=== PATIENT | female | born 1965 | race Caucasian/White ===

== ENCOUNTER → 2025-05-02 | Outpatient (CLI) | payer MEDICARE, SELFPAY ==
--- NOTE | 2025-05-02 07:53 | CT_ITS ---
PROCEDURE: SINUS/FACIAL BONE 05/02/2025 REASON FOR EXAM: SINUSITIS History of prior sinus surgery. TECHNIQUE: SINUS/FACIAL BONE Coronal and Sagittal reconstruction series were provided. One or more dose reduction techniques were used (e.g., Automated exposure control, adjustment of the mA and/or kV according to patient size, use of iterative reconstruction technique). RADIATION DOSE SUMMARY: CTDlvol: 28.14 mGy DLP: 1151.17 mGycm COMPARISON: None FINDINGS: Frontal: Unremarkable Ethmoid: Prior surgery of the ethmoid sinuses. Opacification of the left ethmoid sinus. Mucosal thickening of the right ethmoid sinus. Sphenoid: Opacification of the left sphenoid sinus. Maxillary: Opacification of the left maxillary sinus with soft tissue extension into the left nasal fossa and ethmoid sinus. Turbinates: Renan bullosa of the right middle renan. Nasal Septum: Midline Mastoids/Middle Ears: Clear CT/Sinus/Facial Bone IMPRESSION: Sinusitis as described. Soft tissue fullness of the left maxillary sinus with extension into the left nasal fossa and left ethmoid sinus. Partial medial wall resection of both maxillary sinuses. Reading Location: [facility]
== END | disposition home or self-care (01) ==
LOC: CT 07:52
PROVIDERS: PCP Nurse Practitioner Family; Referring Provider Otolaryngology; Visit Provider Otolaryngology
DX: J32.8 Other chronic sinusitis (principal)
CPT/HCPCS: 70486

== ENCOUNTER → 2025-05-09 | Outpatient (CLI) | payer MEDICARE, SELFPAY | END | disposition home or self-care (01) | LOC: LABSPEC 15:25 | PROVIDERS: PCP Nurse Practitioner Family; Referring Provider Otolaryngology; Visit Provider Otolaryngology | DX: J32.9 Chronic sinusitis, unspecified (principal) | CPT/HCPCS: 87070; 87077; 87186; 87205 ==

== ENCOUNTER → 2025-06-27 | Outpatient (CLI) | payer MEDICARE, SELFPAY | END | disposition home or self-care (01) | LOC: LABSPEC 15:06 | PROVIDERS: PCP Nurse Practitioner Family; Referring Provider Otolaryngology; Visit Provider Otolaryngology | DX: J32.8 Other chronic sinusitis (principal) | CPT/HCPCS: 87070; 87077; 87186; 87205 ==

== ENCOUNTER 2025-08-13 10:29 | Day surgery (SDC) | payer MEDICARE, SELFPAY ==
--- NOTE | 2025-06-04 10:33 | NURSING ---
PT SAID SHE COULD "ABSOLUTELY NOT COME IN" BEFORE SURGERY TO DO EKG. PT NOT HAPPY THAT THEY WAITED UNTIL PAT TO GET LABS DONE. WILL DO DOS, PT AGREEABLE
[2025-06-11 10:29] VITALS: BP 175/108; PULSE 83; RESP 18; TEMP 36.9; O2SAT 100; BMI 42.5
--- NOTE | 2025-06-11 11:15 | NURSING ---
Surgery cancelled due to high blood pressures. Appointment with Dr. Espinal at [facility] in [place] scheduled for patient at 4:00pm.
[2025-08-13] VITALS (11 sets, daily range): BP systolic 136–161; BP diastolic 68–99; PULSE 86–99; RESP 14–16; TEMP 36.2–36.9; O2SAT 72–100; BMI 44.9
[2025-08-13] MEDS: Lactated Ringers 1,000 ML 15 ML IV (11:04)
--- NOTE | 2025-08-13 11:52 | PCM.PRE.AN2 ---
ASA Classification* ASA Classification ASA Classification: 3 (BMI > 40, Asthma, GERD, HTN, Lipoedema, Bare-Lieon syndrome, fibromyalgia) Assessment & Plan Anesthesia* Anesthesia Assessment Anesthesia Assessment: Discussed sedation and/or anesthesia options, risks, benefits, and alternatives with patient/parents/legal guardian/POA. Questions invited. The patient/parents/legal guardian/POA seems to understand and agrees to proceed with anesthesia plan. Reviewed the physical assessment, medical history, allergy history and patient home medications list prior to surgery/procedure/anesthetic and documented any changes. Performed airway and anesthesia risk assessments. Discussed patient's BP with surgeon. Patient held BP medications; had finger injury which resulted in being off medications. Surgeon would like to proceed but will abort if any complication with bleeding or BP Anesthesia Type Anesthesia Type: General History Source History Obtained from:: Patient and Chart Anesthesia Focused Assessment* Temperature: 98.2 F Pulse Rate: 86 Blood Pressure: 136/68 Respiratory Rate: 16 Pulse Ox: 100 Oxygen Delivery Method: Room Air Airway Assessment Mouth opens: >3 cm Mallampati Score: III Teeth Condition: Intact Neck Range of motion (ROM): Full ROM Labs Anesthesia Preop lab: CBC CHEMISTRY COAG Pre-Assessment Diagnosis/Proposed Procedure Planned Operative Procedure(s): FUNCTIONAL ENDOSCOPIC SINUS SURGERY WITH NAVIGATION Anesthesia History 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 When Was Last Pacemaker Check QUESTION #4 FULL TEXT: You/Your Family Experience fever (hyperthermia) with Anesthesia Last Oral Intake Last Oral intake: Last Oral Intake NPO since 23:45 08/13/25 11:09 Meds taken in AM with sips of No 06/11/25 10:29 water? 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 Female Yes 08/05/25 13:37 HX of Motion Sickness Yes 08/05/25 13:37 HX of N/V After Surgery No 08/05/25 13:37 Non-Smoker Yes 08/05/25 13:37 Duration of Surgery greater Yes 08/05/25 13:37 than 60 minutes Number of Risk Factors 4 08/05/25 13:37 PONV Score Severe Risk 08/05/25 13:37 Height & Weight Height & Weight: Anesthesia: Height & Weight Height 4 ft 8 in 08/13/25 11:09 Weight: 90.9 kg 08/13/25 11:09 Body Mass Index (BMI) 44.9 08/13/25 11:09 Respiratory Assessment Respiratory Assessment - microeconomics professor: Respiratory Tract Infection Hx - microeconomics professor Hx Respiratory Tract Infection No 08/05/25 13:37 STOP Sleep Apnea STOP Sleep Apnea - microeconomics professor: STOP Sleep Apnea - microeconomics professor Hx Hypertension Yes: STARTED ON BP PILL 1 08/05/25 13:37 MONTH AGO Hx Sleep Apnea No 08/05/25 13:37 CPAP BIPAP Do you snore loudly (louder No 08/05/25 13:37 than talking or can be heard Do you often feel tired/ No 08/05/25 13:37 fatigued/ sleepy during daytime? Has anyone observed you stop No 08/05/25 13:37 breathing during sleep? STOP Results Negative 08/05/25 13:37 QUESTION #5 FULL TEXT : Do you snore loudly (louder than talking or can be heard through closed doors)? 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 Specify any problems Hx of Preganancy in last 3 No 08/05/25 13:37 Months Nurse Filling Out Transfusion DSCHRIBER 08/05/25 13:37 & Questions: Date: 08/05/25 08/05/25 13:37 Time: 13:37 08/05/25 13:37 Patient unable to answer at this time (ie. confused, unrespo /Reproduction History /Reproductive History - microeconomics professor: /Reproductive Hx- microeconomics professor Hx Now No 08/05/25 13:37 Gestational Age (in weeks): EDC: Hx Hx Para Hx Section SAB No 08/05/25 13:37 Does the father of the baby or his family experience fever w Father of the baby Malignant Hypertension history comment Active Medications Active Medications: Current Medications Generic Name Dose Route Start Last Admin Trade Name Freq PRN Reason Stop Dose Admin Clindamycin Phosphate 900 mg in 50 mls @ 75 mls/hr 08/13/25 12:30 Cleocin IV 08/13/25 13:09 INTRAOP ONE Lactated Ringer's 1,000 mls @ 15 mls/hr 08/13/25 10:45 08/13/25 11:04 IV 15 mls/hr .Q48H ASHISH Administration PFSH Medical History (Updated 08/05/25 @ 13:36 by Sheri Zhou) H. pylori infection Lipoedema Hypertension delivery delivered Carpal tunnel syndrome Deviated septum Anxiety Alcohol use History of steroid therapy Incontinence Ambulates with cane High cholesterol Degenerative disc disease Osteoporosis Fibromyalgia Jameson-Lieou syndrome Back pain Injury of head and neck Umbilical hernia History of hiatal hernia Dietary restriction Gastric reflux Former smoker Shortness of breath on exertion Hoarseness Asthma History of echocardiogram History of stress test History of edema Vertigo Home Medications Medication Instructions Recorded Last Taken Type cholecalciferol (vitamin D3) 1,250 1,250 mcg PO .Q2WEEK 06/04/25 Unknown History mcg (50,000 unit) capsule esomeprazole magnesium 40 mg 40 mg PO DAILY PRN GERD 06/04/25 Unknown History capsule,delayed release ibuprofen 800 mg tablet 800 mg PO BID 06/04/25 05/18/25 History meclizine 25 mg tablet 25 mg PO TID PRN PRN vertigo 06/04/25 Unknown History albuterol sulfate 90 mcg/actuation 2 puff inhalation 4X/DAY PRN PRN 08/05/25 Unknown History aerosol inhaler wheezing atorvastatin 10 mg tablet 10 mg PO DAILY 08/05/25 Unknown History coenzyme Q10 100 mg capsule 100 mg PO DAILY 08/05/25 Unknown History losartan 100 1 tab PO DAILY 08/05/25 Unknown History mg-hydrochlorothiazide 25 mg tablet potassium chloride 20 mEq 20 meq PO BID 08/05/25 Unknown History tablet,extended release(part/cryst) cephalexin 500 mg capsule 500 mg PO Q6H 08/13/25 08/12/25 History Allergy/AdvReac Type Severity Reaction Status Date / Time acetaminophen (From Vicodin) Allergy Hives Verified 08/13/25 11:00 corn Allergy Hives Verified 08/13/25 11:00 egg Allergy Nausea Verified 08/13/25 11:00 hydrocodone (From Vicodin) Allergy Hives Verified 08/13/25 11:00 milk (dairy) Allergy Diarrhea Verified 08/13/25 11:00 peanut (peanuts) Allergy Shortness Verified 08/13/25 11:00 of breath wheat Allergy HIVES Verified 08/13/25 11:00 meperidine (From Demerol) AdvReac Severe Nausea Verified 08/13/25 11:00 celecoxib (From Celebrex) AdvReac Intermediate Nausea Verified 08/13/25 11:00 ciprofloxacin (From Cipro) AdvReac Other Verified 08/13/25 11:00 levofloxacin (From Levaquin) AdvReac joint pain Verified 08/13/25 11:00 morphine AdvReac Itching Verified 08/13/25 11:00 Surgical History (Updated 08/05/25 @ 13:36 by Sheri Zhou) Hx of colonoscopy H/O: hysterectomy H/O bilateral breast reduction surgery H/O oophorectomy Hx laparoscopic cholecystectomy History of tonsillectomy and adenoidectomy H/O sinus surgery H/O abdominoplasty Social History Smoking Status: Never smoker Review of Systems (Anesthesia) ROS Narrative System reviewed and no additional complaints, except as documented. Physical Exam Const alert and oriented x3 Nutritional Appearance: obese Resp normal respiratory effort, normal air movement and clear to auscultation bilaterally Cardio regular rate, regular rhythm and no murmurs
[2025-08-13 12:01] LABS: Hematocrit 40.1 % (37-47); Hemoglobin 13.0 g/dL (12.0-15.0); Mean Corp Hgb Conc 32.4 g/dL (32-36); Mean Corpuscular Volume 90.3 fL (81-99); Mean Platelet Vol. 10.0 fl (6.2-12.0); Platelet Count 202 K/mm3 (150-450); RBC Distribution Width CV 12.4 % (11.6-14.6); RBC Distribution Width SD 41.2 fl (35.1-43.9); Red Blood Count 4.44 M/mm3 (4.2-5.4); White Blood Count 6.0 K/mm3 (4.4-11.0)
--- OUTSIDE RECORDS SUMMARY | 2025-08-13 12:09 | XMS RPT_ITS | CCD ---
Author Organization [facility] Care Team Providers Care Medical Writer Name Role Phone ELOY LINCOLN Attending Unavailable IMCA Referring Unavailable IMCA Primary Care Unavailable PAPBRANNON BANERJEE Attending Unavailable ELOY LINCOLN Referring Unavailable IMCA Primary Care Unavailable PAPBRANNON BANERJEE Attending Unavailable IMCA Referring Unavailable IMCA Primary Care Unavailable BRANNON GARCIA Admitting Unavailable PAPBRANNON BANERJEE Attending Unavailable IMCA Primary Care Unavailable PAPBRANNON BANERJEE Referring Unavailable IMCA Primary Care Unavailable PAPBRANNON BANERJEE Attending Unavailable IMCA Referring Unavailable IMCA Primary Care Unavailable BRANNON GARCIA Admitting Unavailable PAPBRANNON BANERJEE Attending Unavailable IMCA Primary Care Unavailable HARDEEP SORT WORKER-VINYL DIPPER [place] Primary Care Physician Martha Carlos PT Unavailable Unavailable HARDEEP DAVILA-LAISHA [place] Primary Care Physician HARDEEP ROGERS [place] Primary Care Physician Hardeep INTERIANO [place] Primary Care Provider Hardeep INTERIANO [place] Primary Care Provider Suzette Barrera Primary Care Provider Hardeep Toshia Primary Care Provider [phone] Elie SORT WORKER - VINYL DIPPER, Lidia Unavailable Hardeep INTERIANO [place] Primary Care Provider Elie SORT WORKER - VINYL DIPPER, Lidia Unavailable [phone] TOSHIA MEIER Primary Care Unavailable LIDIA BLANCA Attending Unavailable LIDIA BLANCA Referring Unavailable JANE JACOB Attending Unavailable HARDEEP TOSHIA Primary Care Unavailable TOSHIA MEIER Referring Unavailable HARDEEP TOSHIA Primary Care Unavailable LIDIA BLANCA Attending Unavailable Hardeep INTERIANO [place] Primary Care Provider HARDEEP TOSHIA Primary Care Unavailable BRANNON GARCIA Referring Unavail able LORSON SORT WORKER-VINYL DIPPER, TOSHIA Attending Unavail able LORSON SORT WORKER-VINYL DIPPER, [place] Primary Care Unavail able LORSON SORT WORKER-VINYL DIPPER, TOSHIA Attending Unavail able LORSON SORT WORKER-VINYL DIPPER, [facility] Care Unavail able BRANNON GRANADOS MD Consulting Unavail able CHOUJAA DO, NIDALEXYS Attending Unavailable LORSON SORT WORKER-VINYL DIPPER, [place] Primary Care Unavail able CHORADHA ARMIJO, CHRISTIANO Attending Unavailable LORSON SORT WORKER-VINYL DIPPER, [facility] Care Unavail able LORSON SORT WORKER-VINYL DIPPER, TOSHIA Attending Unavail able LORSON SORT WORKER-VINYL DIPPER, [facility] Care Unavail able PAPBRANNON BANERJEE [facility] PAP[facility]ON BANERJEE Attending Unavail able PAPOURBRANNON TAYLOR Referring Unavail able LORSON, [facility] Care Unavailable PAPBRANNON BANERJEE Attending Unavail able LORSON, [facility] Care Unavailable ELZA RODRIGES Attending Unavailable TOSHIA MEIER Referring Unavailable ELZA RODRIGES Referring Unavailable ELZA RODRIGES Attending Unavailable Lorson METAL HANGING SUPERVISOR-C, [facility] Care Provider [phone] Josiah BUENO, Dr. Isaacs Attending Provider Josiah BUENO, Dr. Isaacs Referring Provider LORSON SORT WORKER-VINYL DIPPER, TOSHIA Attending Unavail able LORSON SORT WORKER-VINYL DIPPER, [facility] Care Unavail able LORSON SORT WORKER-VINYL DIPPER, [facility] Care Unavail able LORSON SORT WORKER-VINYL DIPPER, TOSHIA Attending Unavail able LORSON SORT WORKER-VINYL DIPPER, TOSHIA Attending Unavail able LORSON SORT WORKER-VINYL DIPPER, [facility] Care Unavail able LORSON SORT WORKER-VINYL DIPPER, [place] Primary Care Unavail able MARTHA AGUILAR DO Attending Unavailable LORSON SORT WORKER-VINYL DIPPER, TOSHIA Attending Unavail able LORSON SORT WORKER-VINYL DIPPER, [facility] Care Unavail able LORSON SORT WORKER-VINYL DIPPER, TOSHIA Attending Unavail able LORSON SORT WORKER-VINYL DIPPER, [facility] Care [facility] Un[facility] Ferny Rahman Attending Unavailsid e Hardeep METAL HANGING SUPERVISOR, [facility] Unavailable Ferny Rahman Referring Unavailabl e Ferny Rahman Referring Unavailabl e Hardeep METAL HANGING SUPERVISOR, [facility] Unavailable Ferny Rahman Attending Cipriano Rahman, Ferny Referring Cipriano Meier NP, [facility] Unavailable Ferny Rahman Attending Cipriano Rahman, Ferny Referring Cipriano Meier NP, [facility] Unavailable Ferny Rahman Attending Cipriano coelho Allergies Allergy Classification Reported Allergen(s) Allergy Type Date of Onset Reaction(s) Facility (20 sources) Acetaminophen / HYDROcodone; Translations: [HYDROCODONE-ACETAM INOPHEN] Drug Allergy 01-28-20 16 [facility] Repository (20 sources) buPROPion; Translations: [BUPROPION HCL] Drug Allergy 01-28-20 16 GI Upset [facility] Repository (20 sources) cefdinir; Translations: [CEFDINIR] Drug Allergy 01-28-20 16 Nausea (finding), GI Upset, Nausea Only [facility] Repository (20 sources) Ciprofloxacin; Translations: [CIPROFLOXACIN] Drug Allergy 01-28-20 16 GI Upset, Myalgia [facility] Repository (20 sources) Coconut extract; Translations: [COCONUT] Drug Allergy 01-28-20 16 [facility] Repository (20 sources) corn extract; Translations: [CORN] Drug Allergy 01-28-20 16 Nausea (finding), Hives, Swelling [facility] Repository (20 sources) egg extract; Translations: [EGG] Drug Allergy 01-28-20 16 GI Upset [facility] Repository (20 sources) Lactase; Translations: [LACTASE] Drug Allergy 01-28-20 16 GI Upset [facility] Repository (20 sources) meloxicam; Translations: [MELOXICAM] Drug Allergy 01-28-20 16 GI Upset [facility] Repository (20 sources) Meperidine; Translations: [MEPERIDINE (PF)] Drug Allergy 01-28-20 16 GI Upset [facility] Repository (20 sources) Morphine; Translations: [MORPHINE] Drug Allergy 01-28-20 16 Itching [facility] Repository (20 sources) Omeprazole; Translations: [OMEPRAZOLE] Drug Allergy 01-28-20 16 [facility] Repository (20 sources) peanut; Translations: [PEANUTS] Propensity to adverse reactions (disorder) 01-28-20 16 Shortness of Breath, GI Upset [facility] Repository (20 sources) tiZANidine; Translations: [TIZANIDINE] Drug Allergy 01-28-20 16 [facility] Repository (20 sources) Wheat preparation; Translations: [WHEAT] Drug Allergy 01-28-20 16 Anaphylaxis (disorder), Unknown, Anaphylaxis [facility] Repository (18 sources) Acetaminophen / HYDROcodone; Translations: [acetaminophen-hydr ocodone] Drug Allergy [facility] (19 sources) Amoxicillin; Translations: [amoxicillin] Drug Allergy 03-01-20 23 "very sick" [facility] (20 sources) busPIRone; Translations: [buspirone] Drug Allergy 07-20-20 22 Other: See Comments [facility] (18 sources) Egg Food allergy Anaphylaxis (disorder) [facility] (20 sources) Lidocaine; Translations: [lidocaine] Drug Allergy 07-21-20 22 [facility] (20 sources) Lisinopril; Translations: [lisinopril] Drug Allergy 07-20-20 22 Palpitations (finding), Other: See Comments [facility] (20 sources) Meperidine; Translations: [meperidine] Drug Allergy 01-28-20 16 [facility] (20 sources) NITROFURANTOIN, MACROCRYSTALS / Nitrofurantoin, Monohydrate; Translations: [nitrofurantoin] Drug Allergy 07-20-20 22 Anaphylaxis (disorder) [facility] (20 sources) [place] Food allergy 03-01-20 23 Unknown (qualifier value) [facility] (18 sources) Milk Products Food allergy Nausea [facility] (20 sources) [place] fruit; Translations: [CITRUS AND DERIVATIVES] Drug Allergy 07-21-20 22 Other: See Comments [facility] (15 sources) levothyroxine; Translations: [LEVOTHYROXINE SODIUM] Drug Allergy 07-20-20 22 GI Upset, Other: See Comments [facility] (20 sources) Milk Drug Allergy 07-20-20 22 GI Upset [facility] (20 sources) Nitrofurantoin Drug Allergy 07-20-20 22 Anaphylaxis [facility] (20 sources) Sulfamethoxazole / Trimethoprim; Translations: [sulfamethoxazole-t rimethoprim] Drug Allergy 11-09-19 23 Weal (disorder), Palpitations (finding), Hives, Other: See Comments, Palpitations [facility] (8 sources) Acetaminophen; Translations: [ACETAMINOPHEN] Drug Allergy 12-18-19 19 Other: See Comments [facility] (8 sources) [place] Oil; Translations: [CORN OIL] Drug Allergy 01-28-20 16 Hives, Nausea Only, Swelling [facility] (7 sources) Egg Allergy to substance 01-28-20 16 [facility] (8 sources) Lactose (non-medical use); Translations: [LACTOSE] Allergy to substance 03-01-20 [facility] (7 sources) Lisinopril Allergy to substance 07-20-20 22 Palpitations [facility] (7 sources) peanut allergenic extract Drug Allergy 01-28-20 16 Shortness of breath [facility] (5 sources) WHEAT DEXTRIN Drug Allergy 01-28-20 16 Anaphylaxis [facility] (7 sources) Other Allergy to substance 03-01-20 23 [facility] (4 sources) Sulfamethoxazole / Trimethoprim; Translations: [SULFAMETHOXAZOLE-T RIMETHOPRIM] Drug Allergy 11-09-19 23 [facility] Repository (3 sources) MILK CONTAINING PRODUCTS (DAIRY); Translations: [MILK CONTAINING PRODUCTS (DAIRY)] Propensity to adverse reactions to drug (disorder) 07-20-20 22 [facility] Repository (1 source) buPROPion; Translations: [BUPROPION] Drug Allergy 01-28-20 16 [facility] Repository (1 source) egg shell; Translations: [EGG SHELLS] Propensity to adverse reactions to drug (disorder) 06-26-20 [facility] Repository (1 source) Meperidine; Translations: [MEPERIDINE HCL] Drug Allergy 06-26-20 24 [facility] Repository (1 source) NUT ALLERGY; Translations: [NUT ALLERGY] Propensity to adverse reactions to drug (disorder) 01-28-20 16 [facility] Repository (1 source) COCONUT FATTY ACID; Translations: [COCONUT FATTY ACID] Propensity to adverse reactions to drug (disorder) 01-28-20 16 [facility] Repository (1 source) TILACTASE; Translations: [TILACTASE] Propensity to adverse reactions to drug (disorder) 01-28-20 16 [facility] Repository (3 sources) celecoxib; Translations: [celecoxib] Drug Allergy Palpitations (finding) [facility] (3 sources) levoFLOXacin; Translations: [levofloxacin] Drug Allergy Pain (finding) [facility] (1 source) Acetaminophen Drug Allergy 06-11-20 [facility] Repository (1 source) celecoxib Drug Allergy 08-05-20 [facility] Repository (1 source) HYDROcodone Drug Allergy 06-11-20 25 [facility] (1 source) levoFLOXacin Drug Allergy 06-11-20 [facility] Repository (1 source) Meperidine Drug Allergy 08-05-20 [facility] Repository (1 source) Milk Drug allergy (disorder) 06-11-20 [facility] Repository (1 source) peanut allergenic extract Drug Allergy 06-11-20 [facility] Repository Medications Current Medications Medication Drug Class(es) Dates Sig (Normalized) Sig (Original) Albuterol (20 sources) beta2-Adrenergic Agonist Start: 12-04-2024 take 2 puff(s) by inhalation four times daily as needed for wheezing Ventolin HFA MDI (90 mcg/inh) inhalation aerosol 2 puff(s), Inhalation, QID, PRN as needed for wheezing, # 1 EA, 0 Refill(s), [facility]: [id number], 144, cm, 12/04/24 7:55:00 EST, Height, kg, 12/04/24 7:55:00 EST, Dosing Weight Start Date: 12/04/24 Status: Ordered Medication Dispense Status: Completed Quantity: 1.0 Unit: EA Total Allowed Fills: 1 Fills Dispensed: 0 Start: 01-31-2024 take 2 puff(s) by in halation four times daily as needed for wheezing Ventolin HFA MDI (90 mcg/inh) inhalation aerosol 2 puff(s), Inhalation, QID, PRN as needed for wheezing, # 1 EA, 0 Refill(s), [facility]: [id number], 145, cm, 01/31/24 8:02:00 EDT, Height, kg, 01/31/24 8:02:00 EDT, Dosing Weight Start Date: 01/31/24 Status: Ordered Start: 01-17-2024 take 1 dose by inhal ation four times daily albuterol 2.5 mg/3 mL (0.083%) inhalation solution Dose : 2.5 mg = 3 mL, Inhalation, QID, # 120 EA, 0 Refill(s), [facility]: [id number], 145, cm, 01/17/24 7:55:00 EDT, Height, kg, 01/17/24 7:55:00 EDT, Dosing Weight Start Date: 01/17/24 Status: Ordered Start: 10-19-2022 End: 03-09-2023 take 2 puff(s) by mouth four times daily as needed for wheezing albuterol 108 (90 Base) MCG/ACT inhaler INHALE TWO PUFFS BY MOUTH FOUR TIMES A DAY NEEDED FOR WHEEZING 0 10/19/2022 03/09/2023 Discontinued (Therapy completed) Start: 10-19-2022 take 2 puff(s) by in halation four times daily as needed for wheezing Ventolin HFA MDI (90 mcg/inh) inhalation aerosol 2 puff(s), Inhalation, QID, PRN as needed for wheezing, # 1 EA, 0 Refill(s), [facility]: [id number], 145.5, cm, 10/19/22 8:22:00 EST, Height, kg, 10/19/22 8:22:00 EST, Dosing Weight Start Date: 10/19/22 Status: Ordered Start: 07-07-2022 take 1 puff(s) by in halation every four hours as needed for wheezing VENTOLIN HFA 90 mcg/actuation inhaler Inhale 1 Puff as instructed every 4 hours as needed for wheezing/shortness of breath. 07/07/2022 Active Start: 07-07-2022 End: 03-09-2023 take 1 puff(s) by inhalation every four hours as needed albuterol (Ventolin HFA) 108 (90 Base) MCG/ACT inhaler Inhale 1 puff every 4 hours as needed. 0 07/07/2022 03/09/2023 Discontinued (Therapy completed) Start: 07-07-2022 take 2 puff(s) by in halation four times daily as needed for wheezing Ventolin HFA MDI (90 mcg/inh) inhalation aerosol 2 puff(s), Inhalation, QID, PRN as needed for wheezing, # 1 EA, 0 Refill(s), [facility]: [facility], 145.5, cm, 07/07/22 7:58:00 EDT, Height, kg, 07/07/22 7:58:00 EDT, Dosing Weight Start Date: 07/07/22 Status: Ordered Start: 05-19-2022 take 1 dose by inhal ation four times daily albuterol 2.5 mg/3 mL (0.083%) inhalation solution Dose : 2.5 mg = 3 mL, Inhalation, QID, # 120 EA, 0 Refill(s), [facility]: [facility], 144.4, cm, 05/19/22 7:00:00 EDT, Height, kg, 05/19/22 7:00:00 EDT, Dosing Weight Start Date: 05/19/22 Status: Ordered Start: 10-30-2021 take 1 dose by inhal ation four times daily albuterol 2.5 mg/3 mL (0.083%) inhalation solution Dose : 2.5 mg = 3 mL, Inhalation, QID, # 120 EA, 0 Refill(s), [facility]: [facility], 143, cm, 10/20/21 9:26:00 EST, Height, kg, 10/20/21 9:26:00 EST, Dosing Weight Start Date: 10/30/21 Status: Ordered Start: 10-30-2021 take 2 puff(s) by in halation four times daily as needed for wheezing Ventolin HFA MDI (90 mcg/inh) inhalation aerosol 2 puff(s), Inhalation, QID, PRN as needed for wheezing, # 1 EA, 0 Refill(s), [facility]: [facility], 143, cm, 10/20/21 9:26:00 EST, Height, kg, 10/20/21 9:26:00 EST, Dosing Weight Start Date: 10/30/21 Status: Ordered Start: 10-30-2021 take 1 dose by inhal ation four times daily albuterol 2.5 mg/3 mL (0.083%) inhalation solution Dose : 2.5 mg = 3 mL, Inhalation, QID, # 120 EA, 0 Refill(s), [facility]: [facility], 143, cm, 10/20/21 9:26:00 EST, Height, kg, 10/20/21 9:26:00 EST, Dosing Weight Start Date: 10/30/21 Status: Ordered Start: 03-16-2021 take 2 puff(s) by in halation four times daily as needed for wheezing Ventolin HFA MDI (90 mcg/inh) inhalation aerosol 2 puff(s), Inhalation, QID, PRN as needed for wheezing, # 1 EA, 0 Refill(s), [facility]: [facility], 142.2, cm, 02/18/21 13:22:00 EDT, Height, kg, 02/18/21 13:22:00 EDT, Dosing Weight Start Date: 03/16/21 Status: Ordered Start: 12-26-2019 take 2.5 mg by inhal ation every six hours as needed albuterol (PROVENTIL) 2.5 mg /3 mL (0.083 %) nebulizer solution Use 2.5 mg via nebulizer four times daily as needed. 12/26/2019 Active Start: 12-26-2019 take 1 dose by inhal ation four times daily albuterol 2.5 mg/3 mL (0.083%) inhalation solution Dose : 2.5 mg = 3 mL, Inhalation, QID, # 120 EA, 0 Refill(s), [facility]: [facility], 142.2, cm, 10/30/19 8:41:00 EST, Height, kg, 11/13/19 15:15:00 EST, Dosing Weight Start Date: 12/26/19 Status: Ordered Comment on above: Inhale 1 Puff as ins tructed every 4 hours as needed for wheezing/shortness of breath. Use 2.5 mg via nebul izer four times daily as needed. atorvastatin 10 mg oral tablet (3 sources) HMG-CoA Reductase Inhibitor Start: 2024 End: 2025 atorvastatin 10 mg oral tablet Dose : 10 mg = 1 tab(s), Oral, qDay, # 90 tab(s), 3 Refill(s), [facility]: [facility], 144, cm, 03/18/25 7:37:00 EDT, Height, kg, 03/18/25 7:37:00 EDT, Dosing Weight Start Date: 03/18/25 Stop Date: 03/13/26 Status: Ordered Medication Dispense Status: Completed Quantity: 90.0 Unit: tab(s) Total Allowed Fills: 4 Fills Dispensed: 0 azelastine hydrochloride 0.137 mg/actuat metered dose nasal spray (3 sources) Histamine-1 Receptor Antagonist Start: 2023 azelastine 137 mcg/inh (0.1%) nasal spray 137 mcg Dose = 1 spray(s), Intranasal, BID, # 30 mL, 11 Refill(s), [facility]: [facility], Allergic rhinitis, 142, cm, 09/10/24 8:12:00 EST, Height, kg, 09/10/24 8:12:00 EST, Dosing Weight Start Date: 09/10/24 Status: Ordered Medication Dispense Status: Completed Quantity: 30.0 Unit: mL Total Allowed Fills: 12 Fills Dispensed: 0 Indications: Allergic rhinitis, unspecified; bismuth subsalicylate 262 mg chewable tablet (3 sources) Bismuth Start: 2023 End: 2023 take 2 tablets by mouth four times daily bismuth subsalicylate (PEPTO-BISMOL) 262 mg chewable tablet Take 2 tablets by mouth four times daily for 10 days. 80 tablet 0 02/07/2024 Active Blood Pressure Cuff (3 sources) Start: 2024 Blood Pressure Cuff See Instructions, Check and Log Blood Pressure Daily, # 1 EA, 0 Refill(s), [facility]: [id number], Essential hypertension, 144, cm, 05/29/25 14:14:00 EDT, Height, 87.2, kg, 06/11/25 13:25:00 EDT, Dosing Weight Start Date: 06/11/25 Status: Ordered Medication Dispense Status: Completed Quantity: 1.0 Unit: EA Total Allowed Fills: 1 Fills Dispensed: 0 Indications: Essential (primary) hypertension; cephalexin 500 mg oral capsule (1 source) Cephalosporin Antibacterial Start: 2021 End: 2021 cephalexin 500 mg oral capsule Dose : 500 mg = 1 cap(s), Oral, q12h, X 5 day(s), # 10 cap(s), 0 Refill(s), 04/12/22 7:33:00 EDT, [facility]acy: [id number], 145.2, cm, 04/07/22 6:58:00 EDT, Height, 83 Start Date: 04/07/22 Stop Date: 04/12/22 Status: Ordered cholecalciferol 1.25 mg oral capsule (20 sources) Vitamin D Start: 2024 cholecalciferol 1250 mcg (50,000 intl units) oral capsule Dose : 1,250 mcg = 1 cap(s), Oral, every other week, # 12 cap(s), 3 Refill(s), [facility]: [id number], 144, cm, 03/18/25 7:37:00 EDT, Height, kg, 03/18/25 7:37:00 EDT, Dosing Weight Start Date: 03/18/25 Status: Ordered Medication Dispense Status: Completed Quantity: 12.0 Unit: cap(s) Total Allowed Fills: 4 Fills Dispensed: 0 Start: 01-31-2024 cholecalcifero l 1250 mcg (50,000 intl units) oral capsule Dose : 1,250 mcg = 1 cap(s), Oral, every other week, # 12 cap(s), 3 Refill(s), [facility]: [facility], 145, cm, 01/31/24 8:02:00 EDT, Height, kg, 01/31/24 8:02:00 EDT, Dosing Weight Start Date: 01/31/24 Status: Ordered take 1 tablet by kristi once daily cholecalciferol (VITAMIN D3) 2,000 unit tablet Take 2,000 Units by mouth once daily. Active Comment on above: Take 2,000 Units by mouth once daily. Co Q-10 100 mg oral capsule (3 sources) Start: 03-18-2025 Co Q-10 100 mg oral capsule Dose : 100 mg = 1 cap(s), Oral, Daily, # 30 cap(s), 0 Refill(s), [facility]: [facility], 144, cm, 03/18/25 7:37:00 EDT, Height, kg, 03/18/25 7:37:00 EDT, Dosing Weight Start Date: 03/18/25 Status: Ordered Medication Dispense Status: Completed Quantity: 30.0 Unit: cap(s) Total Allowed Fills: 1 Fills Dispensed: 0 diclofenac sodium 75 mg delayed release oral tablet (9 sources) Nonsteroidal Anti-inflammatory Drug Start: 05-03-2023 diclofenac sodium 75 mg oral delayed release tablet Dose : 75 mg = 1 tab(s), Oral, BID, # 60 tab(s), 0 Refill(s), [facility]: [facility], 145.5, cm, 10/19/22 8:22:00 EST, Height, kg, 12/18/22 8:23:00 EDT, Dosing Weight Start Date: 05/03/23 Status: Ordered Start: 06-16-2022 diclofenac (VO LTAREN) 1 % topical gel Apply 1 simón, Topical, QID, # 100 gram(s), 0 Refill(s), [facility]: [facility], [facility], 145.9, cm, 06/16/22 7:27:00 EDT, Height, 83.3 0 06/16/2022 Active Comment on above: Apply 1 simón, Topical, QID, # 100 gram(s), 0 Refill(s), [facility]: [facility], [facility], 145.9, cm, 06/16/22 7:27:00 EDT, Height, 83.3 dicyclomine hydrochloride 20 mg oral tablet (20 sources) Anticholinergic Start: 05-19-20 take 1 tablet by mouth four times daily dicyclomine 20 mg oral tablet See Instructions, TAKE ONE TABLET BY MOUTH FOUR TIMES A DAY, # 120 tab(s), 5 Refill(s), [facility]: [facility], 145.5, cm, 10/19/22 8:22:00 EST, Height, kg, 10/19/22 8:22:00 EST, Dosing Weight Start Date: 10/19/22 Status: Ordered Medication Dispense Status: Completed Quantity: 120.0 Unit: tab(s) Total Allowed Fills: 6 Fills Dispensed: 0 Start: 03-29-2022 take 1 tablet by kristi th four times daily dicyclomine 20 mg oral tablet See Instructions, TAKE ONE TABLET BY MOUTH FOUR TIMES A DAY, # 120 tab(s), 5 Refill(s), [facility]: [facility], 144, cm, 01/21/22 13:07:00 EDT, Height, kg, 01/21/22 13:07:00 EDT, Dosing Weight Start Date: 03/29/22 Status: Ordered Start: 10-30-2021 take 1 tablet by kristi four times daily dicyclomine 20 mg oral tablet See Instructions, TAKE ONE TABLET BY MOUTH FOUR TIMES A DAY, # 120 tab(s), 5 Refill(s), [facility]: [facility], 143, cm, 10/20/21 9:26:00 EST, Height, kg, 10/20/21 9:26:00 EST, Dosing Weight Start Date: 10/30/21 Status: Ordered Start: 04-21-2021 take 1 tablet by kristi four times daily dicyclomine 20 mg oral tablet See Instructions, TAKE ONE TABLET BY MOUTH FOUR TIMES A DAY, # 120 tab(s), 5 Refill(s), [facility]: [facility], 144.5, cm, 04/21/21 9:34:00 EDT, Height, kg, 04/21/21 9:34:00 EDT, Dosing Weight Start Date: 04/21/21 Status: Ordered Comment on above: TAKE ONE TABLET BY [facility] FOUR TIMES A DAY Ergocalciferol (7 sources) Provitamin D2 Compound Ergocalciferol (SUSANNA MIN D2 PO) Take by mouth. 0 Active esomeprazole 40 mg delayed release oral capsule (20 sources) Proton Pump Inhibitor Start: 07-25-2025 NexIUM 40 mg oral delayed release capsule Dose : 40 mg = 1 cap(s), Oral, qDay, in lieu of pcp, # 30 cap(s), 0 Refill(s), [facility]: [id number], 145, cm, 07/17/25 7:53:00 EDT, Height, kg, 07/17/25 7:53:00 EDT, Dosing Weight Start Date: 07/25/25 Status: Ordered Medication Dispense Status: Completed Quantity: 30.0 Unit: cap(s) Total Allowed Fills: 1 Fills Dispensed: 0 Start: 02-13-2025 NexIUM 40 mg o ral delayed release capsule Dose : 40 mg = 1 cap(s), Oral, qDay, # 30 cap(s), 5 Refill(s), [facility]: [id number], 144, cm, 01/29/25 7:59:00 EDT, Height, kg, 01/29/25 7:59:00 EDT, Dosing Weight Start Date: 02/13/25 Status: Ordered Medication Dispense Status: Completed Quantity: 30.0 Unit: cap(s) Total Allowed Fills: 6 Fills Dispensed: 0 Start: 01-31-2024 NexIUM Oral, q Day, 0 Refill(s) Start Date: 01/31/24 Status: Ordered Start: 08-01-2018 take 1 capsule by mo uth once daily before breakfast esomeprazole (NEXIUM) 20 mg capsule TAKE 1 CAPSULE BY MOUTH DAILY BEFORE BREAKFAST 90 capsule 11 08/01/2018 Active Comment on above: TAKE 1 CAPSULE BY MO UTH DAILY BEFORE BREAKFAST Take 20 mg by mouth daily at 6 am. fluconazole 150 mg oral tablet (17 sources) Azole Antifungal Start: 10-19-2022 End: 03-09-2023 fluconazole (DIFLUCAN) 150 mg tablet TAKE ONE TABLET BY MOUTH EVERY 72 HOURS 10/19/2022 Active Start: 08-23-2022 End: 08-24-2022 Diflucan 150 mg oral tablet Dose : 150 mg = 1 tab(s), Oral, q72h, # 2 tab(s), 0 Refill(s), [facility]: [facility], 145.5, cm, 08/23/22 7:25:00 EST, Height, 82.8 Start Date: 08/23/22 Stop Date: 08/24/22 Status: Ordered Comment on above: TAKE ONE TABLET BY M OUTH EVERY 72 HOURS fluticasone propionate 0.05 mg/actuat metered dose nasal spray (3 sources) Corticosteroid Start: 5 End: 6 take 100 ug nasal route once daily fluticasone 50 mcg/inh NASAL spray 100 mcg Dose = 2 spray(s), Nostril, each, qDay, shake well before using, # 16 gram(s), 11 Refill(s), [facility]: [facility], Allergic rhinitis, 144, cm, 03/18/25 7:37:00 EDT, Height, kg, 03/18/25 7:37:00 EDT, Dosing Weight Start Date: 03/18/25 Stop Date: 03/13/26 Status: Ordered Medication Dispense Status: Completed Quantity: 16.0 Unit: g Total Allowed Fills: 12 Fills Dispensed: 0 Indications: Allergic rhinitis, unspecified; furosemide 20 mg oral tablet (8 sources) Loop Diuretic Start: furosemide 20 mg oral tablet Dose : 20 mg = 1 tab(s), Oral, qDay, # 90 tab(s), 3 Refill(s), [facility]: [facility], 145, cm, 01/31/24 8:02:00 EDT, Height, kg, 01/31/24 8:02:00 EDT, Dosing Weight Start Date: 01/31/24 Status: Ordered Start: 01-17-2024 furosemide 20 mg oral tablet Dose : 20 mg = 1 tab(s), Oral, qDay, # 30 tab(s), 0 Refill(s), [facility]: [facility], 145, cm, 01/17/24 7:55:00 EDT, Height, kg, 01/17/24 7:55:00 EDT, Dosing Weight Start Date: 01/17/24 Status: Ordered furosemide (LASI X ORAL) Take by mouth once daily. Active furosemide (LASI X ORAL) Take by mouth once daily. 0 Active hydroCHLOROthiazide 12.5 mg / losartan potassium 50 mg oral tablet (3 sources) Thiazide Diuretic, Angiotensin 2 Receptor Caryn Start: 07-30-2025 take 1 tablet by mouth once daily hydrochlorothiazide-losartan 12.5-50 mg oral tablet Dose = 2 tab(s), Oral, qDay, # 90 tab(s), 0 Refill(s), [facility]: [facility], Essential hypertension, 145, cm, 07/17/25 7:53:00 EDT, Height, kg, 07/17/25 7:53:00 EDT, Dosing Weight Start Date: 07/30/25 Status: Ordered Medication Dispense Status: Completed Quantity: 90.0 Unit: tab(s) Total Allowed Fills: 1 Fills Dispensed: 0 Indications: Essential (primary) hypertension; Start: 06-11-2025 take 1 tablet by kristi once daily hydrochlorothiazide-losartan 12.5-50 mg oral tablet Dose = 1 tab(s), Oral, qDay, # 90 tab(s), 0 Refill(s), [id number], Essential hypertension, 144, cm, 05/29/25 14:14:00 EDT, Height, kg, 06/11/25 13:25:00 EDT, Dosing Weight Start Date: 06/11/25 Status: Ordered Medication Dispense Status: Completed Quantity: 90.0 Unit: tab(s) Total Allowed Fills: 1 Fills Dispensed: 0 Indications: Essential (primary) hypertension; ibuprofen 800 mg oral tablet (20 sources) Nonsteroidal Anti-inflammatory Drug Start: 07-25-2025 IBU 800 mg oral tablet Dose : 800 mg = 1 tab(s), Oral, TID, in lieu of pcp, # 90 tab(s), 0 Refill(s), [facility]: [facility], 145, cm, 07/17/25 7:53:00 EDT, Height, kg, 07/17/25 7:53:00 EDT, Dosing Weight Start Date: 07/25/25 Status: Ordered Medication Dispense Status: Completed Quantity: 90.0 Unit: tab(s) Total Allowed Fills: 1 Fills Dispensed: 0 Start: 03-18-2025 IBU 800 mg ora l tablet Dose : 800 mg = 1 tab(s), Oral, TID, # 90 tab(s), 3 Refill(s), [facility]: [facility], 144, cm, 03/18/25 7:37:00 EDT, Height, kg, 03/18/25 7:37:00 EDT, Dosing Weight Start Date: 03/18/25 Status: Ordered Medication Dispense Status: Completed Quantity: 90.0 Unit: tab(s) Total Allowed Fills: 4 Fills Dispensed: 0 Start: 08-31-2021 End: 11-04-2022 IBU 800 mg oral tablet Dose : 800 mg = 1 tab(s), Oral, TID, # 90 tab(s), 3 Refill(s), [facility]: [facility], 145, cm, 11/24/23 7:00:00 EST, Height, kg, 11/24/23 7:00:00 EST, Dosing Weight Start Date: 11/24/23 Status: Ordered Comment on above: Take 800 mg by mouth three times daily. levocetirizine dihydrochloride 5 mg oral tablet (1 source) Histamine-1 Receptor Antagonist Start: 02-01-2024 levocetirizine 5 mg oral tablet Dose : 5 mg = 1 tab(s), Oral, qPM, # 30 tab(s), 2 Refill(s), [facility], 145, cm, 01/31/24 8:02:00 EDT, Height, kg, 01/31/24 8:02:00 EDT, Dosing Weight Start Date: 02/01/24 Status: Ordered levoFLOXacin 500 mg oral tablet (1 source) Quinolone Antimicrobial Start: 10-19-2022 End: 10-24-2022 levoFLOXacin 500 mg oral tablet Dose : 500 mg = 1 tab(s), Oral, q24h, X 5 day(s), # 5 tab(s), 0 Refill(s), 10/24/22 8:55:00 EST, [facility]: [facility], 145.5, cm, 10/19/22 8:22:00 EST, Height, 85.9 Start Date: 10/19/22 Stop Date: 10/24/22 Status: Ordered meclizine hydrochloride 25 mg oral tablet (20 sources) Antiemetic Start: 07-25-2025 meclizine 25 mg oral tablet Dose : 25 mg = 1 tab(s), Oral, TID, As needed for Vertigo. in lieu of pcp, # 90 tab(s), 0 Refill(s), [facility]: [facility], 145, cm, 07/17/25 7:53:00 EDT, Height, kg, 07/17/25 7:53:00 EDT, Dosing Weight Start Date: 07/25/25 Status: Ordered Medication Dispense Status: Completed Quantity: 90.0 Unit: tab(s) Total Allowed Fills: 1 Fills Dispensed: 0 Start: 01-17-2024 meclizine 25 m g oral tablet Dose : 25 mg = 1 tab(s), Oral, TID, As needed for Vertigo., # 90 tab(s), 1 Refill(s), [facility]: [facility], 145, cm, 01/17/24 7:55:00 EDT, Height, kg, 01/17/24 7:55:00 EDT, Dosing Weight Start Date: 01/17/24 Status: Ordered Medication Dispense Status: Completed Quantity: 90.0 Unit: tab(s) Total Allowed Fills: 2 Fills Dispensed: 0 Start: 11-19-2022 End: 12-19-2022 meclizine 25 mg oral tablet Dose : 25 mg = 1 tab(s), Oral, TID, As needed for Vertigo., # 90 tab(s), 1 Refill(s), [facility]: [facility], 145.5, cm, 10/19/22 8:22:00 EST, Height, kg, 12/18/22 8:23:00 EDT, Dosing Weight Start Date: 06/14/23 Status: Ordered Start: 12-08-2020 End: 09-05-2022 meclizine 25 mg oral tablet Dose : 25 mg = 1 tab(s), Oral, TID, As needed for Vertigo, # 90 tab(s), 1 Refill(s), [facility]: [facility], 145.5, cm, 07/07/22 7:58:00 EDT, Height, kg, 07/07/22 7:58:00 EDT, Dosing Weight Start Date: 07/07/22 Stop Date: 09/05/22 Status: Ordered Comment on above: Take 25 mg by mouth three times daily. methylPREDNISolone 4 mg oral tablet (1 source) Corticosteroid Start: End: take 1 tablet by mouth once daily Medrol Dosepak 4 mg oral tablet 1 packet(s), Oral, qDay, as directed on package labeling, X 6 day(s), # 21 tab(s), 0 Refill(s), 07/09/25 4:54:00 PM EDT, [facility]: [id number], 144, cm, 05/29/25 14:14:00 EDT, Height, kg, 06/11/25 13:25:00 EDT, Dosing Weight Start Date: 07/03/25 Stop Date: 07/09/25 Status: Ordered Medication Dispense Status: Completed Quantity: 21.0 Unit: tab(s) Total Allowed Fills: 1 Fills Dispensed: 0 milnacipran hydrochloride 25 mg oral tablet (1 source) Serotonin and Norepinephrine Reuptake Inhibitor Start: 024 Savella 25 mg oral tablet Dose : 25 mg = 1 tab(s), Oral, BID, # 60 tab(s), 0 Refill(s), [facility]: [id number], 145, cm, 01/31/24 8:02:00 EDT, Height, kg, 01/31/24 8:02:00 EDT, Dosing Weight Start Date: 01/31/24 Status: Ordered [facility] [place] (12 sources) Start: 022 [facility] [place] MSM, 0 Refill(s), 79.5 Start Date: 10/20/21 Status: Ordered Start: 07-03-2019 [facility] [place] 0 Refill(s) Start Date: 07/03/19 Status: Ordered montelukast 10 mg oral tablet (20 sources) Leukotriene Receptor Antagonist Start: 05-19-2022 End: 03-09-2023 take 1 tablet by mouth once daily montelukast (SINGULAIR) 10 mg tablet Take 10 mg by mouth once daily. 07/07/2022 Active Start: 10-30-2021 take 1 tablet by kristi th once daily montelukast 10 mg oral tablet See Instructions, TAKE ONE TABLET BY MOUTH EVERY DAY, # 90 tab(s), 3 Refill(s), [facility]: [id number], 143, cm, 10/20/21 9:26:00 EST, Height, kg, 10/20/21 9:26:00 EST, Dosing Weight Start Date: 10/30/21 Status: Ordered Start: 12-08-2020 take 1 tablet by kristi once daily montelukast 10 mg oral tablet See Instructions, TAKE ONE TABLET BY MOUTH EVERY DAY, # 90 tab(s), 3 Refill(s), [facility]: [id number], 144, cm, 12/08/20 7:49:00 EST, Height, kg, 12/08/20 7:49:00 EST, Dosing Weight Start Date: 12/08/20 Status: Ordered Comment on above: Take 10 mg by mouth once daily. Multivitamin preparation (2 sources) Start: 4 take 1 tablet by mouth once daily Multivitamin Dose = 1 tab(s), Oral, Daily, 0 Refill(s) Start Date: 01/31/24 Status: Ordered nabumetone 750 mg oral tablet (8 sources) Nonsteroidal Anti-inflammatory Drug Start: 4 take 1 tablet by mouth twice daily as needed nabumetone 750 mg oral tablet TAKE ONE TABLET BY MOUTH TWICE DAILY NEEDED Start Date: 07/10/24 Status: Ordered Start: 06-03-2022 take 1 tablet by kristi twice daily at mealtime nabumetone (RELAFEN) 500 mg tablet Take 500 mg by mouth twice daily. Take with Food. 0 06/03/2022 Active Comment on above: Take 500 mg by mouth twice daily. Take with Food. 24 hr oxybutynin chloride 5 mg extended release oral tablet (10 sources) Cholinergic Muscarinic Antagonist Start: 11-23-19 23 take 1 tablet by mouth once daily oxybutynin XL (DITROPAN XL) 5 mg 24 hr tablet Take 1 tablet by mouth once daily. 30 tablet 3 11/23/2022 Active Comment on above: Take 1 tablet by kristi once daily. potassium chloride 20 meq oral tablet (2 sources) Start: 07-30-20 25 Potassium Chloride (Eqv-K-Tab) 20 mEq oral tablet, extended release Dose : 20 mEq = 1 tab(s), Oral, BID, take with food, # 180 tab(s), 0 Refill(s), [facility]: [facility], 145, cm, 07/17/25 7:53:00 EDT, Height, kg, 07/17/25 7:53:00 EDT, Dosing Weight Start Date: 07/30/25 Status: Ordered Medication Dispense Status: Completed Quantity: 180.0 Unit: tab(s) Total Allowed Fills: 1 Fills Dispensed: 0 promethazine hydrochloride 25 mg oral tablet (20 sources) Phenothiazine Start: 01-17-20 promethazine 25 mg oral tablet Dose : 25 mg = 1 tab(s), Oral, q6h, PRN for nausea/vomiting, # 120 tab(s), 0 Refill(s), [facility]: [facility], 145, cm, 01/17/24 7:55:00 EDT, Height, kg, 01/17/24 7:55:00 EDT, Dosing Weight Start Date: 01/17/24 Status: Ordered Medication Dispense Status: Completed Quantity: 120.0 Unit: tab(s) Total Allowed Fills: 1 Fills Dispensed: 0 Start: 11-19-2022 End: 12-19-2022 promethazine 25 mg oral tabl et Dose : 25 mg = 1 tab(s), Oral, q6h, PRN for nausea/vomiting, in lieu of provider absence, # 120 tab(s), 0 Refill(s), [facility]: [facility], 145.5, cm, 10/19/22 8:22:00 EST, Height, kg, 12/18/22 8:23:00 EDT, Dosing Weight Start Date: 04/08/23 Status: Ordered Start: 05-19-2022 End: 07-18-2022 promethazine 25 mg oral tabl et Dose : 25 mg = 1 tab(s), Oral, q6h, PRN for nausea/vomiting, # 30 tab(s), 1 Refill(s), [facility]: [facility], 144.4, cm, 05/19/22 7:00:00 EDT, Height, kg, 05/19/22 7:00:00 EDT, Dosing Weight Start Date: 05/19/22 Stop Date: 07/18/22 Status: Ordered Start: 10-30-2021 End: 12-29-2021 promethazine 25 mg oral tabl et Dose : 25 mg = 1 tab(s), Oral, q6h, PRN for nausea/vomiting, # 30 tab(s), 1 Refill(s), [facility]: [facility], 143, cm, 10/20/21 9:26:00 EST, Height, kg, 10/20/21 9:26:00 EST, Dosing Weight Start Date: 10/30/21 Stop Date: 12/29/21 Status: Ordered Start: 10-21-2020 End: 12-20-2020 promethazine 25 mg oral tabl et Dose : 25 mg = 1 tab(s), Oral, q6h, PRN for nausea/vomiting, # 30 tab(s), 1 Refill(s), [facility]: [facility], 147.5, cm, 10/21/20 8:57:00 EST, Height, kg, 10/21/20 8:57:00 EST, Dosing Weight Start Date: 10/21/20 Stop Date: 12/20/20 Status: Ordered Comment on above: Take 25 mg by mouth every 6 hours as needed. tiZANidine 4 mg oral tablet (20 sources) Central alpha-2 Adrenergic Agonist Start: 07-07-2022 take 1 tablet by mouth every eight hours tiZANidine (ZANAFLEX) 4 mg tablet Take 4 mg by mouth every 8 hours. 07/07/2022 Active Start: 11-03-2021 tiZANidine 4 m g oral tablet Dose : 4 mg = 1 tab(s), Oral, q8h, # 90 tab(s), 5 Refill(s), [facility]: [facility], 143, cm, 11/03/21 7:01:00 EST, Height, kg, 11/03/21 7:01:00 EST, Dosing Weight Start Date: 11/03/21 Status: Ordered Start: 04-21-2021 tiZANidine 4 m g oral tablet Dose : 4 mg = 1 tab(s), Oral, q8h, # 90 tab(s), 5 Refill(s), [facility]: [id number], 144.5, cm, 04/21/21 9:34:00 EDT, Height, kg, 04/21/21 9:34:00 EDT, Dosing Weight Start Date: 04/21/21 Status: Ordered Comment on above: Take 4 mg by mouth e very 8 hours. Vitamin D2 1000 units oral tablet (13 sources) Start: 12-29-2018 take 1 tablet by mouth once daily Vitamin D2 1000 units oral tablet Dose : 2,000 Int unit =, Oral, qDay Start Date: 12/29/18 Status: Ordered Completed/Discontinued Medications Medication Drug Class(es) Dates Sig (Normalized) Sig (Original) acetylcholine 10% solution - [facility] (14 sources) Start: 08-11-2022 acetylcholine 10% solution - [facility] amoxicillin 875 mg / clavulanate 125 mg oral tablet (8 sources) Penicillin-class Antibacterial take 1 tablet by mouth twice daily amoxicillin-clavul anic acid (AUGMENTIN) 875-125 mg per tablet Take 1 tablet by mouth twice daily. 0 Active Comment on above: Take 1 tablet by kristi twice daily. calcium chloride 0.0014 meq/ml / potassium chloride 0.004 meq/ml / sodium chloride 0.103 meq/ml / sodium lactate 0.028 meq/ml injectable solution (2 sources) Start: 02-03-2024 End: 02-03-2024 lactated ringers iv infusion celecoxib 100 mg oral capsule (8 sources) Nonsteroidal Anti-inflammatory Drug Start: 06-16-2022 take 1 capsule by mouth twice daily celecoxib (CELEBREX) 100 mg capsule Take 100 mg by mouth twice daily. 0 06/16/2022 Active Comment on above: Take 100 mg by mouth twice daily. cloNIDine hydrochloride 0.1 mg oral tablet (8 sources) Central alpha-2 Adrenergic Agonist take 1 tablet by mouth twice daily cloNIDine HCl (CATAPRES) 0.1 mg tablet Take 0.1 mg by mouth twice daily. 0 Active Comment on above: Take 0.1 mg by mouth twice daily. doxycycline hyclate 100 mg oral capsule (3 sources) Tetracycline-class Drug Start: 02-07-2024 End: 02-17-2024 take 1 capsule by mouth twice daily doxycycline hyclate (VIBRAMYCIN) 100 mg capsule Take 1 capsule by mouth two times a day for 10 days. 20 capsule 0 02/07/2024 02/17/2024 ezetimibe 10 mg / simvastatin 10 mg oral tablet (8 sources) HMG-CoA Reductase Inhibitor, Dietary Cholesterol Absorption Inhibitor take 1 tablet by mouth once daily at bedtime ezetimibe-simvasta tin 10-10 mg (VYTORIN) 10-10 mg per tablet Take 1 tablet by mouth daily at bedtime. 0 Active Comment on above: Take 1 tablet by kristi th daily at bedtime. lactulose 667 mg/ml oral solution (19 sources) Osmotic Laxative Start: 01-12-2023 End: 03-09-2023 take 15 mL by mouth twice daily lactulose (Chronulac) 10 GM/15ML solution TAKE 15ML BY MOUTH TWICE DAILY 0 01/12/2023 03/09/2023 Discontinued (Therapy completed) Start: 01-12-2023 take 15 mL by mouth twice daily lactulose 10 g/15 mL oral syrup See Instructions, TAKE 15ML BY MOUTH TWO TIMES A DAY, # 300 mL, 11 Refill(s) Start Date: 01/12/23 Status: Ordered Medication Dispense Status: Completed Quantity: 300.0 Unit: mL Total Allowed Fills: 12 Fills Dispensed: 0 Start: 05-19-2022 take 15 mL by mouth twice daily lactulose 10 g/15 mL oral syrup See Instructions, TAKE 15ML BY MOUTH TWO TIMES A DAY, # 300 mL, 11 Refill(s), [facility]: [id number], 144.4, cm, 05/19/22 7:00:00 EDT, Height, kg, 05/19/22 7:00:00 EDT, Dosing Weight Start Date: 05/19/22 Status: Ordered Start: 10-30-2021 take 15 mL by mouth twice daily lactulose 10 g/15 mL oral syrup See Instructions, TAKE 15ML BY MOUTH TWO TIMES A DAY, # 300 mL, 11 Refill(s), [facility]: [id number], 143, cm, 10/20/21 9:26:00 EST, Height, kg, 10/20/21 9:26:00 EST, Dosing Weight Start Date: 10/30/21 Status: Ordered Start: 02-03-2021 take 15 mL by mouth twice daily lactulose 10 g/15 mL oral syrup See Instructions, TAKE 15ML BY MOUTH TWO TIMES A DAY, # 300 mL, 11 Refill(s), [facility]: [id number], 144, cm, 12/08/20 7:49:00 EST, Height, kg, 12/08/20 7:49:00 EST, Dosing Weight Start Date: 02/03/21 Status: Ordered levothyroxine sodium 0.025 mg oral tablet (8 sources) l-Thyroxine take 1 tablet by mouth once daily levothyroxine (SYNTHROID) 25 mcg tablet Take 25 mcg by mouth once daily. 0 Active Comment on above: Take 25 mcg by mouth once daily. 10 ml lidocaine hydrochloride 10 mg/ml injection (1 source) Antiarrhythmic, Amide Local Anesthetic Start: 09-16-20 End: 09-16-20 lidocaine (PF) 10 mg/mL (1 %) 5 mL injection (XYLOCAINE) Start: 09-16-2022 End: 09-16-2022 lidocaine (PF) 10 mg/mL (1 % ) 5 mL injection (XYLOCAINE) metroNIDAZOLE 250 mg oral tablet (3 sources) Nitroimidazole Antimicrobial Start: 02-07-2024 End: 02-17-2024 take 1 tablet by mouth four times daily metroNIDAZOLE (FLAGYL) 250 mg tablet Take 1 tablet by mouth four times daily for 10 days. 40 tablet 0 02/07/2024 02/17/2024 NIFEdipine 10 mg oral capsule (8 sources) Dihydropyridine Calcium Channel Caryn NIFEdipine (PROCARDIA, ADALAT) 10 mg capsule Take 10 mg by mouth as needed. 0 Active Comment on above: Take 10 mg by mouth as needed. predniSONE 10 mg oral tablet (2 sources) Start: 01-26-2023 End: 02-01-2023 prednisone 10mg tab (TAPER) Taper 50-90-38-30-20-10 x 1 day, Oral, qAM, # 21 tab(s), 0 Refill(s), [facility]: [id number], 145.5, cm, 10/19/22 8:22:00 EST, Height Start Date: 01/26/23 Stop Date: 02/01/23 Status: Ordered Start: 05-19-2022 End: 05-26-2022 predniSONE 20 mg oral tablet Dose : 40 mg = 2 tab(s), Oral, qDay, X 7 day(s), # 14 tab(s), 0 Refill(s), 05/26/22 7:27:00 EDT, [facility]: [id number], 144.4, cm, 05/19/22 7:00:00 EDT, Height Start Date: 05/19/22 Stop Date: 05/26/22 Status: Ordered topiramate 25 mg oral tablet (11 sources) Start: 07-07-2022 End: 11-04-2022 take 1 tablet by mouth twice daily topiramate (TOPAMAX) 25 mg tablet Take 25 mg by mouth twice daily. 0 07/07/2022 Active Start: 07-07-2022 End: 11-04-2022 topiramate 25 mg oral capsul e Dose : 25 mg = 1 cap(s), Oral, BID, Take 1 cap daily at bedtime x 1 week, then increase to one twice daily, # 60 cap(s), 3 Refill(s), [facility]: [id number], 145.5, cm, 07/07/22 7:58:00 EDT, Height Start Date: 07/07/22 Stop Date: 11/04/22 Status: Ordered Comment on above: Take 25 mg by mouth twice daily. 1 ml triamcinolone acetonide 40 mg/ml injection (1 source) Corticosteroid Start: 09-16-2022 End: 09-16-2022 triamcinolone acetonide 80 mg injection (KeNALog 40) Start: 09-16-2022 End: 09-16-2022 triamcinolone acetonide 80 m g injection (KeNALog 40) Problems Active Problems Problem Classification Problem Date Documented Date Episodic/Chronic Abdominal pain (4 sources) Generalized abdominal pain; Translations: [Generalized abdominal pain] Onset: 4 02-06-2024 Episodic Acquired foot deformities (1 source) Hammer toe 04-21-2021 Chronic Anxiety disorders (20 sources) Acute stress disorder; Translations: [Anxiety] Onset: 3 09-01-2021 Chronic Asthma (8 sources) Asthma; Translations: [Unspecified asthma, uncomplicated] Onset: 4 02-03-2024 Chronic Diseases of mouth; excluding dental (3 sources) Oral cyst 03-18-2025 Episodic Disorders of lipid metabolism (20 sources) Hyperlipidemia; Translations: [Hyperlipidemia, unspecified] Onset: 3 06-27-2019 Chronic Disorders of teeth and jaw (15 sources) Dental abscess; Translations: [Jaw pain] 10-21-2020 Episodic E Codes: Cut/pierceb (1 source) Contact with powered supervisor carding, initial encounter; Translations: [Accident caused by powered supervisor carding, initial encounter] Onset: 5 Episodic Esophageal disorders (20 sources) Gastroesophageal reflux disease; Translations: [Gastro-esophageal reflux disease without esophagitis] Onset: 8 08-01-2018 Chronic Essential hypertension (20 sources) Hypertensive disorder; Translations: [Essential (primary) hypertension] Onset: 3 08-02-2019 Chronic Genitourinary symptoms and ill-defined conditions (10 sources) Dysuria 04-07-2022 Episodic Immunizations and screening for infectious disease (10 sources) Rheumatoid factor positive 08-23-2022 Episodic Intestinal infection (5 sources) Infection caused by Helicobacter pylori; Translations: [Other specified bacterial intestinal infections] 02-07-2024 Episodic Joint disorders and dislocations; trauma-related (2 sources) Derangement of right knee; Translations: [Unspecified internal derangement of right knee] Chronic Joint disorders and dislocations; trauma-related (1 source) Derangement of left knee; Translations: [Unspecified internal derangement of left knee] Chronic Joint disorders and dislocations; trauma-related (1 source) Acute meniscal tear, medial; Translations: [Complex tear of medial meniscus, current injury, right knee, initial encounter] Episodic Lymphadenitis (16 sources) Lymphadenopathy 04-07-2022 Episodic Miscellaneous mental health disorders (18 sources) 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 Mycoses (17 sources) Candidal vulvovaginitis; Translations: [Mycosis] 08-23-2022 Episodic Neoplasms of unspecified nature or uncertain behavior (12 sources) Neoplastic disease of uncertain behavior 04-21-2021 Episodic Nonspecific chest pain (4 sources) Chest pain 07-10-2024 Episodic Nutritional deficiencies (10 sources) Vitamin D deficiency; Translations: [Vitamin D deficiency, unspecified] Onset: 5 01-25-2023 Chronic Open wounds of extremities (1 source) Complete traumatic metacarpophalangeal amputation of unspecified finger, initial encounter; Translations: [Amputation of tip of finger, initial encounter] Onset: 5 Chronic Osteoarthritis (2 sources) Osteoarthritis of knee; Translations: [Bilateral primary osteoarthritis of knee] Chronic Osteoporosis (20 sources) Osteoporosis; Translations: [Age-related osteoporosis without current pathological fracture] Onset: 3 10-21-2020 Chronic Other and unspecified benign neoplasm (2 sources) Personal history of colonic polyps Onset: 8 Episodic Other bone disease and musculoskeletal deformities (18 sources) Cervical somatic dysfunction 02-01-2020 Episodic Other bone disease and musculoskeletal deformities (18 sources) Somatic dysfunction of rib 02-01-2020 Episodic Other bone disease and musculoskeletal deformities (18 sources) Somatic dysfunction of thoracic region 02-01-2020 Episodic Other bone disease and musculoskeletal deformities (18 sources) Somatic dysfunction of upper limb 02-01-2020 Episodic Other circulatory disease (17 sources) Carotid bruit 10-20-2021 Episodic Other circulatory disease (4 sources) Elevated blood pressure 07-10-2024 Episodic Other connective tissue disease (20 sources) Pain in lower limb 05-19-2022 Episodic Other connective tissue disease (20 sources) Fibromyalgia; Translations: [Fibromyalgia] Onset: 6 01-28-2016 Episodic Other connective tissue disease (1 source) Pain in right arm; Translations: [Pain in right arm] Episodic Other connective tissue disease (12 sources) Pain in right lower limb; Translations: [Pain in right leg] Onset: 3 Episodic Other connective tissue disease (3 sources) Pain in bilateral legs; Translations: [Pain in right leg] 03-10-2023 Episodic Other connective tissue disease (2 sources) Inflammatory neuropathy ; Translations: [Neuralgia and neuritis, unspecified] 01-03-2024 Episodic Other connective tissue disease (2 sources) Neuralgia and neuritis, unspecified; Translations: [Neuralgia and neuritis, unspecified] Onset: 4 Episodic Other connective tissue disease (6 sources) Neuropathic pain 01-17-2024 Episodic Other connective tissue disease (3 sources) Swelling of lower limb 05-29-2025 Episodic Other diseases of bladder and urethra (2 sources) Overactive bladder; Translations: [Overactive bladder] Chronic Other diseases of veins and lymphatics (4 sources) Vascular insufficiency; Translations: [Venous insufficiency (chronic) (peripheral)] 03-09-2023 Episodic Other ear and sense organ disorders (7 sources) Otalgia 09-21-2022 Episodic Other ear and sense organ disorders (5 sources) Tinnitus 01-31-2024 Episodic Other female genital disorders (16 sources) Vaginal discharge 04-07-2022 Episodic Other injuries and conditions due to external causes (1 source) Injury of lower leg; Translations: [Unspecified injury of unspecified lower leg, initial encounter] Onset: 2 Episodic Other injuries and conditions due to external causes (13 sources) Injury of knee 05-21-2022 Episodic Other liver diseases (8 sources) Steatosis of liver 01-25-2023 Chronic Other lower respiratory disease (11 sources) Cough 07-07-2022 Episodic Other lower respiratory disease (3 sources) Wheezing 12-04-2024 Episodic Other nervous system disorders (20 sources) Chronic pain syndrome; Translations: [Chronic pain syndrome] Onset: 6 01-28-2016 Chronic Other nervous system disorders (2 sources) Skin sensation disturbance; Translations: [Unspecified disturbances of skin sensation] Episodic Other nervous system disorders (2 sources) Paresthesia; Translations: [Paresthesia of skin] Episodic Other nervous system disorders (10 sources) Numbness of face 08-23-2022 Episodic Other non-traumatic joint disorders (10 sources) Hip pain 04-07-2022 Episodic Other non-traumatic joint disorders (7 sources) Acromioclavicular joint pain 07-18-2023 Episodic Other non-traumatic joint disorders (2 sources) Acute ankle pain; Translations: [Pain in left ankle and joints of left foot] 01-03-2024 Episodic Other non-traumatic joint disorders (2 sources) Pain in left ankle and joints of left foot; Translations: [Pain in left ankle and joints of left foot] Onset: 4 Episodic Other non-traumatic joint disorders (4 sources) Knee pain 02-28-2024 Episodic Other non-traumatic joint disorders (3 sources) Shoulder pain 01-29-2025 Episodic Other nutritional; endocrine; and metabolic disorders (10 sources) Body mass index 30+ - obesity 08-23-2022 Chronic Other nutritional; endocrine; and metabolic disorders (14 sources) Body mass index 40+ - severely obese; Translations: [Body mass index (BMI) 45.0-49.9, adult] Onset: 4 01-17-2024 Chronic Other nutritional; endocrine; and metabolic disorders (1 source) Body mass index (BMI) 45.0-49.9, adult; Translations: [BMI 45.0-49.9, adult ([facility])] Onset: 4 Chronic Other skin disorders (12 sources) Eruption 04-21-2021 Episodic Other skin disorders (6 sources) [place] 01-17-2024 Episodic Other skin disorders (6 sources) Nail deformity 01-17-2024 Episodic Other skin disorders (3 sources) Mass of body region 05-29-2025 Episodic Other upper respiratory disease (6 sources) Allergic rhinitis 11-24-2023 Chronic Other upper respiratory infections (15 sources) Chronic sinusitis; Translations: [Maxillary sinusitis] Onset: 5 08-02-2019 Chronic Other upper respiratory infections (4 sources) Acute maxillary sinusitis 08-23-2022 Episodic Pneumonia (except that caused by tuberculosis or sexually transmitted disease) (3 sources) Community acquired pneumonia 12-04-2024 Episodic Residual codes; unclassified (20 sources) Insomnia 06-27-2019 Episodic Residual codes; unclassified (18 sources) Bilateral lower limb edema; Translations: [Localized edema] Onset: 3 01-25-2023 Episodic Residual codes; unclassified (16 sources) Lipedema; Translations: [Edema, unspecified] Onset: 3 03-09-2023 Episodic Residual codes; unclassified (6 sources) Chronic pain 11-24-2023 Episodic Residual codes; unclassified (6 sources) Edema 01-17-2024 Episodic Spondylosis; intervertebral disc disorders; other back problems (20 sources) Backache; Translations: [Cervicocranial syndrome] 02-01-2020 Episodic Thyroid disorders (20 sources) Hypothyroidism; Translations: [Hypothyroidism, unspecified] Onset: 6 06-27-2019 Chronic Unclassified (16 sources) Pain of knee region 04-07-2022 Unclassified (18 sources) Patient encounter status 04-07-2022 Unclassified (2 sources) New Patient; Translations: [New Patient] Onset: 3 Unclassified (1 source) Established Patient Onset: 05-07-202 4 Unclassified (3 sources) Pain of right shoulder region 01-29-2025 Unclassified (3 sources) Skull finding 03-18-2025 Urinary tract infections (16 sources) Acute cystitis; Translations: [Recurrent cystitis ] 09-21-2022 Episodic Viral infection (12 sources) Post-viral disorder 04-21-2021 Episodic Past or Other Problems Problem Classification Problem Date Documented Da te Episodic/Chronic Abdominal hernia (20 sources) Hernia of anterior abdominal wall; Translations: [Ventral hernia without obstruction or gangrene] Onset: 05-02-2018 05-02-2018 Episodic Other and unspecified benign neoplasm (20 sources) History of polyp of colon; Translations: [Personal history of colonic polyps] Onset: 08-01-2018 08-01-2018 Episodic Other circulatory disease (7 sources) Elevated blood-pressure reading without diagnosis of hypertension; Translations: [Elevated blood-pressure reading, without diagnosis of hypertension] Onset: 02-03-2024 02-03-2024 Episodic Other circulatory disease (1 source) Elevated blood-pressure reading, without diagnosis of hypertension; Translations: [Elevated blood-pressure reading without diagnosis of hypertension] Onset: 02-03-2024 Episodic Other connective tissue disease (1 source) Pain in right leg; Translations: [Pain in right leg] Onset: 03-22-2023 Episodic Other connective tissue disease (2 sources) Pain in left leg; Translations: [Pain in left leg] Onset: 03-22-2023 Episodic Other diseases of veins and lymphatics (2 sources) Venous insufficiency (chronic) (peripheral); Translations: [Venous insufficiency (chronic) (peripheral)] Onset: 03-22-2023 Episodic Other gastrointestinal disorders (9 sources) Altered bowel function; Translations: [Change in bowel habit] Onset: 02-03-2024 01-02-2024 Episodic Other gastrointestinal disorders (1 source) Change in bowel habit; Translations: [Change in bowel habits] Onset: 02-03-2024 Episodic Other non-traumatic joint disorders (7 sources) Pain in right knee; Translations: [Pain in joint, lower leg] Onset: 03-01-2023 03-01-2023 Episodic Residual codes; unclassified (2 sources) Edema, unspecified; Translations: [Edema, unspecified] Onset: 06-07-2023 Episodic Residual codes; unclassified (2 sources) Localized edema; Translations: [Localized edema] Onset: 03-01-2023 Episodic Results Test Name Value Interpretation Reference Range Facility ED PROV NOTEon 08-11-2025 ED PROV NOTE HNO ID: [id number] Author: KAZ LUGO PA-C Service: ? Author Type: Physician Sales And Catering Coordinator Type: ED Provider Notes Filed: 08/11/2025 15:12 Note Text: ED Provider Note Patient Name: Vince Slaughter : 1965 SERVICE DATE: 08/11/25 History Patient presents with: Finger Injury: Pt states she caught her finger caught in a supervisor carding. Thinks she got the top of it. HPI Vince Slaughter is a 60 year old female who presents to the ED for evaluation for laceration. States that she got her finger caught underneath a lawnmower. States she cut the tip off of her left index finger. Event happened just prior to presentation. Denies pain or injuries elsewhere. Bleeding has been controlled. Tetanus status not up-to-date Nursing/triage notes, assessments, and vitals were reviewed. See MDM/ED course for further HPI. ROS Review of Systems Negative unless otherwise stated in HPI or MDM 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 neck pain Carpal tunnel syndrome Constipation Degenerative disc disease, cervical Degenerative disc disease, lumbar Fibromyalgia Hearing loss High cholesterol Hypothyroid not on medication Incontinence Irritable bladder Irritable bowel Menopause Migraines Numbness and tingling arms, legs, hands, feet, face PTSD (post-traumatic stress disorder) Raynaud's disease Restless leg Sciatica Tinnitus Vertigo PAST SURGICAL HISTORY Procedure Laterality Date ABDOMINOPLASTY 2016 tummy tuck CARPAL TUNNEL Right 1988 CARPAL TUNNEL Left 1998 CARPAL TUNNEL Right 2015 DELIVERY ONLY x2 CHOLECYSTECTOMY 2012 COLONOSCOPY SCREENING 02/03/2024 EGD W/O BRSH SPEC VARICIES INJ 02/03/2024 FINGER SURGERY HX Right 2015 right middle trigger finger FINGER SURGERY HX Right 2015 tendon in thumb HYSTERECTOMY HX 1999 LX REPAIR RECURRENT VENTRAL HERNIA 06/20/2018 PAST SURGICAL HISTORY OF 2013 Sling removed REDUCTION OF LARGE BREAST 06/22/2013 SINUS SURGERY HX 2008 SLING OPER STRES INCONTINENCE TONSILLECTOMY AND ADENOIDECTOMY HX 1993 TOOTH EXTRACTION 2008 wisdom teeth FAMILY HISTORY Problem Relation Age of Onset Heart Mother Thyroid Mother Heart Father Prostate Cancer Father Diabetes Father other (cirrhosis of liver) Father Heart Paternal Grandfather Colon Cancer Paternal Grandfather Heart Paternal Grandmother other (Leukemia) Paternal Grandmother Breast Cancer Maternal Grandmother Thyroid Maternal Grandmother Social History[1] ALLERGIES Allergen Reactions [place] Hives, Swelling Hives, sick, rash, swelling of skin Nitrofurantoin Anaphylaxis Peanuts GI Upset, Shortness of Breath With skins Buspirone Other: See Comments Ciprofloxacin GI Upset, Myalgia Sick [place]* Other: See Comments GI upset, acidic stool and urine Coconut Hives Hives; processed, can eat fresh Dairy Aid [Lactase] GI Upset Sever bloating and stomach pain Demerol [Meperidine* GI Upset Vomiting Eggs [Egg] GI Upset Extreme sickness Lisinopril Other: See Comments Milk Containing Pro* GI Upset Mobic [Meloxicam] GI Upset sick Morphine Itching Omnicef [Cefdinir] GI Upset Sick Prilosec [Omeprazol* Hives Sulfamethoxazole-Tr* Hives, Other: See Comments Vicodin [Hydrocodon* Hives Wellbutrin [Bupropi* GI Upset Sick Wheat Unknown Hives, sick and headache Physical Exam Physical Exam Vitals [08/11/25 1216] BP Pulse Temp Temp src Resp SpO2 Weight Height 185/106 89 36.4 ?C (97.5 ?F) Oral 18 100 % 94.3 kg (208 lb) -- General: alert, generally well-appearing HEENT: atraumatic, mucous membranes moist Neck: no stiffness or restricted ROM, trachea midline Lungs: unlabored respirations Extremities: without cyanosis or edema Left index finger distal phalanx amputation with bone exposed. Full range of motion at the MCP, PIP joints. Decreased range of motion at the DIP joint. Active venous bleeding controlled. No trauma to the 1st, 3rd, 4th, or 5th digit of the left hand. Radial pulse 2+. Strong jig hand strength. Skin: warm, dry, no rashes or lesions Neuro: alert, oriented, no lateralized or focal deficits, moving all 4 extremities, no gross weakness, CN grossly intact Psych: normal mood and affect Diagnostic Testing ED Labs Ordered and Reviewed - No data to display XR HAND GENERAL 3V PA/LAT/OBL LEFT Final Result IMPRESSION: Soft tissue injury with partial amputation of the tuft of the second digit. Chopper Gun Operator: SAMANTHA Transcribe Date/Time: Aug 11 2025 12:42P Dictated by : MELITA MOTTA MD This examination was interpreted and the report reviewed and electronically signed by: MELITA MOTTA MD on Aug 11 2025 12:43PM EST Procedures Procedures Medications received in ED Medicati (more content not included)... [facility] ED Triage Noteon 08-11-2025 ED Triage Note HNO ID: [id number] Author: KYLIE ESQUEDA PA-C Service: ? Author Type: Physician Sales And Catering Coordinator Type: ED Triage Notes Filed: 08/11/2025 12:26 Note Text: ED TRIAGE PROVIDER NOTE Patient Name: Vince Slaughter Service Date: 08/11/25 BRIEF HPI: This is a 60 year old female who presents to the ED with: Patient cut off the tip of the left index finger with a supervisor carding. Not up to date on tetanus. No other complaints. BRIEF EXAM: Vitals [08/11/25 1216] BP Pulse Temp Temp src Resp SpO2 Weight Height 185/106 89 36.4 ?C (97.5 ?F) Oral 18 100 % 94.3 kg (208 lb) -- NAD Awake and Alert Non labored breathing No focal neurological deficits Left index finger distal phalanx partial amputation. Exam limited due to patient being in pain. INITIAL WORKUP AND DECISION MAKING: Orders Placed This Encounter HAND LT ceFAZolin iv piggyback 2 g in D5W (iso-osmotic) 100 mL (ANCEF) ondansetron (PF) 4 mg injection (ZOFRAN) tetanus diphtheria pertussis Tdap vaccine (PF) 0.5 mL injection (ADACEL) NaCl 0.9% iv flush bag SIGNATURE: Kylie Esqueda PA-C [facility] XR HAND 3V PA/LAT/OBL LTon 1 10-11-2024 XR HAND 3V PA/LAT/OBL LT * * *Final Report* * * DATE OF EXAM: Aug 11 2025 12:34PM [id number] [id number] - XR HAND 3V PA/LAT/OBL LT / PROCEDURE REASON: Trauma * * * * Physician Interpretation * * * * XR HAND 3V PA/LAT/OBL LT Ordering Physician: EDELMIRA CAIN LEFT HAND RADIOGRAPHS Clinical Statement: Trauma Comparison: None FINDINGS: There is soft tissue injury with partial amputation involving the tuft of the second digit. Overlying bandaging material obscures some detail. The remainder the visualized osseous structures are intact. No retained radiopaque foreign body. Mild scattered degenerative changes incidentally noted. IMPRESSION: Soft tissue injury with partial amputation of the tuft of the second digit. Chopper Gun Operator: PSCB Transcribe Date/Time: Aug 11 2025 12:42P Dictated by : MELITA MOTTA MD This examination was interpreted and the report reviewed and electronically signed by: MELITA MOTTA MD on Aug 11 2025 12:43PM EST [id number] CN [facility] .GFRon 07-29-2025 Estimated Glomerular Filtration Rate 100 ml/min/1.73sqm Normal [facility] Comment on above: Result Comment: Stages of Chronic Kidney Disease (CKD) Stage Description eGFR(ml/min/1.73 sq.m.) CKD 1 Normal kidney function or >=90 normal kindney function with possible kidney damage (ex. Proteinuria) CKD 2 Kidney damage with mild loss 60-89 of kidney function CKD 3a Mild to moderate loss of kidney 45-59 function CKD 3b Moderate to severe loss of 30-44 of kindey function CKD 4 Severe loss of kidney function 15-29 CKD 5 Kidney failure <15 Note: (go live 2024) the eGFR calculation was updated to the 2020 CKD-EPI creatinine equation without a race factor to calculate the eGFR results. Performed By: #### G FR, CMP, LIPID, VIDH #### [address] [place], [place] [address] CMPon 07-29-2025 Albumin Level 3.9 G/dL Normal 3.4-4.8 [facility] Comment on above: Performed By: #### G FR, CMP, LIPID, VIDH #### [address] [place], [place] [address] Albumin/Globulin [Mass ratio] 1.1 {ratio} Normal 1.1-2.5 [facility] Comment on above: Performed By: #### G FR, CMP, LIPID, VIDH #### [address] [address] ALP [Catalytic activity/Vol] 106 U/L Normal 40-135 [facility] Comment on above: Performed By: #### G FR, CMP, LIPID, VIDH #### [address] [address] ALT [Catalytic activity/Vol] 35 U/L Normal 14-59 [facility] Comment on above: Performed By: #### G FR, CMP, LIPID, VIDH #### [place] [id number] AST [Catalytic activity/Vol] 23 U/L Normal 10-40 [facility] Comment on above: Performed By: #### G FR, CMP, LIPID, VIDH #### [address] [address] Bili Total 0.5 mg/dL Normal 0.2-1.0 [facility] Comment on above: Result Comment: Use of this assay is not recommended for patients undergoing treatment with eltrombopag due to the potential for falsely elevated results. Performed By: #### G FR, CMP, LIPID, VIDH #### [address] [address] BUN/Creatinine Ratio 15 ratio Normal 7-27 [facility] Comment on above: Performed By: #### G FR, CMP, LIPID, VIDH #### [address] [address] Calcium [Mass/Vol] 9.1 mg/dL Normal 8.4-10.2 [facility] Comment on above: Performed By: #### G FR, CMP, LIPID, VIDH #### [address] [address] Chloride [Moles/Vol] 103 mmol/L Normal 98-107 [facility] Comment on above: Performed By: #### G FR, CMP, LIPID, VIDH #### [address] [address] CO2 [Moles/Vol] 27 mmol/L Normal 23-31 [facility] Comment on above: Performed By: #### G FR, CMP, LIPID, VIDH #### [address] [address] Creatinine [Mass/Vol] 0.67 mg/dL Normal 0.51-0.95 [facility] Comment on above: Performed By: #### G FR, CMP, LIPID, VIDH #### [address] [address] Electrolyte Balance 9.0 mEq/L Normal 4.0-15.0 [facility] Comment on above: Performed By: #### G FR, CMP, LIPID, VIDH #### [address] [address] Globulin 3.6 G/dL Normal 2.7-4.4 [facility] Comment on above: Performed By: #### G FR, CMP, LIPID, VIDH #### [address] [address] Glucose [Mass/Vol] 99 mg/dL Normal 80-115 [facility] Comment on above: Performed By: #### G FR, CMP, LIPID, VIDH #### [address] [address] Potassium [Moles/Vol] 3.4 mmol/L Low 3.5-5.1 [facility] Comment on above: Performed By: #### G FR, CMP, LIPID, VIDH #### [address] [address] Sodium [Moles/Vol] 139 mmol/L Normal 136-145 [facility] Comment on above: Performed By: #### G FR, CMP, LIPID, VIDH #### [address] [address] Total Protein 7.5 G/dL Normal 6.4-8.2 [facility] Comment on above: Performed By: #### G FR, CMP, LIPID, VIDH #### [facility] [address] [place], [place] [address] Urea nitrogen [Mass/Vol] 10 mg/dL Normal 7-18 [facility] Comment on above: Performed By: #### G FR, CMP, LIPID, VIDH #### [facility] [address] [place], [place] [address] LABORATORYOrdered By: SYSTEM SYSTEM on 07-29-2025 TSH Qn 2.22 m[IU]/L Normal 0.36 - 3.74 mcIU/mL AO ADM SS 25-hydroxyvitamin D3 [Mass/Vol] 44.3 ng/mL Invalid Interpretation Code AO ADM SS Comment on above: Interpretive Data: I nterpretive Values Based on Total 25(OH) Vitamin D: Deficient <20 ng/mL Insufficient 20 - <30 ng/mL Sufficient 30-100 ng/mL Albumin BCP dye [Mass/Vol] 3.9 G/dL Normal 3.4 - 4.8 G/dL AO ADM SS Albumin/Globulin [Mass ratio] 1.1 {ratio} Normal 1.1 - 2.5 ratio AO ADM SS ALP [Catalytic activity/Vol] 106 U/L Normal 40 - 135 U/L AO ADM SS ALT With P-5'-P [Catalytic activity/Vol] 35 U/L Normal 14 - 59 U/L AO ADM SS AST With P-5'-P [Catalytic activity/Vol] 23 U/L Normal 10 - 40 U/L AO ADM SS Bilirubin [Mass/Vol] 0.5 mg/dL Normal 0.2 - 1 .0 mg/dL AO ADM SS Comment on above: Interpretive Data: U se of this assay is not recommended for patients undergoing treatment with eltrombopag due to the potential for falsely elevated results. Calcium [Mass/Vol] 9.1 mg/dL Normal 8.4 - 10. 2 mg/dL AO ADM SS Chloride [Moles/Vol] 103 mmol/L Normal 98 - 10 7 mmol/L AO ADM SS CO2 [Moles/Vol] 27 mmol/L Normal 23 - 31 mmol/L AO ADM SS Creatinine [Mass/Vol] 0.67 mg/dL Normal 0.51 - 0.95 mg/dL AO ADM SS Electrolyte Balance 9.0 mEq/L Normal 4.0 - 15 .0 mEq/L AO ADM SS Globulin 3.6 G/dL Normal 2.7 - 4.4 G/dL AO ADM SS GLOMERULAR FILTRATION RATE/1.73 SQ M.PREDICTED:ARVRAT:PT:S ER/PLAS/BLD:QN:CREATINI NE-BASED FORMULA (CKD-EPI 2020) 100 ml/min/1.73sqm Invalid Interpretation Code AO Chemistry S Comment on above: Interpretive Data: Stages of Chronic Kidney Disease (CKD) Stage Description eGFR(ml/min/1.73 sq.m.) CKD 1 Normal kidney function or >=90 normal kindney function with possible kidney damage (ex. Proteinuria) CKD 2 Kidney damage with mild loss 60-89 of kidney function CKD 3a Mild to moderate loss of kidney 45-59 function CKD 3b Moderate to severe loss of 30-44 of kindey function CKD 4 Severe loss of kidney function 15-29 CKD 5 Kidney failure <15 Note: (go live 2024) the eGFR calculation was updated to the 2020 CKD-EPI creatinine equation without a race factor to calculate the eGFR results. Glucose [Mass/Vol] 99 mg/dL Normal 80 - 115 mg/dL AO ADM SS Potassium [Moles/Vol] 3.4 mmol/L Low 3.5 - 5.1 mmol/L AO ADM SS Protein [Mass/Vol] 7.5 G/dL Normal 6.4 - 8.2 G/dL AO ADM SS Sodium [Moles/Vol] 139 mmol/L Normal 136 - 145 mmol/L AO ADM SS Urea nitrogen [Mass/Vol] 10 mg/dL Normal 7 - 18 mg/dL AO ADM SS Urea nitrogen/Creatinine [Mass ratio] 15 ratio Normal 7 - 27 ratio AO ADM SS LABORATORYOrdered By: Torres Cat on 07-29-2025 Cholesterol [Mass/Vol] 231 mg/dL High 0 - 2 00 mg/dL AO ADM SS Comment on above: Interpretive Data: C holesterol Reference Interval: Less than 200 Desirable 200-239 Borderline high risk 240 and above High risk Cholesterol in HDL [Mass/Vol] 53 mg/dL Normal 40 - 60 mg/dL AO ADM SS Cholesterol in LDL [Mass/Vol] 151 mg/dL High 0 - 130 mg/dL AO ADM SS Triglyceride [Mass/Vol] 136 mg/dL Normal 0 - 150 mg/dL AO ADM SS Comment on above: Interpretive Data: T riglyceride Reference Interval: Less than 150 Normal 150-199 Borderline high risk 200-499 High risk 500 or higher Very high risk LIPIDon 07-29-2025 Cholesterol [Mass/Vol] 231 mg/dL High 0-200 [facility] Comment on above: Result Comment: Chol esterol Reference Interval: Less than 200 Desirable 200-239 Borderline high risk 240 and above High risk Performed By: #### G FR, CMP, LIPID, VIDH #### [address] [address] Cholesterol in HDL [Mass/Vol] 53 mg/dL Normal 40-60 [facility] Comment on above: Performed By: #### G FR, CMP, LIPID, VIDH #### [address] [address] Cholesterol in LDL [Mass/Vol] 151 mg/dL High 0-130 [facility] Comment on above: Performed By: #### G FR, CMP, LIPID, VIDH #### [address] [address] Triglyceride [Mass/Vol] 136 mg/dL Normal 0-150 [facility] Comment on above: Result Comment: Trig lyceride Reference Interval: Less than 150 Normal 150-199 Borderline high risk 200-499 High risk 500 or higher Very high risk Performed By: #### G FR, CMP, LIPID, VIDH #### [address] [address] TSHRon 07-29-2025 TSH Qn 2.22 m[IU]/L Normal 0.36-3.74 [facility] Comment on above: Performed By: #### T SHR #### [address] [address] VIDHon 07-29-2025 Vit. D 25-Hydroxy 44.3 ng/mL Normal [facility] Comment on above: Result Comment: Inte rpretive Values Based on Total 25(OH) Vitamin D: Deficient <20 ng/mL Insufficient 20 - <30 ng/mL Sufficient 30-100 ng/mL Performed By: #### R PCUR #### [address] [address] NM LYMPHOSCINTIGRAPHYon NM LYMPHOSCINTIGRAPHY ORIGINAL EXAMINATION: LYMPHOSCINTIGRAPHY (IMAGES) 07/08/2025 12:57 pm TECHNIQUE: 266 and 251 microcuries of Tc99m Lymphoseek injection in the right foot at 8:50 a.m. by physician under water assistant JOSR CALDWELL was provided to DR. TOSHIA MEIER for sentinel lymph node localization. Patient was then taken to the OR for probe guided lymph node localization. HISTORY: Reason for Exam: leg swelling, possible lipedema FINDINGS: Sites of injections are identified in feet. Lymphatic channels in the lower extremities are identified without significant asymmetry. Multiple sentinel lymph nodes are identified in femoral and inguinal regions bilaterally. No dermal back flow is evident. Physiologic radiotracer activity is noted in the urinary bladder. Faint physiologic radiotracer activity is present in the kidneys. IMPRESSION: Multiple bilateral femoral and inguinal sentinel lymph nodes. No significant asymmetry in lymphatic flow. Interpreted by: Kelin Eubanks MD Preliminary Report By: Kelin Eubanks MD Electronically signed By Kelin Eubanks MD Dictated Date: 07/08/2025 4:25:03 PM Prelim Date: 07/08/2025 4:51:16 PM Sign Date: 07/08/2025 4:51:16 PM Ordering Provider: TOSHIA MEIER Normal [facility] Nasopharyngeal Cultureon NAC Pseudomonas aeruginosa Amount Growth 3+ Pseudomonas aeruginosa: REACTION Cefepime Islt ROSA 2 Ciprofloxacin Islt ROSA 0.25 S levoFLOXacin Islt ROSA 0.5 S Meropenem Islt ROSA 1 S Pip+Tazo Islt ROSA 16 S Normal [facility] Comment on above: Performed By: #### M 100.2499, #### [facility] [address] [place], [place], [address] Gram Stainon 06-28-2025 GS Negative Normal [facility] Comment on above: Performed By: #### M 100.2500, #### [facility] [address] [place], [address] Basic Metabolic Profile (BMP )on 06-11-2025 BUN Normal 4-19 [facility] Comment on above: Result Comment: PT C ANCELED - OK TO CANCEL PER S ELZBIETA Performed By: #### L 500.2500, L100.0100 #### [facility] [address] [place], [address] BUN/CRE Normal 10-20 [facility] Comment on above: Result Comment: PT C ANCELED - OK TO CANCEL PER S ELZBIETA Performed By: #### L 500.2500, L100.0100 #### [facility] [address] [place], [address] Calcium Normal 7.6-11.0 [facility] Comment on above: Result Comment: PT C ANCELED - OK TO CANCEL PER S ELZBIETA Performed By: #### L 500.2500, L100.0100 #### [facility] [address] [place], [address] CL Normal 98-108 [facility] Comment on above: Result Comment: PT C ANCELED - OK TO CANCEL PER S ELZBIETA Performed By: #### L 500.2500, L100.0100 #### [facility] [address] [place], [address] CO2 Normal 21.0-32.0 [facility] Comment on above: Result Comment: PT C ANCELED - OK TO CANCEL PER S ELZBIETA Performed By: #### L 500.2500, L100.0100 #### [facility] [address] [place], [address] CREAT,SERUM Normal 0.70-1.20 [facility] Comment on above: Result Comment: PT C ANCELED - OK TO CANCEL PER S ELZBIETA Performed By: #### L 500.2500, L100.0100 #### [facility] [address] [place], [address] eGFR Normal >60 [facility] Comment on above: Result Comment: PT C ANCELED - OK TO CANCEL PER S ELZBIETA Performed By: #### L 500.2500, L100.0100 #### [facility] [address] [place], [address] GAP Normal 5-15 [facility] Comment on above: Result Comment: PT C ANCELED - OK TO CANCEL PER S ELZBIETA Performed By: #### L 500.2500, L100.0100 #### [facility] [address] [place], [address] GLU Normal 70-99 [facility] Comment on above: Result Comment: PT C ANCELED - OK TO CANCEL PER S ELZBIETA Performed By: #### L 500.2500, L100.0100 #### [facility] [address] [place], [address] Potassium Normal 3.3-5.1 [facility] Comment on above: Result Comment: PT C ANCELED - OK TO CANCEL PER S ELZBIETA Performed By: #### L 500.2500, L100.0100 #### [facility] [address] [place], [address] Basic Metabolic Profile (BMP) Normal 133-145 [facility] Comment on above: Result Comment: PT C ANCELED - OK TO CANCEL PER S ELZBIETA Performed By: #### L 500.2500, L100.0100 #### [facility] [address] [place], [address] CBC W/Diff, Automatedon 09-0 -2024 Absolute Neut Normal 2.0-7.7 [facility] Comment on above: Result Comment: PT C ANCELED - OK TO CANCEL PER S ELZBIETA Performed By: #### L 500.2500, L100.0100 #### [facility] [address] [place], [address] HCT Normal 37-47 [facility] Comment on above: Result Comment: PT C ANCELED - OK TO CANCEL PER S ELZBIETA Performed By: #### L 500.2500, L100.0100 #### [facility] [address] [place], [address] HGB Normal 12.0-15.0 [facility] Comment on above: Result Comment: PT C ANCELED - OK TO CANCEL PER S ELZBIETA Performed By: #### L 500.2500, L100.0100 #### [facility] [address] [place], [address] MCH Normal 27.0-32.0 [facility] Comment on above: Result Comment: PT C ANCELED - OK TO CANCEL PER S ELZBIETA Performed By: #### L 500.2500, L100.0100 #### [facility] [address] [place], [address] MCHC Normal 32-36 [facility] Comment on above: Result Comment: PT C ANCELED - OK TO CANCEL PER S ELZBIETA Performed By: #### L 500.2500, L100.0100 #### [facility] [address] [place], [address] MCV Normal 81-99 [facility] Comment on above: Result Comment: PT C ANCELED - OK TO CANCEL PER S ELZBIETA Performed By: #### L 500.2500, L100.0100 #### [facility] [address] [place], [address] NEUT% Normal 47-70 [facility] Comment on above: Result Comment: PT C ANCELED - OK TO CANCEL PER S ELZBIETA Performed By: #### L 500.2500, L100.0100 #### [facility] [address] [place], [address] PLT Normal 150-450 [facility] Comment on above: Result Comment: PT C ANCELED - OK TO CANCEL PER S ELZBIETA Performed By: #### L 500.2500, L100.0100 #### [facility] [address] [place], [address] RBC Normal 4.2-5.4 [facility] Comment on above: Result Comment: PT C ANCELED - OK TO CANCEL PER S ELZBIETA Performed By: #### L 500.2500, L100.0100 #### [facility] [address] [place], [address] RDW CV Normal 11.6-14.6 [facility] Comment on above: Result Comment: PT C ANCELED - OK TO CANCEL PER S ELZBIETA Performed By: #### L 500.2500, L100.0100 #### [facility] [address] [place], [address] RDW SD Normal 35.1-43.9 [facility] Comment on above: Result Comment: PT C ANCELED - OK TO CANCEL PER S ELZBIETA Performed By: #### L 500.2500, L100.0100 #### [facility] [address] [place], [address] WBC Normal 4.4-11.0 [facility] Comment on above: Result Comment: PT C ANCELED - OK TO CANCEL PER S ELZBIETA Performed By: #### L 500.2500, L100.0100 #### [facility] [address] 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 no injury or prev surg. FINDINGS: No obvious skeletal lesions. Sinuses demonstrate no air-fluid levels. No fracture or dislocation. IMPRESSION: No obvious skeletal lesions. If there is continued clinical concern, CT head would be helpful. Interpreted by: Ion Arredondo DO Preliminary Report By: Ion Arredondo DO Electronically signed By Ion Arredondo DO Dictated Date: 06/10/2025 1:30:08 PM Prelim Date: 06/10/2025 1:31:56 PM Sign Date: 06/10/2025 1:31:56 PM Ordering Provider: TOSHIA Govea HARESH EGAN Nasopharyngeal Cultureon NAC Nasopharyngeal Culture Nasopharyngeal Culture Pseudomonas aeruginosa Amount Growth 1+ Citrobacter freundii Citrobacter freundii Pseudomonas aeruginosa: REACTION Cefepime Islt ROSA 2 S Ciprofloxacin Islt ROSA 0.12 levoFLOXacin Islt ROSA 0.5 S Meropenem Islt ROSA 1 S Pip+Tazo Islt ROSA 8 S Citrobacter freundii: REACTION Cefepime Islt ROSA <=0.12 S cefTRIAXone Islt ROSA <=0.25 Ciprofloxacin Islt ROSA 0.12 S Gentamicin Islt ROSA <=1 S levoFLOXacin Islt ROSA <=0.12 S Meropenem Islt ROSA <=0.25 S Pip+Tazo Islt ROSA <=4 S TMP SMX Islt ROSA <=20 S Normal [facility] Comment on above: Performed By: #### M 100.1999, M100.2500 #### [facility] [address] [place], [address] Gram Stainon 05-10-2025 GS Gram Stain Rare Gram negative rods No Epithelial cells 1+ White Blood Cells Normal [facility] Comment on above: Performed By: #### M 100.1999, M100.2500 #### [facility] [address] [place], [address] Gram stainOrdered By: David Rahman on 05-09-2025 Microscopic observation Gram stain Nom (Unsp spec) [facility] Sinus/Facial Boneon 05-02-20 Sinus/Facial Bone [facility] Services [address] [place], [place] [address] Sinus/Facial Bone MR#: [id number] Acct: [id number] Name: VINCE SLAUGHTER Rep #: [id number] : 1965 F 60 From: Stephan mallory MD PCP: Toshia Meier, [employer]-C Status: REG CLI Study: Sinus/Facial Bone Date of Exam: 05/02/25 Exam# [id number] Ordering Dr: Ferny Rahman MD PROCEDURE: SINUS/FACIAL BONE 05/02/2025 REASON FOR EXAM: SINUSITIS History of prior sinus surgery. TECHNIQUE: SINUS/FACIAL BONE Coronal and Sagittal reconstruction series were provided. One or more dose reduction techniques were used (e.g., Automated exposure control, adjustment of the mA and/or kV according to patient size, use of iterative reconstruction technique). RADIATION DOSE SUMMARY: CTDlvol: 28.14 mGy DLP: 1151.17 mGycm COMPARISON: None FINDINGS: Frontal: Unremarkable Ethmoid: Prior surgery of the ethmoid sinuses. Opacification of the left ethmoid sinus. Mucosal thickening of the right ethmoid sinus. Sphenoid: Opacification of the left sphenoid sinus. Maxillary: Opacification of the left maxillary sinus with soft tissue extension into the left nasal fossa and ethmoid sinus. Turbinates: Renan bullosa of the right middle renan. Nasal Septum: Midline Mastoids/Middle Ears: Clear CT/Sinus/Facial Bone IMPRESSION: Sinusitis as described. Soft tissue fullness of the left maxillary sinus with extension into the left nasal fossa and left ethmoid sinus. Partial medial wall resection of both maxillary sinuses. Reading Location: [id number] CC: HIPOLITO Meier; Dr. 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 Proteinuria) CKD 2 Kidney damage with mild loss 60-89 of kidney function CKD 3a Mild to moderate loss of kidney 45-59 function CKD 3b Moderate to severe loss of 30-44 of kindey function CKD 4 Severe loss of kidney function 15-29 CKD 5 Kidney failure <15 Note: (go live 2024) the eGFR calculation was updated to the 2020 CKD-EPI creatinine equation without a race factor to calculate the eGFR results. Performed By: #### C MP, DLDL, LIPID, VIDH, GFR #### [address] [address] CMPon 02-18-2025 Albumin Level 3.8 G/dL Normal 3.5-5.0 [facility] Comment on above: Performed By: #### C MP, DLDL, LIPID, VIDH, GFR #### [address] [address] Albumin/Globulin [Mass ratio] 1.1 {ratio} Normal 1.1-2.5 [facility] Comment on above: Performed By: #### C MP, DLDL, LIPID, VIDH, GFR #### [address] [address] ALP [Catalytic activity/Vol] 126 U/L Normal 40-135 [facility] Comment on above: Performed By: #### C MP, DLDL, LIPID, VIDH, GFR #### [address] [address] ALT [Catalytic activity/Vol] 31 U/L Normal 14-59 [facility] Comment on above: Performed By: #### C MP, DLDL, LIPID, VIDH, GFR #### [address] [address] AST [Catalytic activity/Vol] 22 U/L Normal 10-40 [facility] Comment on above: Performed By: #### C MP, DLDL, LIPID, VIDH, GFR #### [address] [address] Bili Total 0.5 mg/dL Normal 0.2-1.0 [facility] Comment on above: Result Comment: Use of this assay is not recommended for patients undergoing treatment with eltrombopag due to the potential for falsely elevated results. Performed By: #### C MP, DLDL, LIPID, VIDH, GFR #### [address] [address] BUN/Creatinine Ratio 26 ratio Normal 7-27 [facility] Comment on above: Performed By: #### C MP, DLDL, LIPID, VIDH, GFR #### [address] [address] Calcium [Mass/Vol] 9.0 mg/dL Normal 8.4-10.2 [facility] Comment on above: Performed By: #### C MP, DLDL, LIPID, VIDH, GFR #### [address] [address] Chloride [Moles/Vol] 105 mmol/L Normal 98-107 [facility] Comment on above: Performed By: #### C MP, DLDL, LIPID, VIDH, GFR #### [place] [address] CO2 [Moles/Vol] 26 mmol/L Normal 22-29 [facility] Comment on above: Performed By: #### C MP, DLDL, LIPID, VIDH, GFR #### [address] [address] Creatinine [Mass/Vol] 0.53 mg/dL Normal 0.51-0.95 [facility] Comment on above: Performed By: #### C MP, DLDL, LIPID, VIDH, GFR #### [address] [address] Electrolyte Balance 10.0 mEq/L Normal 4.0-15.0 [facility] Comment on above: Performed By: #### C MP, DLDL, LIPID, VIDH, GFR #### [address] [address] Globulin 3.5 G/dL Normal 2.7-4.4 [facility] Comment on above: Performed By: #### C MP, DLDL, LIPID, VIDH, GFR #### [address] [address] Glucose [Mass/Vol] 97 mg/dL Normal 70-105 [facility] Comment on above: Performed By: #### C MP, DLDL, LIPID, VIDH, GFR #### [address] [address] Potassium [Moles/Vol] 3.9 mmol/L Normal 3.5-5.1 [facility] Comment on above: Performed By: #### C MP, DLDL, LIPID, VIDH, GFR #### [address] [address] Sodium [Moles/Vol] 141 mmol/L Normal 136-145 [facility] Comment on above: Performed By: #### C MP, DLDL, LIPID, VIDH, GFR #### [address] [address] Total Protein 7.3 G/dL Normal 6.4-8.2 [facility] Comment on above: Performed By: #### C MP, DLDL, LIPID, VIDH, GFR #### [place] [address] Urea nitrogen [Mass/Vol] 14 mg/dL Normal 7-18 [facility] Comment on above: Performed By: #### C MP, DLDL, LIPID, VIDH, GFR #### [address] [address] DLDLon 02-18-2025 Direct LDL Cholesterol 160 mg/dL High 0-99 [facility] Comment on above: Result Comment: Dire ct LDL Cholesterol Reference Interval: Optimal: <100 mg/dL Near Optimal/above optimal: 100-129 mg/dL Borderline high: 130-159 mg/dL High: 160-189 mg/dL Very high: >=190 mg/dL Performed By: #### C MP, DLDL, LIPID, VIDH, GFR #### [address] [address] LIPIDon 02-18-2025 Cholesterol [Mass/Vol] 254 mg/dL High 0-200 [facility] Comment on above: Result Comment: Chol esterol Reference Interval: Less than 200 Desirable 200-239 Borderline high risk 240 and above High risk Performed By: #### C MP, DLDL, LIPID, VIDH, GFR #### [address] [address] Cholesterol in HDL [Mass/Vol] 44 mg/dL Normal 40-60 [facility] Comment on above: Performed By: #### C MP, DLDL, LIPID, VIDH, GFR #### [address] [address] Cholesterol in LDL [Mass/Vol] 116 mg/dL Normal 0-130 [facility] Comment on above: Result Comment: Trig lyceride >400 invalidates the calculated LDL. Performed By: #### C MP, DLDL, LIPID, VIDH, GFR #### [address] [address] Triglyceride [Mass/Vol] 468 mg/dL High 0-150 [facility] Comment on above: Result Comment: Trig lyceride Reference Interval: Less than 150 Normal 150-199 Borderline high risk 200-499 High risk 500 or higher Very high risk Performed By: #### C MP, DLDL, LIPID, VIDH, GFR #### [address] [address] RPCURon 02-18-2025 U Creatinine 48.2 mg/dL Normal 29.0-226.0 [facility] Comment on above: Performed By: #### R PCUR #### [address] [address] U Protein 6 mg/dL Normal [facility] Comment on above: Performed By: #### R PCUR #### [address] [address] U Ratio Prot/Creat 0.1 ratio Normal [facility] Comment on above: Performed By: #### R PCUR #### [address] [address] VIDHon 02-18-2025 Vit. D 25-Hydroxy 50.7 ng/mL Normal [facility] Comment on above: Result Comment: Inte rpretive Values Based on Total 25([place]) Vitamin D: Deficient <20 ng/mL Insufficient 20 - <30 ng/mL Sufficient 30-100 ng/mL Performed By: #### C MP, DLDL, LIPID, VIDH, GFR #### [address] [place] [address] [place], [place] [address] [facility] CNPN Telephone ([id number]) VINCE SLAUGHTER ([id number]) 1965 F CHT Date Time Provider Department 08/10/24 BRANNON GARCIA3 During your visit today, we recorded the following information about you: Edelmira Li 08/10/2024 11:00 AM Signed Pt called to see if she was supposed to follow-up after her h pylori treatment. She thinks she was supposed to have another egd. I let her know that she canceled her office follow-up which is when we would have scheduled that follow-up egd if she was to have one. She says she has been have been having a lot of "problems" and has been constipated for a month. Please advise. Thank you. Allergies As of Date: 08/10/2024 Noted Allergy Reaction CORN 01/28/2016 4 - Hives 7 - Swelling Comments: Hives, sick, rash, swelling of skin NITROFURANTOIN 07/20/2022 10 - Anaphylaxis PEANUTS 01/28/2016 8 - GI Upset 12 - Shortness of Breath Comments: With skins BUSPIRONE 07/20/2022 14 - Other: See Comments CIPROFLOXACIN 01/28/2016 8 - GI Upset 17 - Myalgia Comments: Sick CITRUS AND DERIVATIVES 07/21/2022 14 - Other: See Comments Comments: GI upset, acidic stool and urine COCONUT 01/28/2016 4 - Hives Comments: Hives; processed, can eat fresh DAIRY AID (LACTASE) 01/28/2016 8 - GI Upset Comments: Sever bloating and stomach pain DEMEROL (MEPERIDINE (PF)) 01/28/2016 8 - GI Upset Comments: Vomiting EGGS (EGG) 01/28/2016 8 - GI Upset Comments: Extreme sickness LIDOCAINE 07/21/2022 4 - Hives LISINOPRIL 07/20/2022 14 - Other: See Comments MILK CONTAINING PRODUCTS (DAIRY) 07/20/2022 8 - GI Upset MOBIC (MELOXICAM) 01/28/2016 8 - GI Upset Comments: sick MORPHINE 01/28/2016 9 - Itching OMNICEF (CEFDINIR) 01/28/2016 8 - GI Upset Comments: Sick PRILOSEC (OMEPRAZOLE) 01/28/2016 4 - Hives SULFAMETHOXAZOLE-TRI METHOPRIM 11/09/2022 4 - Hives 14 - Other: See Comments VICODIN (HYDROCODONE-ACETAMI NOPHE*01/28/2016 4 - Hives WELLBUTRIN (BUPROPION HCL) 01/28/2016 8 - GI Upset Comments: Sick WHEAT 01/28/2016 16 - Unknown Comments: Hives, sick and headache Date Reviewed: 02/03/2024 Reviewed by: Geena Lincoln RN - Fully Assessed Reason for Visit: Patient Question [1477] Cmt: Re: follow-up after H. Pylori Prescriptions as of 08/22/2024 - bismuth subsalicylate (PEPTO-BISMOL) 262 mg chewable tablet Take 2 tablets by mouth four times daily for 10 days. - furosemide (LASIX ORAL) Take by mouth once daily. - esomeprazole (NEXIUM) 20 mg capsule Take 20 mg by mouth daily at 6 am. - oxybutynin XL (DITROPAN XL) 5 mg 24 hr tablet Take 1 tablet by mouth once daily. - fluconazole (DIFLUCAN) 150 mg tablet TAKE ONE TABLET BY MOUTH EVERY 72 HOURS - VENTOLIN HFA 90 mcg/actuation inhaler Inhale 1 Puff as instructed every 4 hours as needed for wheezing/shortness of breath. - albuterol (PROVENTIL) 2.5 mg /3 mL (0.083 %) nebulizer solution Use 2.5 mg via nebulizer four times daily as needed. - tiZANidine (ZANAFLEX) 4 mg tablet Take 4 mg by mouth every 8 hours. - montelukast (SINGULAIR) 10 mg tablet Take 10 mg by mouth once daily. - IBU 800 mg tablet Take 800 mg by mouth three times daily. - dicyclomine (BENTYL) 20 mg tablet TAKE ONE TABLET BY MOUTH FOUR TIMES A DAY - meclizine (ANTIVERT) 25 mg tab Take 25 mg by mouth three times daily. - promethazine (PHENERGAN) 25 mg tablet Take 25 mg by mouth every 6 hours as needed. - cholecalciferol (VITAMIN D3) 2,000 unit tablet Take 2,000 Units by mouth once daily. Problem List As Of Date 08/10/2024 Noted Resolved Chronic pain syndrome [G89.4] 01/28/2016 Fibromyalgia [M79.7] 01/28/2016 Ventral hernia without obstruction or gangrene *05/02/2018 Gastroesophageal reflux disease [K21.9] 08/01/2018 History of colonic polyps [Z86.0100] 08/01/2018 Hypothyroidism, unspecified [E03.9] 02/19/2016 Asthma [J45.909] 02/03/2024 BMI 45.0-49.9, adult (HCC) [Z68.42] 02/03/2024 Preop testing [Z01.818] 02/03/2024 Elevated blood-pressure reading without diagnos*02/03/2024 Change in bowel habits [R19.4] 02/03/2024 Encounter Status:Closed by EDELMIRA LI on 08/22/24 [facility] LABORATORYOrdered By: SYSTEM SYSTEM on 07-11-2024 Insulin Qn 17.39 munit/L Normal 2.60 - 37.60 mU/L AH ADM SS GENETIC SENDOUTon 06-25-2024 Genetic Test Name XomeDx Invalid Interpretation Code [facility] Comment on above: Order Comment: Name of Test:->XomeDx Billing type:->Direct Specimen Type->Blood Specimen requirements:->5 mL Specimen Tube->EDTA What is the sendout facility name, if known?->GeneDx Release to patient->Automatic (5 days after final result) Genetic Test Reference Lab GeneDx Invalid Interpretation Code [facility] Comment on above: Order Comment: Name of Test:->XomeDx Billing type:->Direct Specimen Type->Blood Specimen requirements:->5 mL Specimen Tube->EDTA What is the sendout facility name, if known?->GeneDx Release to patient->Automatic (5 days after final result) Miscellaneous Results Patient results scanned into [employer] Invalid Interpretation Code [facility] Comment on above: Order Comment: Name of Test:->XomeDx Billing type:->Direct Specimen Type->Blood Specimen requirements:->5 mL Specimen Tube->EDTA What is the sendout facility name, if known?->GeneDx Release to patient->Automatic (5 days after final result) Progress Noteon 06-25-2024 [employer] Drawer Authentication Interface Message Text Reason for Consult/Chief Concern: Family history of connective tissue disorder Primary Care Doctor: Pcp, Inactive Address History of Present Illness (Location, Quality, Severity, Duration, Timing, Context. Modifying Factors, Associated Signs & Symptoms): Vince Slaughter is a 59 y.o. woman with a complex medical history who presents for genetic evaluation due to a suspected family history of a connective tissue disorder. Vince and her sister both have fibromyalgia and she reports that her mother has very similar problems. Her maternal grandmother also had chronic pain and fatigue. Vince has many tendon issues. She has experienced multiple trigger digits involving her hands and even her right big toe. She is not flexible but feels like her joints are loose and her bones are breaking. She has chronic pain in all of her joints but the hips and knees are the worst. Three years ago she was dancing with her and injured her right knee. She injured her left knee soon after. She hasn't been able to walk normally since. She has severe neck pain and vertigo and has been diagnosed with Mccray -Li ou syndrome. She describes the entire right side of her body as being "heavy" and more painful than the left. She has chronic fatigue and has been gaining weight due to reduced physical activity. She reports additional history of easy bruising and easy scarring. She has never had a problem with wound healing. She has never dislocated anything or broken any bones. She has a variety of other symptoms as detailed in the review of systems below. Past Medical History: Patient Active Problem List Diagnosis Allergic rhinitis Anxiety Asthma Back pain Belmont-Lieou syndrome Benign paroxysmal positional vertigo Chronic pain disorder Chronic sinusitis Facial numbness Gastroesophageal reflux disease Hypertension Knee injury Lipedema Osteoporosis Recurrent cystitis Bilateral knee pain Tinnitus Family History: A three generation pedigree was obtained and will be scanned into the media tab of [employer]. Relevant family history is significant for: Siblings: Brother with history of metastatic prostate cancer. Sister with fibromyalgia. Children: Son with body aches. Granddaughter with Hashimotos. Grandson with hip deformities requiring surgery and braces. Maternal Side: Mother with chronic pain and need for thyroid removal Paternal Side: Father with prostate cancer. Paternal grandfather with colon cancer. Review of Systems Constitutional: Positive for short stature -- was 4'11" and is now 4'8"; positive for chronic fatigue Vision: Positive for 20/20 vision but needs reading glasses and can't see at night; positive for a gritty discharge from the eyes; positive for burning and itchy eyes and redness of in the inner corner of the left eye ENT: Positive for TMJ, tinnitus, vertigo ; positive for snoring (normal sleep study several years ago); positive for dry mouth; positive for chronic sinus issues and Head and Neck: Positive for chronic neck pain; positive for periodic stabbing right sided facial pain Endocrine: Negative Hematology/Lymphatic : Positive for easy bruising Respiratory: Positive for asthma and "forgetting" to breathe Cardiovascular: Negative Gastrointestinal: Positive for H. Pylori, reduced ability to taste, bloating with eating and drinking, stomach spasms, constipation and IBS : Positive for bladder spasms and kidney spasms; positive for nocturia Skin: Positive for easy scarring and age spots Musculoskeletal: Positive for chronic pain and tendon issues as discussed above ; positive for lipedema Neuro: Positive for chronic headaches Psychiatric: Positive for ADHD, OCD, and PTSD Allergy/Immun: Positive for multiple allergies, including environmental allergies Physical Examination Constitutional: Vitals: Ht (!) 144.2 cm Wt 91.4 kg BMI 43.96 kg/m General Appearance: Well-appearing; well nourished; short stature; no acute distress Mental Status: Alert, cooperative and interactive Speech: Normal Skin: No neurocutaneous stigmata; no abnormal bruising noted today; no atrophic scarring; normal texture; not hyperextensible Hair: Normal texture and pattern Head: Normocephalic; nondysmorphic Eyes: Normally formed and positioned; straight palpebral fissures Orbits/Palpebrae: Normal eyelashes and eyebrows Nose: Normally formed Ears: Normally formed and positioned Mouth: Normally formed Tongue: Normal Teeth: Normal Palate: Normal Neck: Normally formed; no webbing Joints: No joint hypermobility Extremities: Small hands and feet; bilateral piezogenic papules of the heel; bilateral lipedema of lower extremities R>L; s/p trigger finger surgeries [employer]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 woman with a complex medical history most notable for chronic pain, multiple trigger digits, and short stature and a family (more content not included)... Normal [facility] 02-13-2024 [facility] Telephone (AGGENS3) VINCE SLAUGHTER ([id number]) 1965 F T Date Time Provider Department 02/13/24 BRANNON GARCIA AGGENS3 During your visit today, we recorded the following information about you: Edelmira Li 02/13/2024 11:36 AM Signed Vince called to cancel her follow-up after her recent colonoscopy and CT Abdomen/Pelvis. She says she got her results in MyChart and is feeling fine and doesn't feel an appointment is necessary. She doesn't want to drive all the way here. Please advise. Thank you. Cheryl Logan MA 02/13/2024 4:39 PM Signed Patient called complaining of sx of yeast infection due to antibiotics. She asked for Diflucan. Would you like me to refer herto her PCP? Please advise. ThanksCheryl Allergies As of Date: 02/13/2024 Noted Allergy Reaction CORN 01/28/2016 4 - Hives 7 - Swelling Comments: Hives, sick, rash, swelling of skin NITROFURANTOIN 07/20/2022 10 - Anaphylaxis PEANUTS 01/28/2016 8 - GI Upset 12 - Shortness of Breath Comments: With skins BUSPIRONE 07/20/2022 14 - Other: See Comments CIPROFLOXACIN 01/28/2016 8 - GI Upset 17 - Myalgia Comments: Sick CITRUS AND DERIVATIVES 07/21/2022 14 - Other: See Comments Comments: GI upset, acidic stool and urine COCONUT 01/28/2016 4 - Hives Comments: Hives; processed, can eat fresh DAIRY AID (LACTASE) 01/28/2016 8 - GI Upset Comments: Sever bloating and stomach pain DEMEROL (MEPERIDINE (PF)) 01/28/2016 8 - GI Upset Comments: Vomiting EGGS (EGG) 01/28/2016 8 - GI Upset Comments: Extreme sickness LIDOCAINE 07/21/2022 4 - Hives LISINOPRIL 07/20/2022 14 - Other: See Comments MILK CONTAINING PRODUCTS (DAIRY) 07/20/2022 8 - GI Upset MOBIC (MELOXICAM) 01/28/2016 8 - GI Upset Comments: sick MORPHINE 01/28/2016 9 - Itching OMNICEF (CEFDINIR) 01/28/2016 8 - GI Upset Comments: Sick PRILOSEC (OMEPRAZOLE) 01/28/2016 4 - Hives SULFAMETHOXAZOLE-TRI METHOPRIM 11/09/2022 4 - Hives 14 - Other: See Comments VICODIN (HYDROCODONE-ACETAMI NOPHE*01/28/2016 4 - Hives WELLBUTRIN (BUPROPION HCL) 01/28/2016 8 - GI Upset Comments: Sick WHEAT 01/28/2016 16 - Unknown Comments: Hives, sick and headache Date Reviewed: 02/03/2024 Reviewed by: Geena Lincoln, RN - Fully Assessed Reason for Visit: Appointment Cancelled [1023] Cmt: Pt call to cancel follow-up Prescriptions as of 2024 - bismuth subsalicylate (PEPTO-BISMOL) 262 mg chewable tablet Take 2 tablets by mouth four times daily for 10 days. - furosemide (LASIX ORAL) Take by mouth once daily. - esomeprazole (NEXIUM) 20 mg capsule Take 20 mg by mouth daily at 6 am. - oxybutynin XL (DITROPAN XL) 5 mg 24 hr tablet Take 1 tablet by mouth once daily. - fluconazole (DIFLUCAN) 150 mg tablet TAKE ONE TABLET BY MOUTH EVERY 72 HOURS - VENTOLIN HFA 90 mcg/actuation inhaler Inhale 1 Puff as instructed every 4 hours as needed for wheezing/shortness of breath. - albuterol (PROVENTIL) 2.5 mg /3 mL (0.083 %) nebulizer solution Use 2.5 mg via nebulizer four times daily as needed. - tiZANidine (ZANAFLEX) 4 mg tablet Take 4 mg by mouth every 8 hours. - montelukast (SINGULAIR) 10 mg tablet Take 10 mg by mouth once daily. - IBU 800 mg tablet Take 800 mg by mouth three times daily. - dicyclomine (BENTYL) 20 mg tablet TAKE ONE TABLET BY MOUTH FOUR TIMES A DAY - meclizine (ANTIVERT) 25 mg tab Take 25 mg by mouth three times daily. - promethazine (PHENERGAN) 25 mg tablet Take 25 mg by mouth every 6 hours as needed. - cholecalciferol (VITAMIN D3) 2,000 unit tablet Take 2,000 Units by mouth once daily. Problem List As Of Date 02/13/2024 Noted Resolved Chronic pain syndrome [G89.4] 01/28/2016 Fibromyalgia [M79.7] 01/28/2016 Ventral hernia without obstruction or gangrene *05/02/2018 Gastroesophageal reflux disease [K21.9] 08/01/2018 History of colonic polyps [Z86.010] 08/01/2018 Hypothyroidism, unspecified [E03.9] 02/19/2016 Asthma [J45.909] 02/03/2024 BMI 45.0-49.9, adult (HCC) [Z68.42] 02/03/2024 Preop testing [Z01.818] 02/03/2024 Elevated blood-pressure reading without diagnos*02/03/2024 Change in bowel habits [R19.4] 02/03/2024 Encounter Status:Closed by EDELMIRA LI on 04/17/[address] [facility] [address] ABD/PEL WO IVCONon 2023 CT ABD/PEL WO IVCON * * *Final Report* * * DATE OF EXAM: Feb 08 2024 1:59PM [facility] 0531 - CT ABD/PEL WO IVCON / PROCEDURE REASON: Generalized abdominal pain * * * * Physician Interpretation * * * * EXAMINATION: CT ABDOMEN AND PELVIS WITHOUT IV CONTRAST CLINICAL HISTORY: Generalized abdominal pain. TECHNIQUE: Non-IV contrast imaging of the abdomen and pelvis was performed using standard technique, scanning from just above the dome of the diaphragm to the symphysis pubis. Unenhanced imaging is limited for the evaluation of some intra-abdominal and pelvic pathology. MQ: CTAPWO_3 Contrast: IV: None CT Radiation dose: Integrated Dose-length product (DLP) for this visit = 755 mGy*cm. CT Dose Reduction Employed: Automated exposure control(AEC) and iterative recon COMPARISON: CT pelvis on 10/05/2007, CT abdomen on 12/20/2004. RESULT: Abdomen / Pelvis: Liver: Hepatic steatosis is demonstrated. No mass lesion seen. Biliary: The gallbladder is surgically absent. No bile duct dilation. Spleen: No splenomegaly. Pancreas: Unremarkable. Adrenals: No mass. Kidneys: No calculus, hydronephrosis or finding to suggest a cyst or mass in the unenhanced kidney. GI Tract: No bowel dilation. The appendix is identified and normal in appearance. No diverticulitis. Lymph Nodes: No lymphadenopathy. Mesentery/peritoneum : No ascites or free abdominal air. Retroperitoneum: No mass. Vasculature: Not fully characterized. No AAA. Pelvis: No mass or ascites. The uterus is not identified. Bones/Soft Tissues: No acute abnormality. Lower thorax: No pleural effusions. The lung bases are clear of consolidations. Localizer images: No additional findings. IMPRESSION: No acute abnormalities identified in the abdomen or pelvis. Hepatic steatosis. Chopper Gun Operator: SAMANTHA Transcribe Date/Time: Feb 08 2024 2:07P Dictated by : EDISON PATEL MD This examination was interpreted and the report reviewed and electronically signed by: EDISON PATEL MD on Feb 08 2024 2:20PM EST [id number] CN Normal [facility] CT Abdomen and Pelvis WO con traston 02-08-2024 IMPRESSION: No acute abnormalities identified in the abdomen or pelvis. Hepatic steatosis. Chopper Gun Operator: SAMANTHA Transcribe Date/Time: Feb 08 2024 2:07P Dictated by : EDISON PATEL MD This examination was interpreted and the report reviewed and electronically signed by: EDISON PATEL MD on Feb 08 2024 2:20PM EST DIVISION OF RADIOLOGY * * *Final Report* * * DATE OF EXAM: Feb 08 2024 1:59PM [facility] 0531 - CT ABD/PEL WO IVCON / PROCEDURE REASON: Generalized abdominal pain * * * * Physician Interpretation * * * * EXAMINATION: CT ABDOMEN AND PELVIS WITHOUT IV CONTRAST CLINICAL HISTORY: Generalized abdominal pain. TECHNIQUE: Non-IV contrast imaging of the abdomen and pelvis was performed using standard technique, scanning from just above the dome of the diaphragm to the symphysis pubis. Unenhanced imaging is limited for the evaluation of some intra-abdominal and pelvic pathology. MQ: CTAPWO_3 Contrast: IV: None CT Radiation dose: Integrated Dose-length product (DLP) for this visit = 755 mGy*cm. CT Dose Reduction Employed: Automated exposure control(AEC) and iterative recon COMPARISON: CT pelvis on 10/05/2007, CT abdomen on 12/20/2004. RESULT: Abdomen / Pelvis: Liver: Hepatic steatosis is demonstrated. No mass lesion seen. Biliary: The gallbladder is surgically absent. No bile duct dilation. Spleen: No splenomegaly. Pancreas: Unremarkable. Adrenals: No mass. Kidneys: No calculus, hydronephrosis or finding to suggest a cyst or mass in the unenhanced kidney. GI Tract: No bowel dilation. The appendix is identified and normal in appearance. No diverticulitis. Lymph Nodes: No lymphadenopathy. Mesentery/peritoneum : No ascites or free abdominal air. Retroperitoneum: No mass. Vasculature: Not fully characterized. No AAA. Pelvis: No mass or ascites. The uterus is not identified. Bones/Soft Tissues: No acute abnormality. Lower thorax: No pleural effusions. The lung bases are clear of consolidations. Localizer images: No additional findings. DIVISION OF RADIOLOGY Provider, [facility] [place] - 02/08/2024 * * *Final Report* * * DATE OF EXAM: Feb 08 2024 1:59PM [facility] 0531 - CT ABD/PEL WO IVCON / PROCEDURE REASON: Generalized abdominal pain * * * * Physician Interpretation * * * * EXAMINATION: CT ABDOMEN AND PELVIS WITHOUT IV CONTRAST CLINICAL HISTORY: Generalized abdominal pain. TECHNIQUE: Non-IV contrast imaging of the abdomen and pelvis was performed using standard technique, scanning from just above the dome of the diaphragm to the symphysis pubis. Unenhanced imaging is limited for the evaluation of some intra-abdominal and pelvic pathology. MQ: CTAPWO_3 Contrast: IV: None CT Radiation dose: Integrated Dose-length product (DLP) for this visit = 755 mGy*cm. CT Dose Reduction Employed: Automated exposure control(AEC) and iterative recon COMPARISON: CT pelvis on 10/05/2007, CT abdomen on 12/20/2004. RESULT: Abdomen / Pelvis: Liver: Hepatic steatosis is demonstrated. No mass lesion seen. Biliary: The gallbladder is surgically absent. No bile duct dilation. Spleen: No splenomegaly. Pancreas: Unremarkable. Adrenals: No mass. Kidneys: No calculus, hydronephrosis or finding to suggest a cyst or mass in the unenhanced kidney. GI Tract: No bowel dilation. The appendix is identified and normal in appearance. No diverticulitis. Lymph Nodes: No lymphadenopathy. Mesentery/peritoneum : No ascites or free abdominal air. Retroperitoneum: No mass. Vasculature: Not fully characterized. No AAA. Pelvis: No mass or ascites. The uterus is not identified. Bones/Soft Tissues: No acute abnormality. Lower thorax: No pleural effusions. The lung bases are clear of consolidations. Localizer images: No additional findings. IMPRESSION IMPRESSION: No acute abnormalities identified in the abdomen or pelvis. Hepatic steatosis. Chopper Gun Operator: PSCB Transcribe Date/Time: Feb 08 2024 2:07P Dictated by : EDISON PATEL MD This examination was interpreted and the report reviewed and electronically signed by: EDISON PATEL MD on Feb 08 2024 2:20PM [facility] Study observation (narrative) [facility] CT Abdomen and Pelvis WO con trastOrdered By: Ccf Provider on 02-08-2024 [facility] CNOVon 02-07-2024 CNOV Office Visit (AGGENS3) VINCE SLAUGHTER ([id number]) 1965 F CHT Date Time Provider Department 02/07/24 10:00 AM BRANNON GARCIA3 During your visit today, we recorded the following information about you: Pulse Respiration Blood pressure Weight 77/minute 20/minute 124/73 94.3 kg Height 1.422 m Brannon Garcia MD 02/07/2024 12:04 PM Signed Vince Slaughter is a 58 year old female who is here for evaluation of abdominal pain. Last Yann she had a EGD and colonoscopy. She has had some pain ever since then. She does have chronic pain anyway though. However this seems to be a little bit different. She has had some small bowel movements. She has been eating. EGD showed no hiatal hernia. Positive for H. pylori. Colonoscopy showed diverticulosis and benign polyp. ALLERGIES Allergen Reactions [place] Hives, Swelling Hives, sick, rash, swelling of skin Nitrofurantoin Anaphylaxis Peanuts GI Upset, Shortness of Breath With skins Buspirone Other: See Comments Ciprofloxacin GI Upset, Myalgia Sick Glades And Derivati* Other: See Comments GI upset, acidic stool and urine Coconut Hives Hives; processed, can eat fresh Dairy Aid [Lactase] GI Upset Sever bloating and stomach pain Demerol [Meperidine* GI Upset Vomiting Eggs [Egg] GI Upset Extreme sickness Lidocaine Hives Lisinopril Other: See Comments Milk Containing Pro* GI Upset Mobic [Meloxicam] GI Upset sick Morphine Itching Omnicef [Cefdinir] GI Upset Sick Prilosec [Omeprazol* Hives Sulfamethoxazole-Tr* Hives, Other: See Comments Vicodin [Hydrocodon* Hives Wellbutrin [Bupropi* GI Upset Sick Wheat Unknown Hives, sick and headache Current Outpatient Medications Medication Sig furosemide (LASIX ORAL) Take by mouth once daily. esomeprazole (NEXIUM) 20 mg capsule Take 20 mg by mouth daily at 6 am. VENTOLIN HFA 90 mcg/actuation inhaler Inhale 1 Puff as instructed every 4 hours as needed for wheezing/shortness of breath. albuterol (PROVENTIL) 2.5 mg /3 mL (0.083 %) nebulizer solution Use 2.5 mg via nebulizer four times daily as needed. montelukast (SINGULAIR) 10 mg tablet Take 10 mg by mouth once daily. IBU 800 mg tablet Take 800 mg by mouth three times daily. dicyclomine (BENTYL) 20 mg tablet TAKE ONE TABLET BY MOUTH FOUR TIMES A DAY meclizine (ANTIVERT) 25 mg tab Take 25 mg by mouth three times daily. promethazine (PHENERGAN) 25 mg tablet Take 25 mg by mouth every 6 hours as needed. cholecalciferol (VITAMIN D3) 2,000 unit tablet Take 2,000 Units by mouth once daily. bismuth subsalicylate (PEPTO-BISMOL) 262 mg chewable tablet Take 2 tablets by mouth four times daily for 10 days. doxycycline hyclate (VIBRAMYCIN) 100 mg capsule Take 1 capsule by mouth two times a day for 10 days. metroNIDAZOLE (FLAGYL) 250 mg tablet Take 1 tablet by mouth four times daily for 10 days. oxybutynin XL (DITROPAN XL) 5 mg 24 hr tablet Take 1 tablet by mouth once daily. fluconazole (DIFLUCAN) 150 mg tablet TAKE ONE TABLET BY MOUTH EVERY 72 HOURS tiZANidine (ZANAFLEX) 4 mg tablet Take 4 mg by mouth every 8 hours. (Patient not taking: Reported on 01/02/2024) No current facility-administere d medications for this visit. PHYSICAL EXAM: BP 124/73 Pulse 77 Resp 20 Ht 4' 8" (1.42m) Wt 208 lb (94.3kg) BMI 46.66 kg/(m2). General Appearance: Well appearing, alert, in no acute distress, well-hydrated, well nourished.. Abdomen: Soft. She is diffusely tender. No obvious peritoneal signs.. Assessment: Generalized abdominal pain (primary encounter diagnosis) Helicobacter pylori infection Plan: ASSESSMENT/PLAN: 1. Generalized abdominal pain - ICD9: 789.07, ICD10: R10.84 (primary diagnosis) -Given her pain after the procedure Argun to proceed with a CT scan. Follow-up after CT scan. - CT ABD/PEL WO IVCON 2. Helicobacter pylori infection - ICD9: 041.86, ICD10: A04.8 Treatment for H. pylori sent to her pharmacy. Medical Decision Making: Problems: Moderate: New problem with uncertain prognosis Data: Unique test result(s) reviewed: 2 Unique test(s) ordered: 1 Risk: Low: Low risk from testing/treatment Medical Decision Making Level: 4 - Moderate Brannon Garcia M.D., F.A.Brannon Thompson MD 02/07/2024 10:30 AM Signed Thank you for coming to see me today. It is my pleasure to take care of you. If you have any questions regarding your visit, please don't hesitate to contact us. Allergies As of Date: 02/07/2024 Noted Allergy Reaction CORN 01/28/2016 4 - Hives 7 - Swelling Comments: Hives, sick, rash, swelling of skin NITROFURANTOIN 07/20/2022 10 - Anaphylaxis PEANUTS 01/28/2016 8 - GI Upset 12 - Shortness of Breath Comments: With skins BUSPIRONE 07/20/2022 14 - Other: See Comments CIPROFLOXACIN 01/28/2016 8 - GI Upset 17 - Myalgia Comments: Sick CITRUS AND DERIVATI (more content not included)... Normal [facility] 02-06-2024 CNPN Telephone (AGGENS3) VINCE SLAUGHTER ([id number]) 1965 F [facility] Date Time Provider Department 02/06/24 BRANNON GARCIA AGGENS3 During your visit today, we recorded the following information about you: Cheryl Logan MA 02/06/2024 8:59 AM Signed Patient had an EGD, Colonoscopy on 02-03-24 and is complaining of pain in her colon. She does not have a fever. Can she take Ibuprofen as needed? Please advise. Thanks , Brannon Morrow MD 02/06/2024 9:05 AM Signed Yes she can. I am also ordering a CT scan to evaluate, at this point she should not have any pain Allergies As of Date: 02/06/2024 Noted Allergy Reaction CORN 01/28/2016 4 - Hives 7 - Swelling Comments: Hives, sick, rash, swelling of skin NITROFURANTOIN 07/20/2022 10 - Anaphylaxis PEANUTS 01/28/2016 8 - GI Upset 12 - Shortness of Breath Comments: With skins BUSPIRONE 07/20/2022 14 - Other: See Comments CIPROFLOXACIN 01/28/2016 8 - GI Upset 17 - Myalgia Comments: Sick CITRUS AND DERIVATIVES 07/21/2022 14 - Other: See Comments Comments: GI upset, acidic stool and urine COCONUT 01/28/2016 4 - Hives Comments: Hives; processed, can eat fresh DAIRY AID (LACTASE) 01/28/2016 8 - GI Upset Comments: Sever bloating and stomach pain DEMEROL (MEPERIDINE (PF)) 01/28/2016 8 - GI Upset Comments: Vomiting EGGS (EGG) 01/28/2016 8 - GI Upset Comments: Extreme sickness LIDOCAINE 07/21/2022 4 - Hives LISINOPRIL 07/20/2022 14 - Other: See Comments MILK CONTAINING PRODUCTS (DAIRY) 07/20/2022 8 - GI Upset MOBIC (MELOXICAM) 01/28/2016 8 - GI Upset Comments: sick MORPHINE 01/28/2016 9 - Itching OMNICEF (CEFDINIR) 01/28/2016 8 - GI Upset Comments: Sick PRILOSEC (OMEPRAZOLE) 01/28/2016 4 - Hives SULFAMETHOXAZOLE-TRI METHOPRIM 11/09/2022 4 - Hives 14 - Other: See Comments VICODIN (HYDROCODONE-ACETAMI NOPHE*01/28/2016 4 - Hives WELLBUTRIN (BUPROPION HCL) 01/28/2016 8 - GI Upset Comments: Sick WHEAT 01/28/2016 16 - Unknown Comments: Hives, sick and headache Date Reviewed: 02/03/2024 Reviewed by: Geena Lincoln, RN - Fully Assessed Reason for Visit: Patient Update [1234] Primary Visit Diagnosis:Generalize d abdominal pain [R10.84] Order(s):CT ABD/PEL WO IVCON [[id number]] Order #: [id number] FUTURE Prescriptions as of 02/06/2024 - furosemide (LASIX ORAL) Take by mouth once daily. - esomeprazole (NEXIUM) 20 mg capsule Take 20 mg by mouth daily at 6 am. - oxybutynin XL (DITROPAN XL) 5 mg 24 hr tablet Take 1 tablet by mouth once daily. - fluconazole (DIFLUCAN) 150 mg tablet TAKE ONE TABLET BY MOUTH EVERY 72 HOURS - VENTOLIN HFA 90 mcg/actuation inhaler Inhale 1 Puff as instructed every 4 hours as needed for wheezing/shortness of breath. - albuterol (PROVENTIL) 2.5 mg /3 mL (0.083 %) nebulizer solution Use 2.5 mg via nebulizer four times daily as needed. - tiZANidine (ZANAFLEX) 4 mg tablet Take 4 mg by mouth every 8 hours. - montelukast (SINGULAIR) 10 mg tablet Take 10 mg by mouth once daily. - IBU 800 mg tablet Take 800 mg by mouth three times daily. - dicyclomine (BENTYL) 20 mg tablet TAKE ONE TABLET BY MOUTH FOUR TIMES A DAY - meclizine (ANTIVERT) 25 mg tab Take 25 mg by mouth three times daily. - promethazine (PHENERGAN) 25 mg tablet Take 25 mg by mouth every 6 hours as needed. - cholecalciferol (VITAMIN D3) 2,000 unit tablet Take 2,000 Units by mouth once daily. Problem List As Of Date 02/06/2024 Noted Resolved Chronic pain syndrome [G89.4] 01/28/2016 Fibromyalgia [M79.7] 01/28/2016 Ventral hernia without obstruction or gangrene *05/02/2018 Gastroesophageal reflux disease [K21.9] 08/01/2018 History of colonic polyps [Z86.010] 08/01/2018 Hypothyroidism, unspecified [E03.9] 02/19/2016 Asthma [J45.909] 02/03/2024 BMI 45.0-49.9, adult (HCC) [Z68.42] 02/03/2024 Preop testing [Z01.818] 02/03/2024 Elevated blood-pressure reading without diagnos*02/03/2024 Change in bowel habits [R19.4] 02/03/2024 Encounter Status:Closed by BRANNON GARCIA on 02/06/24 [facility] ANES POSTPROC EVALon 024 ANES POSTPROC EVAL HNO ID: [id number] Author: CHANO LEMA MD Service: Anesthesiology Author Type: Physician Type: Anesthesia Postprocedure Evaluation Filed: 02/03/2024 12:58 Note Text: POST ANESTHESIA EVALUATION NOTE : 1965 Procedure Summary Date: 02/03/24 Room / Location: [facility] Anesthesia Start: 1107 Anesthesia Stop: 1202 Procedures: EGD DIAGNOSTIC COLONOSCOPY DIAGNOSTIC Diagnosis: Gastroesophageal reflux disease, unspecified whether esophagitis present Change in bowel habits Scheduled Providers: Brannon Garcia MD Responsible Provider: Manjula Watkins MD Anesthesia Type: MAC ASA Status: 2 Anesthesia Type: MAC Last Vitals Vitals Value Taken Time BP 152/92 02/03/24 1234 Temp 36.5 ?C (97.7 ?F) 02/03/24 1204 HR SpO2 72 02/03/24 1241 Resp 16 02/03/24 1233 SpO2 100 % 02/03/24 1241 Post Anesthesia Patient Status Patient Evaluation: bedside. Anticipated Disposition: phase 2 then home. Neurological Status: aware and responsive. Pulmonary Status: breathing comfortably on room air Airway Control: returned to baseline unsupported. Cardiovascular Status: stable. Pain Management: clinically adequate Postoperative Hydration: acceptable. Intraoperative Events: no significant anesthesia events Post Operative Nausea/Vomiting Status: no significant post operative nausea or vomiting Recommendation: continue current plan of care. Anesthesia Observations No Documentation SIGNATURE: Chano Lema MD PATIENT NAME: Vince Slaughter DATE: February 03, 2024 TIME: 12:57 PM CSN: [id number] Normal [facility] ANES PRE-OPon 02-03-2024 ANES PRE-OP HNO ID: [id number] Author: MANJULA WATKINS MD Service: Anesthesiology Author Type: Anesthesiologist Type: Anesthesia Preprocedure Evaluation Filed: 02/03/2024 10:56 Note Text: ANESTHESIOLOGY DAY OF SURGERY NOTE : 1965 Procedure Information Date/Time: 02/03/24 1100 Scheduled providers: Brannon Garcia MD Procedures: EGD DIAGNOSTIC COLONOSCOPY DIAGNOSTIC Location: [facility] Estimated body mass index is 46.63 kg/m? as calculated from the following: Height as of this encounter: 142.2 cm (4' 8"). Weight as of this encounter: 94.3 kg (208 lb). Most recent hematocrit and potassium results: No results found for this basename: HCT,HEMATOCRIT,K,POT ASSIUM Relevant Problems ENDO (+) Hypothyroidism, unspecified GI (+) Gastroesophageal reflux disease NEURO-PSYCH (+) History of colonic polyps PULMONARY (+) Asthma I - PHYSICAL EVALUATION AIRWAY Patient intubated: No. Mallampati: II. TM distance: >3 FB. Neck ROM: full ROM without neurological symptoms. Mouth opening: adequate. Short neck: no. Thick neck: no DENTAL Dental findings: teeth intact. II - ANESTHESIA PLAN ASA Score: 2 Anesthetic Plan: MAC The patient is not a current smoker. NPO Status: adequate Beta Caryn Monitoring Plan Monitoring plan: standard ASA. Post Procedure Analgesic Plan Informed Consent Anesthetic risks, benefits, alternatives, personnel and consent discussed: yes. Patient / Responsible Republican agrees to proceed: yes Patient / Surrogate agrees to blood products: blood products not planned Significant changes in the patient condition since the History and Physical, not otherwise documented in primary service progress note: no. Potential Anesthesia issues that may suggest increased risk of complications or contraindication to planned procedure: none. Vitals Value Taken Time BP 155/93 02/03/24 1039 Pulse 86 02/03/24 1039 Resp 18 02/03/24 1039 Temp 36.1 ?C (97 ?F) 02/03/24 1039 SpO2 96 % 02/03/24 1039 Outpatient Medications as of 02/03/2024 Medication Sig - furosemide (LASIX ORAL) Take by mouth once daily. - esomeprazole (NEXIUM) 20 mg capsule Take 20 mg by mouth daily at 6 am. - VENTOLIN HFA 90 mcg/actuation inhaler Inhale 1 Puff as instructed every 4 hours as needed for wheezing/shortness of breath. - albuterol (PROVENTIL) 2.5 mg /3 mL (0.083 %) nebulizer solution Use 2.5 mg via nebulizer four times daily as needed. - IBU 800 mg tablet Take 800 mg by mouth three times daily. - dicyclomine (BENTYL) 20 mg tablet TAKE ONE TABLET BY MOUTH FOUR TIMES A DAY - meclizine (ANTIVERT) 25 mg tab Take 25 mg by mouth three times daily. - promethazine (PHENERGAN) 25 mg tablet Take 25 mg by mouth every 6 hours as needed. - cholecalciferol (VITAMIN D3) 2,000 unit tablet Take 2,000 Units by mouth once daily. - oxybutynin XL (DITROPAN XL) 5 mg 24 hr tablet Take 1 tablet by mouth once daily. - fluconazole (DIFLUCAN) 150 mg tablet TAKE ONE TABLET BY MOUTH EVERY 72 HOURS - tiZANidine (ZANAFLEX) 4 mg tablet Take 4 mg by mouth every 8 hours. (Patient not taking: Reported on 01/02/2024) - montelukast (SINGULAIR) 10 mg tablet Take 10 mg by mouth once daily. Facility-Administere d Medications as of 02/03/2024 Medication Dose Route Frequency - lactated ringers iv infusion 5-30 mL/hr INTRAVENOUS CONTINUOUS I have interviewed and examined the patient. I have reviewed the medical record and/or the pre-anesthesia evaluation, pertinent labs, and test results. This contains updated information obtained within 48 hours of Surgery/Procedure. SIGNATURE: Manjula Watkins MD PATIENT NAME: Vince Woodszel DATE: February 03, 2024 TIME: 10:55 AM CSN: [id number] [facility] HISTORY PHYSICALon HISTORY PHYSICAL HNO ID: [id number] Author: EDIN CAMACHO APRN.CNP Service: Anesthesiology Author Type: Nurse Practitioner Type: H&P Filed: 02/03/2024 10:55 Note Text: HISTORY AND PHYSICAL EXAMINATION Vince Campoverde Sukhjinder 1965 SERVICE DATE: 02/03/2024 SERVICE TIME: 10:13 AM PRIMARY CARE PHYSICIAN: Toshia Meier CNP, CNP SURGEON: Surgeon(s) and Role: * Zeeshan Link DO - Resident - Assisting * Brannon Garcia MD - Proceduralist ANESTHESIA: MAC DIAGNOSIS: Gastroesophageal reflux disease, unspecified whether esophagitis present [K21.9] Change in bowel habits [R19.4] PROCEDURE: EGD and Colonoscopy ACTIVE PROBLEM LIST Chronic Pain Syndrome Fibromyalgia Ventral Hernia Without Obstruction Or Gangrene Gastroesophageal Reflux Disease History of Colonic Polyps Hypothyroidism, Unspecified Asthma Bmi 45.0-49.9, Adult ([facility]) Preop Testing Elevated Blood-Pressure Reading Without Diagnosis of Hypertension Subjective The reason for this visit is to perform a comprehensive review of the patient's past medical history, assess their current health status and obtain any additional testing required based on anesthesia guidelines. We will also identify any potential anesthesia problems or contraindications to the planned procedure. CHIEF COMPLAINT: I'm here for an EGD and colonoscopy." HPI: This is a 58 year old female who presents for an EGD and colonoscopy. Pt states her last colonoscopy was in 2004 and positive for polyps. She has never had an EGD before. She c/o acid reflux symptoms, regurgitation, and dysphagia "for many years". Pt states "breads and potatoes get stuck". She also c/o chronic constipation. She denies blood in her stool. She has epigastric tenderness "off and on" and today rates this 12/10. Her paternal grandfather approx age 63 from colon cancer. ANESTHESIA FINDINGS: Intubation History: No history of difficult intubation Significant Anesthesia Considerations: None FAMILY PROBLEMS WITH ANESTHESIA: no history of adverse anesthetic event METS: Climb a flight of stairs or walk up a hill (5.50 METs) FUNCTIONAL STATUS: Independent 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 neck pain Carpal tunnel syndrome Constipation Degenerative disc disease, cervical Degenerative disc disease, lumbar Fibromyalgia Hearing loss High cholesterol Hypothyroid not on medication Incontinence Irritable bladder Irritable bowel Menopause Migraines Numbness and tingling arms, legs, hands, feet, face PTSD (post-traumatic stress disorder) Raynaud's disease Restless leg Sciatica Tinnitus Vertigo PAST SURGICAL HISTORY Procedure Laterality Date ABDOMINOPLASTY 2016 tummy tuck CARPAL TUNNEL Right 1988 CARPAL TUNNEL Left 1998 CARPAL TUNNEL Right 2014 DELIVERY ONLY x2 CHOLECYSTECTOMY 2012 FINGER SURGERY HX Right 2015 right middle trigger finger FINGER SURGERY HX Right 2015 tendon in thumb HYSTERECTOMY HX 1999 LX REPAIR RECURRENT VENTRAL HERNIA 06/20/2018 PAST SURGICAL HISTORY OF 2013 Sling removed REDUCTION OF LARGE BREAST 06/22/2013 SINUS SURGERY HX 2008 SLING OPER STRES INCONTINENCE TONSILLECTOMY AND ADENOIDECTOMY HX 1992 TOOTH EXTRACTION 2008 wisdom teeth FAMILY HISTORY Problem Relation Age of Onset Heart Mother Thyroid Mother Heart Father Prostate Cancer Father Diabetes Father other (cirrhosis of liver) Father Heart Paternal Grandfather Colon Cancer Paternal Grandfather Heart Paternal Grandmother other (Leukemia) Paternal Grandmother Breast Cancer Maternal Grandmother Thyroid Maternal Grandmother Social History Tobacco Use Smoking status: Never Smokeless tobacco: Never Substance Use Topics Alcohol use: No Drug use: No Prior to Admission medications as of 02/03/24 1038 Medication Sig Last Dose Taking furosemide (LASIX ORAL) Take by mouth once daily. Yes esomeprazole (NEXIUM) 20 mg capsule Take 20 mg by mouth daily at 6 am. Yes VENTOLIN HFA 90 mcg/actuation inhaler Inhale 1 Puff as instructed every 4 hours as needed for wheezing/shortness of breath. 01/30/2024 Yes albuterol (PROVENTIL) 2.5 mg /3 mL (0.083 %) nebulizer solution Use 2.5 mg via nebulizer four times daily as needed. Yes IBU 800 mg tablet Take 800 mg by mouth three times daily. 01/27/2024 Yes dicyclomine (BENTYL) 20 mg tablet TAKE ONE TABLET BY MOUTH FOUR TIMES A DAY Yes meclizine (ANTIVERT) 25 mg tab Take 25 mg by mouth three times daily. Yes promethazine (PHENERGAN) 25 mg tablet Take 25 mg by mouth every 6 hours as needed. Yes cholecalciferol (VITAMIN D3) 2,000 unit tablet Take 2,000 Units by mouth once daily. Yes oxybutynin XL (DITROPAN XL) 5 mg 24 hr tablet Take 1 tablet by mouth once daily. fluconazole (DIFLUCAN) 150 mg tablet TAKE ONE TABLET BY (more content not included)... [facility] OPERATIVE NOon 02-03-2024 OPERATIVE NO HNO ID: [id number] Author: BRANNON GARCIA MD Service: General Surgery Author Type: Physician Type: Operative Report Filed: 02/03/2024 12:11 Note Text: OPERATIVE/PROCEDURE REPORT LOG ID: [id number] SURGERY/PROCEDURE DATE: 02/03/2024 INCISION/PROCEDURE START TIME: 11:15 AM INCISION CLOSE/PROCEDURE END TIME: 11:59 AM SURGEON(S)/PROCEDURA LIST(S) AND VAMP PRESSER(S): Brannon Garcia MD - Proceduralist Zeeshan Link DO SURGERY/PROCEDURE(S) : EGD with biopsy Colonoscopy with polypectomy ANESTHESIA: Monitored Anesthesia Care SURGERY/PROCEDURE DETAILS: Patient is a 58-year-old female who has history of GERD and change in bowel habits recommended with both EGD and colonoscopy. The risks, and complications of the procedure were reviewed with the patient in detail including bleeding, missing the lesion and perforation requiring emergency surgery and anesthetic risks. Patient agreed to proceed. Patient brought to the endoscopy suite and routine monitors performed. She was placed in left lateral position. After adequate MAC anesthesia was obtained the scope was inserted and passed on esophagus. Z-line noted be at 35 cm. Scope was inserted retroflexed view showed a Hill grade 1. There is mild erythema of the antrum. Duodenum up to the second portion was normal. Scope was then withdrawn biopsy obtained of the antrum and the GE junction. Air was then aspirated stomach and the scope was withdrawn. Next we turned our attention to the colon. Perianal inspection digital rectal exam was normal. The scope was inserted and passed up to the cecum. Cecum identified appendiceal opening the ileocecal valve. The scope was then slowly withdrawn mucosa was carefully evaluated. There were a few scattered sigmoid diverticuli. There was a small sigmoid polyp which was removed by forceps polypectomy. No other lesions were noted. Retroflexed view was normal. Scope was withdrawn she tolerated the procedure well. Repeat colonoscopy 5 years. PRE-OP/PRE-PROCEDURE DIAGNOSIS: GERD, change in bowel habits POST-OP/POST-PROCEDU RE DIAGNOSIS: Same as Preop ESTIMATED BLOOD LOSS: 0 ml SPECIMENS: Antral, GE junction biopsies. Sigmoid polyp. IMPLANTABLE DEVICES: NONE DRAINS: None COMPLICATIONS: None PARTICIPATION IN SURGERY/PROCEDURE: Resident, under direct supervision and the remainder of the procedure was performed by the primary surgeon/proceduralis t with assistance. SIGNATURE: Brannon Garcia MD PATIENT NAME: Vince Slaughter DATE: February 03, 2024 TIME: 12:04 PM [facility] SURGICAL PATHOLOGYon CASE REPORT [facility] Comment on above: Order Comment: Speci men Type: TISSUE SPECIMENOrdering Facility: [facility] Address: [address] [place] [address] Result Comment: [facility] Pathology Report Case: [id number] Authorizing Provider: Brannon Garcia, Collected: 02/03/2024 11:21 AM Ordering Location: [facility] Received: 02/03/2024 02:04 PM Pathologist: Eva Lebron MD Specimens: A) - Stomach, Antrum, Biopsy B) - Esophagogastric Junction, Biopsy C) - Colon, Sigmoid, Polyp Performed By: #### S ####[facility] [id number] [address] FINAL DIAGNOSIS Normal [facility] Comment on above: Order Comment: Speci garcia Type: TISSUE SPECIMENOrdering Facility: [facility] Address: [address] [place] [address] Result Comment: A. A ntrum (stomach), biopsy: -- Focally active chronic Helicobacter pylori gastritis. -- Multiple H. pylori organisms identified on H&E sections. B. Esophagogastric junction, biopsy: -- Squamous mucosa with no significant histopathologic abnormalities. -- No glandular mucosa present for evaluation. C. Sigmoid colon polyp, polypectomy: -- Polypoid fragment of colonic mucosa with hyperplastic change. Performed By: #### S ####[facility]ORY[facility] [id number] [address] FINAL PERFORMING LAB Normal [facility] Comment on above: Order Comment: Speci garcia Type: TISSUE SPECIMENOrdering Facility: [facility] Address: [address] [place] [address] Result Comment: Diag nostic interpretation performed at [facility], [address] [place] [address] CLIA# [id number] Client Support Administrator: Elder Reyes M.D. Performed By: #### S ####[facility]ORYCLIA [id number] [address] GROSS DESCRIPTION Normal [place] Comment on above: Order Comment: [facility] Type: TISSUE SPECIMENOrdering Facility: [facility] Address: [address] [place] [address] Result Comment: APete aguirreach, Antrum, Biopsy Received in formalin labeled "stomach antrum biopsy" are multiple pieces of schneider, soft tissue aggregating to 0.8 x 0.2 x 0.2 cm. Totally submitted in one cassette. B. Esophagogastric Junction, Biopsy Received in formalin labeled "esophagogastric junction biopsy" are multiple pieces of schneider, soft tissue aggregating to 0.3 x 0.2 x 0.2 cm. Totally submitted in one cassette. C. Colon, Sigmoid, Polyp Received in formalin labeled "colon, sigmoid, polyp" is one piece of schneider, soft tissue measuring 0.2 x 0.2 x 0.2 cm. Totally submitted in one cassette. Gross examination performed at [facility], [address] [place] [address] CLIA#[id number] [facility] February 06, 2024 2:51 PM Performed By: #### S ####[facility]ORYCLIA [id number] [address] OF [place] .Auto Diffon 01-25-2024 Basophil, Absolute 0.1 10 3/mcL Normal 0.0-0.2 [facility] ([place]) Comment on above: Performed By: #### F T4, LIPID, FE, ADIFF, CMP, ANEU, CBC, GFR, VIDH, TSH #### [address] [address] #### B12 #### [address] [address] Basophils/100 WBC (Bld) 1.3 % Normal 0.0-2.5 A [facility] ([place]) Comment on above: Performed By: #### F T4, LIPID, FE, ADIFF, CMP, ANEU, CBC, GFR, VIDH, TSH #### [address] [address] #### B12 #### [address] [address] Eosinophil, Absolute 0.2 10 3/mcL Normal 0.0-0.4 [facility] ([place]) Comment on above: Performed By: #### F T4, LIPID, FE, ADIFF, CMP, ANEU, CBC, GFR, VIDH, TSH #### [address] [address] #### B12 #### [address] [address] Eosinophils/100 WBC (Bld) 3.3 % Normal 0.0-7.0 [facility] ([place]) Comment on above: Performed By: #### F T4, LIPID, FE, ADIFF, CMP, ANEU, CBC, GFR, VIDH, TSH #### [address] [address] #### B12 #### [address] [address] Lymphocyte, Absolute 2.2 10 3/mcL Normal 0.8-3.9 [facility] ([place]) Comment on above: Performed By: #### F T4, LIPID, FE, ADIFF, CMP, ANEU, CBC, GFR, VIDH, TSH #### [address] [address] #### B12 #### [address] [address] Lymphocytes/100 WBC (Bld) 38.9 % Normal 10.0-50.0 [facility] ([place]) Comment on above: Performed By: #### F T4, LIPID, FE, ADIFF, CMP, ANEU, CBC, GFR, VIDH, TSH #### [place] [address] #### B12 #### [address] [address] Monocyte, Absolute 0.6 10 3/mcL Normal 0.2-1.0 [facility] ([place]) Comment on above: Performed By: #### F T4, LIPID, FE, ADIFF, CMP, ANEU, CBC, GFR, VIDH, TSH #### [place] [address] #### B12 #### [address] [address] Monocytes/100 WBC (Bld) 10.0 % Normal 1.7-13.0 A [facility] ([place]) Comment on above: Performed By: #### F T4, LIPID, FE, ADIFF, CMP, ANEU, CBC, GFR, VIDH, TSH #### [address] [address] #### B12 #### [address] [address] Neutrophils/100 WBC (Bld) 46.5 % Normal 37.0-80.0 [facility] ([place]) Comment on above: Performed By: #### F T4, LIPID, FE, ADIFF, CMP, ANEU, CBC, GFR, VIDH, TSH #### [place] [address] [place], [place] [address] #### B12 #### [place] [address] [place] [address] .GFRon 01-25-2024 GFR 122 ml/min/1.73sqm Normal [facility] ([place]) Comment on above: Result Comment: GFR Population mean for , Non- Americans Ages 20-29 = 116 mL/min/1.73 sq.m. Ages 30-39 = 107 mL/min/1.73 sq.m. Ages 40-49 = 99 mL/min/1.73 sq.m. Ages 50-59 = 93 mL/min/1.73 sq.m. Ages 60-69 = 85 mL/min/1.73 sq.m. Ages 70+ = 75 mL/min/1.73 sq.m. Chronic Kidney Disease: Less than 60 mL/min/1.73 square meters End Stage Renal Disease: Less than 15 mL/min/1.73 square meters Performed By: #### F T4, LIPID, FE, ADIFF, CMP, ANEU, CBC, GFR, VIDH, TSH ####[place] [address] [address]#### B12 ####[place] [address] [place] [address] GFR Non- 101 ml/min/1.73sqm Normal [facility] ([place]) Comment on above: Result Comment: GFR Population mean for , Non- Americans Ages 20-29 = 116 mL/min/1.73 sq.m. Ages 30-39 = 107 mL/min/1.73 sq.m. Ages 40-49 = 99 mL/min/1.73 sq.m. Ages 50-59 = 93 mL/min/1.73 sq.m. Ages 60-69 = 85 mL/min/1.73 sq.m. Ages 70+ = 75 mL/min/1.73 sq.m. Chronic Kidney Disease: Less than 60 mL/min/1.73 square meters End Stage Renal Disease: Less than 15 mL/min/1.73 square meters Performed By: #### F T4, LIPID, FE, ADIFF, CMP, ANEU, CBC, GFR, VIDH, TSH ####[place] [address]#### B12 ####[place] [address] .NEUABSon 01-25-2024 Neutrophil, Absolute 2.6 10 3/mcL Low 2.9-6.2 [facility] ([place]) Comment on above: Performed By: #### F T4, LIPID, FE, ADIFF, CMP, ANEU, CBC, GFR, VIDH, TSH #### [place] [address] #### B12 #### [place] [address] B12on 01-25-2024 Cobalamin (Vitamin B12) [Mass/Vol] 468 pg/mL Normal 211-911 [facility] ([place]) Comment on above: Performed By: #### F T4, LIPID, FE, ADIFF, CMP, ANEU, CBC, GFR, VIDH, TSH ####[place] [address]#### B12 ####[place] [address] CBCon 01-25-2024 Erythrocyte distribution width (RBC) [Ratio] 13.3 % Normal 11.5-14.5 [facility] ([place]) Comment on above: Performed By: #### F T4, LIPID, FE, ADIFF, CMP, ANEU, CBC, GFR, VIDH, TSH #### [place] [address] #### B12 #### [place] [address] Hematocrit (Bld) [Volume fraction] 40.1 % Normal 37.0-47.0 [facility] ([place]) Comment on above: Performed By: #### F T4, LIPID, FE, ADIFF, CMP, ANEU, CBC, GFR, VIDH, TSH #### [place] [address] #### B12 #### [place] [address] Hgb 13.7 G/dL Normal 12.0-16.0 [facility] ([place]) Comment on above: Performed By: #### F T4, LIPID, FE, ADIFF, CMP, ANEU, CBC, GFR, VIDH, TSH #### [place] [address] #### B12 #### [place] [address] MCH (RBC) [Entitic mass] 30.2 pg Normal 27.0-31.2 [facility] ([place]) Comment on above: Performed By: #### F T4, LIPID, FE, ADIFF, CMP, ANEU, CBC, GFR, VIDH, TSH #### [place] [address] #### B12 #### [place] [address] MCHC 34.1 G/dL Normal 33.0-37.0 [facility] ([place]) Comment on above: Performed By: #### F T4, LIPID, FE, ADIFF, CMP, ANEU, CBC, GFR, VIDH, TSH #### [place] [address] #### B12 #### [place] [address] MCV (RBC) [Entitic vol] 88.5 fL Normal 80.0-94.0 A [facility] ([place]) Comment on above: Performed By: #### F T4, LIPID, FE, ADIFF, CMP, ANEU, CBC, GFR, VIDH, TSH #### [place] [address] #### B12 #### [place] [address] Platelet 213 10 3/mcL Normal 130-400 [facility] ([place]) Comment on above: Performed By: #### F T4, LIPID, FE, ADIFF, CMP, ANEU, CBC, GFR, VIDH, TSH #### [place] [address] #### B12 #### [address] [address] Platelet mean volume (Bld) [Entitic vol] 8.7 fL Normal 7.4-10.4 [facility] ([place]) Comment on above: Performed By: #### F T4, LIPID, FE, ADIFF, CMP, ANEU, CBC, GFR, VIDH, TSH #### [place] [address] #### B12 #### [address] [address] RBC 4.53 10 6/mcL Normal 4.20-5.40 [facility] ([place]) Comment on above: Performed By: #### F T4, LIPID, FE, ADIFF, CMP, ANEU, CBC, GFR, VIDH, TSH #### [place] [address] #### B12 #### [place] [address] WBC 5.6 10 3/mcL Normal 4.6-10.8 [facility] ([place]) Comment on above: Performed By: #### F T4, LIPID, FE, ADIFF, CMP, ANEU, CBC, GFR, VIDH, TSH #### [place] [address] #### B12 #### [address] [address] CMPon 01-25-2024 Albumin Level 4.1 G/dL Normal 3.5-5.0 [facility] ([place]) Comment on above: Performed By: #### F T4, LIPID, FE, ADIFF, CMP, ANEU, CBC, GFR, VIDH, TSH ####[place] [address]#### B12 ####[place] [address] Albumin/Globulin [Mass ratio] 1.4 {ratio} Normal 1.1-2.5 [facility] ([place]) Comment on above: Performed By: #### F T4, LIPID, FE, ADIFF, CMP, ANEU, CBC, GFR, VIDH, TSH ####[place] [address]#### B12 ####[address] [address] ALP [Catalytic activity/Vol] 122 U/L Normal 40-135 [facility] ([place]) Comment on above: Performed By: #### F T4, LIPID, FE, ADIFF, CMP, ANEU, CBC, GFR, VIDH, TSH ####[place] [address]#### B12 ####[place] [address] ALT [Catalytic activity/Vol] 50 U/L Normal 14-59 [facility] ([place]) Comment on above: Performed By: #### F T4, LIPID, FE, ADIFF, CMP, ANEU, CBC, GFR, VIDH, TSH ####[place] [address]#### B12 ####[place] [address] AST [Catalytic activity/Vol] 26 U/L Normal 10-40 [facility] ([place]) Comment on above: Performed By: #### F T4, LIPID, FE, ADIFF, CMP, ANEU, CBC, GFR, VIDH, TSH ####[place] [address]#### B12 ####[place] [address] Bili Total 0.4 mg/dL Normal 0.2-1.0 [facility] ([place]) Comment on above: Result Comment: Use of this assay is not recommended for patients undergoing treatment with eltrombopag due to the potential for falsely elevated results. Performed By: #### F T4, LIPID, FE, ADIFF, CMP, ANEU, CBC, GFR, VIDH, TSH ####[place] [address]#### B12 ####[address] [address] BUN/Creatinine Ratio 30 ratio High 7-27 [facility] ([place]) Comment on above: Performed By: #### F T4, LIPID, FE, ADIFF, CMP, ANEU, CBC, GFR, VIDH, TSH ####[place] [address]#### B12 ####[place] [address] Calcium [Mass/Vol] 9.1 mg/dL Normal 8.4-10.2 [facility] ([place]) Comment on above: Performed By: #### F T4, LIPID, FE, ADIFF, CMP, ANEU, CBC, GFR, VIDH, TSH ####[place] [address]#### B12 ####[place] [address] Chloride [Moles/Vol] 103 mmol/L Normal 98-107 [facility] ([place]) Comment on above: Performed By: #### F T4, LIPID, FE, ADIFF, CMP, ANEU, CBC, GFR, VIDH, TSH ####[place] [address]#### B12 ####[place] [address] CO2 [Moles/Vol] 28 mmol/L Normal 22-29 [facility] ([place]) Comment on above: Performed By: #### F T4, LIPID, FE, ADIFF, CMP, ANEU, CBC, GFR, VIDH, TSH ####[place] [address]#### B12 ####[place] [address] Creatinine [Mass/Vol] 0.61 mg/dL Normal 0.55-1.02 [facility] ([place]) Comment on above: Performed By: #### F T4, LIPID, FE, ADIFF, CMP, ANEU, CBC, GFR, VIDH, TSH ####[place] [address]#### B12 ####[place] [address] Electrolyte Balance 10.0 mEq/L Normal 4.0-15.0 [facility] ([place]) Comment on above: Performed By: #### F T4, LIPID, FE, ADIFF, CMP, ANEU, CBC, GFR, VIDH, TSH ####[place] [address]#### B12 ####[place] [address] Globulin 3.0 G/dL Normal [facility] ([place]) Comment on above: Performed By: #### F T4, LIPID, FE, ADIFF, CMP, ANEU, CBC, GFR, VIDH, TSH ####[place] [address]#### B12 ####[place] [address] Glucose [Mass/Vol] 93 mg/dL Normal 70-105 [facility] ([place]) Comment on above: Performed By: #### F T4, LIPID, FE, ADIFF, CMP, ANEU, CBC, GFR, VIDH, TSH ####[place] [address]#### B12 ####[place] [address] Potassium [Moles/Vol] 4.4 mmol/L Normal 3.5-5.1 [facility] ([place]) Comment on above: Performed By: #### F T4, LIPID, FE, ADIFF, CMP, ANEU, CBC, GFR, VIDH, TSH ####[place] [address]#### B12 ####[place] [address] Sodium [Moles/Vol] 141 mmol/L Normal 136-145 [facility] ([place]) Comment on above: Performed By: #### F T4, LIPID, FE, ADIFF, CMP, ANEU, CBC, GFR, VIDH, TSH ####[address] [address]#### B12 ####[address] [address] Total Protein 7.1 G/dL Normal 6.4-8.2 [facility] ([place]) Comment on above: Performed By: #### F T4, LIPID, FE, ADIFF, CMP, ANEU, CBC, GFR, VIDH, TSH ####[place] [address]#### B12 ####[place] [address] Urea nitrogen [Mass/Vol] 18 mg/dL Normal 7-18 [facility] ([place]) Comment on above: Performed By: #### F T4, LIPID, FE, ADIFF, CMP, ANEU, CBC, GFR, VIDH, TSH ####[place] [address]#### B12 ####[place] [address] FEon 01-25-2024 Iron [Mass/Vol] 69 ug/dL Normal 50-170 [facility] ([place]) Comment on above: Performed By: #### F T4, LIPID, FE, ADIFF, CMP, ANEU, CBC, GFR, VIDH, TSH #### [place] [address] #### B12 #### [place] [address] FT4on 01-25-2024 Free T4 [Mass/Vol] 0.83 ng/dL Normal 0.76-1.46 [facility] ([place]) Comment on above: Performed By: #### F T4, LIPID, FE, ADIFF, CMP, ANEU, CBC, GFR, VIDH, TSH #### [place] [address] #### B12 #### [place] [address] LABORATORYOrdered By: SYSTEM SYSTEM on 01-25-2024 Natriuretic peptide.B prohormone N-Terminal [Mass/Vol] 13 pg/mL Normal 0 - 125 pg/mL AO ADM SS Comment on above: Interpretive Data: N T-proBNP results of less than 300 pg/mL effectively rules out acute congestive heart failure with 99% negative predictive value. 25-hydroxyvitamin D3 [Mass/Vol] 25.8 ng/mL Invalid Interpretation Code AO ADM SS Comment on above: Interpretive Data: I nterpretive Values Based on Total 25(OH) Vitamin D: Deficient <20 ng/mL Insufficient 20 - <30 ng/mL Sufficient 30-100 ng/mL Albumin BCP dye [Mass/Vol] 4.1 G/dL Normal 3.5 - 5.0 G/dL AO ADM SS Albumin/Globulin [Mass ratio] 1.4 {ratio} Normal 1.1 - 2.5 ratio AO ADM SS ALP [Catalytic activity/Vol] 122 U/L Normal 40 - 135 U/L AO ADM SS ALT With P-5'-P [Catalytic activity/Vol] 50 U/L Normal 14 - 59 U/L AO ADM SS AST With P-5'-P [Catalytic activity/Vol] 26 U/L Normal 10 - 40 U/L AO ADM SS Basophil, Absolute 0.1 103/mcL Normal 0.0 - 0.2 10^3/mcL AO Workflow SS Basophils/100 WBC (Bld) 1.3 % Normal 0.0 - 2.5 % AO Workflow SS Bilirubin [Mass/Vol] 0.4 mg/dL Normal 0.2 - 1 .0 mg/dL AO ADM SS Comment on above: Interpretive Data: U se of this assay is not recommended for patients undergoing treatment with eltrombopag due to the potential for falsely elevated results. Calcium [Mass/Vol] 9.1 mg/dL Normal 8.4 - 10. 2 mg/dL AO ADM SS Chloride [Moles/Vol] 103 mmol/L Normal 98 - 10 7 mmol/L AO ADM SS CO2 [Moles/Vol] 28 mmol/L Normal 22 - 29 mmol/L AO ADM SS Cobalamin (Vitamin B12) [Mass/Vol] 468 pg/mL Normal 211 - 911 pg/mL AH ADM SS Creatinine [Mass/Vol] 0.61 mg/dL Normal 0.55 - 1.02 mg/dL AO ADM SS Electrolyte Balance 10.0 mEq/L Normal 4.0 - 15 .0 mEq/L AO ADM SS Eosinophil, Absolute 0.2 103/mcL Normal 0.0 - 0 .4 10^3/mcL AO Workflow SS Eosinophils/100 WBC (Bld) 3.3 % Normal 0.0 - 7.0 % AO Workflow SS Erythrocyte distribution width (RBC) [Ratio] 13.3 % Normal 11.5 - 14.5 % AO Workflow SS Free T4 [Mass/Vol] 0.83 ng/dL Normal 0.76 - 1. 46 ng/dL AO ADM SS GFR/1.73 sq M.predicted among blacks MDRD (S/P/Bld) [Vol rate/Area] 122 ml/min/1.73sqm Invalid Interpretation Code AO Chemistry S Comment on above: Interpretive Data: GFR Population mean for , Non- Americans Ages 20-29 = 116 mL/min/1.73 sq.m. Ages 30-39 = 107 mL/min/1.73 sq.m. Ages 40-49 = 99 mL/min/1.73 sq.m. Ages 50-59 = 93 mL/min/1.73 sq.m. Ages 60-69 = 85 mL/min/1.73 sq.m. Ages 70+ = 75 mL/min/1.73 sq.m. Chronic Kidney Disease: Less than 60 mL/min/1.73 square meters End Stage Renal Disease: Less than 15 mL/min/1.73 square meters GFR/1.73 sq M.predicted among non-blacks MDRD (S/P/Bld) [Vol rate/Area] 101 ml/min/1.73sqm Invalid Interpretation Code AO Chemistry S Comment on above: Interpretive Data: GFR Population mean for , Non- Americans Ages 20-29 = 116 mL/min/1.73 sq.m. Ages 30-39 = 107 mL/min/1.73 sq.m. Ages 40-49 = 99 mL/min/1.73 sq.m. Ages 50-59 = 93 mL/min/1.73 sq.m. Ages 60-69 = 85 mL/min/1.73 sq.m. Ages 70+ = 75 mL/min/1.73 sq.m. Chronic Kidney Disease: Less than 60 mL/min/1.73 square meters End Stage Renal Disease: Less than 15 mL/min/1.73 square meters Globulin 3.0 G/dL Invalid Interpretation Code AO ADM SS Glucose [Mass/Vol] 93 mg/dL Normal 70 - 105 mg/dL AO ADM SS Hematocrit (Bld) [Volume fraction] 40.1 % Normal 37.0 - 47.0 % AO Workflow SS Hemoglobin (Bld) [Mass/Vol] 13.7 G/dL Normal 12.0 - 16.0 G/dL AO Workflow SS Iron [Mass/Vol] 69 ug/dL Normal 50 - 170 mcg/dL AO ADM SS Lymphocyte, Absolute 2.2 103/mcL Normal 0.8 - 3 .9 10^3/mcL AO Workflow SS Lymphocytes/100 WBC (Bld) 38.9 % Normal 10.0 - 50.0 % AO Workflow SS MCH (RBC) [Entitic mass] 30.2 pg Normal 27.0 - 31.2 pg AO Workflow SS MCHC 34.1 G/dL Normal 33.0 - 37.0 G/dL AO Workflow SS MCV (RBC) [Entitic vol] 88.5 fL Normal 80.0 - 94.0 fL AO Workflow SS Monocyte, Absolute 0.6 103/mcL Normal 0.2 - 1.0 10^3/mcL AO Workflow SS Monocytes/100 WBC (Bld) 10.0 % Normal 1.7 - 13.0 % AO Workflow SS Neutrophil, Absolute 2.6 103/mcL Low 2.9 - 6 .2 10^3/mcL AO Workflow SS Neutrophils/100 WBC (Bld) 46.5 % Normal 37.0 - 80.0 % AO Workflow SS Platelet mean volume (Bld) [Entitic vol] 8.7 fL Normal 7.4 - 10.4 fL AO Workflow SS Platelets (Bld) [#/Vol] 213 103/mcL Normal 130 - 400 10^3/mcL AO Workflow SS Potassium [Moles/Vol] 4.4 mmol/L Normal 3.5 - 5.1 mmol/L AO ADM SS Protein [Mass/Vol] 7.1 G/dL Normal 6.4 - 8.2 G/dL AO ADM SS RBC (Bld) [#/Vol] 4.53 106/mcL Normal 4.20 - 5.4 0 10^6/mcL AO Workflow SS Sodium [Moles/Vol] 141 mmol/L Normal 136 - 145 mmol/L AO ADM SS TSH Qn 3.12 m[IU]/L Normal 0.36 - 3.74 mcIU/mL AO ADM SS Urea nitrogen [Mass/Vol] 18 mg/dL Normal 7 - 18 mg/dL AO ADM SS Urea nitrogen/Creatinine [Mass ratio] 30 ratio High 7 - 27 ratio AO ADM SS WBC (Bld) [#/Vol] 5.6 103/mcL Normal 4.6 - 10.8 10^3/mcL AO Workflow SS LABORATORYOrdered By: Gema Phillip on 01-25-2024 Cholesterol [Mass/Vol] 252 mg/dL High 0 - 2 00 mg/dL AO ADM SS Comment on above: Interpretive Data: C holesterol Reference Interval: Less than 200 Desirable 200-239 Borderline high risk 240 and above High risk Cholesterol in HDL [Mass/Vol] 49 mg/dL Normal 40 - 60 mg/dL AO ADM SS Cholesterol in LDL [Mass/Vol] 158 mg/dL High 0 - 130 mg/dL AO ADM SS Triglyceride [Mass/Vol] 224 mg/dL High 0 - 150 mg/dL AO ADM SS Comment on above: Interpretive Data: T riglyceride Reference Interval: Less than 150 Normal 150-199 Borderline high risk 200-499 High risk 500 or higher Very high risk LIPIDon 01-25-2024 Cholesterol [Mass/Vol] 252 mg/dL High 0-200 [facility] ([place]) Comment on above: Result Comment: Chol esterol Reference Interval: Less than 200 Desirable 200-239 Borderline high risk 240 and above High risk Performed By: #### F T4, LIPID, FE, ADIFF, CMP, ANEU, CBC, GFR, VIDH, TSH ####[place] [address] [place] [address]#### B12 ####[address] [address] Cholesterol in HDL [Mass/Vol] 49 mg/dL Normal 40-60 [facility] ([place]) Comment on above: Performed By: #### F T4, LIPID, FE, ADIFF, CMP, ANEU, CBC, GFR, VIDH, TSH ####[place] [address] [place], [place] [address]#### B12 ####[address] [address] Cholesterol in LDL [Mass/Vol] 158 mg/dL High 0-130 [facility] ([place]) Comment on above: Performed By: #### F T4, LIPID, FE, ADIFF, CMP, ANEU, CBC, GFR, VIDH, TSH ####[place] [address] [address]#### B12 ####[place] [address] Triglyceride [Mass/Vol] 224 mg/dL High 0-150 [facility] ([place]) Comment on above: Result Comment: Trig lyceride Reference Interval: Less than 150 Normal 150-199 Borderline high risk 200-499 High risk 500 or higher Very high risk Performed By: #### F T4, LIPID, FE, ADIFF, CMP, ANEU, CBC, GFR, VIDH, TSH ####[place] [address]#### B12 ####[place] [address] PBNPon 01-25-2024 Natriuretic peptide B (Bld) [Mass/Vol] 13 pg/mL Normal 0-125 [facility] ([place]) Comment on above: Result Comment: NT-p roBNP results of less than 300 pg/mL effectively rules out acute congestive heart failure with 99% negative predictive value. Performed By: #### P BNP ####[place] [address] TSHon 01-25-2024 TSH Qn 3.12 m[IU]/L Normal 0.36-3.74 [facility] ([place]) Comment on above: Performed By: #### F T4, LIPID, FE, ADIFF, CMP, ANEU, CBC, GFR, VIDH, TSH #### [address] [address] #### B12 #### [place] [address] VIDHon 01-25-2024 Vit. D 25-Hydroxy 25.8 ng/mL Normal [facility] ([place]) Comment on above: Result Comment: Inte rpretive Values Based on Total 25(OH) Vitamin D: Deficient <20 ng/mL Insufficient 20 - <30 ng/mL Sufficient 30-100 ng/mL Performed By: #### F T4, LIPID, FE, ADIFF, CMP, ANEU, CBC, GFR, VIDH, TSH #### [place] [address] [place], [place] [address] #### B12 #### [facility] [address] [place] [address] Office Visiton 01-03-2024 Follow-up visit [id number] Vince Slaughter 1965 F Date Provider Department Center 01/03/2024 [id number] JACOB MG SM WAD None Family History Problem Relation Age of Onset Cancer Mother Heart disease Mother Hyperlipidemia Mother Hypertension Mother Migraines Mother Osteoarthritis Mother Alcohol abuse Father Cancer Father Diabetes Father Heart disease Father Hyperlipidemia Father Hypertension Father Migraines Father Osteoarthritis Father Family Status - Relation Status Age at Mother Father Level of Service:48229 [place] OFFICE/OUTPATIENT NEW LOW MDM 30 MINUTES Reason for Visit and Comments: Ankle Pain [820567] - Left Normal [facility] Progress Noteon 01-03-2024 Progress Note [facility] [address] [place] [address] Dept: [phone] Dept Chief Complaint Patient presents with Ankle Pain Left Subjective History of Present Illness: Vince Slaughter is a 58 y.o. female who presents today for evaluation of left ankle pain. Pt has a past of fibromyalgia, neuritis, lymphedema. Patient states she is on disability Location: lateral Onset: 2 years, chronic Injury: no Quality: burning, swelling. Mechanical symptoms: No. "Feels like joints separate" Radiation of symptoms: yes - into lateral upper mid ankle. Severity: 3/10 at rest and 7/10 at worst Exacerbating factor(s): walking, prolonged standing, and climbing/descending stairs Relieving factor(s): rest Timing: intermittently Imaging to date: X-ray 2023 Treatment to date: PT/OT/HEP: no Ice: no Heat: no Medications: Tylenol: no NSAIDs: yes, Ibuprofen/Motrin/Adv il, helpful Oral steroids: no Muscle relaxants: no Nerve medications: no Targeted injections: none Assistive devices: Cane PRN. Prior surgery: no Occupation: Disabled Fall risk assessment: Less than 65, not applicable She denies any color changes, denies any sweating of the lower leg symptoms will come and go there are times when her symptoms are very minor other times when they are more severe. Objective Visit Vitals BP 124/76 Physical Exam: General: Alert, well appearing, no acute distress. Respiratory: Breathing comfortably on room air. No respiratory distress. Skin: Warm, dry, intact. No visible rashes or erythema overlying area of focused exam. Physical Exam Musculoskeletal: Left ankle: Tenderness (Diffuse) present. No lateral malleolus, medial malleolus, ATF ligament, base of 5th metatarsal or proximal fibula tenderness. Left Achilles Tendon: No tenderness. Right foot: Swelling (Diffuse) present. Left foot: Normal range of motion and normal capillary refill. Swelling (Diffuse) and tenderness (Diffuse lateral ankle and distal lateral lower leg) present. No deformity, bunion, bony tenderness or crepitus. Normal pulse. Feet: External Notes No pertinent interval updates Labs No results found for: "HGBA1C" No results found for: "CREATININE" Imaging Images reviewed with patient today I have personally reviewed the images pertinent to the appointment today Nondiagnostic EMG/NCT Patient reports EMG nerve conduction test performed by neurologist was reported as normal, report not available. Procedure No procedures completed today Assessment Diagnosis Plan 1. Neuritis 2. Acute left ankle pain XR ankle 3+ views left Plan We a long discussion that the nature of her symptoms as well as the reproducible pain is more consistent with neuropathic pain. No musculoskeletal underlying pathologies were identified. We will have her touch base with her neurologist for other treatment options and further testing if indicated. No follow-ups on file. Jane Jacob MD 01/03/2024 9:21 AM Please note that portions of this note may have been completed with voice recognition software. Documentation reviewed prior to signing but minor errors in tag and label cutter may have occurred. Normal [facility] 36on 01-02-2024 36 Called and spoke with patient. She sent message in error. Normal [facility] CNOVon 01-02-2024 CNOV Office Visit (AGGENS3) VINCE SLAUGHTER ([id number]) 1965 F CHT Date Time Provider Department 01/02/24 4:00 PM BRANNON GARCIA AGGENS3 During your visit today, we recorded the following information about you: Pulse Respiration Blood pressure Weight 74/minute 20/minute 124/72 94.3 kg Height 1.422 m Brannon Garcia MD 01/03/2024 8:15 AM Signed Consultation requested by Toshia Meier CNP for an opinion regarding EGD and colonoscopy.. My final recommendations will be communicated back to the requesting physician by way of shared Medical record or letter to requesting physician via US mail. Vince Slaughter is a 58 year old White female who presents with complaints of patient is complaining of abdominal pain bloating, change in bowel habits and GERD. She is taking [id number] Nexium which has helped with her symptoms. She denies any caffeine or carbonated beverage use. Occasional alcohol use. Denies tobacco use. She reports irregular bowel movements and has been taking lactulose on and off for over 20 years. She denies any blood in her stool. No family history of colorectal carcinoma. In spite of not eating she reports positive weight gain. 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 neck pain Bladder spasms Carpal tunnel syndrome Constipation Degenerative disc disease, cervical Degenerative disc disease, lumbar Ear pain Eye pain Facial pain Fatigue Fibromyalgia Hearing loss High cholesterol Hypothyroid not on medication Incontinence Irritable bladder Irritable bowel Menopause Migraines Muscle weakness Numbness and tingling arms, legs, hands, feet, face PTSD (post-traumatic stress disorder) Raynaud's disease Restless leg Sciatica Tinnitus Tremors of nervous system remote history Vertigo PAST SURGICAL HISTORY Procedure Laterality Date ABDOMINOPLASTY 2016 tummy tuck CARPAL TUNNEL Right 1988 CARPAL TUNNEL Left 1999 CARPAL TUNNEL Right 2015 DELIVERY ONLY x2 CHOLECYSTECTOMY 2012 FINGER SURGERY HX Right 2015 right middle trigger finger FINGER SURGERY HX Right 2015 tendon in thumb HYSTERECTOMY HX 1999 LX REPAIR RECURRENT VENTRAL HERNIA 06/20/2018 PAST SURGICAL HISTORY OF 2012 Sling removed REDUCTION OF LARGE BREAST 06/22/2013 SINUS SURGERY HX 2007 SLING OPER STRES INCONTINENCE TONSILLECTOMY AND ADENOIDECTOMY HX 1992 TOOTH EXTRACTION 2008 wisdom teeth Social History Tobacco Use Smoking status: Never Smokeless tobacco: Never Substance Use Topics Alcohol use: No Drug use: No FAMILY HISTORY Problem Relation Age of Onset Heart Mother Thyroid Mother Heart Father Prostate Cancer Father Diabetes Father other (cirrhosis of liver) Father Heart Paternal Grandfather Colon Cancer Paternal Grandfather Heart Paternal Grandmother other (Leukemia) Paternal Grandmother Breast Cancer Maternal Grandmother Thyroid Maternal Grandmother ALLERGIES Allergen Reactions [place] Hives, Swelling Hives, sick, rash, swelling of skin Nitrofurantoin Anaphylaxis Peanuts GI Upset, Shortness of Breath With skins Acetaminophen Other: See Comments Buspirone Other: See Comments Ciprofloxacin GI Upset, Myalgia Sick [place] And Derivati* Other: See Comments GI upset, acidic stool and urine Coconut Hives Hives; processed, can eat fresh Dairy Aid [Lactase] GI Upset Sever bloating and stomach pain Demerol [Meperidine* GI Upset Vomiting Eggs [Egg] GI Upset Extreme sickness Levothyroxine Sodium GI Upset, Other: See Comments Lidocaine Hives Lisinopril Other: See Comments Milk Containing Pro* GI Upset Mobic [Meloxicam] GI Upset sick Morphine Itching Omnicef [Cefdinir] GI Upset Sick Prilosec [Omeprazol* Hives Sulfamethoxazole-Tr* Hives, Other: See Comments Vicodin [Hydrocodon* Hives Wellbutrin [Bupropi* GI Upset Sick Wheat Unknown Hives, sick and headache Current Outpatient Medications Medication Sig esomeprazole (NEXIUM) 20 mg capsule Take 20 mg by mouth daily at 6 am. VENTOLIN HFA 90 mcg/actuation inhaler Inhale 1 Puff as instructed every 4 hours as needed for wheezing/shortness of breath. albuterol (PROVENTIL) 2.5 mg /3 mL (0.083 %) nebulizer solution Use 2.5 mg via nebulizer four times daily as needed. montelukast (SINGULAIR) 10 mg tablet Take 10 mg by mouth once daily. IBU 800 mg tablet Take 800 mg by mouth three times daily. dicyclomine (BENTYL) 20 mg tablet TAKE ONE TABLET BY MOUTH FOUR TIMES A DAY meclizine (ANTIVERT) 25 mg tab Take 25 mg by mouth three times daily. promethazine (PHENERGAN) 25 mg tablet Take 25 mg by mouth every 6 hours as needed. cholecalciferol (VITAMIN D3) 2,000 unit tablet Take 2,00 (more content not included)... Normal [facility] XR ANKLE MINIMUM 3 VIEWS LEF Ton 11-26-2023 XR ANKLE MINIMUM 3 VIEWS LEFT ORIGINAL EXAMINATION: THREE XRAY VIEWS OF THE LEFT ANKLE 11/24/2023 8:17 am COMPARISON: Left ankle x-ray on 08/12/2023 HISTORY: ORDERING SYSTEM PROVIDED HISTORY: Reason for Exam: left ankle swelling and pain FINDINGS: The distal left tibia and fibula are intact. The alignment of the ankle mortise is normal. There is no fracture of the talus. The talar dome has normal contour. No calcaneal fracture is present. There is mild calcaneal enthesopathic spur formation. Mild soft tissue swelling is present. IMPRESSION: No acute bone abnormality of left ankle. Interpreted by: Chris Treviño MD Preliminary Report By: Chris Treviño MD Electronically signed By Chris Treviño MD Dictated Date: 11/26/2023 10:46:33 AM Prelim Date: 11/26/2023 10:47:59 AM Sign Date: 11/26/2023 10:47:59 AM Ordering Provider: TOSHIA MEIER Normal [facility] ([place]) Jv 11-24-2023 U Creatinine 37.2 mg/dL Normal 28.0-117.0 [facility] ([place]) Comment on above: Performed By: #### M ALBR #### [address] [address] U Microalb 365 mcg/dL Normal [facility] ([place]) Comment on above: Performed By: #### M ALBR #### [place] [address] [place], [place] [address] U Ratio Alb/Cre 10 mcg/mg Normal 0-30 [facility] ([place]) Comment on above: Performed By: #### M ALBR #### [place] [address] [place], [place] [address] XR ANKLE AND FOOT 6 VIEWS LE FTon 08-12-2023 XR ANKLE AND FOOT 6 VIEWS LEFT ORIGINAL EXAMINATION: 6 XRAY VIEWS OF THE LEFT FOOT 08/12/2023 6:06 am COMPARISON: None. HISTORY: ORDERING SYSTEM PROVIDED HISTORY: Reason for Exam: Pt c/o left lateral ankle pain for four months. Pt denies fall or trauma. left lateral ankle pain FINDINGS: No acute fracture or dislocation. The joint spaces are maintained. Ankle mortise and talar dome are unremarkable. No radiopaque retained foreign body or appreciable soft tissue swelling. IMPRESSION: No acute fracture or dislocation. I have personally reviewed the images of this examination and agree with the resident's findings and interpretation. Interpreted by: Jeffy Humphrey MD Preliminary Report By: Ferny Li Electronically signed By Jeffy Humphrey MD Dictated Date: 08/12/2023 6:09:05 AM Prelim Date: 08/12/2023 6:09:54 AM Sign Date: 08/12/2023 7:23:12 AM Ordering Provider: CHRISTIANO DESIR [facility] ([place]) No Panel InformationOrdered By: Eloy Carnes on 03-22-2023 Left AASV distal diameter 1.3 mm [facility] Work Phone: Left AASV distal reflux 0.0 s [facility] [employer] Work Phone: Left AASV mid diameter 2.7 mm [facility] Work Phone: Left AASV mid reflux 0.0 s [facility] Work Phone: Left AASV origin diameter 3.8 mm [facility] Work Phone: Left AASV origin reflux 0.0 s [facility] [employer] Work Phone: Left AASV proximal diameter 2.2 mm [facility] Work Phone: Left AASV proximal reflux 0.0 s [facility] [employer] Work Phone: Left CFV Rfx 0.0 s [facility] Work Phone: Left FV Rfx 0.0 s [facility] [employer] Work Phone: Left GSV at Knee Diam [address] [facility] Work Phone: [phone] Left GSV at Knee Rfx 0.0 s [facility] Work Phone: [phone] Left GSV Junc Diam 6.1 mm [facility] Work Phone: Left GSV Junc Rfx 0.0 s [facility] Work Phone: [phone] Left GSV Thigh Dist Diam 3 mm [facility] Work Phone: Left GSV Thigh Dist Rfx 0.0 s [facility] [employer] Work Phone: Left GSV Thigh Mid Diam 4 mm [facility] [employer] Work Phone: Left GSV Thigh Prox Diam 3 mm [facility] [employer] Work Phone: [phone] Left GSV Thigh Prox Rfx 0.0 s [facility] [employer] Work Phone: [phone] Left GSV Thight Mid Rfx 0.0 s [facility] [employer] Work Phone: [phone] Left Pop Rfx 0.0 s [facility] [employer] Work Phone: [phone] Left SSV junction reflux 0.0 s [facility] [employer] Work Phone: [phone] Left SSV Mid Rfx 0.0 s [facility] Work Phone: [phone] Left SSV Prox Diam 3.5 mm [facility] [employer] Work Phone: [phone] Left SSV Prox Rfx 0.0 s [facility] Work Phone: [phone] Right AASV distal diameter 1.2 mm [facility] [employer] Work Phone: [phone] Right AASV distal reflux 0.0 s [facility] Work Phone: [phone] Right AASV mid diameter 1.4 mm [facility] [employer] Work Phone: [phone] Right AASV mid reflux 0.[address] [facility] Work Phone: [phone] Right AASV origin diameter 1.9 mm [facility] [employer] Work Phone: [phone] Right AASV origin reflux 0.0 s [facility] [employer] Work Phone: [phone] Right AASV proximal diameter 2.1 mm [facility] [employer] Work Phone: [phone] Right AASV proximal reflux 0.0 s [facility] [employer] Work Phone: [phone] Right CFV Rfx 0.0 s [employer] Work Phone: Right FV Rfx 0.0 s [facility] [employer] Work Phone: [phone] Right GSV AK Rfx 0.0 s [facility] Work Phone: Right GSV at Knee Diam 2.9 mm [facility] [employer] Work Phone: Right GSV Junc Diam 7.2 mm [facility] [employer] Work Phone: [phone] Right GSV Junc Rfx 0.0 s [facility] [employer] Work Phone: Right GSV Thigh Dist Diam 2.9 mm [facility] [employer] Work Phone: Right GSV Thigh Dist Rfx 0.0 s [facility] [employer] Work Phone: Right GSV Thigh Mid Diam 3.7 mm [facility] [employer] Work Phone: Right GSV Thigh Prox Diam 3.8 mm [facility] [employer] Work Phone: [phone] Right GSV Thigh Prox Rfx 0.0 s [facility] [employer] Work Phone: Right GSV Thight Mid Rfx 0.0 s [facility] [employer] Work Phone: Right Pop Rfx 0.0 s [facility] [employer] Work Phone: Right SSV junction reflux 0.0 s [employer] Work Phone: Right SSV Mid Rfx 0.0 s [facility] [employer] Work Phone: Right SSV Prox Diam 2.2 mm [facility] [employer] Work Phone: Right SSV Prox Rfx 0.0 s [employer] Phone: No Panel Informationon 03-22 No evidence of deep vein and superficial thrombosis in the right lower extremity. No evidence of deep vein and superficial thrombosis in the left lower extremity. Reflux study patient position: reverse Trendelenburg. Right Common femoral, femoral, popliteal, great saphenous, small saphenous and anterior accessory veins are competent. Reflux study patient position: reverse Trendelenburg. Left Common femoral, femoral, popliteal, great saphenous, small saphenous and anterior accessory saphenous veins are competent. Right Lower Venous No evidence of deep vein and superficial thrombosis in the right lower extremity. Reflux study patient position: reverse Trendelenburg. Common femoral, femoral, popliteal, great saphenous, small saphenous and anterior accessory veins are competent. Left Lower Venous No evidence of deep vein and superficial thrombosis in the left lower extremity. Reflux study patient position: reverse Trendelenburg. Common femoral, femoral, popliteal, great saphenous, small saphenous and anterior accessory saphenous veins are competent. Chocolate Finisher Operator Details A nettles scale, color Doppler imaging and spectral Doppler analysis ultrasound was performed. During the study longitudinal and transverse views were obtained. Pulsed wave doppler was performed. The exam was performed with the patient in the supine position. Overall the study quality was suboptimal. Study was technically difficult due to: body habitus and diffuse subcutaneous edema. CV CPACS 36on 03-10-2023 36 S/W patient Vascular US Venous Insufficiency scheduled for 03/22/23 @ 8:30am Pao. Lidia INTERIANO will call w/results. Normal [facility] Office Visiton 03-09-2023 Follow-up visit [id number] Vince Slaughter 1965 F Date Provider Department Center 03/09/2023 LIDIA MENDEZ [facility] SETH None Family History Problem Relation Age of Onset Cancer Mother Heart disease Mother Hyperlipidemia Mother Hypertension Mother Migraines Mother Osteoarthritis Mother Alcohol abuse Father Cancer Father Diabetes Father Heart disease Father Hyperlipidemia Father Hypertension Father Migraines Father Osteoarthritis Father Family Status - Relation Status Age at Mother Father Level of Service:59879 [place] OFFICE/OUTPATIENT NEW LOW MDM 30-44 MINUTES Reason for Visit and Comments: New Patient [542] - (ref Toshia Meier LOLA-LAISHA) 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 DX: Venous Insufficiency/edema Normal [facility] LABORATORYOrdered By: SYSTEM SYSTEM on 02-08-2023 25-hydroxyvitamin D3 [Mass/Vol] 28.8 ng/mL Invalid Interpretation Code AO ADM SS Albumin BCP dye [Mass/Vol] 4.4 G/dL Invalid Interpretation Code 3.5 - 5.0 G/dL AO ADM SS Albumin/Globulin [Mass ratio] 1.5 {ratio} Invalid Interpretation Code 1.1 - 2.5 ratio AO ADM SS ALP [Catalytic activity/Vol] 109 U/L Invalid Interpretation Code 40 - 135 U/L AO ADM SS ALT With P-5'-P [Catalytic activity/Vol] 31 U/L Invalid Interpretation Code 14 - 59 U/L AO ADM SS AST With P-5'-P [Catalytic activity/Vol] 23 U/L Invalid Interpretation Code 10 - 40 U/L AO ADM SS Bilirubin [Mass/Vol] 0.4 mg/dL Invalid Interpretation Code 0.2 - 1.0 mg/dL AO ADM SS Calcium [Mass/Vol] 9.4 mg/dL Invalid Interpretation Code 8.4 - 10.2 mg/dL AO ADM SS Chloride [Moles/Vol] 103 mmol/L Invalid Interpretation Code 98 - 107 mmol/L AO ADM SS CO2 [Moles/Vol] 26 mmol/L Invalid Interpretation Code 22 - 29 mmol/L AO ADM SS Creatinine [Mass/Vol] 0.68 mg/dL Invalid Interpretation Code 0.55 - 1.02 mg/dL AO ADM SS Electrolyte Balance 12.0 mEq/L Invalid Interpretation Code 4.0 - 15.0 mEq/L AO ADM SS GFR/1.73 sq M.predicted among blacks MDRD (S/P/Bld) [Vol rate/Area] 108 ml/min/1.73sqm Invalid Interpretation Code AO Chemistry S GFR/1.73 sq M.predicted among non-blacks MDRD (S/P/Bld) [Vol rate/Area] 89 ml/min/1.73sqm Invalid Interpretation Code AO Chemistry S Globulin 2.9 G/dL Invalid Interpretation Code AO ADM SS Glucose [Mass/Vol] 91 mg/dL Invalid Interpretation Code 70 - 105 mg/dL AO ADM SS Potassium [Moles/Vol] 4.3 mmol/L Invalid Interpretation Code 3.5 - 5.1 mmol/L AO ADM SS Protein [Mass/Vol] 7.3 G/dL Invalid Interpretation Code 6.4 - 8.2 G/dL AO ADM SS Sodium [Moles/Vol] 141 mmol/L Invalid Interpretation Code 136 - 145 mmol/L AO ADM SS Urea nitrogen [Mass/Vol] 16 mg/dL Invalid Interpretation Code 7 - 18 mg/dL AO ADM SS Urea nitrogen/Creatinine [Mass ratio] 24 ratio Invalid Interpretation Code 7 - 27 ratio AO ADM SS LABORATORYOrdered By: Yadira Lawton on 02-08-2023 Cholesterol [Mass/Vol] 279 mg/dL Invalid Interpretation Code 0 - 200 mg/dL AO ADM SS Cholesterol in HDL [Mass/Vol] 59 mg/dL Invalid Interpretation Code 40 - 60 mg/dL AO ADM SS Cholesterol in LDL [Mass/Vol] 168 mg/dL Invalid Interpretation Code 0 - 130 mg/dL AO ADM SS Triglyceride [Mass/Vol] 258 mg/dL Invalid Interpretation Code 0 - 150 mg/dL AO ADM SS UA DIP, URINE (POC)on 2022 BILIRUBIN UA (POCT) Negative Negative [facility] CLARITY UA (POCT) Clear [facility] COLOR UA (POCT) Yellow [facility] GLUCOSE UA (POCT) Negative Negative mg/dL [facility] HEMOGLOBIN/BLOOD UA (POCT) Negative Negative [facility] KETONE UA (POCT) Negative Negative mg/dL [facility] LEUKOCYTES UA (POCT) Negative Negative [facility] NITRITE UA (POCT) Negative Negative [facility] PH UA (POCT) 7.0 4.5 - 8.0 [facility] Protein Ql (U) Negative Negative mg/dL [facility] SPECIFIC GRAVITY UA (POCT) 1.020 1.005 - 1.030 [facility] UROBILINOGEN UA (POCT) 0.2 E.U./dL Dulce l E.U./dL [facility] UA DIP, URINE (POC)on 2022 BILIRUBIN UA (POCT) Negative Negative [facility] CLARITY UA (POCT) Clear [facility] COLOR UA (POCT) Yellow [facility] GLUCOSE UA (POCT) Negative Negative mg/dL [facility] HEMOGLOBIN/BLOOD UA (POCT) Negative Negative [facility] KETONE UA (POCT) Negative Negative mg/dL [facility] LEUKOCYTES UA (POCT) Trace Abnormal Negative [facility] NITRITE UA (POCT) Negative Negative [facility] PH UA (POCT) 5.0 4.5 - 8.0 [facility] Protein Ql (U) Negative Negative mg/dL [facility] SPECIFIC GRAVITY UA (POCT) 1.025 1.005 - 1.030 [facility] UROBILINOGEN UA (POCT) 0.2 E.U./dL Dulce l E.U./dL [facility] Urinalysis complete panel (U )on 11-09-2022 Bilirubin Ql (U) Negative Negative [facility] Clarity (Unsp spec) Clear Clear [facility] Color (U) Light Yellow yellow [facility] Epithelial cells LM.HPF (Urine sed) [#/Area] Few Abnormal None Seen /HPF [facility] Glucose Test strip (U) [Mass/Vol] Negative Trace, Negative [facility] Hemoglobin Ql (U) Negative Negative, Trace [facility] Ketones Ql (U) Negative Negative, Trace [facility] Leukocyte esterase Test strip Ql (U) 250 Attila/mL Abnormal Negative, 25 Attila/mL [facility] Nitrite Ql (U) Negative Negative [facility] pH (U) 5.5 [pH] 5.0 - 8.0 [facility] Protein (U) [Mass/Vol] Negative Trace , Negative [facility] RBC LM.HPF (Urine sed) [#/Area] 0-3 /HPF 0-3 /HPF [facility] Specific gravity (U) [Rel density] 1.020 1.005 - 1.030 [facility] Urobilinogen Ql (U) Normal Negative [facility] WBC LM.HPF (Urine sed) [#/Area] 6-10 /HPF Abnormal 0-5 /HPF [facility] No Panel Informationon 10-19 Culture Urine >100,000 cfu/ml Multiple bacterial morphotypes present. Probable Contamination. Suggest recollection if clinically indicated. [facility] COPPER BLOODon 09-30-2022 Copper [Mass/Vol] 94 ug/dL 80 - 155 ug/dL [facility] CEFTRIAXONE:SUSC:PT:ISOLATE: ORDQN:MICon 09-21-2022 cefTRIAXone ROSA [Susc] >100,000 cfu/ml Escherichia coli [facility] cefTRIAXone ROSA [Susc]on Escherichia coli Escherichia coli [facility] EMG(NEURO/NI)on 09-03-2022 [facility] LABORATORYOrdered By: Ihsan Eubanks on 04-29-2022 Albumin BCP dye [Mass/Vol] 4.1 G/dL Invalid Interpretation Code 3.5 - 5.0 G/dL AO ADM SS Albumin/Globulin [Mass ratio] 1.3 {ratio} Invalid Interpretation Code 1.1 - 2.5 ratio AO ADM SS ALP [Catalytic activity/Vol] 128 U/L Invalid Interpretation Code 40 - 135 U/L AO ADM SS ALT With P-5'-P [Catalytic activity/Vol] 34 U/L Invalid Interpretation Code 14 - 59 U/L AO ADM SS AST With P-5'-P [Catalytic activity/Vol] 25 U/L Invalid Interpretation Code 10 - 40 U/L AO ADM SS Bilirubin [Mass/Vol] 0.3 mg/dL Invalid Interpretation Code 0.2 - 1.0 mg/dL AO ADM SS Calcium [Mass/Vol] 9.3 mg/dL Invalid Interpretation Code 8.4 - 10.2 mg/dL AO ADM SS Chloride [Moles/Vol] 101 mmol/L Invalid Interpretation Code 98 - 107 mmol/L AO ADM SS Cholesterol [Mass/Vol] 242 mg/dL Invalid Interpretation Code 0 - 200 mg/dL AO ADM SS Cholesterol in HDL [Mass/Vol] 44 mg/dL Invalid Interpretation Code 40 - 60 mg/dL AO ADM SS Cholesterol in LDL [Mass/Vol] 149 mg/dL Invalid Interpretation Code 0 - 130 mg/dL AO ADM SS CO2 [Moles/Vol] 25 mmol/L Invalid Interpretation Code 22 - 29 mmol/L AO ADM SS Creatinine [Mass/Vol] 0.57 mg/dL Invalid Interpretation Code 0.55 - 1.02 mg/dL AO ADM SS Electrolyte Balance 10.0 mEq/L Invalid Interpretation Code 4.0 - 15.0 mEq/L AO ADM SS Globulin 3.1 G/dL Invalid Interpretation Code AO ADM SS Glucose [Mass/Vol] 87 mg/dL Invalid Interpretation Code 70 - 105 mg/dL AO ADM SS Potassium [Moles/Vol] 4.5 mmol/L Invalid Interpretation Code 3.5 - 5.1 mmol/L AO ADM SS Protein [Mass/Vol] 7.2 G/dL Invalid Interpretation Code 6.4 - 8.2 G/dL AO ADM SS Sodium [Moles/Vol] 136 mmol/L Invalid Interpretation Code 136 - 145 mmol/L AO ADM SS Triglyceride [Mass/Vol] 247 mg/dL Invalid Interpretation Code 0 - 150 mg/dL AO ADM SS Urea nitrogen [Mass/Vol] 13 mg/dL Invalid Interpretation Code 7 - 18 mg/dL AO ADM SS Urea nitrogen/Creatinine [Mass ratio] 23 ratio Invalid Interpretation Code 7 - 27 ratio AO ADM SS Vit. D 25-Hydroxy 37.5 ng/mL Invalid Interpretation Code AO ADM SS LABORATORYOrdered By: Yadira Gardner on 04-29-2022 Basophil, Absolute 0.1 103/mcL Invalid Interpretation Code 0.0 - 0.2 10^3/mcL AO Workflow SS Basophils/100 WBC (Bld) 1.2 % Invalid Interpretation Code 0.0 - 2.5 % AO Workflow SS Eosinophil, Absolute 0.2 103/mcL Invalid Interpretation Code 0.0 - 0.4 10^3/mcL AO Workflow SS Eosinophils/100 WBC (Bld) 3.7 % Invalid Interpretation Code 0.0 - 7.0 % AO Workflow SS Erythrocyte distribution width (RBC) [Ratio] 12.9 % Invalid Interpretation Code 11.5 - 14.5 % AO Workflow SS Hematocrit (Bld) [Volume fraction] 39.1 % Invalid Interpretation Code 37.0 - 47.0 % AO Workflow SS Hemoglobin (Bld) [Mass/Vol] 13.4 G/dL Invalid Interpretation Code 12.0 - 16.0 G/dL AO Workflow SS Lymphocyte, Absolute 2.2 103/mcL Invalid Interpretation Code 0.8 - 3.9 10^3/mcL AO Workflow SS Lymphocytes/100 WBC (Bld) 36.2 % Invalid Interpretation Code 10.0 - 50.0 % AO Workflow SS MCH (RBC) [Entitic mass] 30.0 pg Invalid Interpretation Code 27.0 - 31.2 pg AO Workflow SS MCHC 34.2 G/dL Invalid Interpretation Code 33.0 - 37.0 G/dL AO Workflow SS MCV (RBC) [Entitic vol] 87.8 fL Invalid Interpretation Code 80.0 - 94.0 fL AO Workflow SS Monocyte, Absolute 0.5 103/mcL Invalid Interpretation Code 0.2 - 1.0 10^3/mcL AO Workflow SS Monocytes/100 WBC (Bld) 9.0 % Invalid Interpretation Code 1.7 - 13.0 % AO Workflow SS Neutrophil, Absolute 3.0 103/mcL Invalid Interpretation Code 2.9 - 6.2 10^3/mcL AO Workflow SS Neutrophils/100 WBC (Bld) 49.9 % Invalid Interpretation Code 37.0 - 80.0 % AO Workflow SS Platelet mean volume (Bld) [Entitic vol] 8.3 fL Invalid Interpretation Code 7.4 - 10.4 fL AO Workflow SS Platelets (Bld) [#/Vol] 239 103/mcL Invalid Interpretation Code 130 - 400 10^3/mcL AO Workflow SS RBC (Bld) [#/Vol] 4.46 106/mcL Invalid Interpretation Code 4.20 - 5.40 10^6/mcL AO Workflow SS WBC 6.0 103/mcL Invalid Interpretation Code 4.6 - 10.8 10^3/mcL AO Workflow SS LABORATORYOrdered By: SYSTEM SYSTEM on 04-29-2022 GFR 132 ml/min/1.73sqm Invalid Interpretation Code AO Chemistry S GFR Non- 109 ml/min/1.73sqm Invalid Interpretation Code AO Chemistry S Monocyte distribution width Auto (Bld) [Entitic vol] Not Performed 1 *NA* (04/29/22 7:15 AM) Invalid Interpretation Code 0.00 - 20.00 AO Hematology S Comment on above: Result Comment: MDW testing performed only on adult ER patients between the ages of 18-89 years. No Panel Informationon 04-07 Culture Urine >100,000 cfu/ml Escherichia coli [facility] Escherichia coli Escherichia coli [facility] LABORATORYOrdered By: Ihsan Eubanks on 09-08-2021 Albumin BCP dye [Mass/Vol] 4.1 G/dL Invalid Interpretation Code 3.5 - 5.0 G/dL AO ADM SS Albumin/Globulin [Mass ratio] 1.3 {ratio} Invalid Interpretation Code 1.1 - 2.5 ratio AO ADM SS ALP [Catalytic activity/Vol] 121 U/L Invalid Interpretation Code 40 - 135 U/L AO ADM SS ALT With P-5'-P [Catalytic activity/Vol] 58 U/L Invalid Interpretation Code 14 - 59 U/L AO ADM SS AST With P-5'-P [Catalytic activity/Vol] 32 U/L Invalid Interpretation Code 10 - 40 U/L AO ADM SS Bilirubin [Mass/Vol] 0.4 mg/dL Invalid Interpretation Code 0.2 - 1.0 mg/dL AO ADM SS Calcium [Mass/Vol] 8.9 mg/dL Invalid Interpretation Code 8.4 - 10.2 mg/dL AO ADM SS Chloride [Moles/Vol] 104 mmol/L Invalid Interpretation Code 98 - 107 mmol/L AO ADM SS Cholesterol [Mass/Vol] 282 mg/dL Invalid Interpretation Code 0 - 200 mg/dL AO ADM SS Cholesterol in HDL [Mass/Vol] 52 mg/dL Invalid Interpretation Code 40 - 60 mg/dL AO ADM SS Cholesterol in LDL [Mass/Vol] 203 mg/dL Invalid Interpretation Code 0 - 130 mg/dL AO ADM SS CO2 [Moles/Vol] 24 mmol/L Invalid Interpretation Code 22 - 29 mmol/L AO ADM SS Creatinine [Mass/Vol] 0.56 mg/dL Invalid Interpretation Code 0.55 - 1.02 mg/dL AO ADM SS Electrolyte Balance 11.0 mEq/L Invalid Interpretation Code AO ADM SS Free T4 [Mass/Vol] 0.87 ng/dL Invalid Interpretation Code 0.76 - 1.46 ng/dL AO ADM SS Globulin 3.2 G/dL Invalid Interpretation Code AO ADM SS Glucose [Mass/Vol] 91 mg/dL Invalid Interpretation Code 70 - 105 mg/dL AO ADM SS Potassium [Moles/Vol] 4.1 mmol/L Invalid Interpretation Code 3.5 - 5.1 mmol/L AO ADM SS Protein [Mass/Vol] 7.3 G/dL Invalid Interpretation Code 6.4 - 8.2 G/dL AO ADM SS Sodium [Moles/Vol] 139 mmol/L Invalid Interpretation Code 136 - 145 mmol/L AO ADM SS Triglyceride [Mass/Vol] 134 mg/dL Invalid Interpretation Code 0 - 150 mg/dL AO ADM SS TSH Qn 2.34 m[IU]/L Invalid Interpretation Code 0.36 - 3.74 mcIU/mL AO ADM SS Urea nitrogen [Mass/Vol] 22 mg/dL Invalid Interpretation Code 7 - 18 mg/dL AO ADM SS Urea nitrogen/Creatinine [Mass ratio] 39 ratio Invalid Interpretation Code 7 - 27 ratio AO ADM SS LABORATORYOrdered By: SYSTEM SYSTEM on 09-08-2021 GFR 136 ml/min/1.73sqm Invalid Interpretation Code AO Chemistry S GFR Non- 112 ml/min/1.73sqm Invalid Interpretation Code AO Chemistry S Surgical Tissue Examon 06-20 Surgical Tissue Exam Test performed at [place] [address] NAME: VINCE SLAUGHTER REQUESTING: BRANNON GARCIA M.D. FINAL DIAGNOSIS: VENTRAL HERNIA SAC, EXCISION - BENIGN FIBROADIPOSE TISSUES. OPERATIVE PROCEDURE: Herniorrhaphy ventral adult initial reducible CLINICAL INFORMATION: Ventral hernia without obstruction or gangrene [K43.9] GROSS DESCRIPTION: Hernia sac Received in formalin labeled hernia sac is a yellow-white fibrofatty segment of tissue measuring 3.2 x 1.9 x 0.5 cm. The specimen is sectioned and totally submitted in formalin in one cassette. KVB:alanna REYES M.D., PATHOLOGIST (Electronic signature on file) Signed out: 06/23/2018 16:08 PRINTED: 06/23/2018 Page 1 of 1 Normal [facility] Comment on above: Performed By: #### S URG #### [place] [id number] Large Joint Arthro/Inj: R kn ee joint [facility] Vital Signs Date Time Vital Sign Value Performing Clinician Facility 02-07-2024 10: Body height 142.2 cm Brannon Garcia MD Work Phone: [facility] 02-07-2024 10: Body mass index (BMI) [Ratio] 46.63 kg/m2 Brannon Garcia MD Work Phone: [facility] 02-07-2024 10: Body weight 94.35 kg Brannon Garcia MD Work Phone: [facility] 02-07-2024 10: Diastolic blood pressure 73 mm[Hg] Brannon Garcia MD Work Phone: [facility] 02-07-2024 10: Heart rate 77 /min Brannon Garcia MD Work Phone: [facility] 02-07-2024 10:13-0400 Respiratory rate 20 /min Brannon Garcia MD Work Phone: [facility] 02-07-2024 10:13-0400 Systolic blood pressure 124 mm[Hg] Brannon Garcia MD Work Phone: [facility] 02-03-2024 12:41-0400 SaO2% (BldA) [Mass fraction] 100 % Brannon Garcia MD Work Phone: [facility] 02-03-2024 12:33-0400 Diastolic blood pressure 92 mm[Hg] Brannon Garcia MD Work Phone: [facility] 02-03-2024 12:33-0400 Respiratory rate 16 /min Brannon Garcia MD Work Phone: [facility] 02-03-2024 12:33-0400 Systolic blood pressure 152 mm[Hg] Brannon Garcia MD Work Phone: [facility] 02-03-2024 12:15-0400 Heart rate 70 /min Brannon Garcia MD Work Phone: [facility] 02-03-2024 12:04-0400 Body temperature 97.7 [degF] Brannon Garcia MD Work Phone: [facility] 02-03-2024 10:39-0400 Body height 142.2 cm Brannon Garcia MD Work Phone: [facility] 02-03-2024 10:39-0400 Body mass index (BMI) [Ratio] 46.63 kg/m2 Brannon Garcia MD Work Phone: [facility] 02-03-2024 10:39-0400 Body weight 94.35 kg Brannon Garcia MD Work Phone: [facility] 01-03-2024 09:21-0400 Body height 142.2 cm Jane Jacob MD Work Phone: [facility] [employer] 01-03-2024 09:21-0400 Body mass index (BMI) [Ratio] 39.91 kg/m2 Jane Jacob MD Work Phone: [facility] 01-03-2024 09:21-0400 Body weight 80.74 kg Jane Jacob MD Work Phone: [facility] 01-03-2024 09:21-0400 Diastolic blood pressure 76 mm[Hg] Jane Jacob MD Work Phone: [facility] 01-03-2024 09:21-0400 Systolic blood pressure 124 mm[Hg] Jane Jacob MD Work Phone: [facility] 01-02-2024 15:23-0400 Body height 142.2 cm Brannon Garcia MD Work Phone: [facility] 01-02-2024 15:23-0400 Body weight 94.35 kg Brannon Garcia MD Work Phone: [facility] 01-02-2024 15:23-0400 Diastolic blood pressure 72 mm[Hg] Brannon Garcia MD Work Phone: [facility] 01-02-2024 15:23-0400 Heart rate 74 /min Brannon Garcia MD Work Phone: [facility] 01-02-2024 15:23-0400 Respiratory rate 20 /min Brannon Garcia MD Work Phone: [facility] 01-02-2024 15:23-0400 Systolic blood pressure 124 mm[Hg] Brannon Garcia MD Work Phone: [facility] 08-11-2023 20:40-0500 Blood Pressure Cuff Size NIDAL CHOUJAA DO [facility] 08-11-2023 20:40-0500 Blood Pressure Location NIDAL CHOUJAA DO [facility] 08-11-2023 20:40-0500 Blood Pressure Method NIDAL CHOUJAA DO [facility] 08-11-2023 20:40-0500 Body temperature 97.7 [degF] NIDAL CHOUJAA DO [facility] 08-11-2023 20:40-0500 Diastolic Blood Pressure Non-Invasive 103 1 NIDAL CHOUJAA DO [facility] 08-11-2023 20:40-0500 Heart rate 73 /min NIDAL CHOUJAA DO [facility] 08-11-2023 20:40-0500 Respiratory rate 18 /min NIDAL CHOUJAA DO [facility] 08-11-2023 20:40-0500 Systolic Blood Pressure Non-Invasive 173 1 NIDAL CHOUJAA DO [facility] 03-09-2023 09:54-0400 Body height 142.2 cm [employer] S[employer] WORKER - VINYL DIPPER Work Phone: [facility] [employer] 03-09-2023 09:54-0400 Body mass index (BMI) [Ratio] 39.91 kg/m2 [employer] S[employer] WORKER - [employer]INYL DIPPER [facility] 03-09-2023 09:54-0400 Body weight 80.74 kg [employer] SORT WORKER - VINYL DIPPER Work Phone: [facility] [employer] 03-09-2023 09:54-0400 Diastolic blood pressure 84 mm[Hg] Lidia [employer] SORT WORKER - VINYL DIPPER Work Phone: [facility] 03-09-2023 09:54-0400 Respiratory rate 18 /min Lidia [employer] SORT WORKER - VINYL DIPPER Work Phone: [facility] 03-09-2023 09:54-0400 Systolic blood pressure 118 mm[Hg] [employer] SORT WORKER - VINYL DIPPER Work Phone: [facility] [employer] 11-23-2022 08:15-0500 Body height 142.2 cm Livier Conway PA-C Work Phone: [facility] 11-23-2022 08:15-0500 Body weight 85.28 kg Livier Kovachik PA-C Work Phone: [facility] 11-23-2022 08:15-0500 Diastolic blood pressure 86 mm[Hg] Livier Kovachik PA-C Work Phone: [facility] 11-23-2022 08:15-0500 Systolic blood pressure 132 mm[Hg] Livier Kovachik PA-C Work Phone: [facility] 11-09-2022 09:52-0500 Body height 142.2 cm Livier Kovachik PA-C Work Phone: [facility] 11-09-2022 09:52-0500 Body weight 85.28 kg Livier Kovachik PA-C Work Phone: [facility] 11-09-2022 09:52-0500 Diastolic blood pressure 86 mm[Hg] Livier Kovachik PA-C Work Phone: [facility] 11-09-2022 09:52-0500 Systolic blood pressure 140 mm[Hg] Livier Kovachik PA-C Work Phone: [facility] 09-16-2022 13:29-0500 Body height 142.2 cm Eugenio Wilson MD Work Phone: [facility] 09-16-2022 13:29-0500 Body weight 81.65 kg Eugenio Wilson MD Work Phone: [facility] 09-16-2022 13:29-0500 Respiratory rate 18 /min Eugenio Wilson MD Work Phone: [facility] 08-19-2022 09:09-0500 Body height 142.2 cm Eugenio Wilson MD Work Phone: [facility] 08-19-2022 09:09-0500 Body weight 81.65 kg Eugenio Wilson MD Work Phone: [facility] 08-19-2022 09:09-0500 Respiratory rate 16 /min Eugenio Wilson MD Work Phone: [facility] 05-21-2022 04:40-0400 Diastolic blood pressure 96 mm[Hg] JUSTIN DURESKA DO [facility] 05-21-2022 04:40-0400 Heart rate 81 /min JUSTIN DURESKA DO [facility] 05-21-2022 04:40-0400 Respiratory rate 18 /min JUSTIN DURESKA DO [facility] 05-21-2022 04:40-0400 Systolic blood pressure 133 mm[Hg] JUSTIN DURESKA DO [facility] 05-21-2022 02:25-0400 Body temperature 98.24 [degF] JUSTIN DURESKA DO [facility] 05-21-2022 02:25-0400 Diastolic blood pressure 67 mm[Hg] JUSTIN DURESKA DO [facility] 05-21-2022 02:25-0400 Heart rate 86 /min JUSTIN DURESKA DO [facility] 05-21-2022 02:25-0400 Respiratory rate 18 /min JUSTIN DURESKA DO [facility] 05-21-2022 02:25-0400 Systolic blood pressure 122 mm[Hg] JUSTIN DURESKA DO [facility] Encounters Encounter Date Encounter Type Care Provider Facility Start: 08-13-2025 ambulatory [facility] Fa cility:[facility] Start: 08-12-2025 Encounter for other preprocedural examination [facility] Start: 08-11-2025 End: 08-11-2025 Emergency department patient visit TOSHIA HARDEEP Facility:[id number] Start: 07-29-2025 End: 08-02-2025 ambulatory TOSHIA MEIER SORT WORKER-VINYL DIPPER Facility:[facility] Start: 07-29-2025 End: 08-02-2025 Outreach Lab TOSHIA MEIER SORT WORKER-VINYL DIPPER [facility] Start: 07-08-2025 End: 07-08-2025 ambulatory TOSHIA MEIER SORT WORKER-VINYL DIPPER Facility:A Start: 07-08-2025 End: 07-08-2025 Patient encounter procedure TOSHIA MEIER SORT WORKER-VINYL DIPPER [facility] Start: 06-27-2025 End: 06-27-2025 ambulatory [facility] Facility:[facility] Start: 06-10-2025 End: 06-10-2025 ambulatory TOSHIA MEIER SORT WORKER-VINYL DIPPER Facility:[facility] Start: 05-09-2025 End: 05-09-2025 ambulatory Toshia Hardeep [employer] HANGING SUPERVISOR-C Work Phone: -Laboratory Specimen Start: 05-09-2025 End: 05-09-[address] Ferny Rahman MD -Laboratory Specimen Work Phone: Start: 05-09-2025 End: 05-09-2025 ambulatory [facility] Facility:[facility] Start: 05-02-2025 End: 05-02-2025 ambulatory Toshia Hardeep [employer] HANGING SUPERVISOR-C Work Phone: -Cat Scan [facility] Start: 05-02-2025 End: 05-02-[address] Ferny Rahman MD -Cat Scan [facility] Work Phone: Start: 05-02-2025 End: 05-02-2025 ambulatory [facility] Facility:[facility] Start: 04-03-2025 ambulatory TOSHIA HARDEEP SORT WORKER-VINYL DIPPER Facility:A Start: 02-18-2025 End: 02-22-2025 ambulatory TOSHIA GUTIERREZJANELLE SORT WORKER-VINYL DIPPER Facility:[facility] Start: 08-10-2024 End: 08-22-2024 Telephone encounter Brannon Garcia MD Work Phone: [facility] Comment on above: Patient Question (Re : follow-up after H. Pylori) Start: 07-11-2024 End: 07-15-2024 Outreach Lab TOSHIA MEIER SORT WORKER-VINYL DIPPER [facility] Start: 06-25-2024 End: 06-25-2024 ambulatory ELZA E [facility] Start: 06-25-2024 End: 06-25-2024 ambulatory ELZA E [facility] Start: 02-13-2024 Telephone encounter Brannon Garcia MD Work Phone: [facility] Comment on above: Appointment Cancelle d (Pt call to cancel follow-up) Start: 02-10-2024 End: 02-11-2024 ambulatory TOSHIA MEIER SORT WORKER-VINYL DIPPER Facility:[facility] Start: 02-10-2024 End: 02-10-2024 Minor Procedure TOSHIA MEIER SORT WORKER-VINYL DIPPER [facility] Start: 02-08-2024 End: 02-08-2024 ambulatory TOSHIA MEIER Facility:[facility] Start: 02-08-2024 End: 02-08-2024 Subsequent hospital visit by physician [facility] ([facility]) Work Phone: Cat Scan Comment on above: Generalized abdomina l pain [R10.84] Start: 02-07-2024 End: 02-07-2024 ambulatory BRANNON GARCIA Facility:[facility] Start: 02-07-2024 End: 02-07-2024 Patient encounter procedure Brannon Garcia MD Work Phone: [facility] Comment on above: Generalized abdomina l pain (Primary Dx); Helicobacter pylori infection; BMI 45.0-49.9, adult (HCC) Start: 02-06-2024 Telephone encounter Brannon Garcia MD Work Phone: [facility] Comment on above: Patient Update Start: 02-03-2024 Encounter for other preprocedural examination BRANNON GARCIA [place] [facility] Start: 02-03-2024 ambulatory BRANNON GARCIA Facility:[facility] Start: 02-03-2024 End: 02-03-2024 Patient encounter status Brannon Garcia MD Work Phone: [facility] Start: 02-03-2024 End: 02-03-2024 Subsequent hospital visit by physician Brannon Garcia MD Work Phone: [facility] Comment on above: Gastroesophageal ref lux disease, unspecified whether esophagitis present [K21.9] Start: 01-25-2024 End: 01-26-2024 ambulatory TOSHIA MEIER SORT WORKER-VINYL DIPPER Facility:B Start: 01-25-2024 End: 01-25-2024 Patient encounter procedure TOSHIA MEIER SORT WORKER-VINYL DIPPER [facility] Start: 01-18-2024 Orders Only Brannon Garcia MD Work Phone: [facility] Comment on above: Change in bowel habi ts (Primary Dx) Gastroesophageal ref lux disease, unspecified whether esophagitis present (Primary Dx) Start: 01-03-2024 End: 01-03-2024 ambulatory JANE JACOB [facility] Start: 01-03-2024 End: 01-03-2024 Office outpatient new 30 minutes Jane Jacob MD Work Phone: [facility] Comment on above: Neuritis (Primary Dx ); Acute left ankle pain Start: 01-02-2024 End: 01-02-2024 Patient encounter procedure Brannon Garcia MD Work Phone: [facility] Comment on above: Gastroesophageal ref lux disease, unspecified whether esophagitis present (Primary Dx); Change in bowel habits Start: 01-02-2024 End: 01-02-2024 ambulatory BRANNON GARCIA Facility:[facility] Start: 11-24-2023 End: 11-25-2023 ambulatory TOSHIA MEIER SORT WORKER-VINYL DIPPER Facility:B Start: 08-12-2023 End: 08-12-2023 Emergency department patient visit CHRISTIANO DESIR DO Facility:B Start: 08-11-2023 End: 08-12-2023 Emergency department patient visit CHRISTIANO DESIR DO Facility:B Start: 08-11-2023 End: 08-11-2023 Emergency department patient visit CHRISTIANO DESIR DO [facility] Start: 03-22-2023 End: 03-23-2023 ambulatory TOSHIA MEIER [facility] Start: 03-22-2023 End: 03-22-2023 Subsequent hospital visit by physician Lidia Blanca APRN - VINYL DIPPER Work Phone: [facility] Comment on above: Lipedema; Venous insufficiency; Bilateral leg edema; Bilateral leg pain Start: 03-10-2023 Telephone encounter Ayaka Lin MA [facility] Comment on above: Test Scheduling Lipedema (Primary Dx ); Venous insufficiency; Bilateral leg edema; Bilateral leg pain Start: 03-09-2023 End: 03-09-2023 [facility] Start: 03-09-2023 End: 03-09-2023 Office outpatient new 30 minutes Lidia Blanca APRN - VINYL DIPPER Work Phone: [facility] Comment on above: Lipedema (Primary Dx ); Venous insufficiency Start: 02-11-2023 Telephone encounter Ayaka Lin MA [facility] Comment on above: Referral Start: 02-08-2023 End: 02-08-2023 Patient encounter procedure TOSHIA MEIER SORT WORKER-VINYL DIPPER [facility] Start: 11-23-2022 End: 11-23-2022 Patient encounter procedure Livier Conway PA-C Work Phone: Urology Comment on above: Recurrent UTI (Prima ry Dx); Overactive bladder Start: 11-19-2022 Telephone encounter Bernabe mills MD Work Phone: Neurology Comment on above: Results (Blood work & patient summary. ) Start: 11-11-2022 End: 11-11-2022 Subsequent hospital visit by physician Us Hobbs 1 [facility] Comment on above: Recurrent UTI [N39.0 ] Start: 11-09-2022 End: 11-09-2022 Patient encounter procedure Livier Conway PA-C Work Phone: Urology Comment on above: Recurrent UTI (Prima ry Dx); Overactive bladder Start: 10-19-2022 End: 10-23-2022 Outreach Lab TOSHIA MEIER SORT WORKER-VINYL DIPPER [facility] Start: 09-23-2022 ambulatory Bernabe michele MD Work Phone: Neurology Comment on above: Blood work , Start: 09-21-2022 End: 09-25-2022 Outreach Lab TOSHIA MEIER SORT WORKER-VINYL DIPPER [facility] Start: 09-16-2022 End: 09-16-2022 Patient encounter procedure Eugenio Wilson MD Work Phone: [facility] Comment on above: Primary osteoarthrit is of right knee (Primary Dx); Complex tear of medial meniscus of right knee as current injury, initial encounter Start: 09-09-2022 End: 09-09-2022 Subsequent hospital visit by physician Norris Hobbs (1.5t) [facility] Comment on above: Internal derangement of right knee [M23.91] Start: 09-03-2022 End: 09-03-2022 ambulatory Emg 850) Neurology Comment on above: EMG Start: 09-03-2022 End: 09-03-2022 Patient encounter procedure Emg 1 Neur Tierney (Max Weight: 850) [facility]ER[facility] Start: 08-30-2022 ambulatory Bernabe michele MD Work Phone: Neurology Comment on above: 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 Start: 08-19-2022 End: 08-19-2022 Patient encounter procedure Eugenio Wilson MD Work Phone: [facility] Comment on above: Internal derangement of right knee (Primary Dx); Internal derangement of left knee Start: 08-11-2022 End: 08-11-2022 ambulatory Bernabe Foote MD Work Phone: Neurology Comment on above: Chronic pain syndrom e (Primary Dx); Disturbance of skin sensation Start: 08-11-2022 End: 08-11-2022 Telemedicine consultation with patient Bernabe Foote MD Work Phone: [facility] Start: 06-30-2022 Chart abstracting Unk (Historical) N eurology Start: 06-25-2022 End: 06-25-2022 Patient encounter procedure TOSHIA MEIER SORT WORKER-VINYL DIPPER [facility] Start: 06-15-2022 End: 08-10-2022 Physical therapy management DINORA SHELTON [facility] Start: 05-21-2022 End: 05-21-2022 Emergency department patient visit JUSTIN PORTILLO DO [facility] Start: 05-14-2022 End: 05-14-2022 Patient encounter procedure TOSHIA MEIER SORT WORKER-VINYL DIPPER [facility] Start: 04-29-2022 End: 04-29-2022 Patient encounter procedure TOSHIA MEIER SORT WORKER-VINYL DIPPER [facility] Start: 04-07-2022 End: 04-11-2022 Outreach Lab TOSHIA MEIER SORT WORKER-VINYL DIPPER [facility] Start: 11-10-2021 End: 11-10-2021 Patient encounter procedure MILA LEONG MD [facility] Start: 09-08-2021 End: 09-08-2021 Patient encounter procedure TOSHIA MEIER SORT WORKER-VINYL DIPPER [facility] Start: 10-24-2018 Patient encounter procedure [facility] Facility:[facility] Start: 07-31-2018 End: 07-31-2018 Patient encounter procedure [facility] Facility:[facility] Start: 07-03-2018 End: 07-03-2018 Patient encounter procedure [facility] Facility:[facility] Start: 06-20-2018 End: 06-20-2018 Evaluation and management of inpatient [facility] Facility:[facility] Start: 06-20-2018 End: 06-20-2018 Patient encounter procedure [facility] Facility:[facility] Start: 05-01-2018 End: 05-01-2018 Patient encounter procedure [facility] Facility:[facility] Start: 03-14-2018 End: 03-14-2018 Patient encounter procedure ELOY LINCOLN Facility:[facility] Procedures Date Procedure Procedure Detail Performing Clinician Start: 05-09-2025 Gram stain microscopy L abdiel Meier METAL HANGING SUPERVISOR-C Work Phone: Start: 05-09-2025 End: 05-09-2025 Respiratory microbial culture Toshia Meier METAL HANGING SUPERVISOR-C Work Phone: Start: 05-09-2025 Wound microscopy, cu lture and sensitivities Toshia Meier METAL HANGING SUPERVISOR-C Work Phone: Start: 05-02-2025 CT of face Toshia kasper METAL HANGING SUPERVISOR-C Work Phone: Start: 02-08-2024 Ct abdomen & pelvis w/o contrast material Brannon Garcia MD Work Phone: Start: 03-22-2023 Dup-scan xtr veins c omplete bilateral study Lidia Blanca SORT WORKER - VINYL DIPPER Work Phone: Start: 11-23-2022 Urnls dip stick/tabl et rgnt auto w/o microscopy Livier Conway PA-C Work Phone: Start: 11-09-2022 Urnls dip stick/tabl et reagent auto microscopy Livier Kovachik PA-C Work Phone: Start: 11-09-2022 Urnls dip stick/tabl et rgnt auto w/o microscopy Livier Maxvachik PA-C Work Phone: Start: 09-16-2022 Arthrocentesis aspir &/inj major jt/bursa w/o us Eugenio Wilson MD Work Phone: Start: 09-03-2022 Nerve conduction shauna dies 5-6 studies Bernabe Foote MD Work Phone: Start: 02-06-2015 Thyrotropin [Units/v olume] in Serum or Plasma Lidia Blanca SORT WORKER - VINYL DIPPER Work Phone: Plan of Treatment Date Care Activity Detail Author Start: 08-21-2025 DIABETES SCREEN DIABETES SCREEN [facility] Start: 08-21-2025 Diabetes Screening Diabetes Screenin g [facility] Start: 05-09-2025 Microscopic observat ion [Identifier] in Unspecified specimen by Gram stain Gram Stain [facility] Start: 05-09-2025 Respiratory microbia l culture Nasopharyngeal Culture [facility] Start: 05-09-2025 Source specific culture [facility] Start: 2025 RSV Immunization age d 60 or older (1 - 1-dose 60+ series) RSV Immunization aged 60 or older (1 - 1-dose 60+ series) [facility] Start: 06-03-2024 Covid-19 Vaccine ( season) Covid-19 Vaccine ( season) [facility] Start: 06-03-2024 Influenza vaccination C [facility] Start: 02-14-2024 End: 02-14-2024 Patient encounter procedure 02/14/2024 9:00 AM EDT Office Visit [facility] [address] [facility] [address] [place] [address] Brannon Garcia MD [address] [facility] [address] [place] [address] FOLLOW-UP AFTER EGD/COLONOSCOPY [facility] Comment on above: FOLLOW-UP AFTER EGD/ COLONOSCOPY Start: 02-08-2024 End: 02-08-2024 Patient encounter procedure 02/08/2024 2:00 PM EDT Appointment Cat Scan [address] [place] [address] Generalized abdominal pain [R10.84] Cat Scan Comment on above: Generalized abdomina l pain [R10.84] Start: 02-07-2024 End: 02-07-2024 Patient encounter procedure 02/07/2024 10:00 AM EDT Office Visit [facility] [address] [facility] [address] [place], [place] [id number] Brannon Garcia MD 1 [facility] [address] [place] [address] Abdominal pain [facility] Comment on above: Abdominal pain Start: 02-03-2024 End: 01-17-2025 EGD DIAGNOSTIC EGD DIAGNOSTIC Endoscopy Routine Gastroesophageal reflux disease, unspecified whether esophagitis present Expected: 02/03/2024, Expires: 01/17/2025 [facility] Work Phone: Comment on above: Expected: 02/03/2024 , Expires: 01/17/2025 Start: 02-03-2024 End: 01-17-2025 Flexible sigmoidoscopy study COLONOSCOPY DIAGNOSTIC Endoscopy Routine Change in bowel habits Expected: 02/03/2024, Expires: 01/17/2025 [facility] Work Phone: Comment on above: Expected: 02/03/2024 , Expires: 01/17/2025 Start: 12-30-2023 End: 03-31-2024 XR Ankle - left 3 Views XR ankle 3+ views left Imaging Routine Acute left ankle pain Expected: 12/30/2023, Expires: 03/31/2024 [facility] Work Phone: Comment on above: Expected: 12/30/2023 , Expires: 03/31/2024 Start: 10-03-2023 Behavioral Health Screening Behavioral Health Screening [facility] Start: 10-03-2023 Depression Assessment Depression Ass essment [facility] Start: 10-03-2023 Medicare Advantage Annual Wellness Visit Medicare Advantage Annual Wellness Visit [facility] Start: 08-21-2023 Diabetes mellitus screening Diabetes Screening [facility] Start: 06-03-2023 Covid-19 Vaccine ( season) Covid-19 Vaccine () [facility] Start: 06-03-2023 Influenza vaccination Influenz a Vaccine (Season Ended) [facility] Start: 03-22-2023 End: 03-22-2023 Patient encounter procedure 03/22/2023 8:30 AM EDT Appointment [facility] [address] [place] [id number] [facility] Start: 10-03-2022 DEPRESSION ASSESSMENT DEPRESSION ASS ESSMENT [facility] Start: 09-28-2022 End: 11-28-2022 HEAVY METALS SCRN BL HEAVY METALS SCRN BL Lab Routine Paresthesias Expected: 09/28/2022, Expires: 11/28/2022 [facility] Work Phone: Comment on above: Expected: 09/28/2022 , Expires: 11/28/2022 Start: 09-28-2022 End: 11-28-2022 Pyridoxine [Mass/volume] in Serum or Plasma VITAMIN B6/PYRIDOXIN Lab Routine Paresthesias Expected: 09/28/2022, Expires: 11/28/2022 [facility] Work Phone: Comment on above: Expected: 09/28/2022 , Expires: 11/28/2022 Start: 08-11-2022 End: 10-11-2022 JAGDEEP BY IFA WITH REFLEX JAGDEEP BY IFA WITH REFLEX Lab Routine Disturbance of skin sensation Expected: 08/11/2022, Expires: 10/11/2022 [facility] Work Phone: Comment on above: Expected: 08/11/2022 , Expires: 10/11/2022 Start: 08-11-2022 End: 10-11-2022 ANTI NEUTRO CYTO AB ANTI NEUTRO CYTO AB Lab Routine Disturbance of skin sensation Expected: 08/11/2022, Expires: 10/11/2022 [facility] Work Phone: Comment on above: Expected: 08/11/2022 , Expires: 10/11/2022 Start: 08-11-2022 End: 10-11-2022 C reactive protein [Mass/volume] in Serum or Plasma C-REACTIVE PROTEIN (CRP) Lab Routine Disturbance of skin sensation Expected: 08/11/2022, Expires: 10/11/2022 [facility] Work Phone: Comment on above: Expected: 08/11/2022 , Expires: 10/11/2022 Start: 08-11-2022 End: 10-11-2022 Chronic hepatitis differentiation between hepatitis B and C virus panel - Serum or Plasma HEP REMOTE PANEL BL Lab Routine Disturbance of skin sensation Expected: 08/11/2022, Expires: 10/11/2022 [facility] Work Phone: Comment on above: Expected: 08/11/2022 , Expires: 10/11/2022 Start: 08-11-2022 End: 10-11-2022 Cobalamin (Vitamin B12) [Mass/volume] in Serum or Plasma VITAMIN B12 BLOOD Lab Routine Disturbance of skin sensation Expected: 08/11/2022, Expires: 10/11/2022 [facility] Work Phone: Comment on above: Expected: 08/11/2022 , Expires: 10/11/2022 Start: 08-11-2022 End: 10-11-2022 COPPER BLOOD COPPER BLOOD Lab Routine Disturbance of skin sensation Expected: 08/11/2022, Expires: 10/11/2022 [facility] Work Phone: Comment on above: Expected: 08/11/2022 , Expires: 10/11/2022 Start: 08-11-2022 End: 10-11-2022 Cyclic citrullinated peptide IgG Ab [Units/volume] in Serum or Plasma CCP ANTIBODY IGG Lab Routine Disturbance of skin sensation Expected: 08/11/2022, Expires: 10/11/2022 [facility] Work Phone: Comment on above: Expected: 08/11/2022 , Expires: 10/11/2022 Start: 08-11-2022 End: 10-11-2022 Erythrocyte sedimentation rate SED RATE WESTERGREN Lab Routine Disturbance of skin sensation Expected: 08/11/2022, Expires: 10/11/2022 [facility] Work Phone: Comment on above: Expected: 08/11/2022 , Expires: 10/11/2022 Start: 08-11-2022 End: 10-11-2022 Extractable nuclear Ab panel - Serum ANTI EDUARD ID Lab Routine Disturbance of skin sensation Expected: 08/11/2022, Expires: 10/11/2022 [facility] Work Phone: Comment on above: Expected: 08/11/2022 , Expires: 10/11/2022 Start: 08-11-2022 End: 10-11-2022 Folate [Mass/volume] in Serum or Plasma FOLATE SERUM Lab Routine Disturbance of skin sensation Expected: 08/11/2022, Expires: 10/11/2022 [facility] Work Phone: Comment on above: Expected: 08/11/2022 , Expires: 10/11/2022 Start: 08-11-2022 End: 10-11-2022 HEAVY METALS SCRN BL HEAVY METALS SCRN BL Lab Routine Disturbance of skin sensation Expected: 08/11/2022, Expires: 10/11/2022 [facility] Work Phone: Comment on above: Expected: 08/11/2022 , Expires: 10/11/2022 Start: 08-11-2022 End: 10-11-2022 Hemoglobin A1c in Blood HGB A1C Lab Routine Disturbance of skin sensation Expected: 08/11/2022, Expires: 10/11/2022 [facility] Work Phone: Comment on above: Expected: 08/11/2022 , Expires: 10/11/2022 Start: 08-11-2022 End: 10-11-2022 IMMUNOFIXATION SCREEN, SERUM IMMUNOFIXATION SCREEN, SERUM Lab Routine Disturbance of skin sensation Expected: 08/11/2022, Expires: 10/11/2022 [facility] Work Phone: Comment on above: Expected: 08/11/2022 , Expires: 10/11/2022 Start: 08-11-2022 End: 10-11-2022 Pyridoxine [Mass/volume] in Serum or Plasma VITAMIN B6/PYRIDOXIN Lab Routine Disturbance of skin sensation Expected: 08/11/2022, Expires: 10/11/2022 [facility] Work Phone: Comment on above: Expected: 08/11/2022 , Expires: 10/11/2022 Start: 08-11-2022 End: 10-11-2022 Rheumatoid factor [Units/volume] in Serum or Plasma RHEUMATOID FACTOR BL Lab Routine Disturbance of skin sensation Expected: 08/11/2022, Expires: 10/11/2022 [facility] Work Phone: Comment on above: Expected: 08/11/2022 , Expires: 10/11/2022 Start: 08-11-2022 End: 10-11-2022 VITAMIN B1 (THIAMINE), WHOLE BLOOD VITAMIN B1 (THIAMINE), WHOLE BLOOD Lab Routine Disturbance of skin sensation Expected: 08/11/2022, Expires: 10/11/2022 [facility] Work Phone: Comment on above: Expected: 08/11/2022 , Expires: 10/11/2022 Start: 06-03-2022 Influenza vaccination INFLUENZA (#1) [facility] Start: 10-03-2021 DEPRESSION ASSESSMENT DEPRESSION ASS ESSMENT [facility] Start: 08-22-2021 COVID-19 VACCINE (3 - Booster for Pfizer series) COVID-19 VACCINE (3 - Booster for Pfizer series) [facility] Start: 02-07-2016 Thyroid stimulating hormone measurement TSH Level [facility] Start: 2015 SHINGRIX VACCINE (1 of 2) SHINGRIX VACCINE (1 of 2) [facility] Start: 2015 Zoster Vaccines (1 of 2) Zoster Vacc miah (1 of 2) [facility] Start: 2010 COLOGUARD (FIT-DNA) COLOGUARD (FIT-D NA) [facility] Start: 2010 Colonoscopy COLONOSCOPY [facility] Start: 2010 COLORECTAL CANCER SCREENING COLORECTAL CANCER SCREENING [facility] Start: [address] COLONOGRAPHY [facility] Start: 2010 DIABETES SCREEN DIABETES SCREEN [facility] Start: 2010 FECAL OCCULT BLOOD FECAL OCCULT BLOO D [facility] Start: 2010 Lipid panel Lipid Screening [facility] Start: 2010 LIPID SCREEN LIPID SCREEN [facility] Start: 2010 Screening for malign ant neoplasm of colon [facility] Start: 2010 SIGMOIDOSCOPY SIGMOIDOSCOPY [facility] Start: 2005 Mammography MAMMOGRAM [facility] Start: 2005 Screening for malign ant neoplasm of breast [facility] Start: 1995 HPV TESTING HPV TESTING [facility] Start: 1995 Screening for malign ant neoplasm of cervix [facility] Start: 1986 PAP TESTING PAP TESTING [facility] Start: 1986 Screening for malign ant neoplasm of cervix [facility] Start: 1984 DTaP/Tdap/Td Vaccine s (1 - Tdap) DTaP/Tdap/Td Vaccines (1 - Tdap) [facility] Start: 1984 Hepatitis A Vaccines (1 of 2 - Risk 2-dose series) Hepatitis A Vaccines (1 of 2 - Risk 2-dose series) [facility] Start: 1984 Hepatitis B Vaccine (1 of 3 - 19+ 3-dose series) Hepatitis B Vaccine (1 of 3 - 19+ 3-dose series) [facility] Start: 1984 Hepatitis B Vaccines (1 of 3 - 19+ 3-dose series) Hepatitis B Vaccines (1 of 3 - 19+ 3-dose series) [facility] Start: 1984 Urine microalbumin profile [facility] Start: 1983 ANNUAL PCP TEAM HOSPITAL [facility] DIO DISEASE VISIT ANNUAL PCP TEAM CHRONIC DISEASE VISIT [facility] Start: 1983 Anxiety Screening Anxiety Screening [facility] Start: 1983 Depression Screening Depression Scre ening [facility] Start: 1983 Diabetes mellitus screening Diabetes Screening [facility] Start: 1983 HEPATITIS [facility] Start: 1983 Hepatitis C screening Hepatitis C [facility] Start: 1983 HIV SCREENING HIV SCREENING [facility] Start: 1983 HIV screening HIV Screening [facility] Start: 1983 Spirometry Spirometry [facility] Start: 1977 Depression Screening Depression Scre ening [facility] Start: 1972 DTaP/Tdap/Td Vaccine s (1 - Tdap) DTaP/Tdap/Td Vaccines (1 - Tdap) [facility] Start: 1966 MMR Vaccines (1 of 1 - Standard series) MMR Vaccines (1 of 1 - Standard series) [facility] Start: 1965 COVID-19 VACCINE (#1) COVID-19 VACCI NE (#1) [facility] Start: 1965 HEPATITIS B (1 of 3 - 3-dose series) HEPATITIS B (1 of 3 - 3-dose series) [facility] Start: 1965 Hepatitis B Vaccines (1 of 3 - 3-dose series) Hepatitis B Vaccines (1 of 3 - 3-dose series) [facility] Start: 1965 HIV screening HIV Screening [facility] Start: 1965 Lipid panel Lipid Panel [facility] Start: 1965 Screening for malign ant neoplasm of colon [facility] Start: 1965 Screening for osteoporosis Bone Density Scan [facility] Bacteria identified in Urine by Culture URINE CULTURE Microbiology Routine Recurrent UTI 11/09/2022 10:38 AM EST [facility] Work Phone: Bacteria identified in Urine by Culture URINE CULTURE Microbiology Routine Recurrent UTI Ordered: 11/23/2022 [facility] Work Phone: Comment on above: Ordered: 11/23/2022 End: 11-23-2023 Bacteria identified in Urine by Culture URINE CULTURE Microbiology Routine Recurrent UTI Once per week for 20 Occurrences starting 11/23/2022 until 11/23/2023 [facility] Work Phone: Comment on above: Once per week for 20 Occurrences starting 11/23/2022 until 11/23/2023 End: 03-07-2025 CT Abdomen and Pelvis WO contrast CT ABD/PEL WO IVCON Radiology STAT Generalized abdominal pain 1 Occurrences starting 02/06/2024 until 03/07/2025 [facility] Work Phone: Comment on above: 1 Occurrences starti ng 02/06/2024 until 03/07/2025 End: 03-08-2025 CT Abdomen and Pelvis WO contrast CT ABD/PEL WO IVCON Radiology STAT Generalized abdominal pain 1 Occurrences starting 02/07/2024 until 03/08/2025 [facility] Work Phone: Comment on above: 1 Occurrences starti ng 02/07/2024 until 03/08/2025 End: 08-11-2023 EMG(NEURO/NI) EMG(NEURO/NI) EMG Routine Disturbance of skin sensation 1 Occurrences starting 08/11/2022 until 08/11/2023 [facility] Work Phone: Comment on above: 1 Occurrences starti ng 08/11/2022 until 08/11/2023 H&P for surgery H&P FOR SURGERY Procedures Routine Gastroesophageal reflux disease, unspecified whether esophagitis present Ordered: 01/18/2024 [facility] Work Phone: Comment on above: Ordered: 01/18/2024 HEAVY METALS SCRN BL HEAVY METAL S SCRN BL Lab Routine Paresthesias 09/29/2022 8:22 AM EST [facility] Work Phone: Microscopic observat ion [Identifier] in Unspecified specimen by Gram stain [facility] End: 09-18-2023 MRI KNEE WO IVCON RT MRI KNEE WO IVCON RT Radiology Routine Internal derangement of right knee 1 Occurrences starting 08/19/2022 until 09/18/2023 [facility] Work Phone: Comment on above: 1 Occurrences starti ng 08/19/2022 until 09/18/2023 End: 09-09-2022 MRI KNEE WO IVCON RT [facility] Work Phone: Comment on above: 1 Occurrences starti ng 09/09/2022 until 09/09/2022 NEURO QSART NEURO QSART Proc edures Routine Chronic pain syndrome Disturbance of skin sensation Ordered: 08/11/2022 [facility] Work Phone: Comment on above: Ordered: 08/11/2022 Pyridoxine [Mass/vol ume] in Serum or Plasma VITAMIN B6/PYRIDOXIN Lab Routine Paresthesias 09/29/2022 8:22 AM EST [facility] Work Phone: SURGICAL PATHOLOGY [facility] Work Phone: Comment on above: Release Upon Orderin g for 1 Occurrences starting 02/03/2024 Urinalysis complete panel - Urine URINALYSIS, WITH MICROSCOPIC Lab Routine Recurrent UTI Ordered: 11/23/2022 [facility] Work Phone: Comment on above: Ordered: 11/23/2022 End: 12-09-2023 US KIDNEY/BLADDER US KIDNEY/BLADDER Radiology Routine Recurrent UTI 1 Occurrences starting 11/09/2022 until 12/09/2023 [facility] Work Phone: Comment on above: 1 Occurrences starti ng 11/09/2022 until 12/09/2023 End: 11-11-2022 US KIDNEY/BLADDER [facility] Work Phone: Comment on above: 1 Occurrences starti ng 11/11/2022 until 11/11/2022 XR KNEE POST OP 3V AP/LAT/MERCHANT LEFT XR KNEE POST OP 3V AP/LAT/MERCHANT LEFT Radiology Routine Internal derangement of left knee Ordered: 08/19/2022 [facility] Work Phone: Comment on above: Ordered: 08/19/2022 [facility] Immunizations Immunization Date Immunization Notes Care Provider Angela james 06-27-2021 SARS-CoV-2 mRNA (toetiennenameran) vaccine TOSHIA MEIER SORT WORKER-VINYL DIPPER [facility] 06-05-2021 SARS-CoV-2 mRNA (miahzinameran) vaccine TOSHIA MEIER SORT WORKER-VINYL DIPPER [facility] Payers Date Payer Category Payer Self-pay 2022 Private Health Insurance [facility] [id number] 2021 Medicare [id number] 2018 Medicare [id number] 1965 Unknown [id number] 2.16.8 40.1.803844.3.579.2.278 1965 Unknown [id number] 2.16.8 40.1.760710.3.579.2.278 1965 Unknown [id number] 2.16.8 40.1.190321.3.579.2.278 1965 Unknown [id number] 2.16.8 40.1.797811.3.579.2.278 1965 Unknown [id number] 2.16.8 40.1.040463.3.579.2.278 1965 Unknown [id number] 2.16.8 40.1.062765.3.579.2.278 1965 Unknown [id number] 2.16.8 40.1.741341.3.579.2.278 1965 Unknown [id number] 2.16.8 40.1.207811.3.579.2.627 1965 Unknown [id number] 2.16.8 40.1.717448.3.579.2.627 1965 Unknown [id number] 2.16.8 40.1.619440.3.579.2.627 1965 Unknown [id number] 2.16.8 40.1.051053.3.579.2.627 1965 Unknown [id number] 2.16.8 40.1.656320.3.579.2.627 1965 Unknown [id number] 2.16. 840.1.561214.3.579.2.627 1965 Unknown [id number] 2.16. 840.1.728034.3.579.2.627 1965 Unknown [id number] 2.16. 840.1.917944.3.579.2.627 1965 Unknown [id number] 2.16. 840.1.146430.3.579.2.627 1965 Unknown [id number] 2.16. 840.1.245283.3.579.2.627 1965 Unknown [id number] .16.8 40.1.492212.3.579.2.627 1965 Unknown [id number] 2.16. 840.1.034821.3.579.2.479 1965 Unknown [id number] 2.16. 840.1.662371.3.579.2.479 Medicare [id number] Medicare [id number] Medicare [id number] Unknown [id number] 2.16.8 40.1.325549.3.579.2.462 Unknown [id number] 2.16.8 40.1.499994.3.579.2.462 Unknown [id number] 2.16.8 40.1.094794.3.579.2.462 Unknown [id number] 2.16.8 40.1.681646.3.579.2.462 Social History Date Type Detail Facility Start: 01-28-2020 End: 11-14-2024 Never smoked tobacco (finding) [facility] Start: 1965 Sex Assigned At Female A [facility] Start: 07-31-2018 End: 02-07-2024 Alcohol intake Current non-drinker of alcohol (finding) [facility] Start: 1965 Sex Assigned At Not on file C [facility] Start: 07-11-2022 End: 03-22-2023 Exposure to SARS-CoV-2 (event) Not sure [facility] Tobacco smoking stat us NHIS Tobacco smoking consumption unknown [facility] Start: 03-01-2023 Tobacco use and exposure Smokeless tobacco non-user [facility] Start: 03-09-2023 End: 01-03-2024 Alcohol intake Lifetime non-drinker (finding) [facility] Start: 03-09-2023 End: 01-02-2024 History of Social function [facility] Start: 03-09-2023 End: 01-02-2024 Tobacco use panel [facility] Start: 07-05-2022 Gender identity Identifies as female gender (finding) [facility] Start: 02-16-2023 Sexual orientation Heterosexual (fin ding) [facility] Adult Depression Screening Assessment 4 [facility] Sexual Orientation [facility] [employer] Start: 08-27-2019 Sex Female (finding) [facility] Medical Equipment Procedure Code Equipment Code Equipment Origin al Text Equipment Identifier Dates Patch Ventralex St Sepra Sorbaflex 2.5in Medium Melvin Polypropylene - [id number] Start: 06-20-2018 Functional Status Date Assessment Result Facility 05-21-2022 Functional Status Room check performed [facility] 05-21-2022 Functional Status [facility] Mental Status Date Assessment Result Facility 05-21-2022 Mental Status Orientation Oriented x 4 [facility] 05-21-2022 [facility] Clinical Notes 10-22-2021 to 07-08-2025 Note Date & Type Note Facility 07-08-2025 Note Exam Date Time Procedure Performing Provider Status 07/08/25 12:56 PM NM Lymphoscintigraphy TYSON EUBANKS MD; Auth (Verified) [id number] ORIGINAL EXAMINATION: LYMPHOSCINTIGRAPHY (IMAGES) 07/08/2025 12:57 pm TECHNIQUE: 266 and 251 microcuries of Tc99m Lymphoseek injection in the right foot at 8:50 a.m. by physician under water assistant JOSR CALDWELL was provided to DR. TOSHIA MEIER for sentinel lymph node localization. Patient was then taken to the OR for probe guided lymph node localization. HISTORY: Reason for Exam: leg swelling, possible lipedema FINDINGS: Sites of injections are identified in feet. Lymphatic channels in the lower extremities are identified without significant asymmetry. Multiple sentinel lymph nodes are identified in femoral and inguinal regions bilaterally. No dermal back flow is evident. Physiologic radiotracer activity is noted in the urinary bladder. Faint physiologic radiotracer activity is present in the kidneys. IMPRESSION: Multiple bilateral femoral and inguinal sentinel lymph nodes. No significant asymmetry in lymphatic flow. Interpreted by: Kelin Eubanks MD Preliminary Report By: Kelin Eubanks MD Electronically signed By Kelin Eubanks MD Dictated Date: 07/08/2025 4:25:03 PM Prelim Date: 07/08/2025 4:51:16 PM Sign Date: 07/08/2025 4:51:16 PM Ordering Provider: [facility]IA [facility]IER [id number] Evaluation + Plan note Future Scheduled Tests Laboratory* Basic Metabolic Panel 06/11/25 Radiology* XR Abdomen AP 08/20/24 [facility] 07-31-2025 Radiology Diagnostic study note [facility] Imaging Services [address] [place] [address] [id number] Sinus/Facial Bone MR#: [id number] Acct: [id number] Name: SUKHJINDERJOERA Campoverde Rep #: [id number] : 1965 F 60 From: Celso Light MD PCP: Toshia Meier METAL HANGING SUPERVISOR-C Status: REG C DEANDRE Study:Sinus/Facial Bone Date of Exam: Exam# [id number] Ordering Dr: Ferny Rahman MD PROCEDURE: SINUS/FACIAL BONE 05/02/2025 REASON FOR EXAM: SINUSITIS History of prior sinus surgery. TECHNIQUE: SINUS/FACIAL BONE Coronal and Sagittal reconstruction series were provided. One or more dose reduction techniques were used (e.g., Automated exposure control, adjustment of the mA and/or kV according to patient size, use of iterative reconstruction technique). RADIATION DOSE SUMMARY: CTDlvol: 28.14 mGy DLP: 1151.17 mGycm COMPARISON: None FINDINGS: Frontal: Unremarkable Ethmoid: Prior surgery of the ethmoid sinuses. Opacification of the left ethmoid sinus. Mucosal thickening of the right ethmoid sinus. Sphenoid: Opacification of the left sphenoid sinus. Maxillary: Opacification of the left maxillary sinus with soft tissue extension into the left nasalfossa and ethmoid sinus. Turbinates: Renan bullosa of the right middle renan. Nasal Septum: Midline Mastoids/Middle Ears: Clear CT/Sinus/Facial Bone IMPRESSION: Sinusitis as described. Soft tissue fullness of the left maxillary sinus with extension into the left nasal fossa and left ethmoid sinus. Partial medial wall resection of both maxillary sinuses. Reading Location: [id number] CC: HIPOLITO Meier; Dr. Ferny Rahman MD ~ Chopper Gun Operator: Signed [facility]11-08-2024 Telephone encounter Note* Telephone Encounter - Edelmira Li - 08/10/2024 10:56 AM EST Pt called to see if she was supposed to follow-up after her h pylori treatment. She thinks she was supposed to have another egd. I let her know that she canceled her office follow-up which is when wewould have scheduled that follow- up egd if she was to have one. She says she has been have been having a lot of "problems" and has been constipated for a month. Please advise. Thank you. [facility]11-08-2024 Miscellaneous Notes* Telephone Encounter - Edelmira Li - 08/10/2024 10:56 AM EST Pt called to see if she was supposed to follow-up after her h pylori treatment. She thinks she was supposed to have another egd. I let her know that she canceled her office follow-up which is when wewould have scheduled that follow- up egd if she was to have one. She says she has been have been having a lot of "problems" and has been constipated for a month. Please advise. Thank you. documented in this encounter[facility]10-[facility] Evaluation + Plan note Diagnostic Tests Pending * Insulin Antibodies 07/11/24 Future Scheduled Tests Laboratory* Vitamin D Level 02/28/24 Radiology* NM Myocardial Spect Rest/Stress 07/10/24 [facility] 05-13-2024 Telephone encounter Note* Telephone Encounter - Cheryl Logan MA - 02/13/2024 4:36 PM EDT Patient called complaining of sx of yeast infection due to antibiotics. She asked for Diflucan. Would you like me to refer herto her PCP? Please advise. Cheryl Caballero [facility]05-13-2024 Miscellaneous Notes* Telephone Encounter - Cheryl Logan MA - 02/13/2024 4:36 PM EDT Patient called complaining of sx of yeast infection due to antibiotics. She asked for Diflucan. Would you like me to refer herto her PCP? Please advise. Cheryl Caballero * Telephone Encounter - Edelmira Li - 02/13/2024 11:32 AM EDT Vince called to cancel her follow-up after her recent colonoscopy and CT Abdomen/Pelvis. She says she got her results in MyChart and is feeling fine and doesn't feel an appointment is necessary. She doesn't want to drive all the way here. Please advise. Thank you. documented in this encounterE[facility]05-13-[facility]24 Telephone encounter Note * Telephone Encounter - Edelmira Li - 02/13/2024 11:32 AM EDT Vince called to cancel her follow-up after her recent colonoscopy and CT Abdomen/Pelvis. She says she got her results in MyChart and is feeling fine and doesn't feel an appointment is necessary. She doesn't want to drive all the way here. Please advise. Thank you. [facility]05-08-2024 NoteHNO ID: [id number] Author: DIXIE MCCOY CT Service: Radiology Author Type: Eligibility Manager Type: Progress Notes Filed: 02/08/2024 13:57 Note Text: Radiology Service Progress Note PATIENT NAME: Vince Slaughter DATE OF SERVICE: February 08, 2024 TIME: 1:57 PM PATIENT IDENTITY VERIFICATION COMPLETED USING TWO (2) IDENTIFIERS: Name and Date of confirmed by patient verbally. FALL SCREENING: Has the patient had 2 falls in the last year or 1 fall with injury or currently using an Ambulatory Assistive Device (Walker, Cane, Wheelchair, Crutches, etc.)? No PATIENT GENDER DATA: Female. status: : No status: NO. PATIENT RELEVANT IMPLANT DATA REVIEWED: Not Applicable PATIENT PRESENTS WITH AN IMPLANTABLE OR ATTACHED HYDRO GENERATION SUPERVISOR: No RADIOLOGY DEPARTMENT: CT; Exam(s) Completed: Abdomen/Pelvis PERIPHERAL IV DATA: Not applicable SIGNED BY: [place] Dominguez February 08, 2024 1:57 [facility]05-08-2024 History of Present illness Narrative* Dixie Mccoy CT - 02/08/2024 2:00 PM EDT Radiology Service Progress Note PATIENT NAME: Vince Slaughter DATE OF SERVICE: February 08, 2024 TIME: 1:57 PM PATIENT IDENTITY VERIFICATION COMPLETED USING TWO (2) IDENTIFIERS: Name and Date of confirmedby patient verbally. FALL SCREENING: Has the patient had 2 falls in the last year or 1 fall with injury or currently using an Ambulatory Assistive Device (Walker, Cane, Wheelchair, Crutches, etc.)? No PATIENT GENDER DATA: Female. status: : No status: NO. PATIENT RELEVANT IMPLANT DATA REVIEWED: Not Applicable PATIENT PRESENTS WITH AN IMPLANTABLE OR ATTACHED HYDRO GENERATION SUPERVISOR: No RADIOLOGY DEPARTMENT: CT; Exam(s) Completed: Abdomen/Pelvis PERIPHERAL IV DATA: Not applicable SIGNED BY: [place] Dominguez February 08, 2024 1:57 PM documented in this encounterElyria [facility]05-07-2024 Instructions* Patient Instructions* Brannon Garcia MD - 02/07/2024 10:30 AM EDT Thank you for coming to see me today. It is my pleasure to take care of you. If you have any questions regarding your visit, please don't hesitate to contact us. documented in this encounterElyria [facility] Hospital05-07-2024 NoteHNO ID: [id number] Author: BRANNON GARCIA MD Service: ? Author Type: Physician Type: Progress Notes Filed: 02/07/2024 12:04 Note Text: Vince Slaughter is a 58 year old female who is here for evaluation of abdominal pain. Last Tuesday she had a EGD and colonoscopy. She has had some pain ever since then. She does have chronic pain anyway though. However this seems to be a little bit different. She has had some small bowel movements. She has been eating. EGD showed no hiatal hernia. Positive for H. pylori. Colonoscopy showed diverticulosis and benign polyp. ALLERGIES Allergen Reactions [place] Hives, Swelling Hives, sick, rash, swelling of skin Nitrofurantoin Anaphylaxis Peanuts GI Upset, Shortness of Breath With skins Buspirone Other: See Comments Ciprofloxacin GI Upset, Myalgia Sick Glades And Derivati* Other: See Comments GI upset, acidic stool and urine Coconut Hives Hives; processed, can eat fresh Dairy Aid [Lactase] GI Upset Sever bloating and stomach pain Demerol [Meperidine* GI Upset Vomiting Eggs [Egg] GI Upset Extreme sickness Lidocaine Hives Lisinopril Other: See Comments Milk Containing Pro* GI Upset Mobic [Meloxicam] GI Upset sick Morphine Itching Omnicef [Cefdinir] GI Upset Sick Prilosec [Omeprazol* Hives Sulfamethoxazole-Tr* Hives, Other: See Comments Vicodin [Hydrocodon* Hives Wellbutrin [Bupropi* GI Upset Sick Wheat Unknown Hives, sick and headache Current Outpatient Medications Medication Sig furosemide (LASIX ORAL) Take by mouth once daily. esomeprazole (NEXIUM) 20 mg capsule Take 20 mg by mouth daily at 6 am. VENTOLIN HFA 90 mcg/actuation inhaler Inhale 1 Puff as instructed every 4 hours as needed for wheezing/shortness of breath. albuterol (PROVENTIL) 2.5 mg /3 mL (0.083 %) nebulizer solution Use 2.5 mg via nebulizer four times daily as needed. montelukast (SINGULAIR) 10 mg tablet Take 10 mg by mouth once daily. IBU 800 mg tablet Take 800 mg by mouth three times daily. dicyclomine (BENTYL) 20 mg tablet TAKE ONE TABLET BY MOUTH FOUR TIMES A DAY meclizine (ANTIVERT) 25 mg tab Take 25 mg by mouth three times daily. promethazine (PHENERGAN) 25 mg tablet Take 25 mg by mouth every 6 hours as needed. cholecalciferol (VITAMIN D3) 2,000 unit tablet Take 2,000 Units by mouth once daily. bismuth subsalicylate (PEPTO-BISMOL) 262 mg chewable tablet Take 2 tablets by mouth four times daily for 10 days. doxycycline hyclate (VIBRAMYCIN) 100 mg capsule Take 1 capsule by mouth two times a day for 10 days. metroNIDAZOLE (FLAGYL) 250 mg tablet Take 1 tablet by mouth four times daily for 10 days. oxybutynin XL (DITROPAN XL) 5 mg 24 hr tablet Take 1 tablet by mouth once daily. fluconazole (DIFLUCAN) 150 mg tablet TAKE ONE TABLET BY MOUTH EVERY 72 HOURS tiZANidine (ZANAFLEX) 4 mg tablet Take 4 mg by mouth every 8 hours. (Patient not taking: Reported on 01/02/2024) No current facility-administered medications for this visit. PHYSICAL EXAM: BP 124/73 Pulse 77 Resp 20 Ht 4' 8" (1.42m) Wt 208 lb (94.3kg) BMI 46.66 kg/(m2). General Appearance: Well appearing, alert, in no acute distress, well-hydrated, well nourished.. Abdomen: Soft. She is diffusely tender. No obvious peritoneal signs.. Assessment: Generalized abdominal pain (primary encounter diagnosis) Helicobacter pylori infection Plan: ASSESSMENT/PLAN: 1. Generalized abdominal pain - ICD9: 789.07, ICD10: R10.84 (primary diagnosis) -Given her pain after the procedure Argun to proceed with a CT scan. Follow-up after CT scan. - CT ABD/PEL WO IVCON 2. Helicobacter pylori infection - ICD9: 041.86, ICD10: A04.8 Treatment for H. pylori sent to her pharmacy. Medical Decision Making: Problems: Moderate: New problem with uncertain prognosis Data: Unique test result(s) reviewed: 2 Unique test(s) ordered: 1 Risk: Low: Low risk from testing/treatment Medical Decision Making Level: 4 - Moderate Brannon Garcia M.D., F.A.C.S.[facility]05-07-[facility]24 History of Present illness Narrative* Brannon Garcia MD - 02/07/2024 10:24 AM EDT Vince Slaughter is a 58 year old female who is here for evaluation of abdominal pain. Last Yann shehad a EGD and colonoscopy. She has had some pain ever since then. She does have chronic pain anywaythough. However this seems to be a little bit different. She has had some small bowel movements. She has been eating. EGD showed no hiatal hernia. Positive for H. pylori. Colonoscopy showed diverticulosis and benign polyp. ALLERGIES Allergen Reactions [place] Hives, Swelling Hives, sick, rash, swelling of skin Nitrofurantoin Anaphylaxis Peanuts GI Upset, Shortness of Breath With skins Buspirone Other: See Comments Ciprofloxacin GI Upset, Myalgia Sick Glades And Derivati* Other: See Comments GI upset, acidic stool and urine Coconut Hives Hives; processed, can eat fresh Dairy Aid [Lactase] GI Upset Sever bloating and stomach pain Demerol [Meperidine* GI Upset Vomiting Eggs [Egg] GI Upset Extreme sickness Lidocaine Hives Lisinopril Other: See Comments Milk Containing Pro* GI Upset Mobic [Meloxicam] GI Upset sick Morphine Itching Omnicef [Cefdinir] GI Upset Sick Prilosec [Omeprazol* Hives Sulfamethoxazole-Tr* Hives, Other: See Comments Vicodin [Hydrocodon* Hives Wellbutrin [Bupropi* GI Upset Sick Wheat Unknown Hives, sick and headache Current Outpatient Medications Medication Sig furosemide (LASIX ORAL) Take by mouth once daily. esomeprazole (NEXIUM) 20 mg capsule Take 20 mg by mouth daily at 6 am. VENTOLIN HFA 90 mcg/actuation inhaler Inhale 1 Puff as instructed every 4 hours as needed for wheezing/shortness of breath. albuterol (PROVENTIL) 2.5 mg /3 mL (0.083 %) nebulizer solution Use 2.5 mg via nebulizer four timesdaily as needed. montelukast (SINGULAIR) 10 mg tablet Take 10 mg by mouth once daily. IBU 800 mg tablet Take 800 mg by mouth three times daily. dicyclomine (BENTYL) 20 mg tablet TAKE ONE TABLET BY MOUTH FOUR TIMES A DAY meclizine (ANTIVERT) 25 mg tab Take 25 mg by mouth three times daily. promethazine (PHENERGAN) 25 mg tablet Take 25 mg by mouth every 6 hours as needed. cholecalciferol (VITAMIN D3) 2,000 unit tablet Take 2,000 Units by mouth once daily. bismuth subsalicylate (PEPTO-BISMOL) 262 mg chewable tablet Take 2 tablets by mouth four times daily for 10 days. doxycycline hyclate (VIBRAMYCIN) 100 mg capsule Take 1 capsule by mouth two times a day for 10 days. metroNIDAZOLE (FLAGYL) 250 mg tablet Take 1 tablet by mouth four times daily for 10 days. oxybutynin XL (DITROPAN XL) 5 mg 24 hr tablet Take 1 tablet by mouth once daily. fluconazole (DIFLUCAN) 150 mg tablet TAKE ONE TABLET BY MOUTH EVERY 72 HOURS tiZANidine (ZANAFLEX) 4 mg tablet Take 4 mg by mouth every 8 hours. (Patient not taking: Reported on 01/02/2024) No current facility-administered medications for this visit. PHYSICAL EXAM: BP 124/73 Pulse 77 Resp 20 Ht 4' 8" (1.42m) Wt 208 lb (94.3kg) BMI 46.66 kg/(m^2). General Appearance: Well appearing, alert, in no acute distress, well-hydrated, well nourished.. Abdomen: Soft. She is diffusely tender. No obvious peritoneal signs.. Assessment: Generalized abdominal pain (primary encounter diagnosis) Helicobacter pylori infection Plan: ASSESSMENT/PLAN: 1. Generalized abdominal pain - ICD9: 789.07, ICD10: R10.84 (primary diagnosis) -Given her pain after the procedure Argun to proceed with a CT scan. Follow-up after CT scan. - CT ABD/PEL WO IVCON 2. Helicobacter pylori infection - ICD9: 041.86, ICD10: A04.8 Treatment for H. pylori sent to her pharmacy. Medical Decision Making: Problems: Moderate: New problem with uncertain prognosis Data: Unique test result(s) reviewed: 2 Unique test(s) ordered: 1 Risk: Low: Low risk from testing/treatment Medical Decision Making Level: 4 - Moderate Brannon Garcia M.D., F.A.C.S. documented in this encounterE[facility]05-06-[facility]24 Telephone encounter Note * Telephone Encounter - Brannon Garcia MD - 02/06/2024 9:02 AM EDT Yes she can. I am also ordering a CT scan to evaluate, at this point she should not have any pain [facility]05-06-2024 Miscellaneous Notes* Telephone Encounter - Brannon Garcia MD - 02/06/2024 9:02 AM EDT Yes she can. I am also ordering a CT scan to evaluate, at this point she should not have any pain * Telephone Encounter - Cheryl Logan MA - 02/06/2024 8:55 AM EDT Patient had an EGD, Colonoscopy on 02-03-24 and is complaining of pain in her colon. She does not have a fever. Can she take Ibuprofen as needed? Please advise. Cheryl Caballero documented in this encounterElyria [facility] Hospital05-06-2024 Telephone encounter Note * Telephone Encounter - Cheryl Logan MA - 02/06/2024 8:55 AM EDT Patient had an EGD, Colonoscopy on 02-03-24 and is complaining of pain in her colon. She does not have a fever. Can she take Ibuprofen as needed? Please advise. Cheryl Caballero [facility]05-03-2024 NoteHNO ID: [id number] Author: GEENA LINCOLN RN Service: ? Author Type: Registered Nurse Type: Nursing Progress Note Filed: 02/03/2024 12:31 Note Text: Dr [facility] Note* Geena Lincoln RN - 02/03/2024 12:[address] Garcia into see patient [facility]05-03-2024 Nurse Note* Geena Lincoln RN - 02/03/2024 12:[address] Garcia into see patient * Geena Lincoln RN - 02/03/2024 12:26 PM EDT Patients cramping resoving with time and diet gingeral * GaAsif bo RN - 02/03/2024 11:32 AM EDT DISPOSABLE UNDERPANTS REMOVED AFTER EGD AND BEFORE COLONOSCOPY. documented in this encounterElyria [facility] Hospital05-03-2024 NoteHNO ID: [id number] Author: GEENA LINCOLN RN Service: ? Author Type: Registered Nurse Type: Nursing Progress Note Filed: 02/03/2024 12:27 Note Text: Patients cramping resoving with time and [facility] Nurse Note* Geena Lincoln RN - 02/03/2024 12:26 PM EDT Patients cramping resoving with time and diet gingeral [facility]05-03-2024 NoteHNO ID: [id number] Author: ASIF WILKINSON RN Service: Nursing Author Type: Registered Nurse Type: Nursing Progress Note Filed: 02/03/2024 11:35 Note Text: DISPOSABLE UNDERPANTS REMOVED AFTER EGD AND BEFORE COLONOSCOPY.[facility] Nurse Note* Asif Wilkinson RN - 02/03/2024 11:32 AM EDT DISPOSABLE UNDERPANTS REMOVED AFTER EGD AND BEFORE COLONOSCOPY. [facility]05-03[facility] Attending History and physical note* Zeeshan Link DO - 02/03/2024 11:00 AM EDT UPDATED HISTORY AND PHYSICAL EXAMINATION SERVICE DATE: 02/03/2024 SERVICE TIME: 10:58 AM PHYSICAL EXAM MUST BE COMPLETED ON ADMISSION The History and Physical (completed in the past 30 days) has been reviewed and the patient has beenexamined. The contents accurately reflect the patient's condition with the following additions or revisions since the H&P was completed. Examination indicates no changes. This H&P can be found in the attached. SIGNATURE: Zeeshan Link DO PATIENT NAME: Vince Slaughter DATE: February 03, 2024 TIME: 10:58 AM Associated attestation - Brannon Garcia MD - 02/03/2024 12:14 PM EDT I saw and evaluated the patient. Discussed with the resident and agree with resident's findings andplan as documented in the resident's note. Source Note - Edin Camacho APRN.CNP - 02/03/2024 11:00 AM EDT HISTORY AND PHYSICAL EXAMINATION Vince Slaughter 1965 SERVICE DATE: 02/03/2024 SERVICE TIME: 10:13 AM PRIMARY CARE PHYSICIAN: Toshia Meier CNP, VINYL DIPPER SURGEON: Surgeon(s) and Role: * Zeeshan Link DO - Resident - Assisting * Brannon Garcia MD - Proceduralist ANESTHESIA: MAC DIAGNOSIS: Gastroesophageal reflux disease, unspecified whether esophagitis present [K21.9] Change in bowel habits [R19.4] PROCEDURE: EGD and Colonoscopy ACTIVE PROBLEM LIST Chronic Pain Syndrome Fibromyalgia Ventral Hernia Without Obstruction Or Gangrene Gastroesophageal Reflux Disease History of Colonic Polyps Hypothyroidism, Unspecified Asthma Bmi 45.0-49.9, Adult (Hcc) Preop Testing Elevated Blood-Pressure Reading Without Diagnosis of Hypertension Subjective The reason for this visit is to perform a comprehensive review of the patient's past medical history, assess their current health status and obtain any additional testing required based on anesthesiaguidelines. We will also identify any potential anesthesia problems or contraindications to the planned procedure. CHIEF COMPLAINT: "I'm here for an EGD and colonoscopy." HPI: This is a 58 year old female who presents for an EGD and colonoscopy. Pt states her last colonoscopy was in 2004 and positive for polyps. She has never had an EGD before. She c/o acid reflux symptoms, regurgitation, and dysphagia "for many years". Pt states "breads and potatoes get stuck". Shealso c/o chronic constipation. She denies blood in her stool. She has epigastric tenderness "off and on" and today rates this 3. Her paternal grandfather approx age 63 from colon cancer. ANESTHESIA FINDINGS: Intubation History: No history of difficult intubation Significant Anesthesia Considerations: None FAMILY PROBLEMS WITH ANESTHESIA: no history of adverse anesthetic event METS: Climb a flight of stairs or walk up a hill (5.50 METs) FUNCTIONAL STATUS: Independent 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 neck pain Carpal tunnel syndrome Constipation Degenerative disc disease, cervical Degenerative disc disease, lumbar Fibromyalgia Hearing loss High cholesterol Hypothyroid not on medication Incontinence Irritable bladder Irritable bowel Menopause Migraines Numbness and tingling arms, legs, hands, feet, face PTSD (post-traumatic stress disorder) Raynaud's disease Restless leg Sciatica Tinnitus Vertigo PAST SURGICAL HISTORY Procedure Laterality Date ABDOMINOPLASTY 2016 tummy tuck CARPAL TUNNEL Right 1988 CARPAL TUNNEL Left 1998 CARPAL TUNNEL Right 2015 DELIVERY ONLY x2 CHOLECYSTECTOMY 2012 FINGER SURGERY HX Right 2015 right middle trigger finger FINGER SURGERY HX Right 2015 tendon in thumb HYSTERECTOMY HX 1999 LX REPAIR RECURRENT VENTRAL HERNIA 06/20/2018 PAST SURGICAL HISTORY OF 2012 Sling removed REDUCTION OF LARGE BREAST 06/22/2013 SINUS SURGERY HX 2008 SLING OPER STRES INCONTINENCE TONSILLECTOMY AND ADENOIDECTOMY HX 1993 TOOTH EXTRACTION 2008 wisdom teeth FAMILY HISTORY Problem Relation Age of Onset Heart Mother Thyroid Mother Heart Father Prostate Cancer Father Diabetes Father other (cirrhosis of liver) Father Heart Paternal Grandfather Colon Cancer Paternal Grandfather Heart Paternal Grandmother other (Leukemia) Paternal Grandmother Breast Cancer Maternal Grandmother Thyroid Maternal Grandmother Social History Tobacco Use Smoking status: Never Smokeless tobacco: Never Substance Use Topics Alcohol use: No Drug use: No Prior to Admission medications as of 02/03/24 1038 Medication Sig Last Dose Taking furosemide (LASIX ORAL) Take by mouth once daily. Yes esomeprazole (NEXIUM) 20 mg capsule Take 20 mg by mouth daily at 6 am. Yes VENTOLIN HFA 90 mcg/actuation inhaler Inhale 1 Puff as instructed every 4 hours as needed for wheezing/shortness of breath. 01/30/2024 Yes albuterol (PROVENTIL) 2.5 mg /3 mL (0.083 %) nebulizer solution Use 2.5 mg via nebulizer four timesdaily as needed. Yes IBU 800 mg tablet Take 800 mg by mouth three times daily. 01/27/2024 Yes dicyclomine (BENTYL) 20 mg tablet TAKE ONE TABLET BY MOUTH FOUR TIMES A DAY Yes meclizine (ANTIVERT) 25 mg tab Take 25 mg by mouth three times daily. Yes promethazine (PHENERGAN) 25 mg tablet Take 25 mg by mouth every 6 hours as needed. Yes cholecalciferol (VITAMIN D3) 2,000 unit tablet Take 2,000 Units by mouth once daily. Yes oxybutynin XL (DITROPAN XL) 5 mg 24 hr tablet Take 1 tablet by mouth once daily. fluconazole (DIFLUCAN) 150 mg tablet TAKE ONE TABLET BY MOUTH EVERY 72 HOURS tiZANidine (ZANAFLEX) 4 mg tablet Take 4 mg by mouth every 8 hours. Patient not taking: Reported on 01/02/2024 montelukast (SINGULAIR) 10 mg tablet Take 10 mg by mouth once daily. ALLERGIES Allergen Reactions [place] Hives, Swelling Hives, sick, rash, swelling of skin Nitrofurantoin Anaphylaxis Peanuts GI Upset, Shortness of Breath With skins Buspirone Other: See Comments Ciprofloxacin GI Upset, Myalgia Sick Glades And Derivati* Other: See Comments GI upset, acidic stool and urine Coconut Hives Hives; processed, can eat fresh Dairy Aid [Lactase] GI Upset Sever bloating and stomach pain Demerol [Meperidine* GI Upset Vomiting Eggs [Egg] GI Upset Extreme sickness Lidocaine Hives Lisinopril Other: See Comments Milk Containing Pro* GI Upset Mobic [Meloxicam] GI Upset sick Morphine Itching Omnicef [Cefdinir] GI Upset Sick Prilosec [Omeprazol* Hives Sulfamethoxazole-Tr* Hives, Other: See Comments Vicodin [Hydrocodon* Hives Wellbutrin [Bupropi* GI Upset Sick Wheat Unknown Hives, sick and headache COMPLETE REVIEW OF SYSTEMS: PAIN ASSESSMENT: Pain Pain Level: 3 Pain Location: Abdomen-Mid Upper Pain Assessment: Assessment Description: Aching, Dull Duration: Continuous Tool: Verbal (Numeric Rating or Visual Analog Scale) General: No weight loss, malaise or fevers.; + obesity Neuro: no hx of seizure or stroke; + migraines; + RLS Respiratory: No history of current cough, wheezing, dyspnea, or recent pneumonia; no hx of COPD or JOSIE; + asthma Cardiovascular: No history of HTN requiring medication, no history of chest pain, palpitations, CHF, TN, cardiac surgery or stents; +hyperlipidemia GI: see HPI; + GERD : No history of dysuria, frequency or incontinence, stones or chronic kidney disease Endocrine: Negative for Diabetes; + Hypothyroidism Hematology: No history of bleeding or clotting disorder. No history of hematological symptoms or problems. Oncology: No history of oncological symptoms or problems. Psych: No history of psychiatric symptoms or problems. Musculoskeletal: +arthritis; + fibromyalgia; + DDD Skin: Negative for lesions, rash and itching. Objective PHYSICAL EXAM: MENTAL STATUS: alert, oriented to person, place and time HEENT: Normocephalic/atraumatic, pharynx clear LUNGS: CTA, no wheezing CARDIAC: RRR, no murmur ABDOMEN: Abdomen soft, non-tender, BS normal, No masses or organomegaly EXTREMITIES: 2+ pedal pulses, no pedal edema 02/03/24 1039 BP: 155/93 Pulse: 86 Resp: 18 Temp: 36.1 C (97 F) TempSrc: Temporal Artery SpO2: 96% Weight: 94.3 kg (208 lb) Height: 142.2 cm (4' 8") Body mass index is 46.63 kg/m . Assessment/Plan Patient has the following medical conditions which may affect bang-operative course: Problem List Items Addressed This Visit Cardiovascular Elevated blood-pressure reading without diagnosis of hypertension Current Assessment & Plan BP today 155/93 Pt asymptomatic Pulmonary Asthma Current Assessment & Plan Ventolin prn- pt uses this "1-2x per week" Pt denies c/o SOB, wheezing or cough today Gastrointestinal Gastroesophageal reflux disease Overview Added automatically from request for surgery [id number] Current Assessment & Plan Controlled with Nexium Relevant Orders EGD DIAGNOSTIC Other BMI 45.0-49.9, adult (HCC) Current Assessment & Plan Pt denies JOSIE Preop testing Current Assessment & Plan medical conditions which may affect the bang-operative course were addressed in the visit today. Other Visit Diagnoses Change in bowel habits Relevant Orders COLONOSCOPY DIAGNOSTIC I spent a total of 20 minutes on the date of the service which included preparing to see the patient, [id number] patient care, completing clinical documentation, obtaining and/or reviewing separately obtained history, performing a medically appropriate examination, and counseling and educating the patient/family/caregiver. SIGNATURE: Edin Camacho APRN.CNP PATIENT NAME: Vince Slaughter DATE: February 03, 2024 TIME: 10:13 AM PAGER/CONTACT #: [facility] Work Phone: [phone] 507-225005-03-2024 History and physical note* Edin Camacho APRN.CNP - 02/03/2024 11:00 AM EDT HISTORY AND PHYSICAL EXAMINATION Vince Slaughter 1965 SERVICE DATE: 02/03/2024 SERVICE TIME: 10:13 AM PRIMARY CARE PHYSICIAN: Toshia Meier CNP, CNP SURGEON: Surgeon(s) and Role: * Zeeshan Link DO - Resident - Assisting * Brannon Garcia MD - Proceduralist ANESTHESIA: MAC DIAGNOSIS: Gastroesophageal reflux disease, unspecified whether esophagitis present [K21.9] Change in bowel habits [R19.4] PROCEDURE: EGD and Colonoscopy ACTIVE PROBLEM LIST Chronic Pain Syndrome Fibromyalgia Ventral Hernia Without Obstruction Or Gangrene Gastroesophageal Reflux Disease History of Colonic Polyps Hypothyroidism, Unspecified Asthma Bmi 45.0-49.9, Adult (Hcc) Preop Testing Elevated Blood-Pressure Reading Without Diagnosis of Hypertension Subjective The reason for this visit is to perform a comprehensive review of the patient's past medical history, assess their current health status and obtain any additional testing required based on anesthesiaguidelines. We will also identify any potential anesthesia problems or contraindications to the planned procedure. CHIEF COMPLAINT: "I'm here for an EGD and colonoscopy." HPI: This is a 58 year old female who presents for an EGD and colonoscopy. Pt states her last colonoscopy was in 2004 and positive for polyps. She has never had an EGD before. She c/o acid reflux symptoms, regurgitation, and dysphagia "for many years". Pt states "breads and potatoes get stuck". Shealso c/o chronic constipation. She denies blood in her stool. She has epigastric tenderness "off and on" and today rates this 3/10. Her paternal grandfather approx age 63 from colon cancer. ANESTHESIA FINDINGS: Intubation History: No history of difficult intubation Significant Anesthesia Considerations: None FAMILY PROBLEMS WITH ANESTHESIA: no history of adverse anesthetic event METS: Climb a flight of stairs or walk up a hill (5.50 METs) FUNCTIONAL STATUS: Independent 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 neck pain Carpal tunnel syndrome Constipation Degenerative disc disease, cervical Degenerative disc disease, lumbar Fibromyalgia Hearing loss High cholesterol Hypothyroid not on medication Incontinence Irritable bladder Irritable bowel Menopause Migraines Numbness and tingling arms, legs, hands, feet, face PTSD (post-traumatic stress disorder) Raynaud's disease Restless leg Sciatica Tinnitus Vertigo PAST SURGICAL HISTORY Procedure Laterality Date ABDOMINOPLASTY 2016 tummy tuck CARPAL TUNNEL Right 1988 CARPAL TUNNEL Left 1998 CARPAL TUNNEL Right 2014 DELIVERY ONLY x2 CHOLECYSTECTOMY 2012 FINGER SURGERY HX Right 2015 right middle trigger finger FINGER SURGERY HX Right 2015 tendon in thumb HYSTERECTOMY HX 1999 LX REPAIR RECURRENT VENTRAL HERNIA 06/20/2018 PAST SURGICAL HISTORY OF 2013 Sling removed REDUCTION OF LARGE BREAST 06/22/2013 SINUS SURGERY HX 2008 SLING OPER STRES INCONTINENCE TONSILLECTOMY AND ADENOIDECTOMY HX 1992 TOOTH EXTRACTION 2008 wisdom teeth FAMILY HISTORY Problem Relation Age of Onset Heart Mother Thyroid Mother Heart Father Prostate Cancer Father Diabetes Father other (cirrhosis of liver) Father Heart Paternal Grandfather Colon Cancer Paternal Grandfather Heart Paternal Grandmother other (Leukemia) Paternal Grandmother Breast Cancer Maternal Grandmother Thyroid Maternal Grandmother Social History Tobacco Use Smoking status: Never Smokeless tobacco: Never Substance Use Topics Alcohol use: No Drug use: No Prior to Admission medications as of 02/03/24 1038 Medication Sig Last Dose Taking furosemide (LASIX ORAL) Take by mouth once daily. Yes esomeprazole (NEXIUM) 20 mg capsule Take 20 mg by mouth daily at 6 am. Yes VENTOLIN HFA 90 mcg/actuation inhaler Inhale 1 Puff as instructed every 4 hours as needed for wheezing/shortness of breath. 01/30/2024 Yes albuterol (PROVENTIL) 2.5 mg /3 mL (0.083 %) nebulizer solution Use 2.5 mg via nebulizer four timesdaily as needed. Yes IBU 800 mg tablet Take 800 mg by mouth three times daily. 01/27/2024 Yes dicyclomine (BENTYL) 20 mg tablet TAKE ONE TABLET BY MOUTH FOUR TIMES A DAY Yes meclizine (ANTIVERT) 25 mg tab Take 25 mg by mouth three times daily. Yes promethazine (PHENERGAN) 25 mg tablet Take 25 mg by mouth every 6 hours as needed. Yes cholecalciferol (VITAMIN D3) 2,000 unit tablet Take 2,000 Units by mouth once daily. Yes oxybutynin XL (DITROPAN XL) 5 mg 24 hr tablet Take 1 tablet by mouth once daily. fluconazole (DIFLUCAN) 150 mg tablet TAKE ONE TABLET BY MOUTH EVERY 72 HOURS tiZANidine (ZANAFLEX) 4 mg tablet Take 4 mg by mouth every 8 hours. Patient not taking: Reported on 01/02/2024 montelukast (SINGULAIR) 10 mg tablet Take 10 mg by mouth once daily. ALLERGIES Allergen Reactions [place] Hives, Swelling Hives, sick, rash, swelling of skin Nitrofurantoin Anaphylaxis Peanuts GI Upset, Shortness of Breath With skins Buspirone Other: See Comments Ciprofloxacin GI Upset, Myalgia Sick [place] And Derivati* Other: See Comments GI upset, acidic stool and urine Coconut Hives Hives; processed, can eat fresh Dairy Aid [Lactase] GI Upset Sever bloating and stomach pain Demerol [Meperidine* GI Upset Vomiting Eggs [Egg] GI Upset Extreme sickness Lidocaine Hives Lisinopril Other: See Comments Milk Containing Pro* GI Upset Mobic [Meloxicam] GI Upset sick Morphine Itching Omnicef [Cefdinir] GI Upset Sick Prilosec [Omeprazol* Hives Sulfamethoxazole-Tr* Hives, Other: See Comments Vicodin [Hydrocodon* Hives Wellbutrin [Bupropi* GI Upset Sick Wheat Unknown Hives, sick and headache COMPLETE REVIEW OF SYSTEMS: PAIN ASSESSMENT: Pain Pain Level: 3 Pain Location: Abdomen-Mid Upper Pain Assessment: Assessment Description: Aching, Dull Duration: Continuous Tool: Verbal (Numeric Rating or Visual Analog Scale) General: No weight loss, malaise or fevers.; + obesity Neuro: no hx of seizure or stroke; + migraines; + RLS Respiratory: No history of current cough, wheezing, dyspnea, or recent pneumonia; no hx of COPD or JOSIE; + asthma Cardiovascular: No history of HTN requiring medication, no history of chest pain, palpitations, CHF, TN, cardiac surgery or stents; +hyperlipidemia GI: see HPI; + GERD : No history of dysuria, frequency or incontinence, stones or chronic kidney disease Endocrine: Negative for Diabetes; + Hypothyroidism Hematology: No history of bleeding or clotting disorder. No history of hematological symptoms or problems. Oncology: No history of oncological symptoms or problems. Psych: No history of psychiatric symptoms or problems. Musculoskeletal: +arthritis; + fibromyalgia; + DDD Skin: Negative for lesions, rash and itching. Objective PHYSICAL EXAM: MENTAL STATUS: alert, oriented to person, place and time HEENT: Normocephalic/atraumatic, pharynx clear LUNGS: CTA, no wheezing CARDIAC: RRR, no murmur ABDOMEN: Abdomen soft, non-tender, BS normal, No masses or organomegaly EXTREMITIES: 2+ pedal pulses, no pedal edema 02/03/24 1039 BP: 155/93 Pulse: 86 Resp: 18 Temp: 36.1 C (97 F) TempSrc: Temporal Artery SpO2: 96% Weight: 94.3 kg (208 lb) Height: 142.2 cm (4' 8") Body mass index is 46.63 kg/m . Assessment/Plan Patient has the following medical conditions which may affect bang-operative course: Problem List Items Addressed This Visit Cardiovascular Elevated blood-pressure reading without diagnosis of hypertension Current Assessment & Plan BP today 155/93 Pt asymptomatic Pulmonary Asthma Current Assessment & Plan Ventolin prn- pt uses this "1-2x per week" Pt denies c/o SOB, wheezing or cough today Gastrointestinal Gastroesophageal reflux disease Overview Added automatically from request for surgery [id number] Current Assessment & Plan Controlled with Nexium Relevant Orders EGD DIAGNOSTIC Other BMI 45.0-49.9, adult (HCC) Current Assessment & Plan Pt denies JOSIE Preop testing Current Assessment & Plan medical conditions which may affect the bang-operative course were addressed in the visit today. Other Visit Diagnoses Change in bowel habits Relevant Orders COLONOSCOPY DIAGNOSTIC I spent a total of 20 minutes on the date of the service which included preparing to see the patient, [id number] patient care, completing clinical documentation, obtaining and/or reviewing separately obtained history, performing a medically appropriate examination, and counseling and educating the patient/family/caregiver. SIGNATURE: Edin Camacho APRN.CNP PATIENT NAME: Vince Slaughter DATE: February 03, 2024 TIME: 10:13 AM PAGER/CONTACT #: [facility]05-03-2024 History and physical note* Zeeshan Link DO - 02/03/2024 11:00 AM EDT UPDATED HISTORY AND PHYSICAL EXAMINATION SERVICE DATE: 02/03/2024 SERVICE TIME: 10:58 AM PHYSICAL EXAM MUST BE COMPLETED ON ADMISSION The History and Physical (completed in the past 30 days) has been reviewed and the patient has beenexamined. The contents accurately reflect the patient's condition with the following additions or revisions since the H&P was completed. Examination indicates no changes. This H&P can be found in the attached. SIGNATURE: Zeeshan Link DO PATIENT NAME: Vince Slaughter DATE: February 03, 2024 TIME: 10:58 AM Associated attestation - Brannon Garcia MD - 02/03/2024 12:14 PM EDT I saw and evaluated the patient. Discussed with the resident and agree with resident's findings andplan as documented in the resident's note. Source Note - Edni Camacho APRN.CNP - 02/03/2024 11:00 AM EDT HISTORY AND PHYSICAL EXAMINATION Vince Woodszel 1965 SERVICE DATE: 02/03/2024 SERVICE TIME: 10:13 AM PRIMARY CARE PHYSICIAN: Toshia Meier CNP, LAISHA SURGEON: Surgeon(s) and Role: * Zeeshan Link DO - Resident - Assisting * Brannon Garcia MD - Proceduralist ANESTHESIA: MAC DIAGNOSIS: Gastroesophageal reflux disease, unspecified whether esophagitis present [K21.9] Change in bowel habits [R19.4] PROCEDURE: EGD and Colonoscopy ACTIVE PROBLEM LIST Chronic Pain Syndrome Fibromyalgia Ventral Hernia Without Obstruction Or Gangrene Gastroesophageal Reflux Disease History of Colonic Polyps Hypothyroidism, Unspecified Asthma Bmi 45.0-49.9, Adult (Hcc) Preop Testing Elevated Blood-Pressure Reading Without Diagnosis of Hypertension Subjective The reason for this visit is to perform a comprehensive review of the patient's past medical history, assess their current health status and obtain any additional testing required based on anesthesiaguidelines. We will also identify any potential anesthesia problems or contraindications to the planned procedure. CHIEF COMPLAINT: "I'm here for an EGD and colonoscopy." HPI: This is a 58 year old female who presents for an EGD and colonoscopy. Pt states her last colonoscopy was in 2004 and positive for polyps. She has never had an EGD before. She c/o acid reflux symptoms, regurgitation, and dysphagia "for many years". Pt states "breads and potatoes get stuck". Shealso c/o chronic constipation. She denies blood in her stool. She has epigastric tenderness "off and on" and today rates this 310. Her paternal grandfather approx age 63 from colon cancer. ANESTHESIA FINDINGS: Intubation History: No history of difficult intubation Significant Anesthesia Considerations: None FAMILY PROBLEMS WITH ANESTHESIA: no history of adverse anesthetic event METS: Climb a flight of stairs or walk up a hill (5.50 METs) FUNCTIONAL STATUS: Independent 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 neck pain Carpal tunnel syndrome Constipation Degenerative disc disease, cervical Degenerative disc disease, lumbar Fibromyalgia Hearing loss High cholesterol Hypothyroid not on medication Incontinence Irritable bladder Irritable bowel Menopause Migraines Numbness and tingling arms, legs, hands, feet, face PTSD (post-traumatic stress disorder) Raynaud's disease Restless leg Sciatica Tinnitus Vertigo PAST SURGICAL HISTORY Procedure Laterality Date ABDOMINOPLASTY 2016 tummy tuck CARPAL TUNNEL Right 1988 CARPAL TUNNEL Left 1998 CARPAL TUNNEL Right 2015 DELIVERY ONLY x2 CHOLECYSTECTOMY 2012 FINGER SURGERY HX Right 2015 right middle trigger finger FINGER SURGERY HX Right 2015 tendon in thumb HYSTERECTOMY HX 1999 LX REPAIR RECURRENT VENTRAL HERNIA 06/20/2018 PAST SURGICAL HISTORY OF 2013 Sling removed REDUCTION OF LARGE BREAST 06/22/2013 SINUS SURGERY HX 2008 SLING OPER STRES INCONTINENCE TONSILLECTOMY AND ADENOIDECTOMY HX 1993 TOOTH EXTRACTION 2008 wisdom teeth FAMILY HISTORY Problem Relation Age of Onset Heart Mother Thyroid Mother Heart Father Prostate Cancer Father Diabetes Father other (cirrhosis of liver) Father Heart Paternal Grandfather Colon Cancer Paternal Grandfather Heart Paternal Grandmother other (Leukemia) Paternal Grandmother Breast Cancer Maternal Grandmother Thyroid Maternal Grandmother Social History Tobacco Use Smoking status: Never Smokeless tobacco: Never Substance Use Topics Alcohol use: No Drug use: No Prior to Admission medications as of 02/03/24 1038 Medication Sig Last Dose Taking furosemide (LASIX ORAL) Take by mouth once daily. Yes esomeprazole (NEXIUM) 20 mg capsule Take 20 mg by mouth daily at 6 am. Yes VENTOLIN HFA 90 mcg/actuation inhaler Inhale 1 Puff as instructed every 4 hours as needed for wheezing/shortness of breath. 01/30/2024 Yes albuterol (PROVENTIL) 2.5 mg /3 mL (0.083 %) nebulizer solution Use 2.5 mg via nebulizer four timesdaily as needed. Yes IBU 800 mg tablet Take 800 mg by mouth three times daily. 01/27/2024 Yes dicyclomine (BENTYL) 20 mg tablet TAKE ONE TABLET BY MOUTH FOUR TIMES A DAY Yes meclizine (ANTIVERT) 25 mg tab Take 25 mg by mouth three times daily. Yes promethazine (PHENERGAN) 25 mg tablet Take 25 mg by mouth every 6 hours as needed. Yes cholecalciferol (VITAMIN D3) 2,000 unit tablet Take 2,000 Units by mouth once daily. Yes oxybutynin XL (DITROPAN XL) 5 mg 24 hr tablet Take 1 tablet by mouth once daily. fluconazole (DIFLUCAN) 150 mg tablet TAKE ONE TABLET BY MOUTH EVERY 72 HOURS tiZANidine (ZANAFLEX) 4 mg tablet Take 4 mg by mouth every 8 hours. Patient not taking: Reported on 01/02/2024 montelukast (SINGULAIR) 10 mg tablet Take 10 mg by mouth once daily. ALLERGIES Allergen Reactions [place] Hives, Swelling Hives, sick, rash, swelling of skin Nitrofurantoin Anaphylaxis Peanuts GI Upset, Shortness of Breath With skins Buspirone Other: See Comments Ciprofloxacin GI Upset, Myalgia Sick [place] And Derivati* Other: See Comments GI upset, acidic stool and urine Coconut Hives Hives; processed, can eat fresh Dairy Aid [Lactase] GI Upset Sever bloating and stomach pain Demerol [Meperidine* GI Upset Vomiting Eggs [Egg] GI Upset Extreme sickness Lidocaine Hives Lisinopril Other: See Comments Milk Containing Pro* GI Upset Mobic [Meloxicam] GI Upset sick Morphine Itching Omnicef [Cefdinir] GI Upset Sick Prilosec [Omeprazol* Hives Sulfamethoxazole-Tr* Hives, Other: See Comments Vicodin [Hydrocodon* Hives Wellbutrin [Bupropi* GI Upset Sick Wheat Unknown Hives, sick and headache COMPLETE REVIEW OF SYSTEMS: PAIN ASSESSMENT: Pain Pain Level: 3 Pain Location: Abdomen-Mid Upper Pain Assessment: Assessment Description: Aching, Dull Duration: Continuous Tool: Verbal (Numeric Rating or Visual Analog Scale) General: No weight loss, malaise or fevers.; + obesity Neuro: no hx of seizure or stroke; + migraines; + RLS Respiratory: No history of current cough, wheezing, dyspnea, or recent pneumonia; no hx of COPD or JOSIE; + asthma Cardiovascular: No history of HTN requiring medication, no history of chest pain, palpitations, CHF, TN, cardiac surgery or stents; +hyperlipidemia GI: see HPI; + GERD : No history of dysuria, frequency or incontinence, stones or chronic kidney disease Endocrine: Negative for Diabetes; + Hypothyroidism Hematology: No history of bleeding or clotting disorder. No history of hematological symptoms or problems. Oncology: No history of oncological symptoms or problems. Psych: No history of psychiatric symptoms or problems. Musculoskeletal: +arthritis; + fibromyalgia; + DDD Skin: Negative for lesions, rash and itching. Objective PHYSICAL EXAM: MENTAL STATUS: alert, oriented to person, place and time HEENT: Normocephalic/atraumatic, pharynx clear LUNGS: CTA, no wheezing CARDIAC: RRR, no murmur ABDOMEN: Abdomen soft, non-tender, BS normal, No masses or organomegaly EXTREMITIES: 2+ pedal pulses, no pedal edema 02/03/24 1039 BP: 155/93 Pulse: 86 Resp: 18 Temp: 36.1 C (97 F) TempSrc: Temporal Artery SpO2: 96% Weight: 94.3 kg (208 lb) Height: 142.2 cm (4' 8") Body mass index is 46.63 kg/m . Assessment/Plan Patient has the following medical conditions which may affect bang-operative course: Problem List Items Addressed This Visit Cardiovascular Elevated blood-pressure reading without diagnosis of hypertension Current Assessment & Plan BP today 155/93 Pt asymptomatic Pulmonary Asthma Current Assessment & Plan Ventolin prn- pt uses this "1-2x per week" Pt denies c/o SOB, wheezing or cough today Gastrointestinal Gastroesophageal reflux disease Overview Added automatically from request for surgery [id number] Current Assessment & Plan Controlled with Nexium Relevant Orders EGD DIAGNOSTIC Other BMI 45.0-49.9, adult (HCC) Current Assessment & Plan Pt denies JOSIE Preop testing Current Assessment & Plan medical conditions which may affect the bang-operative course were addressed in the visit today. Other Visit Diagnoses Change in bowel habits Relevant Orders COLONOSCOPY DIAGNOSTIC I spent a total of 20 minutes on the date of the service which included preparing to see the patient, [id number] patient care, completing clinical documentation, obtaining and/or reviewing separately obtained history, performing a medically appropriate examination, and counseling and educating the patient/family/caregiver. SIGNATURE: Edin Camacho APRN.CNP PATIENT NAME: Vince Woodszel DATE: February 03, 2024 TIME: 10:13 AM PAGER/CONTACT #: * Edin Camacho APRN.CNP - 02/03/2024 11:00 AM EDT HISTORY AND PHYSICAL EXAMINATION Vince Slaughter 1965 SERVICE DATE: 02/03/2024 SERVICE TIME: 10:13 AM PRIMARY CARE PHYSICIAN: Toshia Meier CNP, LAISHA SURGEON: Surgeon(s) and Role: * Zeeshan Link DO - Resident - Assisting * Brannon Garcia MD - Proceduralist ANESTHESIA: MAC DIAGNOSIS: Gastroesophageal reflux disease, unspecified whether esophagitis present [K21.9] Change in bowel habits [R19.4] PROCEDURE: EGD and Colonoscopy ACTIVE PROBLEM LIST Chronic Pain Syndrome Fibromyalgia Ventral Hernia Without Obstruction Or Gangrene Gastroesophageal Reflux Disease History of Colonic Polyps Hypothyroidism, Unspecified Asthma Bmi 45.0-49.9, Adult (Hcc) Preop Testing Elevated Blood-Pressure Reading Without Diagnosis of Hypertension Subjective The reason for this visit is to perform a comprehensive review of the patient's past medical history, assess their current health status and obtain any additional testing required based on anesthesiaguidelines. We will also identify any potential anesthesia problems or contraindications to the planned procedure. CHIEF COMPLAINT: "I'm here for an EGD and colonoscopy." HPI: This is a 58 year old female who presents for an EGD and colonoscopy. Pt states her last colonoscopy was in 2004 and positive for polyps. She has never had an EGD before. She c/o acid reflux symptoms, regurgitation, and dysphagia "for many years". Pt states "breads and potatoes get stuck". Shealso c/o chronic constipation. She denies blood in her stool. She has epigastric tenderness "off and on" and today rates this 12/10. Her paternal grandfather approx age 63 from colon cancer. ANESTHESIA FINDINGS: Intubation History: No history of difficult intubation Significant Anesthesia Considerations: None FAMILY PROBLEMS WITH ANESTHESIA: no history of adverse anesthetic event METS: Climb a flight of stairs or walk up a hill (5.50 METs) FUNCTIONAL STATUS: Independent 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 neck pain Carpal tunnel syndrome Constipation Degenerative disc disease, cervical Degenerative disc disease, lumbar Fibromyalgia Hearing loss High cholesterol Hypothyroid not on medication Incontinence Irritable bladder Irritable bowel Menopause Migraines Numbness and tingling arms, legs, hands, feet, face PTSD (post-traumatic stress disorder) Raynaud's disease Restless leg Sciatica Tinnitus Vertigo PAST SURGICAL HISTORY Procedure Laterality Date ABDOMINOPLASTY 2016 tummy tuck CARPAL TUNNEL Right 1988 CARPAL TUNNEL Left 1999 CARPAL TUNNEL Right 2015 DELIVERY ONLY x2 CHOLECYSTECTOMY 2012 FINGER SURGERY HX Right 2015 right middle trigger finger FINGER SURGERY HX Right 2015 tendon in thumb HYSTERECTOMY HX 1999 LX REPAIR RECURRENT VENTRAL HERNIA 06/20/2018 PAST SURGICAL HISTORY OF 2013 Sling removed REDUCTION OF LARGE BREAST 06/22/2013 SINUS SURGERY HX 2007 SLING OPER STRES INCONTINENCE TONSILLECTOMY AND ADENOIDECTOMY HX 1992 TOOTH EXTRACTION 2008 wisdom teeth FAMILY HISTORY Problem Relation Age of Onset Heart Mother Thyroid Mother Heart Father Prostate Cancer Father Diabetes Father other (cirrhosis of liver) Father Heart Paternal Grandfather Colon Cancer Paternal Grandfather Heart Paternal Grandmother other (Leukemia) Paternal Grandmother Breast Cancer Maternal Grandmother Thyroid Maternal Grandmother Social History Tobacco Use Smoking status: Never Smokeless tobacco: Never Substance Use Topics Alcohol use: No Drug use: No Prior to Admission medications as of 02/03/24 1038 Medication Sig Last Dose Taking furosemide (LASIX ORAL) Take by mouth once daily. Yes esomeprazole (NEXIUM) 20 mg capsule Take 20 mg by mouth daily at 6 am. Yes VENTOLIN HFA 90 mcg/actuation inhaler Inhale 1 Puff as instructed every 4 hours as needed for wheezing/shortness of breath. 01/30/2024 Yes albuterol (PROVENTIL) 2.5 mg /3 mL (0.083 %) nebulizer solution Use 2.5 mg via nebulizer four timesdaily as needed. Yes IBU 800 mg tablet Take 800 mg by mouth three times daily. 01/27/2024 Yes dicyclomine (BENTYL) 20 mg tablet TAKE ONE TABLET BY MOUTH FOUR TIMES A DAY Yes meclizine (ANTIVERT) 25 mg tab Take 25 mg by mouth three times daily. Yes promethazine (PHENERGAN) 25 mg tablet Take 25 mg by mouth every 6 hours as needed. Yes cholecalciferol (VITAMIN D3) 2,000 unit tablet Take 2,000 Units by mouth once daily. Yes oxybutynin XL (DITROPAN XL) 5 mg 24 hr tablet Take 1 tablet by mouth once daily. fluconazole (DIFLUCAN) 150 mg tablet TAKE ONE TABLET BY MOUTH EVERY 72 HOURS tiZANidine (ZANAFLEX) 4 mg tablet Take 4 mg by mouth every 8 hours. Patient not taking: Reported on 01/02/2024 montelukast (SINGULAIR) 10 mg tablet Take 10 mg by mouth once daily. ALLERGIES Allergen Reactions [place] Hives, Swelling Hives, sick, rash, swelling of skin Nitrofurantoin Anaphylaxis Peanuts GI Upset, Shortness of Breath With skins Buspirone Other: See Comments Ciprofloxacin GI Upset, Myalgia Sick [place] And Derivati* Other: See Comments GI upset, acidic stool and urine Coconut Hives Hives; processed, can eat fresh Dairy Aid [Lactase] GI Upset Sever bloating and stomach pain Demerol [Meperidine* GI Upset Vomiting Eggs [Egg] GI Upset Extreme sickness Lidocaine Hives Lisinopril Other: See Comments Milk Containing Pro* GI Upset Mobic [Meloxicam] GI Upset sick Morphine Itching Omnicef [Cefdinir] GI Upset Sick Prilosec [Omeprazol* Hives Sulfamethoxazole-Tr* Hives, Other: See Comments Vicodin [Hydrocodon* Hives Wellbutrin [Bupropi* GI Upset Sick Wheat Unknown Hives, sick and headache COMPLETE REVIEW OF SYSTEMS: PAIN ASSESSMENT: Pain Pain Level: 3 Pain Location: Abdomen-Mid Upper Pain Assessment: Assessment Description: Aching, Dull Duration: Continuous Tool: Verbal (Numeric Rating or Visual Analog Scale) General: No weight loss, malaise or fevers.; + obesity Neuro: no hx of seizure or stroke; + migraines; + RLS Respiratory: No history of current cough, wheezing, dyspnea, or recent pneumonia; no hx of COPD or JOSIE; + asthma Cardiovascular: No history of HTN requiring medication, no history of chest pain, palpitations, CHF, TN, cardiac surgery or stents; +hyperlipidemia GI: see HPI; + GERD : No history of dysuria, frequency or incontinence, stones or chronic kidney disease Endocrine: Negative for Diabetes; + Hypothyroidism Hematology: No history of bleeding or clotting disorder. No history of hematological symptoms or problems. Oncology: No history of oncological symptoms or problems. Psych: No history of psychiatric symptoms or problems. Musculoskeletal: +arthritis; + fibromyalgia; + DDD Skin: Negative for lesions, rash and itching. Objective PHYSICAL EXAM: MENTAL STATUS: alert, oriented to person, place and time HEENT: Normocephalic/atraumatic, pharynx clear LUNGS: CTA, no wheezing CARDIAC: RRR, no murmur ABDOMEN: Abdomen soft, non-tender, BS normal, No masses or organomegaly EXTREMITIES: 2+ pedal pulses, no pedal edema 02/03/24 1039 BP: 155/93 Pulse: 86 Resp: 18 Temp: 36.1 C (97 F) TempSrc: Temporal Artery SpO2: 96% Weight: 94.3 kg (208 lb) Height: 142.2 cm (4' 8") Body mass index is 46.63 kg/m . Assessment/Plan Patient has the following medical conditions which may affect bang-operative course: Problem List Items Addressed This Visit Cardiovascular Elevated blood-pressure reading without diagnosis of hypertension Current Assessment & Plan BP today 155/93 Pt asymptomatic Pulmonary Asthma Current Assessment & Plan Ventolin prn- pt uses this "1-2x per week" Pt denies c/o SOB, wheezing or cough today Gastrointestinal Gastroesophageal reflux disease Overview Added automatically from request for surgery [id number] Current Assessment & Plan Controlled with Nexium Relevant Orders EGD DIAGNOSTIC Other BMI 45.0-49.9, adult (HCC) Current Assessment & Plan Pt denies JOSIE Preop testing Current Assessment & Plan medical conditions which may affect the bang-operative course were addressed in the visit today. Other Visit Diagnoses Change in bowel habits Relevant Orders COLONOSCOPY DIAGNOSTIC I spent a total of 20 minutes on the date of the service which included preparing to see the patient, [id number] patient care, completing clinical documentation, obtaining and/or reviewing separately obtained history, performing a medically appropriate examination, and counseling and educating the patient/family/caregiver. SIGNATURE: Edin Camacho APRN.CNP PATIENT NAME: Vince Slaughter DATE: February 03, 2024 TIME: 10:13 AM PAGER/CONTACT #: [facility] Surgical operation note* Operative Report - Brannon Garcia MD - 02/03/2024 11:00 AM EDT OPERATIVE/PROCEDURE REPORT LOG ID: [id number] SURGERY/PROCEDURE DATE: 02/03/2024 INCISION/PROCEDURE START TIME: 11:15 AM INCISION CLOSE/PROCEDURE END TIME: 11:59 AM SURGEON(S)/PROCEDURALIST(S) AND VAMP PRESSER(S): Brannon Garcia MD - Proceduralist Zeeshan Link DO SURGERY/PROCEDURE(S): EGD with biopsy Colonoscopy with polypectomy ANESTHESIA: Monitored Anesthesia Care SURGERY/PROCEDURE DETAILS: Patient is a 58-year-old female who has history of GERD and change in bowel habits recommended with both EGD and colonoscopy. The risks, and complications of the procedure were reviewed with the patient in detail including bleeding, missing the lesion and perforation requiring emergency surgery and anesthetic risks. Patient agreed to proceed. Patient brought to the endoscopy suite and routine monitors performed. She was placed in left lateral position. After adequate MAC anesthesia was obtained the scope was inserted and passed on esophagus. Z-line noted be at 35 cm. Scope was inserted retroflexed view showed a Hill grade 1. There is mild erythema of the antrum. Duodenum up to the second portion was normal. Scope was then withdrawn biopsy obtained of the antrum and the GE junction. Air was then aspirated stomach and the scope was withdrawn. Next we turned our attention to the colon. Perianal inspection digital rectal exam was normal. The scope was inserted and passed up to the cecum. Cecum identified appendiceal opening the ileocecal valve. The scope was then slowly withdrawn mucosa was carefully evaluated. There were a few scattered sigmoid diverticuli. There was a small sigmoid polyp which was removed by forceps polypectomy. No other lesions were noted. Retroflexed view was normal. Scope was withdrawn she tolerated the procedurewell. Repeat colonoscopy 5 years. PRE-OP/PRE-PROCEDURE DIAGNOSIS: GERD, change in bowel habits POST-OP/POST-PROCEDURE DIAGNOSIS: Same as Preop ESTIMATED BLOOD LOSS: 0 ml SPECIMENS: Antral, GE junction biopsies. Sigmoid polyp. IMPLANTABLE DEVICES: NONE DRAINS: None COMPLICATIONS: None PARTICIPATION IN SURGERY/PROCEDURE: Resident, under direct supervision and the remainder of the procedure was performed by the primary surgeon/proceduralist with assistance. SIGNATURE: Brannon Garcia MD PATIENT NAME: Vince Slaughter DATE: February 03, 2024 TIME: 12:04 PM [facility] Work Phone: [phone] 773-159705-03-2024 Surgical operation note* Operative Report - Brannon Garcia MD - 02/03/2024 11:00 AM EDT OPERATIVE/PROCEDURE REPORT LOG ID: [id number] SURGERY/PROCEDURE DATE: 02/03/2024 INCISION/PROCEDURE START TIME: 11:15 AM INCISION CLOSE/PROCEDURE END TIME: 11:59 AM SURGEON(S)/PROCEDURALIST(S) AND VAMP PRESSER(S): Brannon Garcia MD - Proceduralist Zeeshan Link DO SURGERY/PROCEDURE(S): EGD with biopsy Colonoscopy with polypectomy ANESTHESIA: Monitored Anesthesia Care SURGERY/PROCEDURE DETAILS: Patient is a 58-year-old female who has history of GERD and change in bowel habits recommended with both EGD and colonoscopy. The risks, and complications of the procedure were reviewed with the patient in detail including bleeding, missing the lesion and perforation requiring emergency surgery and anesthetic risks. Patient agreed to proceed. Patient brought to the endoscopy suite and routine monitors performed. She was placed in left lateral position. After adequate MAC anesthesia was obtained the scope was inserted and passed on esophagus. Z-line noted be at 35 cm. Scope was inserted retroflexed view showed a Hill grade 1. There is mild erythema of the antrum. Duodenum up to the second portion was normal. Scope was then withdrawn biopsy obtained of the antrum and the GE junction. Air was then aspirated stomach and the scope was withdrawn. Next we turned our attention to the colon. Perianal inspection digital rectal exam was normal. The scope was inserted and passed up to the cecum. Cecum identified appendiceal opening the ileocecal valve. The scope was then slowly withdrawn mucosa was carefully evaluated. There were a few scattered sigmoid diverticuli. There was a small sigmoid polyp which was removed by forceps polypectomy. No other lesions were noted. Retroflexed view was normal. Scope was withdrawn she tolerated the procedurewell. Repeat colonoscopy 5 years. PRE-OP/PRE-PROCEDURE DIAGNOSIS: GERD, change in bowel habits POST-OP/POST-PROCEDURE DIAGNOSIS: Same as Preop ESTIMATED BLOOD LOSS: 0 ml SPECIMENS: Antral, GE junction biopsies. Sigmoid polyp. IMPLANTABLE DEVICES: NONE DRAINS: None COMPLICATIONS: None PARTICIPATION IN SURGERY/PROCEDURE: Resident, under direct supervision and the remainder of the procedure was performed by the primary surgeon/proceduralist with assistance. SIGNATURE: Brannon Garcia MD PATIENT NAME: Vince Slaughetr DATE: February 03, 2024 TIME: 12:04 PM [facility] NoteHNO ID: [id number] Author: QUIANA RICHARDSON RN Service: ? Author Type: Registered Nurse Type: Nursing Progress Note Filed: 02/02/2024 12:48 Note Text: Reviewed BMI with Dr. Noah Lema. Okay to proceed as scheduled.[facility]04-02-2024 History of Present illness Narrative* Jane Jacob MD - 01/03/2024 9:45 AM EDT Images from the original note were not included. [facility] [place] [address] [place] [address] Dept: [phone] Dept Chief Complaint Patient presents with Ankle Pain Left Subjective History of Present Illness: Vince Slaughter is a 58 y.o. female who presents today for evaluation of left ankle pain. Pt has a past of fibromyalgia, neuritis, lymphedema. Patient states she is on disability Location: lateral Onset: 2 years, chronic Injury: no Quality: burning, swelling. Mechanical symptoms: No. "Feels like joints separate" Radiation of symptoms: yes - into lateral upper mid ankle. Severity: 3/10 at rest and 7/10 at worst Exacerbating factor(s): walking, prolonged standing, and climbing/descending stairs Relieving factor(s): rest Timing: intermittently Imaging to date: X-ray 2023 Treatment to date: PT/OT/HEP: no Ice: no Heat: no Medications: Tylenol: no NSAIDs: yes, Ibuprofen/Motrin/Advil, helpful Oral steroids: no Muscle relaxants: no Nerve medications: no Targeted injections: none Assistive devices: Cane PRN. Prior surgery: no Occupation: Disabled Fall risk assessment: Less than 65, not applicable She denies any color changes, denies any sweating of the lower leg symptoms will come and go there are times when her symptoms are very minor other times when they are more severe. Objective Visit Vitals BP 124/76 Physical Exam: General: Alert, well appearing, no acute distress. Respiratory: Breathing comfortably on room air. No respiratory distress. Skin: Warm, dry, intact. No visible rashes or erythema overlying area of focused exam. Physical Exam Musculoskeletal: Left ankle: Tenderness (Diffuse) present. No lateral malleolus, medial malleolus, ATF ligament, base of 5th metatarsal or proximal fibula tenderness. Left Achilles Tendon: No tenderness. Right foot: Swelling (Diffuse) present. Left foot: Normal range of motion and normal capillary refill. Swelling (Diffuse) and tenderness (Diffuse lateral ankle and distal lateral lower leg) present. No deformity, bunion, bony tenderness orcrepitus. Normal pulse. Feet: External Notes No pertinent interval updates Labs No results found for: "HGBA1C" No results found for: "CREATININE" Imaging Images reviewed with patient today I have personally reviewed the images pertinent to the appointment today Nondiagnostic EMG/NCT Patient reports EMG nerve conduction test performed by neurologist was reported as normal, report not available. Procedure No procedures completed today Assessment Diagnosis Plan 1. Neuritis 2. Acute left ankle pain XR ankle 3+ views left Plan We a long discussion that the nature of her symptoms as well as the reproducible pain is more consistent with neuropathic pain. No musculoskeletal underlying pathologies were identified. We will haveher touch base with her neurologist for other treatment options and further testing if indicated. No follow-ups on file. Jane Jacob MD 01/03/2024 9:21 AM Please note that portions of this note may have been completed with voice recognition software. Documentation reviewed prior to signing but minor errors in tag and label cutter may have occurred. documented in this [facility]04-01-2024 Instructions* Patient Instructions* Brannon Garcia MD - 01/02/2024 4:06 PM EDT Thank you for coming to see me today. It is my pleasure to take care of you. If you have any questions regarding your visit, please don't hesitate to contact us. [facility] NoteHNO ID: [id number] Author: BRANNON GARCIA MD Service: ? Author Type: Physician Type: Progress Notes Filed: 01/03/2024 08:15 Note Text: Consultation requested by Toshia Meier CNP for an opinion regarding EGD and colonoscopy.. My final recommendations will be communicated back to the requesting physician by way of shared Medical record or letter to requesting physician via US mail. Vince Slaughter is a 58 year old White female who presents with complaints of patient is complaining of abdominal pain bloating, change in bowel habits and GERD. She is taking [id number] Nexium which has helped with her symptoms. She denies any caffeine or carbonated beverage use. Occasional alcohol use. Denies tobacco use. She reports irregular bowel movements and has been taking lactulose on and off for over 20 years. She denies any blood in her stool. No family history of colorectal carcinoma. In spite of not eating she reports positive weight gain. 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 neck pain Bladder spasms Carpal tunnel syndrome Constipation Degenerative disc disease, cervical Degenerative disc disease, lumbar Ear pain Eye pain Facial pain Fatigue Fibromyalgia Hearing loss High cholesterol Hypothyroid not on medication Incontinence Irritable bladder Irritable bowel Menopause Migraines Muscle weakness Numbness and tingling arms, legs, hands, feet, face PTSD (post-traumatic stress disorder) Raynaud's disease Restless leg Sciatica Tinnitus Tremors of nervous system remote history Vertigo PAST SURGICAL HISTORY Procedure Laterality Date ABDOMINOPLASTY 2016 tummy tuck CARPAL TUNNEL Right 1988 CARPAL TUNNEL Left 1998 CARPAL TUNNEL Right 2014 DELIVERY ONLY x2 CHOLECYSTECTOMY 2012 FINGER SURGERY HX Right 2015 right middle trigger finger FINGER SURGERY HX Right 2015 tendon in thumb HYSTERECTOMY HX 1999 LX REPAIR RECURRENT VENTRAL HERNIA 06/20/2018 PAST SURGICAL HISTORY OF 2013 Sling removed REDUCTION OF LARGE BREAST 06/22/2013 SINUS SURGERY HX 2007 SLING OPER STRES INCONTINENCE TONSILLECTOMY AND ADENOIDECTOMY HX 1992 TOOTH EXTRACTION 2008 wisdom teeth Social History Tobacco Use Smoking status: Never Smokeless tobacco: Never Substance Use Topics Alcohol use: No Drug use: No FAMILY HISTORY Problem Relation Age of Onset Heart Mother Thyroid Mother Heart Father Prostate Cancer Father Diabetes Father other (cirrhosis of liver) Father Heart Paternal Grandfather Colon Cancer Paternal Grandfather Heart Paternal Grandmother other (Leukemia) Paternal Grandmother Breast Cancer Maternal Grandmother Thyroid Maternal Grandmother ALLERGIES Allergen Reactions [place] Hives, Swelling Hives, sick, rash, swelling of skin Nitrofurantoin Anaphylaxis Peanuts GI Upset, Shortness of Breath With skins Acetaminophen Other: See Comments Buspirone Other: See Comments Ciprofloxacin GI Upset, Myalgia Sick [place] And Derivati* Other: See Comments GI upset, acidic stool and urine Coconut Hives Hives; processed, can eat fresh Dairy Aid [Lactase] GI Upset Sever bloating and stomach pain Demerol [Meperidine* GI Upset Vomiting Eggs [Egg] GI Upset Extreme sickness Levothyroxine Sodium GI Upset, Other: See Comments Lidocaine Hives Lisinopril Other: See Comments Milk Containing Pro* GI Upset Mobic [Meloxicam] GI Upset sick Morphine Itching Omnicef [Cefdinir] GI Upset Sick Prilosec [Omeprazol* Hives Sulfamethoxazole-Tr* Hives, Other: See Comments Vicodin [Hydrocodon* Hives Wellbutrin [Bupropi* GI Upset Sick Wheat Unknown Hives, sick and headache Current Outpatient Medications Medication Sig esomeprazole (NEXIUM) 20 mg capsule Take 20 mg by mouth daily at 6 am. VENTOLIN HFA 90 mcg/actuation inhaler Inhale 1 Puff as instructed every 4 hours as needed for wheezing/shortness of breath. albuterol (PROVENTIL) 2.5 mg /3 mL (0.083 %) nebulizer solution Use 2.5 mg via nebulizer four times daily as needed. montelukast (SINGULAIR) 10 mg tablet Take 10 mg by mouth once daily. IBU 800 mg tablet Take 800 mg by mouth three times daily. dicyclomine (BENTYL) 20 mg tablet TAKE ONE TABLET BY MOUTH FOUR TIMES A DAY meclizine (ANTIVERT) 25 mg tab Take 25 mg by mouth three times daily. promethazine (PHENERGAN) 25 mg tablet Take 25 mg by mouth every 6 hours as needed. cholecalciferol (VITAMIN D3) 2,000 unit tablet Take 2,000 Units by mouth once daily. oxybutynin XL (DITROPAN XL) 5 mg 24 hr tablet Take 1 tablet by mouth once daily. fluconazole (DIFLUCAN) 150 mg tablet TAKE ONE TABLET BY MOUTH EVERY 72 HOURS tiZANidine (ZANAFLEX) 4 mg tablet Take 4 mg by mouth every 8 hours. (Patient not taking: Reported on 01/02/2024) (more content not included)...[facility]04-01-2024 History of Present illness Narrative* Brannon Garcia MD - 01/02/2024 3:58 PM EDT Consultation requested by Toshia Meier CNP for an opinion regarding EGD and colonoscopy.. My final recommendations will be communicated back to the requesting physician by way of shared Medical record or letter to requesting physician via US mail. Vince Slaughter is a 58 year old White female who presents with complaints of patient is complaining of abdominal pain bloating, change in bowel habits and GERD. She is taking [id number] Nexium which has helped with her symptoms. She denies any caffeine or carbonated beverage use. Occasional alcohol use. Denies tobacco use. She reports irregular bowel movements and has been taking lactulose on and off for over 20 years. She denies any blood in her stool. No family history of colorectal carcinoma. In spite of not eating she reports positive weight gain. 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 neck pain Bladder spasms Carpal tunnel syndrome Constipation Degenerative disc disease, cervical Degenerative disc disease, lumbar Ear pain Eye pain Facial pain Fatigue Fibromyalgia Hearing loss High cholesterol Hypothyroid not on medication Incontinence Irritable bladder Irritable bowel Menopause Migraines Muscle weakness Numbness and tingling arms, legs, hands, feet, face PTSD (post-traumatic stress disorder) Raynaud's disease Restless leg Sciatica Tinnitus Tremors of nervous system remote history Vertigo PAST SURGICAL HISTORY Procedure Laterality Date ABDOMINOPLASTY 2016 tummy tuck CARPAL TUNNEL Right 1988 CARPAL TUNNEL Left 1998 CARPAL TUNNEL Right 2015 DELIVERY ONLY x2 CHOLECYSTECTOMY 2012 FINGER SURGERY HX Right 2015 right middle trigger finger FINGER SURGERY HX Right 2015 tendon in thumb HYSTERECTOMY HX 1999 LX REPAIR RECURRENT VENTRAL HERNIA 06/20/2018 PAST SURGICAL HISTORY OF 2013 Sling removed REDUCTION OF LARGE BREAST 06/22/2013 SINUS SURGERY HX 2008 SLING OPER STRES INCONTINENCE TONSILLECTOMY AND ADENOIDECTOMY HX 1993 TOOTH EXTRACTION 2008 wisdom teeth Social History Tobacco Use Smoking status: Never Smokeless tobacco: Never Substance Use Topics Alcohol use: No Drug use: No FAMILY HISTORY Problem Relation Age of Onset Heart Mother Thyroid Mother Heart Father Prostate Cancer Father Diabetes Father other (cirrhosis of liver) Father Heart Paternal Grandfather Colon Cancer Paternal Grandfather Heart Paternal Grandmother other (Leukemia) Paternal Grandmother Breast Cancer Maternal Grandmother Thyroid Maternal Grandmother ALLERGIES Allergen Reactions [place] Hives, Swelling Hives, sick, rash, swelling of skin Nitrofurantoin Anaphylaxis Peanuts GI Upset, Shortness of Breath With skins Acetaminophen Other: See Comments Buspirone Other: See Comments Ciprofloxacin GI Upset, Myalgia Sick [place] And Derivati* Other: See Comments GI upset, acidic stool and urine Coconut Hives Hives; processed, can eat fresh Dairy Aid [Lactase] GI Upset Sever bloating and stomach pain Demerol [Meperidine* GI Upset Vomiting Eggs [Egg] GI Upset Extreme sickness Levothyroxine Sodium GI Upset, Other: See Comments Lidocaine Hives Lisinopril Other: See Comments Milk Containing Pro* GI Upset Mobic [Meloxicam] GI Upset sick Morphine Itching Omnicef [Cefdinir] GI Upset Sick Prilosec [Omeprazol* Hives Sulfamethoxazole-Tr* Hives, Other: See Comments Vicodin [Hydrocodon* Hives Wellbutrin [Bupropi* GI Upset Sick Wheat Unknown Hives, sick and headache Current Outpatient Medications Medication Sig esomeprazole (NEXIUM) 20 mg capsule Take 20 mg by mouth daily at 6 am. VENTOLIN HFA 90 mcg/actuation inhaler Inhale 1 Puff as instructed every 4 hours as needed for wheezing/shortness of breath. albuterol (PROVENTIL) 2.5 mg /3 mL (0.083 %) nebulizer solution Use 2.5 mg via nebulizer four timesdaily as needed. montelukast (SINGULAIR) 10 mg tablet Take 10 mg by mouth once daily. IBU 800 mg tablet Take 800 mg by mouth three times daily. dicyclomine (BENTYL) 20 mg tablet TAKE ONE TABLET BY MOUTH FOUR TIMES A DAY meclizine (ANTIVERT) 25 mg tab Take 25 mg by mouth three times daily. promethazine (PHENERGAN) 25 mg tablet Take 25 mg by mouth every 6 hours as needed. cholecalciferol (VITAMIN D3) 2,000 unit tablet Take 2,000 Units by mouth once daily. oxybutynin XL (DITROPAN XL) 5 mg 24 hr tablet Take 1 tablet by mouth once daily. fluconazole (DIFLUCAN) 150 mg tablet TAKE ONE TABLET BY MOUTH EVERY 72 HOURS tiZANidine (ZANAFLEX) 4 mg tablet Take 4 mg by mouth every 8 hours. (Patient not taking: Reported on 01/02/2024) Current Facility-Administered Medications Medication Dose Route Frequency acetylcholine 10% solution - cchs compounding 20 mL IRRIGATION ONE TIME REVIEW OF SYSTEMS PAIN ASSESSMENT: Negative for pain, history of chronic pain, or current treatment for a chronic pain condition. GENERAL: No weight loss, malaise or fevers NECK: Negative for lumps, goiter, pain and significant neck swelling RESPIRATORY: Negative for cough, hemoptysis, wheezing, COPD, dyspnea or shortness of breath CARDIOVASCULAR: Negative for chest pain, leg swelling, hypertension, CHF or palpitations GI: See HPI : No history of dysuria, frequency or incontinence MUSCULOSKELETAL: Negative for joint pain or swelling, back pain or muscle pain HEMATOLOGY/LYMPHOLOGY: Negative for prolonged bleeding, bruising easily or swollen nodes ENDOCRINE: Negative for cold or heat intolerance, polyuria, polydipsia and goiter PHYSICAL EXAM: BP 124/72 Pulse 74 Resp 20 Ht 4' 8" (1.42m) Wt 208 lb (94.3kg) BMI 46.66 kg/(m^2). General Appearance: Well appearing, alert, in no acute distress, well-hydrated, well nourished. andObese. Abdomen: Soft. No palpable masses. Tender to palpation in the epigastric and right upper quadrant area.. Assessment: Gastroesophageal reflux disease, unspecified whether esophagitis present (primary encounter diagnosis) Change in bowel habits Plan: ASSESSMENT/PLAN: 1. Gastroesophageal reflux disease, unspecified whether esophagitis present - ICD9: 530.81, ICD10: K21.9 (primary diagnosis) -Continue PPI. Recommended an EGD. The risks, benefits and complications were reviewed including but not limited to bleeding, infection, missing a lesion, effects of anesthesia and perforation possibly requiring an emergency surgery. Patient understood and was agreeable to proceed. 2. Change in bowel habits - ICD9: 787.99, ICD10: R19.4 Recommended colonoscopy. The risks, and complications of the procedure were reviewed with the patient in detail including bleeding, missing the lesion and perforation requiring emergency surgery and anesthetic risks. Patient agreed to proceed. Medical Decision Making: Problems: Moderate: New problem with uncertain prognosis Data: Unique test(s) ordered: 1 Risk: Low: Low risk from testing/treatment Medical Decision Making Level: 3 - Low Brannon Garcia M.D., F.A.C.S. documented in this encounterCleveland [id number] Telephone encounter Note * Telephone Encounter - Ayaka Lin MA - 03/10/2023 10:08 AM EDT S/W patient Vascular US Venous Insufficiency scheduled for 03/22/23 @ 8:30am Pao. LidiaCNP will call w/results. [facility] [id number] Miscellaneous Notes* Telephone Encounter - Ayaka Lin MA - 03/10/2023 10:08 AM EDT S/W patient Vascular US Venous Insufficiency scheduled for 03/22/23 @ 8:30am Pao. LidiaCNP will call w/results. 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 female who states she is here for "leaky veins." Pt with extensive PMHx with multiple chronic conditions. She c/o bilateral leg edema that has plagued her for years and seems to be worsening. She feels that her LLE is worse then her RLE. She notes that the swelling in her legs is "lumpy, painful" making activity difficult. She notes that she bruises easily. She finds that despite attempts at weight loss, she is unable to lose weight and her legs continue to swell. She has found that steroids seem to help her leg pain. She tells me she has an underlying connective tissue disorder and has an appointment with rheumatology later this summer She recently underwent a venous duplex to evaluate for blood clots and it noted reflux to her right saphenofemoral junction. She feels that the assembly technician did not focus on her left leg very much and is concerned that they may have missed something given that she feels her left LE is worse then her right LE. She denies any history of DVT. She notes that when she wears knee braces, her swelling improves. She has a hard time wearing compression stockings as she feels that they give her "heart palpations." She is hopeful to find a solution to her symptoms. 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 Authorizing Provider albuterol (Ventolin HFA) 108 (90 Base) MCG/ACT inhaler Inhale 1 puff every 4 hours as needed. 07/07/22 Yes Historical Provider, Ergocalciferol (VITAMIN D2 PO) Take by mouth. Yes Historical Provider, albuterol 108 (90 Base) MCG/ACT inhaler INHALE TWO PUFFS BY MOUTH FOUR TIMES A DAY NEEDED FOR WHEEZING 10/19/22 Historical Provider, dicyclomine (Bentyl) 20 MG tablet Take 20 mg by mouth in the morning and 20 mg at noon and 20 mg in the evening and 20 mg before bedtime. 09/18/22 Historical Provider, fluconazole (Diflucan) 150 MG tablet TAKE ONE TABLET BY MOUTH EVERY 72 HOURS 10/19/22 Historical Provider, IBU 800 MG tablet 02/11/23 Historical Provider, lactulose (Chronulac) 10 GM/15ML solution TAKE 15ML BY MOUTH TWICE DAILY 01/12/23 Historical Provider, meclizine (Antivert) 25 MG tablet TAKE ONE TABLET BY MOUTH THREE TIMES A DAY NEEDED FOR VERTIGO 11/19/22 Historical Provider, montelukast (Singulair) 10 MG tablet Take 10 mg by mouth daily. 07/07/22 Historical Provider, predniSONE (Deltasone) 10 MG tablet 02/11/23 Historical Provider, promethazine (Phenergan) 25 MG tablet TAKE ONE TABLET BY MOUTH EVERY SIX HOURS NEEDED FOR NAUSEA/ VOMITING 11/19/22 Historical Provider, tiZANidine (Zanaflex) 4 MG tablet 02/11/23 Historical Provider, Allergies: [place] oil; Nitrofurantoin; Peanut (diagnostic); Wheat bran; Amoxicillin; Buspirone; Cefdinir; Ciprofloxacin; Glades; Egg solids, whole; Lactose; Lidocaine; Meloxicam; Meperidine; Morphine; Omeprazole; Other; Lisinopril; and Sulfamethoxazole-trimethoprim Social History Socioeconomic History Marital status: Spouse name: Not on file Number of children: Not on file Years of education: Not on file Highest education level: Not on file Occupational History Not on file Tobacco Use Smoking status: Never Smokeless tobacco: Never Substance and Sexual Activity Alcohol use: Never Drug use: Never Sexual activity: Not on file Other Topics Concern Not on file Social History Narrative Not on file Social Determinants of Health Financial Resource Strain: Not on file Food Insecurity: Not on file Transportation Needs: Not on file Physical Activity: Not on file Stress: Not on file Social Connections: Not on file Intimate Partner Violence: Not on file Housing Stability: Not on file Family History Problem Relation Name Age of Onset Cancer Mother Heart disease Mother Hyperlipidemia Mother Hypertension Mother Migraines Mother Osteoarthritis Mother Alcohol abuse Father Cancer Father Diabetes Father Heart disease Father Hyperlipidemia Father Hypertension Father Migra (more content not included)...[facility]06-07-2023 History of Present illness Narrative* LOLA Liu CNP - 03/09/2023 10:00 AM EDT Vascular Surgery Outpatient Consultation Chief Complaint Patient presents with New Patient (ref Toshia ROGERS) 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 female who states she is here for "leaky veins." Pt with extensive PMHx with multiple chronic conditions. She c/o bilateral leg edema that has plagued her for years and seems to be worsening. She feels that her LLE is worse then her RLE. She notes that the swelling in her legs is "lumpy, painful" making activity difficult. She notes that she bruises easily. She finds that despite attempts at weight loss, she is unable to lose weight and her legs continue to swell. She has found that steroids seem to help her leg pain. She tells me she has an underlying connective tissue disorder and has an appointment with rheumatology later this summer She recently underwent a venous duplex to evaluate for blood clots and it noted reflux to her rightsaphenofemoral junction. She feels that the assembly technician did not focus on her left leg very much and is concerned that they may have missed something given that she feels her left LE is worse then her right LE. She denies any history of DVT. She notes that when she wears knee braces, her swelling improves. She has a hard time wearing compression stockings as she feels that they give her "heart palpations." She is hopeful to find a solution to her symptoms. 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 Authorizing Provider albuterol (Ventolin HFA) 108 (90 Base) MCG/ACT inhaler Inhale 1 puff every 4 hours as needed. 07/07/22 Yes Historical Provider, Ergocalciferol (VITAMIN D2 PO) Take by mouth. Yes Historical Provider, albuterol 108 (90 Base) MCG/ACT inhaler INHALE TWO PUFFS BY MOUTH FOUR TIMES A DAY NEEDED FOR WHEEZING 10/19/22 Historical Provider, dicyclomine (Bentyl) 20 MG tablet Take 20 mg by mouth in the morning and 20 mg at noon and 20 mg inthe evening and 20 mg before bedtime. 09/18/22 Historical Provider, fluconazole (Diflucan) 150 MG tablet TAKE ONE TABLET BY MOUTH EVERY 72 HOURS 10/19/22 Historical Provider, IBU 800 MG tablet 02/11/23 Historical Provider, lactulose (Chronulac) 10 GM/15ML solution TAKE 15ML BY MOUTH TWICE DAILY 01/12/23 Historical Provider, meclizine (Antivert) 25 MG tablet TAKE ONE TABLET BY MOUTH THREE TIMES A DAY NEEDED FOR VERTIGO 11/19/22 Historical Provider, montelukast (Singulair) 10 MG tablet Take 10 mg by mouth daily. 07/07/22 Historical Provider, predniSONE (Deltasone) 10 MG tablet 02/11/23 Historical Provider, promethazine (Phenergan) 25 MG tablet TAKE ONE TABLET BY MOUTH EVERY SIX HOURS NEEDED FOR NAUSEA/ VOMITING 11/19/22 Historical Provider, tiZANidine (Zanaflex) 4 MG tablet 02/11/23 Historical Provider, Allergies: [place] oil; Nitrofurantoin; Peanut (diagnostic); Wheat bran; Amoxicillin; Buspirone; Cefdinir; Ciprofloxacin; Glades; Egg solids, whole; Lactose; Lidocaine; Meloxicam; Meperidine; Morphine; Omeprazole; Other; Lisinopril; and Sulfamethoxazole-trimethoprim Social History Socioeconomic History Marital status: Spouse name: Not on file Number of children: Not on file Years of education: Not on file Highest education level: Not on file Occupational History Not on file Tobacco Use Smoking status: Never Smokeless tobacco: Never Substance and Sexual Activity Alcohol use: Never Drug use: Never Sexual activity: Not on file Other Topics Concern Not on file Social History Narrative Not on file Social Determinants of Health Financial Resource Strain: Not on file Food Insecurity: Not on file Transportation Needs: Not on file Physical Activity: Not on file Stress: Not on file Social Connections: Not on file Intimate Partner Violence: Not on file Housing Stability: Not on file Family History Problem Relation Name Age of Onset Cancer Mother Heart disease Mother Hyperlipidemia Mother Hypertension Mother Migraines Mother Osteoarthritis Mother Alcohol abuse Father Cancer Father Diabetes Father Heart disease Father Hyperlipidemia Father Hypertension Father Migraines Father Osteoarthritis Father Review of Systems Constitutional: Negative. HENT: Negative. Eyes: Negative. Respiratory: Positive for shortness of breath. Cardiovascular: Positive for leg swelling (bilateral). Gastrointestinal: Negative. Endocrine: Negative. Genitourinary: Negative. Musculoskeletal: Negative. Skin: Negative. Allergic/Immunologic: Negative. Neurological: Positive for weakness (bilateral legs) and numbness (bilateral legs and feet). Hematological: Negative. Psychiatric/Behavioral: Negative. Physical Exam Constitutional: Appearance: Normal appearance. HENT: Head: Normocephalic and atraumatic. Cardiovascular: Rate and Rhythm: Normal rate and regular rhythm. Pulses: Dorsalis pedis pulses are 2+ on the right side and 2+ on the left side. Posterior tibial pulses are 2+ on the right side and 2+ on the left side. Comments: BLE nonpitting edema noted--TTP no edema to feet Pulmonary: Effort: Pulmonary effort is normal. Breath sounds: Normal breath sounds. Abdominal: General: Abdomen is flat. Palpations: Abdomen is soft. Musculoskeletal: General: Normal range of motion. Cervical back: Normal range of motion and neck supple. Right lower leg: Edema present. Left lower leg: Edema present. Skin: General: Skin is warm and dry. Neurological: General: No focal deficit present. Mental Status: She is alert and oriented to person, place, and time. Psychiatric: Mood and Affect: Mood normal. Behavior: Behavior normal. 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 This is a chronic condition that causes buildup of painful and inflamed fat under the skin. She should continue with compression therapy as it can help with pain She is concerned she has underlying venous disease as well. If positive for bilateral venous reflux, uncertain to what degree an endovenous ablation would have on her overall swelling given her significant lipedema Will order a reflux study to assess and call with results and further plan of care . documented in this [facility]05-12-2023 Telephone encounter Note* Telephone Encounter - Ayaka Lin MA - 02/11/2023 3:20 PM EDT Left voicemail for patient to contact office regarding scheduling METAL HANGING SUPERVISOR appt (w/SIMÓN) if patient agrees; per Dr Pagan ok to schedule with her if patient refuses to see SIMÓN. DX: Venous Insufficiency/edema [facility] [id number] Miscellaneous Notes* Telephone Encounter - Ayaka Lin MA - 02/11/2023 3:20 PM EDT Left voicemail for patient to contact office regarding scheduling METAL HANGING SUPERVISOR appt (w/SIMÓN) if patient agrees; per Dr Pagan ok to schedule with her if patient refuses to see SIMÓN. DX: Venous Insufficiency/edema documented in this [facility]02-21-2023 History of Present illness Narrative* Livier Conway PA-C - 11/23/2022 8:06 AM EST ESTABLISHED PATIENT OFFICE VISIT HISTORY OF PRESENT ILLNESS: Vince Slaughter is a 57 year old female, There were no vitals taken for this visit. with a PMH significant for recurrent uti's and overactive bladder. Pt voids frequently, with urge, occational leaking accidents. No uti symptoms today. Discussed cranberry tablets for uti pr evention. Oxybutynin for overactive bladder, side effects, and standing order for symptomatic uti. . LAB: No results found for: CREAT No results found for: PSA Glucose, Urine (no units) Date Value 11/09/2022 Negative Bilirubin, Urine (no units) Date Value 11/09/2022 Negative Ketones, Urine (no units) Date Value 11/09/2022 Negative Specific [place], Ur (no units) Date Value 11/09/2022 1.020 Hemoglobin/Blood,Ur (no units) Date Value 11/09/2022 Negative pH, Urine (no units) Date Value 11/09/2022 5.5 Protein, Urine (no units) Date Value 11/09/2022 Negative Nitrites (no units) Date Value 11/09/2022 Negative WBC, Urine (no units) Date Value 11/09/2022 6-10 /HPF MEDICATIONS: fluconazole (DIFLUCAN) 150 mg tablet^TAKE ONE TABLET BY MOUTH EVERY 72 HOURS^Disp: ^Rfl: VENTOLIN HFA 90 mcg/actuation inhaler^Inhale 1 Puff as instructed every 4 hours as needed for wheezing/shortness of breath.^Disp: ^Rfl: albuterol (PROVENTIL) 2.5 mg /3 mL (0.083 %) nebulizer solution^Use 2.5 mg via nebulizer four timesdaily as needed.^Disp: ^Rfl: tiZANidine (ZANAFLEX) 4 mg tablet^Take 4 mg by mouth every 8 hours.^Disp: ^Rfl: montelukast (SINGULAIR) 10 mg tablet^Take 10 mg by mouth once daily.^Disp: ^Rfl: IBU 800 mg tablet^Take 800 mg by mouth three times daily.^Disp: ^Rfl: dicyclomine (BENTYL) 20 mg tablet^TAKE ONE TABLET BY MOUTH FOUR TIMES A DAY^Disp: ^Rfl: meclizine (ANTIVERT) 25 mg tab^Take 25 mg by mouth three times daily.^Disp: ^Rfl: promethazine (PHENERGAN) 25 mg tablet^Take 25 mg by mouth every 6 hours as needed.^Disp: ^Rfl: cholecalciferol (VITAMIN D3) 2,000 unit tablet^Take 2,000 Units by mouth once daily.^Disp: ^Rfl: Review of Systems HISTORIES 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 neck pain Bladder spasms Carpal tunnel syndrome Constipation Degenerative disc disease, cervical Degenerative disc disease, lumbar Ear pain Eye pain Facial pain Fatigue Fibromyalgia Hearing loss High cholesterol Hypothyroid not on medication Incontinence Irritable bladder Irritable bowel Menopause Migraines Muscle weakness Numbness and tingling arms, legs, hands, feet, face PTSD (post-traumatic stress disorder) Raynaud's disease Restless leg Sciatica Tinnitus Tremors of nervous system remote history Vertigo FAMILY HISTORY Problem Relation Age of Onset Heart Mother Thyroid Mother Heart Father Prostate Cancer Father Diabetes Father other (cirrhosis of liver) Father Heart Paternal Grandfather Colon Cancer Paternal Grandfather Heart Paternal Grandmother other (Leukemia) Paternal Grandmother Breast Cancer Maternal Grandmother Thyroid Maternal Grandmother Social History Tobacco Use Smoking status: Never Smokeless tobacco: Never Substance Use Topics Alcohol use: No Drug use: No PHYSICAL EXAMINATION GENERAL APPEARANCE: Well appearing, alert, in no acute distress, well-hydrated, well nourished. ASSESSMENT/PLAN: 1. Recurrent UTI - ICD9: 599.0, ICD10: N39.0 (primary diagnosis) recurrent - URINALYSIS, WITH MICROSCOPIC - URINE CULTURE - URINE CULTURE - standing order Cranberry tablets 2. Overactive bladder - ICD9: 596.51, ICD10: N32.81 Oxybutynin xr 5mg trial Livier Conway PA-C I spent a total of 20 minutes on the date of the service which included preparing to see the patient, [id number] patient care, completing clinical documentation, counseling and educating the patient/family/caregiver, and ordering medications, tests, or procedures. documented [facility] this [facility] Miscellaneous Notes* Telephone Encounter - Carol Davis - 11/19/2022 2:53 PM EST Patient is calling Dr. Foote today to get her most recent lab work, (ordered by Dr. Foote) as well as a patient summary faxed over to Martha at [facility]. documented in this encounterE[facility]02-09-[facility]23 History of Present illness Narrative* GORDO AlvarengaR) - 11/11/2022 8:00 AM EST Radiology Service Progress Note PATIENT NAME: Vince Slaughter DATE OF SERVICE: November 11, 2022 TIME: 8:23 AM PATIENT IDENTITY VERIFICATION COMPLETED USING TWO (2) IDENTIFIERS: Name and Date of confirmedby patient verbally. FALL SCREENING: Has the patient had 2 falls in the last year or 1 fall with injury or currently using an Ambulatory Assistive Device (Walker, Cane, Wheelchair, Crutches, etc.)? No PATIENT GENDER DATA: Female. status: : No status: NO. PATIENT RELEVANT IMPLANT DATA REVIEWED: Not Applicable RADIOLOGY DEPARTMENT: Ultrasound PERIPHERAL IV DATA: Not applicable SIGNED BY: RT Lyle(R) November 11, 2022 8:23 AM documented in this encounterE[facility]02-07-2023 History of Present illness Narrative* Livier Conway PA-C - 11/09/2022 9:57 AM EST NEW PATIENT HISTORY AND PHYSICAL EXAM PATIENT INFO: Vince Slaughter 57 year old REFERRING PROVIDER: ИРИНА VILLEGAS, JONES MCCRAY PCP: Toshia Meier, VINYL DIPPER, VINYL DIPPER HPI Vince Slaughter is a 57 year old female with recurrent uti's, multiple drug allergies and sensitivities is here for evaluation. Last antibiotic was levaquin, which was well tolerated. She is ok on keflex. Discussed seeing welding machine operator arc about antibiotic allergies. No uti symptoms today. Pt states urine is strong smelling and very acidic, only drinks water due toallergies. Pt has nocturia, will address that once we get the uti's under control. Review of Systems LAB: No results found for: CREAT No results found for: PSA No results found for: UGLUC, UBILI, UKET, SPGR, UHB, UPH, UPROT, UROBIL, NITRITES, UWBC, UCOLAP MEDICATIONS: fluconazole (DIFLUCAN) 150 mg tablet^TAKE ONE TABLET BY MOUTH EVERY 72 HOURS^Disp: ^Rfl: VENTOLIN HFA 90 mcg/actuation inhaler^Inhale 1 Puff as instructed every 4 hours as needed for wheezing/shortness of breath.^Disp: ^Rfl: albuterol (PROVENTIL) 2.5 mg /3 mL (0.083 %) nebulizer solution^Use 2.5 mg via nebulizer four timesdaily as needed.^Disp: ^Rfl: tiZANidine (ZANAFLEX) 4 mg tablet^Take 4 mg by mouth every 8 hours.^Disp: ^Rfl: montelukast (SINGULAIR) 10 mg tablet^Take 10 mg by mouth once daily.^Disp: ^Rfl: IBU 800 mg tablet^Take 800 mg by mouth three times daily.^Disp: ^Rfl: dicyclomine (BENTYL) 20 mg tablet^TAKE ONE TABLET BY MOUTH FOUR TIMES A DAY^Disp: ^Rfl: meclizine (ANTIVERT) 25 mg tab^Take 25 mg by mouth three times daily.^Disp: ^Rfl: promethazine (PHENERGAN) 25 mg tablet^Take 25 mg by mouth every 6 hours as needed.^Disp: ^Rfl: cholecalciferol (VITAMIN D3) 2,000 unit tablet^Take 2,000 Units by mouth once daily.^Disp: ^Rfl: HISTORIES 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 neck pain Bladder spasms Carpal tunnel syndrome Constipation Degenerative disc disease, cervical Degenerative disc disease, lumbar Ear pain Eye pain Facial pain Fatigue Fibromyalgia Hearing loss High cholesterol Hypothyroid not on medication Incontinence Irritable bladder Irritable bowel Menopause Migraines Muscle weakness Numbness and tingling arms, legs, hands, feet, face PTSD (post-traumatic stress disorder) Raynaud's disease Restless leg Sciatica Tinnitus Tremors of nervous system remote history Vertigo FAMILY HISTORY Problem Relation Age of Onset Heart Mother Thyroid Mother Heart Father Prostate Cancer Father Diabetes Father other (cirrhosis of liver) Father Heart Paternal Grandfather Colon Cancer Paternal Grandfather Heart Paternal Grandmother other (Leukemia) Paternal Grandmother Breast Cancer Maternal Grandmother Thyroid Maternal Grandmother SOCIAL HISTORY Social History Tobacco Use Smoking status: Never Smokeless tobacco: Never Substance Use Topics Alcohol use: No Drug use: No PHYSICAL EXAMINATION BP 140/86 Ht 4' 8" (1.42m) Wt 188 lb (85.3kg) BMI 42.17 kg/(m^2). Constitutional: Well appearing, alert, in no acute distress, and well-hydrated, well nourished Skin: Skin color, texture, turgor normal, no suspicious rashes or lesions Eyes: Normocephalic, no masses, lesions, tenderness or abnormalities Neuro: Not examined Respiratory: +effort Cardiovascular: Not examined Gastrointestinal: Deferred Musculoskeletal: Extremities normal. No deformities, edema, or skin discoloration. Genitourinary: FEMALE EXAM: Exam Deferred at this visit ASSESSMENT/PLAN: 1. Recurrent UTI - ICD9: 599.0, ICD10: N39.0 (primary diagnosis) recurrent - US KIDNEY/BLADDER - URINALYSIS, WITH MICROSCOPIC - URINE CULTURE Last antibiotic was levaquin, which she tolerated She also does well on keflex 2. Overactive bladder - ICD9: 596.51, ICD10: N32.81 Will evaluate once uti's are under control Livier Conway PA-C I spent a total of 45 minutes on the date of the service which included preparing to see the patient, [id number] patient care, completing clinical documentation, counseling and educating the patient/family/caregiver, and ordering medications, tests, or procedures. documented in this encounterE[facility]12-23-2022 Miscellaneous Notes* Telephone Encounter - Laura Nirali Morrell - 09/24/2022 8:26 AM EST Does the patient need the heavy metal screen and copper labs done. Looks like she had a lot of other labs drawn, but doesn't look like they did these 2. Let me know and I will let her know. Laurarobi Morrell documented in this encounterEly[facility]12-15-2022 History of Present illness Narrative* Kalee Edge LPN - 09/16/2022 2:02 PM EST Prepared injection per Dr. Wilson's order and handed to him. * Eugenio Wilson MD - 09/16/2022 1:47 PM ESTAssociated Order(s): Large Joint Arthro/Inj: R knee joint Post-Procedure Diagnose(s): Primary osteoarthritis of right knee; Complex tear of medial meniscus of right knee as current injury, initial encounter Chief Complaint: Follow up Right knee MRI History: Vince is a 57 year old female who is here for follow-up of their Right knee. Symptoms have remain unchanged. She denies fevers, chills, night sweats or other constitutional symptoms. No calf pain. She quantitates the pain as 6/10. FAMILY HISTORY Problem Relation Age of Onset Heart Mother Thyroid Mother Heart Father Prostate Cancer Father Diabetes Father other (cirrhosis of liver) Father Heart Paternal Grandfather Colon Cancer Paternal Grandfather Heart Paternal Grandmother other (Leukemia) Paternal Grandmother Breast Cancer Maternal Grandmother Thyroid Maternal Grandmother 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 neck pain Bladder spasms Carpal tunnel syndrome Constipation Degenerative disc disease, cervical Degenerative disc disease, lumbar Ear pain Eye pain Facial pain Fatigue Fibromyalgia Hearing loss High cholesterol Hypothyroid not on medication Incontinence Irritable bladder Irritable bowel Menopause Migraines Muscle weakness Numbness and tingling arms, legs, hands, feet, face PTSD (post-traumatic stress disorder) Raynaud's disease Restless leg Sciatica Tinnitus Tremors of nervous system remote history Vertigo PAST SURGICAL HISTORY Procedure Laterality Date ADENOIDECTOMY HX 1992 CARPAL TUNNEL Right 1988 CARPAL TUNNEL Left 1998 CARPAL TUNNEL Right 2014 DELIVERY ONLY x2 CHOLECYSTECTOMY 2012 HYSTERECTOMY HX 1998 LX REPAIR RECURRENT VENTRAL HERNIA 06/20/2018 PAST SURGICAL HISTORY OF 2008 sinus surgery PAST SURGICAL HISTORY OF 2008 wisdom teeth PAST SURGICAL HISTORY OF 2013 Sling removed PAST SURGICAL HISTORY OF Right 2015 right middle trigger finger PAST SURGICAL HISTORY OF Right 2015 tendon in thumb PAST SURGICAL HISTORY OF bladder sling placement PAST SURGICAL HISTORY OF 2016 tummy tuck REDUCTION OF LARGE BREAST 2013 TONSILLECTOMY HX 1992 Social History Tobacco Use Smoking status: Never Smokeless tobacco: Never Substance Use Topics Alcohol use: No Drug use: No Current Outpatient Medications Medication Sig VENTOLIN HFA 90 mcg/actuation inhaler Inhale 1 Puff as instructed every 4 hours as needed for wheezing/shortness of breath. albuterol (PROVENTIL) 2.5 mg /3 mL (0.083 %) nebulizer solution Use 2.5 mg via nebulizer four timesdaily as needed. tiZANidine (ZANAFLEX) 4 mg tablet Take 4 mg by mouth every 8 hours. montelukast (SINGULAIR) 10 mg tablet Take 10 mg by mouth once daily. IBU 800 mg tablet Take 800 mg by mouth three times daily. dicyclomine (BENTYL) 20 mg tablet TAKE ONE TABLET BY MOUTH FOUR TIMES A DAY meclizine (ANTIVERT) 25 mg tab Take 25 mg by mouth three times daily. promethazine (PHENERGAN) 25 mg tablet Take 25 mg by mouth every 6 hours as needed. cholecalciferol (VITAMIN D3) 2,000 unit tablet Take 2,000 Units by mouth once daily. topiramate (TOPAMAX) 25 mg tablet Take 25 mg by mouth twice daily. nabumetone (RELAFEN) 500 mg tablet Take 500 mg by mouth twice daily. Take with Food. diclofenac (VOLTAREN) 1 % topical gel Apply 1 simón, Topical, QID, # 100 gram(s), 0 Refill(s), [facility]acy: [id number], Gel, 145.9, cm,06/16/22 7:27:00 EDT, Height, 83.3 celecoxib (CELEBREX) 100 mg capsule Take 100 mg by mouth twice daily. esomeprazole (NEXIUM) 20 mg capsule TAKE 1 CAPSULE BY MOUTH DAILY BEFORE BREAKFAST amoxicillin-clavulanic acid (AUGMENTIN) 875-125 mg per tablet Take 1 tablet by mouth twice daily. levothyroxine (SYNTHROID) 25 mcg tablet Take 25 mcg by mouth once daily. ezetimibe-simvastatin 10-10 mg (VYTORIN) 10-10 mg per tablet Take 1 tablet by mouth daily at bedtime. NIFEdipine (PROCARDIA, ADALAT) 10 mg capsule Take 10 mg by mouth as needed. cloNIDine HCl (CATAPRES) 0.1 mg tablet Take 0.1 mg by mouth twice daily. Current Facility-Administered Medications Medication Dose Route Frequency acetylcholine 10% solution - cchs compounding 20 mL IRRIGATION ONE TIME ALLERGIES Allergen Reactions [place] Hives, Swelling Hives, sick, rash, swelling of skin Nitrofurantoin Anaphylaxis Peanuts GI Upset, Shortness of Breath With skins Buspirone Other: See Comments Ciprofloxacin GI Upset, Myalgia Sick Glades And Derivati* Other: See Comments GI upset, acidic stool and urine Coconut Hives Hives; processed, can eat fresh Dairy Aid [Lactase] GI Upset Sever bloating and stomach pain Demerol [Meperidine* GI Upset Vomiting Eggs [Egg] GI Upset Extreme sickness Levothyroxine Sodium GI Upset, Other: See Comments Lidocaine Hives Lisinopril Other: See Comments Milk Containing Pro* GI Upset Mobic [Meloxicam] GI Upset sick Morphine Itching Omnicef [Cefdinir] GI Upset Sick Prilosec [Omeprazol* Hives Vicodin [Hydrocodon* Hives Wellbutrin [Bupropi* GI Upset Sick Wheat Unknown Hives, sick and headache Physical Examination: Patient is alert, oriented and in no acute distress. She exhibits a mild antalgic gait and normal alignment. Skin is intact. She has full extension and lacks mild flexion as compared to the other side. Moderate effusion is noted. Upon palpating the patella, she does report anypain, especially with axial loading. Normal Q-angle is noted. Normal patellar glide and passive patellar tilt. A negative patellar apprehension sign is seen. She exhibits some mild quadriceps atrophyas compared to the other side. Palpation along the lateral joint line reveals exquisite pain while the medial joint line reveals mild pain with palpation. A Marianne s test is positive along the later al joint. A negative Wendy s is noted. Negative anterior and posterior drawers are seen. She has good stability with varus and valgus stress at 0 and 30 degrees. No increase in ER is seen at 30 or 90 degrees. Full ROM of both hips and ankles are noted. The patient has 5/5 motor strength with downgoing Babinski s and symmetric reflexes. Good pulses and cap refill are seen. Gross sensation intact. The left knee reveals identical findings but is less painful. X-ray Evaluation: PA 45 degree weightbearing, lateral, and sunrise views were reviewed today. The radiographs show normal alignment and stable medial, lateral, and patellofemoral joint space maintenance. There is no evidence of fracture, avulsion, dislocation or suraj tumor. The patellae are located well in the trochlea. MRI: Medial Meniscus: There is a near full-thickness radial type tear of the posterior horn near the root insertion. Lateral Meniscus: Normal in appearance. No evidence of a tear. TENDONS: Patellofemoral Extensor Mechanism: Within normal limits. Popliteal Tendon: Appears intact CARTILAGE: Medial Tibiofemoral Compartment: There is moderate cartilage loss of the mid weightbearing surface of the medial femoral condyle. There is mild cartilage loss of the medial tibial plateau. Lateral Tibiofemoral Compartment: Appears intact Patellofemoral Compartment: There is mild chondromalacia of the lateral facet of the patella. No high-grade cartilage loss. Trochlear cartilage demonstrates no focal defect. Assessment: Primary osteoarthritis of right knee (primary encounter diagnosis) Complex tear of medial meniscus of right knee as current injury, initial encounter Plan: Injection performed as detailed below: Large Joint Arthro/Inj: R knee joint 09/16/2022 2:02 PM The procedure site was prepped in the usual sterile fashion. Site: R knee joint Medications: 80 mg triamcinolone acetonide 40 mg/mL Anesthetics: 5 mL lidocaine (PF) 10 mg/mL (1 %) Outcome: Tolerated well, no immediate complications Post-injection instructions were reviewed with the patient and the patient voiced understanding of these instructions. In addition, she was given a home physical therapy program emphasizing quadriceps strengthening andhamstring stretching. She will ice her knee as instructed here in the office. I will see the her back in 6 weeks. For pain management purposes she may take OTC NSAIDs such as Advil or Tylenol. Explanation of the risks, benefits, complications and alternative treatment were explained. The risks that were explained included but were not limited to: 1. GI disturbance as serious as GI bleed and . 2. Liver damage. 3. Kidney damages including renal failure. She was also told that if any unusual symptoms develop, that the medication should be stopped immediately and that her primary care physician as well as our office should be notified. If they take this medication mcfp, they understand the need for medication monitoring through their primary care physician. She is aware of the potential risks and side effects of this medication as well as theexpected benefits, and wishes to proceed with its use. Eugenio Wilson MD documented in this encounterE[facility]12-02-2022 History of Present illness Narrative* Jane Layton DO - 09/03/2022 7:51 AM EST UNIVERSAL PROTOCOL / SAFETY CHECKLIST Procedure to be Performed: EMG Sign In: A Moment of CARE was completed. Personnel directly involved with the procedure wore the appropriate PPE (Personal Protective Equipment). Patient/Surrogate Stated/Verified: PATIENT VERIFIED(optional for EMERGENT procedures): Patient name, Date of , Relevant allergies, and The intended procedure Time Out Communication: Intended patient and procedure match the source documents. Correct side/site marked and visible. Sign Out: SIGN OUT (optional for EMERGENT procedures): Post-procedure follow-up management communicated and Plan of Care Visit completed when applicable. Channing Seymour NCST Jane Layton DO documented in this encounterElyria [facility]11-17-2022 History of Present illness Narrative* Eugenio Wilson MD - 08/19/2022 9:14 AM EST Chief Complaint: Bilateral knee pain. Consulting Physician: Self History: Vince is a 57 year old female who presents today with a several months history of Bilateralknee pain, right > left. She reports no specific twisting injury, but felt a pop in right knee while shoveling gravel which initiated her knee pain. She states the pain is located along the lateral side of the knee. The pain is radiating in nature and constant. Pain is worsened with weight-bearing/ambulation. The pain is typically, dull but can be sharp especially with twisting and pivoting activities. Prolonged ambulation, prolonged standing and running activities are bothersome as well. She reports popping, clicking and catching with activities. Locking usually does not occur. She deniesany previous injury and also has hip, back or ankle pain. She also describes radicular pain with numbness or tingling noted. No fevers, chills, night sweats or other constitutional symptoms. She reports occasional swelling. She quantitates their pain as 9/10. FAMILY HISTORY Problem Relation Age of Onset Heart Mother Thyroid Mother Heart Father Prostate Cancer Father Diabetes Father other (cirrhosis of liver) Father Heart Paternal Grandfather Colon Cancer Paternal Grandfather Heart Paternal Grandmother other (Leukemia) Paternal Grandmother Breast Cancer Maternal Grandmother Thyroid Maternal Grandmother 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 neck pain Bladder spasms Carpal tunnel syndrome Constipation Degenerative disc disease, cervical Degenerative disc disease, lumbar Ear pain Eye pain Facial pain Fatigue Fibromyalgia Hearing loss High cholesterol Hypothyroid not on medication Incontinence Irritable bladder Irritable bowel Menopause Migraines Muscle weakness Numbness and tingling arms, legs, hands, feet, face PTSD (post-traumatic stress disorder) Raynaud's disease Restless leg Sciatica Tinnitus Tremors of nervous system remote history Vertigo PAST SURGICAL HISTORY Procedure Laterality Date ADENOIDECTOMY HX 1992 CARPAL TUNNEL Right 1988 CARPAL TUNNEL Left 1998 CARPAL TUNNEL Right 2014 DELIVERY ONLY x2 CHOLECYSTECTOMY 2012 HYSTERECTOMY HX 1999 LX REPAIR RECURRENT VENTRAL HERNIA 06/20/2018 PAST SURGICAL HISTORY OF 2008 sinus surgery PAST SURGICAL HISTORY OF 2008 wisdom teeth PAST SURGICAL HISTORY OF 2013 Sling removed PAST SURGICAL HISTORY OF Right 2015 right middle trigger finger PAST SURGICAL HISTORY OF Right 2015 tendon in thumb PAST SURGICAL HISTORY OF bladder sling placement PAST SURGICAL HISTORY OF 2016 tummy tuck REDUCTION OF LARGE BREAST 2013 TONSILLECTOMY HX 1993 Social History Tobacco Use Smoking status: Never Smokeless tobacco: Never Substance Use Topics Alcohol use: No Drug use: No Current Outpatient Medications Medication Sig VENTOLIN HFA 90 mcg/actuation inhaler Inhale 1 Puff as instructed every 4 hours as needed for wheezing/shortness of breath. albuterol (PROVENTIL) 2.5 mg /3 mL (0.083 %) nebulizer solution Use 2.5 mg via nebulizer four timesdaily as needed. tiZANidine (ZANAFLEX) 4 mg tablet Take 4 mg by mouth every 8 hours. topiramate (TOPAMAX) 25 mg tablet Take 25 mg by mouth twice daily. nabumetone (RELAFEN) 500 mg tablet Take 500 mg by mouth twice daily. Take with Food. montelukast (SINGULAIR) 10 mg tablet Take 10 mg by mouth once daily. IBU 800 mg tablet Take 800 mg by mouth three times daily. dicyclomine (BENTYL) 20 mg tablet TAKE ONE TABLET BY MOUTH FOUR TIMES A DAY diclofenac (VOLTAREN) 1 % topical gel Apply 1 simón, Topical, QID, # 100 gram(s), 0 Refill(s), [facility]: [id number], Gel, 145.9, cm,06/16/22 7:27:00 EDT, Height, 83.3 celecoxib (CELEBREX) 100 mg capsule Take 100 mg by mouth twice daily. esomeprazole (NEXIUM) 20 mg capsule TAKE 1 CAPSULE BY MOUTH DAILY BEFORE BREAKFAST amoxicillin-clavulanic acid (AUGMENTIN) 875-125 mg per tablet Take 1 tablet by mouth twice daily. levothyroxine (SYNTHROID) 25 mcg tablet Take 25 mcg by mouth once daily. ezetimibe-simvastatin 10-10 mg (VYTORIN) 10-10 mg per tablet Take 1 tablet by mouth daily at bedtime. meclizine (ANTIVERT) 25 mg tab Take 25 mg by mouth three times daily. promethazine (PHENERGAN) 25 mg tablet Take 25 mg by mouth every 6 hours as needed. cholecalciferol (VITAMIN D3) 2,000 unit tablet Take 2,000 Units by mouth once daily. NIFEdipine (PROCARDIA, ADALAT) 10 mg capsule Take 10 mg by mouth as needed. cloNIDine HCl (CATAPRES) 0.1 mg tablet Take 0.1 mg by mouth twice daily. Current Facility-Administered Medications Medication Dose Route Frequency acetylcholine 10% solution - cchs compounding 20 mL IRRIGATION ONE TIME ALLERGIES Allergen Reactions [place] Hives, Swelling Hives, sick, rash, swelling of skin Nitrofurantoin Anaphylaxis Peanuts GI Upset, Shortness of Breath With skins Buspirone Other: See Comments Ciprofloxacin GI Upset, Myalgia Sick [place] And Derivati* Other: See Comments GI upset, acidic stool and urine Coconut Hives Hives; processed, can eat fresh Dairy Aid [Lactase] GI Upset Sever bloating and stomach pain Demerol [Meperidine* GI Upset Vomiting Eggs [Egg] GI Upset Extreme sickness Levothyroxine Sodium GI Upset, Other: See Comments Lidocaine Hives Lisinopril Other: See Comments Milk Containing Pro* GI Upset Mobic [Meloxicam] GI Upset sick Morphine Itching Omnicef [Cefdinir] GI Upset Sick Prilosec [Omeprazol* Hives Vicodin [Hydrocodon* Hives Wellbutrin [Bupropi* GI Upset Sick Wheat Unknown Hives, sick and headache Physical Examination: Patient is alert, oriented and in no acute distress. She exhibits a mild antalgic gait and normal alignment. Skin is intact. She has full extension and lacks mild flexion as compared to the other side. Moderate effusion is noted. Upon palpating the patella, she does report anypain, especially with axial loading. Normal Q-angle is noted. Normal patellar glide and passive patellar tilt. A negative patellar apprehension sign is seen. She exhibits some mild quadriceps atrophyas compared to the other side. Palpation along the lateral joint line reveals exquisite pain while the medial joint line reveals mild pain with palpation. A Marianne s test is positive along the later al joint. A negative Wendy s is noted. Negative anterior and posterior drawers are seen. She has good stability with varus and valgus stress at 0 and 30 degrees. No increase in ER is seen at 30 or 90 degrees. Full ROM of both hips and ankles are noted. The patient has 5/5 motor strength with downgoing Babinski s and symmetric reflexes. Good pulses and cap refill are seen. Gross sensation intact. The left knee reveals identical findings but is less painful. X-ray Evaluation: PA 45 degree weightbearing, lateral, and sunrise views were ordered, obtained, and reviewed today. The radiographs show normal alignment and stable medial, lateral, and patellofemoral joint space maintenance. There is no evidence of fracture, avulsion, dislocation or suraj tumor. The patellae are located well in the trochlea. Assessment: Internal derangement of right knee (primary encounter diagnosis) Internal derangement of left knee Plan: I had a discussion with Edra today regarding their diagnosis and treatment options. As a result of their mechanical symptoms and pain consistent with meniscal pathology a MRI scan has been recommended. She will return for f/u for further evaluation once the MRI is obtained. In the meantime she will ice her knee for 20 minutes 2-3 x/ daily. For pain management purposes she may take OTC NSAIDs such as Advil or Tylenol. Explanation of the risks, benefits, complications and alternative treatment were explained. The risks that were explained included but were not limited to GI disturbance as serious as GI bleed and . Liver damage. Kidney damages including renal failure. She was also told that if any unusual symptoms develop, that the medication should be stopped immediately and that her primary care physician as well as our office should be notified. If she takes this medication mcfp, she understands the need for medication monitoring through her primary care physician. She is aware of the potential risks and side effects of this medication as well as the expected benefits, and wishes to proceed with its use. Eugenio Wilson MD [facility] History of Present illness Narrative* Bernabe Foote MD - 08/11/2022 6:00 PM EST Images from the original note were not included. [facility] New Patient Virtual Evaluation Consulting Provider: No referring provider defined for this encounter. I received consent from the patient to perform the visit as a virtual encounter. Individuals who were included in, or assisted with the encounter were: Vince Foote MD Chief Complaint/Issues: Vince Slaughter is a 57 year old female seen in the [facility] for: Question of GBS HPI: 57-year-old woman from the [place] area with an extensive list of problems including hypertension, hyperlipidemia, obesity, hypothyroidism, fibromyalgia syndrome, chronic pain syndrome, neck pain, back pain, carpal tunnel syndrome s/p releases, migraines, irritable bowel, irritable bladder, bladder spasms, reflux, asthma, tremors, tinnitus, vertigo, restless legs, PTSD, paresthesias, muscle weakness, hammer toes, oophorectomy, cholecystectomy, tummy tuck and breast reduction surgeries, amongst others. Extensive drug allergies. An abstract encounter by neurosurgery PA 06/30/2022 Describes LBP, leg pain, numbness, neck pain, arm pain, difficulty walking, numbness, weakness, trouble using hands. Has tried: PT, steroids. Lumbar MRI report with multilevel foraminal narrowing noted. Only has cervical XR, no MRI. Has a cervical MRI from 2011 which was overall normal but she would likely need a new MRI for her listed concerns. I would recommend appointment with spine SIMÓN to further workup. Could consider lumbar injections if she had a radicular pain that matches foraminal stenosis. No EMG on chart search Symptoms narrative: I am the 3rd specialist she is seeing 2005 fibromyalgia 3 years hip and knee pains - xrays and nothing found 01/2020 COVID Since had it has weird symptoms Battery acid burn like symptoms eyes nose R thigh L arm patches of burning Tingling numbness around eyes face etc COVID again 05/2022 - sick on 05/26/2022 - early may was doing yard work 05/21 [address] down hallway R knee popped went down ED unable to walk crutches got knee brace 2 days later L knee went After that "whole explosion in the body" Current: Lower back tingling like a 1000 bees constant Since 05/21 excruciating pain hips down to toes whole legs Swollen legs x 2 years - lymphedema Had MRI nothing found Xrays okay No physical reason Lips tingling tongue tingles feels like getting pierced Lips and nose comes and goes different places Terrible knee pain More walks worse it gets By 11 Am no longer can walk Using cane Cannot do steps Gallon milk and pain legs worsens 25/04 severe pain since 05/21 R foot unable bend toes down x 2 years 2 wedjuly could no enjoy Poor participation Poor Qol Bending knee pain is bad Bones snapping in half Primary MD said some syndrome see neurologist Rambling history directed and summarized in A/P General Examination: She is alone. General: Awake, alert, interactive, no acute distress, good nutritional status, (obesity) normal development, well-kept Only a limited general examination was done. Neurological Exam Mental Status Alert, fully oriented, attentive, with normal cognition, memory, speech and affect. Smiling and eloquent Cranial Nerves Extraocular movements normal. No nystagmus, no ptosis, and pupils 3mm. Face symmetrical. Tongue normal. Motor Examination and Coordination Distance Motor Examination Arms: Well-coordinated symmetrical strong antigravity movements of both arms. Raises arms well above head. Manipulates phone and small objects well. No drift. Rapid alternating movements are symmetrical and normal. No tremor or adventitious movements. No dysmetria on finger-nose testing. No apparent muscle atrophy or deformity/contracture. Legs: Arises but with pain - antalgic. Wiggles toes well LEFT SIDE BUT NOT RIGHT (this is chronic per patient). No apparent muscle atrophy or deformity/contracture. Reflexes Not examined, distance exam Sensation Subjective symptoms per narrative history Gait Comes: independently ambulatory Arises: slowly and in pain Gait: antalgic, waddle Assessment & Plan 08/11/2022 - Neuromuscular, Bernabe Foote MD ASSESSMENT 57 yo woman with fibromyalgia syndrome, migraine, cervicogenic headaches ("Belmont-Lieou syndrome"), chronic pain, and multiple medical issues (although not diabetes) seeing neuromuscular neurology today for concerns of a neuromuscular syndrome as suggested by primary care. She describes a worsening c onstellation of symptoms, some temporally associated with 2 bouts of COVID-19 (01/2020, 05/2022) thatincludes: - severe pains especially legs, but also worsening of chronic neck pains - Pain is the main symptom - musculoskeletal knee pains and neuropathic leg pains - fixed and migratory widespread paresthesias axial - e.g. low back, legs global > arms, face/tongue - chronic R toe flexion weakness - minimal arm symptoms - preserved bladder function except chronic stress incontience - normal cognition/speech - fatigue - poor participation in usual activities requiring assistance - very poor QoL Examination via video today is largely unremarkable except for R toe weakness Discussed that as such, this presentation is not consistent with a primary neurological syndrome but more likely represents a chronic syndrome with different causes (fibromyalgia, knee pain). A component of neuropathy (small +/- large fiber) or radiculopathy of course cannot be excluded but is not the predominating issue. Reassured patient that this is not Guillain Belmont syndrome. We can offer neurology tests but it is more important to direct her to appropriate services for chronic symptom control PLAN 1. EMG R side polyneuropathy work-up can also address R toe weakness. 2. QSART 3. Labs as ordered 4. See [facility] Bernabe Foote MD Encounter Diagnosis ICD-10-CM 1. Chronic pain syndrome G89.4 CONSULT TO [place] [facility] (CHRONIC PAIN) NEURO QSART 2. Disturbance of skin sensation R20.9 EMG(NEURO/NI) NEURO QSART HGB A1C SED RATE WESTERGREN C-REACTIVE PROTEIN (CRP) JAGDEEP BY IFA WITH REFLEX ANTI EDUARD ID RHEUMATOID FACTOR BL CCP ANTIBODY IGG IMMUNOFIXATION SCREEN, SERUM ANTI NEUTRO CYTO AB VITAMIN B12 BLOOD FOLATE SERUM VITAMIN B1 (THIAMINE), WHOLE BLOOD VITAMIN B6/PYRIDOXIN COPPER BLOOD HEP REMOTE PANEL BL HEAVY METALS SCRN BL No follow-ups on file. Data Review Objective Current Outpatient Medications Medication Sig VENTOLIN HFA 90 mcg/actuation inhaler Inhale 1 Puff as instructed every 4 hours as needed for wheezing/shortness of breath. albuterol (PROVENTIL) 2.5 mg /3 mL (0.083 %) nebulizer solution Use 2.5 mg via nebulizer four timesdaily as needed. tiZANidine (ZANAFLEX) 4 mg tablet Take 4 mg by mouth every 8 hours. topiramate (TOPAMAX) 25 mg tablet Take 25 mg by mouth twice daily. nabumetone (RELAFEN) 500 mg tablet Take 500 mg by mouth twice daily. Take with Food. montelukast (SINGULAIR) 10 mg tablet Take 10 mg by mouth once daily. IBU 800 mg tablet Take 800 mg by mouth three times daily. dicyclomine (BENTYL) 20 mg tablet TAKE ONE TABLET BY MOUTH FOUR TIMES A DAY diclofenac (VOLTAREN) 1 % topical gel Apply 1 simón, Topical, QID, # 100 gram(s), 0 Refill(s), [facility]acy: [id number], Gel, 145.9, cm,06/16/22 7:27:00 EDT, Height, 83.3 celecoxib (CELEBREX) 100 mg capsule Take 100 mg by mouth twice daily. esomeprazole (NEXIUM) 20 mg capsule TAKE 1 CAPSULE BY MOUTH DAILY BEFORE BREAKFAST amoxicillin-clavulanic acid (AUGMENTIN) 875-125 mg per tablet Take 1 tablet by mouth twice daily. levothyroxine (SYNTHROID) 25 mcg tablet Take 25 mcg by mouth once daily. ezetimibe-simvastatin 10-10 mg (VYTORIN) 10-10 mg per tablet Take 1 tablet by mouth daily at bedtime. meclizine (ANTIVERT) 25 mg tab Take 25 mg by mouth three times daily. promethazine (PHENERGAN) 25 mg tablet Take 25 mg by mouth every 6 hours as needed. cholecalciferol (VITAMIN D3) 2,000 unit tablet Take 2,000 Units by mouth once daily. NIFEdipine (PROCARDIA, ADALAT) 10 mg capsule Take 10 mg by mouth as needed. cloNIDine HCl (CATAPRES) 0.1 mg tablet Take 0.1 mg by mouth twice daily. No current facility-administered medications for this visit. Allergies, Adverse Reactions, Alerts Reconcile with Patient's Chart Allergies, Adverse Reactions, Alerts Substance Reaction Severity Status ciprofloxacin myalgia nausea Active lidocaine Active amoxicillin "very sick" Active nitrofurantoin Anaphylactic reaction Active Omnicef Nausea Active Demerol HCl Active Mobic Active Glades Unknown Active [place] Nausea Hives Active Milk Products Nausea Active Peanuts Nausea Active Wheat Anaphylaxis Active busPIRone Palpitations Active Eggs Anaphylaxis Active tiZANidine unknown antibiotic (non-codified) Resolved PriLOSEC Active morphine Active lisinopril Palpitations Active Vicodin Active ACTIVE PROBLEM LIST Chronic Pain Syndrome Fibromyalgia Ventral Hernia Without Obstruction Or Gangrene Gastroesophageal Reflux Disease History of Colonic Polyps Hypothyroidism, Unspecified 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 neck pain Bladder spasms Carpal tunnel syndrome Constipation Degenerative disc disease, cervical Degenerative disc disease, lumbar Ear pain Eye pain Facial pain Fatigue Fibromyalgia Hearing loss High cholesterol Hypothyroid not on medication Incontinence Irritable bladder Irritable bowel Menopause Migraines Muscle weakness Numbness and tingling arms, legs, hands, feet, face PTSD (post-traumatic stress disorder) Raynaud's disease Restless leg Sciatica Tinnitus Tremors of nervous system remote history Vertigo PAST SURGICAL HISTORY Procedure Laterality Date ADENOIDECTOMY HX 1992 CARPAL TUNNEL Right 1988 CARPAL TUNNEL Left 1998 CARPAL TUNNEL Right 2014 DELIVERY ONLY x2 CHOLECYSTECTOMY 2012 HYSTERECTOMY HX 1998 LX REPAIR RECURRENT VENTRAL HERNIA 06/20/2018 PAST SURGICAL HISTORY OF 2008 sinus surgery PAST SURGICAL HISTORY OF 2008 wisdom teeth PAST SURGICAL HISTORY OF 2013 Sling removed PAST SURGICAL HISTORY OF Right 2015 right middle trigger finger PAST SURGICAL HISTORY OF Right 2015 tendon in thumb PAST SURGICAL HISTORY OF bladder sling placement PAST SURGICAL HISTORY OF 2016 tummy tuck REDUCTION OF LARGE BREAST 2013 TONSILLECTOMY HX 1992 Social History Tobacco Use Smoking status: Never Smokeless tobacco: Never Substance Use Topics Alcohol use: No Drug use: No FAMILY HISTORY Problem Relation Age of Onset Heart Mother Thyroid Mother Heart Father Prostate Cancer Father Diabetes Father other (cirrhosis of liver) Father Heart Paternal Grandfather Colon Cancer Paternal Grandfather Heart Paternal Grandmother other (Leukemia) Paternal Grandmother Breast Cancer Maternal Grandmother Thyroid Maternal Grandmother Review of Systems Lab and Test Review: General Medical Labs: Last 3 sets of CBC, CMP, Lipids, HBA1C, TSH No flowsheet data found.No flowsheet data found.No flowsheet data found.No flowsheet data found.No flowsheet data found. Common Neurology Labs: Last 3 sets of ESR, CRP, CK, Vitamin B12, MMA, Folate, Vitamin D, Copper No flowsheet data found.No flowsheet data found.No flowsheet data found.No flowsheet data found.No flowsheet data found.No flowsheet data found.No flowsheet data found.No flowsheet data found. MRI Head/Brain - Last 2 Impressions No resulted procedures found. Outside Data/Labs: Lyme neg 04/2022 CBC Hb 13.4 MCV 87.8 CMP N Cr 0.57 TC 242 HDL 44 TG 247 LDL 149 TSH 10/2021 MRI Lumbar 06/25/2022 ([facility]resh) IMPRESSION: L3-L4: Moderate left and [id number] right foraminal stenosis. L4-L5: Moderate bilateral, left greater than right foraminal stenosis. L5-S1: Moderate bilateral foraminal stenosis. US L leg 04/30/2022 IMPRESSION: There is abundant fatty tissue in the area of concern. No other abnormality is seen. If there remains continued concern for nonvisualized pathology, consider MRI. Raghavendra Hip xray 04/2022 No acute osseous abnormality. Knee xrays similar MRI Cx spine 07/12/2012 images reviewed: Mild C45 C56 canal stenosis without cord compression or root compression. MRI brain 06/02/2012 minimal non-specific white matter disease Subjective Patient-Entered Data: NM Treatment and Fall Risk No flowsheet data found. PROMIS-10 PROMIS 10 08/11/2022 07/07/2022 In general, would you say your health is: Fair Fair In general, would you say your quality of life is: Poor Good In general, how would you rate your physical health? Fair Fair In general, how would you rate your mental health, including your mood and your ability to think? Fair Very good In general, how would you rate your satisfaction with your social activities and relationships? Poor Poor To what extent are you able to carry out your everyday physical activities such as walking, climbing stairs, carrying groceries, or moving a chair? Not at all A little In general, please rate how well you carry out your usual social activities and roles. (This includes activities at home, at work and in your community, and responsibilities as a parent, child, spouse, employee, friend, etc.) Poor Poor How would you rate your pain on average? 7 7 How would you rate your fatigue on average? Severe Severe How often have you been bothered by emotional problems such as feeling anxious, depressed or irritable? Often Rarely PROMIS Adult Short Form-Global Health Score (Physical) 26.7 (Poor) 29.6 (Poor) PROMIS Adult Short Form-Global Health Score (Mental) 28.4 (Poor) 43.5 (Good) PHQ-9 PHQ-9 All Questions 08/11/2022 07/07/2022 Little interest or pleasure in doing things 3 3 Feeling down, depressed, or hopeless 1 0 Trouble falling or staying asleep, or sleeping too much 3 3 Feeling tired or having little energy 3 3 Poor appetite or overeating 0 3 Feeling bad about yourself - or that you are a failure or have let yourself or your family down 0 0 Trouble concentrating on things, such as reading the newspaper or watching television 1 0 Moving or speaking so slowly that other people could have noticed. Or the opposite - being so fidgety or restless that you have been moving around a lot more than usual 1 3 Thoughts that you would be better off , or of hurting yourself in some way 0 0 PHQ-9 Score 12 15 (0-4) minimal depression (5-9) mild depression (10-14) moderate depression (15-19) moderately severe depression (20-27) severe depression Sleep 08/11/2022 Do you snore loudly? No Have you been told that you stop breathing during sleep? No Have you been told or are you being treated for high blood pressure? No Probability of moderate-severe sleep apnea (%) SAPS V2 24 (Sleep study not recommended) No flowsheet data found. I spent a total of 50 minutes on the date of the service which included preparing to see the patient, [id number] patient care, completing clinical documentation, obtaining and/or reviewing separately obtained history, performing a medically appropriate examination, counseling and educating the pat ient/family/caregiver, ordering medications, tests, or procedures, communicating with other HCPs (not separately reported), independently interpreting results (not separately reported), communicatingresults to the patient/family/caregiver, and care coordination (not separately reported). Bernabe Foote MD documented [facility] History of Present illness Narrative* Liane Sarmiento PA-C - 07/01/2022 8:45 AM EDT Describes LBP, leg pain, numbness, neck pain, arm pain, difficulty walking, numbness, weakness, trouble using hands. Has tried: PT, steroids. Lumbar MRI report with multilevel foraminal narrowing noted. Only has cervical XR, no MRI. Has a cervical MRI from 2011 which was overall normal but she would likely need a new MRI for her listed concerns. I would recommend appointment with spine SIMÓN to further workup. Could consider lumbar injections ifshe had a radicular pain that matches foraminal stenosis. * Irvin Rizo - 06/30/2022 8:45 AM EDT Patient name: Vince Slaughter Are you being referred by a [facility] Provider or [facility] Management Provider at [facility]? No If answer is "YES" please schedule directly with surgeon, triage does not need to be completed. Is this a self-referral Yes If not, who is the Referring Provider Is this a 2nd opinion, have you been offered surgery by another surgeon? No MRI/CT/myelogram within 12 months? Yes If "NO", please refer to medical spine or PCP to complete above imaging, triage does not need to be completed If "YES, please ask for the name/address of the facility where the MRI/CT/myelogram was completed: [facility] Address: [address] [place] [address] MRI/CT/myelogram viewable in Epic: No If not, please provide [phone] to fax in imaging reports for review. Also, please inform patient to hand carry imaging disc to appointment. XR (spine) within 12 months: No If "YES, please ask for the name/address of the facility where the XR was completed: N/A Dr. Perry's patients: Have you had previous EMG/Nerve Conduction Study, Ultrasound, or MRI for thesesame symptoms? If "YES, please ask for the name/address of the facility where they were completed: Requested provider (First and Last name): [facility] Are you interested in a virtual visit if offered? No 1. Where are you having symptoms related to this visit? LBP down legs to toes Numbness, Tingling down legs to feet Neck pain, down arms Back pain Yes Leg pain Yes Arm pain Yes Neck pain Yes 2. Are you having any of the following symptoms: Difficulty walking Yes Numbness Yes Weakness Yes Trouble using your hands? Yes Dropping Items 3. Have you had any injections or physical therapy in the last 12 months? Yes If "YES" then please ask for the name/address of the facility where the injections and/or physical therapy was completed PT [facility] Address: [address], [place] [address] Have you tried any other kinds of non-surgical treatments in the last 12 months? (For example: NSAIDS, muscle relaxants, analgesics, oral steroids, Chiropractor, Acupuncture): Predizone 4. Are you currently taking daily prescribed narcotic medications for your current symptoms (For example Oxycodone, Hydrocodone, Tramadol, Morphine, Other)? No 5. Have you had previous spinal surgery for this same symptoms? No If "YES please ask for the name of facility/address of where the surgery was completed: N/A Additional Comments [phone] (Home Phone) documented in [facility] Note ORIGINAL EXAMINATION: MRI OF THE LUMBAR SPINE WITHOUT CONTRAST, 06/25/2022 9:22 am TECHNIQUE: Multiplanar multisequence MRI of the lumbar spine was performed without the administration of intravenous contrast. COMPARISON: X-ray lumbar spine 05/14/2022 HISTORY: ORDERING SYSTEM PROVIDED HISTORY: Reason for Exam: RADICULAR PAIN FINDINGS: BONES/ALIGNMENT: There are 5 lumbar type vertebral bodies that are in normal alignment. L1 is labeled as the 1st non rib-bearing vertebral body. The vertebral body heights are maintained. The marrow signal is normal. SPINAL CORD: The conus terminates at L1-L2 and is normal in signal and caliber. The cauda equina are within normal limits. SOFT TISSUES: The paraspinal muscles and included intra-contents are unremarkable. T12-L1: No spinal canal or foraminal stenosis. L1-L2: No spinal canal or foraminal stenosis. L2-L3: No spinal canal or foraminal stenosis. L3-L4: Bilateral facet arthropathy contributes to moderate left and mild to moderate right foraminal stenosis. A circumferential disc bulge narrows the bilateral subarticular recesses. No central canal stenosis. L4-L5: A circumferential disc bulge and facet arthropathy contribute to moderate bilateral, left greater than right foraminal stenosis. No central canal stenosis. L5-S1: A circumferential disc bulge and facet arthropathy contribute to moderate bilateral foraminal stenosis. No central canal stenosis. The included sacrum and iliac bones are within normal limits. IMPRESSION: L3-L4: Moderate left and [id number]-padlospk right foraminal stenosis. L4-L5: Moderate bilateral, left greater than right foraminal stenosis. L5-S1: Moderate bilateral foraminal stenosis. I have personally reviewed the images of this examination and agree with the resident's findings and interpretation. Interpreted by: Jane Rodríguez MD Preliminary Report By: Nora Penaloza Electronically signed By Jane Rodríguez MD Dictated Date: 06/25/2022 10:21:06 AM Prelim Date: 06/25/2022 11:42:41 AM Sign Date: 06/25/2022 11:42:41 AM [facility]ing [facility] Note ORIGINAL EXAMINATION: MRI OF THE LUMBAR SPINE WITHOUT CONTRAST, 06/25/2022 9:22 am TECHNIQUE: Multiplanar multisequence MRI of the lumbar spine was performed without the administration of intravenous contrast. COMPARISON: X-ray lumbar spine 05/14/2022 HISTORY: ORDERING SYSTEM PROVIDED HISTORY: Reason for Exam: RADICULAR PAIN FINDINGS: BONES/ALIGNMENT: There are 5 lumbar type vertebral bodies that are in normal alignment. L1 is labeled as the 1st non rib-bearing vertebral body. The vertebral body heights are maintained. The marrow signal is normal. SPINAL CORD: The conus terminates at L1-L2 and is normal in signal and caliber. The cauda equina are within normal limits. SOFT TISSUES: The paraspinal muscles and included intra-contents are unremarkable. T12-L1: No spinal canal or foraminal stenosis. L1-L2: No spinal canal or foraminal stenosis. L2-L3: No spinal canal or foraminal stenosis. L3-L4: Bilateral facet arthropathy contributes to moderate left and mild to moderate right foraminal stenosis. A circumferential disc bulge narrows the bilateral subarticular recesses. No central canal stenosis. L4-L5: A circumferential disc bulge and facet arthropathy contribute to moderate bilateral, left greater than right foraminal stenosis. No central canal stenosis. L5-S1: A circumferential disc bulge and facet arthropathy contribute to moderate bilateral foraminal stenosis. No central canal stenosis. The included sacrum and iliac bones are within normal limits. IMPRESSION: L3-L4: Moderate left and [id number] right foraminal stenosis. L4-L5: Moderate bilateral, left greater than right foraminal stenosis. L5-S1: Moderate bilateral foraminal stenosis. I have personally reviewed the images of this examination and agree with the resident's findings and interpretation. Interpreted by: Jane Rodríguez MD Preliminary Report By: Nora Penaloza Electronically signed By Jane Rodríguez MD Dictated Date: 06/25/2022 10:21:06 AM Prelim Date: 06/25/2022 11:42:41 AM Sign Date: 06/25/2022 11:42:41 AM Ordering Provider: [facility]08-19-2022 Hospital Discharge instructions Patient Education 05/21/2022 04:09:54 Knee Sprain Knee Sprain A sprain is an injury to the ligaments or capsule that holds a joint together. There are no broken bones. Most sprains take 3 to 6 weeks to heal. If it a severe sprain where the ligament is completely torn, it can take months to recover. Most knee sprains are treated with a splint, knee immobilizer brace, or elastic wrap for support. Severe sprains may rarely require surgery. Home care Stay off the injured leg as much as possible until you can walk on it without pain. If you have a lot of pain with walking, crutches or a walker may be prescribed. (These can be rented or purchased at many pharmacies and surgical or orthopedic supply stores). Follow your healthcare provider's advice about when to begin putting weight on that leg. Keep your leg elevated to reduce pain and swelling. When sleeping, place a pillow under the injuredleg. When sitting, support the injured leg so it is above heart level. This is very important during the first 48 hours. Apply an ice pack over the injured area for 15 to 20 minutes every 3 to 6 hours. You should do thisfor the first 24 to 48 hours. You can make an ice pack by filling a plastic bag that seals at the top with ice cubes and then wrapping it with a thin towel. Continue to use ice packs for relief of pain and swelling as needed. As the ice melts, be careful to avoid getting your wrap, splint, or cast wet. After 48 hours, apply heat (warm shower or warm bath) for 15 to 20 minutes several times a day,or alternate ice and heat. You can place the ice pack directly over the splint. If you have to weara kqmv-kbl-wliq knee brace, you can open it to apply the ice pack, or heat, directly to the knee. Never put ice directly on the skin. Always wrap the ice in a towel or other type of cloth. You may use urgi-qjt-rbdldzk pain medicine to control pain, unless another pain medicine was prescribed. If you have chronic liver or kidney disease or ever had a stomach ulcer or gastrointestinal bleeding, talk with your healthcare provider before using these medicines. If you were given a splint, keep it completely dry at all times. Bathe with your splint out of the water, protected with 2 large plastic bags, sealed with rubber bands or tape at the top end. If a fiberglass splint gets wet, you can dry it with a hair cutter set to cool. If you have a odpf-gnd-bwao knee brace, you can remove this to bathe, unless told otherwise. Follow-up care Follow up with your doctor as advised. Any X-rays you had today don t show any broken bones, breaks, or fractures. Sometimes fractures don t show up on the first X-ray. Bruises and sprains can sometimes hurt as much as a fracture. These injuries can take time to heal completely. If your symptoms don t improve or they get worse, talk with your doctor. You may need a repeat X-ray. If X-rays were taken, you will be told of any new findings that may affect your care. Call 911 Call 911 if you have: Shortness of breath Chest pain When to seek medical advice Call your healthcare provider right away if any of these occur: The splint or knee immobilizer brace becomes wet or soft The fiberglass cast or splint remains wet for more than 24 hours Pain or swelling increases The injured leg or toes become cold, blue, numb, or tingly [id number] [employer]. [address] [place] [address]. All rights reserved. This information is not intended as a substitute for professional medical care. Always follow yourhealthcare professional's instructions. Follow Up Care 05/21/2022 02:15:36 With:SLADE BENDER DO, Orthopedic Address: [address] [place] [phone] When:2-4 days With:TOSHIA MEIER Address: [address] [place] [address]- [phone] When:2-4 days [facility] 08-19-2022 Note Discharge Instructions Thank you for allowing [place] to assist you with your healthcare needs. The following is importantdischarge information regarding your hospital visit. Diagnosis from Today's Visit Knee injury Knee pain-swelling What to Do Next Instructions from Your Care Team Discharge Home Equipment - Ordered -- Crutches, month(s), 05/21/22 4:02:00 EDT Post Acute Orders No qualifying data available. You Need to Schedule the Following Appointments Follow Up with SLADE BENDER DO Orthopedic When Within 2-4 days Where: [address] [place] [phone] Follow Up with TOSHIA MEIER When Within 2-4 days Where: [address] [place] [address] [phone] Allergies Glades (Unknown) [place] (Nausea, Hives) Demerol HCl Eggs (Anaphylaxis) Milk Products (Nausea) Mobic Omnicef (Nausea) Peanuts (Nausea) PriLOSEC Vicodin Wheat (Anaphylaxis) amoxicillin ("very sick") busPIRone (Palpitations) ciprofloxacin (myalgia, nausea) lidocaine lisinopril (Palpitations) morphine nitrofurantoin (Anaphylactic reaction) Medications Please ask your primary doctor or pharmacist before taking any other medication not listed, including over the counter drugs, herbal medications, vitamins and or supplements as they may interact withur home medications. What How Much When Instructions Last Dose Unchanged albuterol (albuterol 2.5 mg/ 3 mL (0.083%) inhalation solution) 3 Milliliter by inhalation Four (4) times a day Unchanged albuterol (Ventolin HFA MDI (90 mcg/ inh) inhalation aerosol) 2 puff(s) by inhalation Four (4) times a day as needed for as needed for wheezing Unchanged dicyclomine (dicyclomine 20 mg oral tablet) See instructions TAKE ONE TABLET BY MOUTH FOUR TIMES A DAY Unchanged ergocalciferol (Vitamin D2 1000 units oral tablet) 2,000 International unit by mouth Once a day Unchanged ibuprofen (ibuprofen 800 mg oral tablet) 1 tab(s) by mouth Three (3) times a day Duration: 30 Days Unchanged lactulose (lactulose 10 g/ 15 mL oral syrup) See instructions TAKE 15ML BY MOUTH TWO TIMES A DAY Unchanged meclizine (meclizine 25 mg oral tablet) 1 tab(s) by mouth Three (3) times a day As needed for Vertigo Unchanged Misc Medication MSM Unchanged montelukast (montelukast 10 mg oral tablet) See instructions TAKE ONE TABLET BY MOUTH EVERY DAY Unchanged predniSONE (predniSONE 20 mg oral tablet) 2 tab(s) by mouth Once a day Duration: 7 Days Unchanged promethazine (promethazine 25 mg oral tablet) 1 tab(s) by mouth Every 6 hours as needed for for nausea/vomiting Duration: 30 Days Please take this list to your next doctor s visit. Bring all medications you take, including over the counter medications, herbals and other supplements with you to your doctor s visit. Patients and families are reminded to discard old lists and to update any records with all medication providers or retail pharmacies. Education Materials Knee Sprain A sprain is an injury to the ligaments or capsule that holds a joint together. There are no broken bones. Most sprains take 3 to 6 weeks to heal. If it a severe sprain where the ligament is completely torn, it can take months to recover. Most knee sprains are treated with a splint, knee immobilizer brace, or elastic wrap for support. Severe sprains may rarely require surgery. Home care Stay off the injured leg as much as possible until you can walk on it without pain. If you have a lot of pain with walking, crutches or a walker may be prescribed. (These can be rented or purchased at many pharmacies and surgical or orthopedic supply stores). Follow your healthcare provider's advice about when to begin putting weight on that leg. Keep your leg elevated to reduce pain and swelling. When sleeping, place a pillow under the injuredleg. When sitting, support the injured leg so it is above heart level. This is very important during the first 48 hours. Apply an ice pack over the injured area for 15 to 20 minutes every 3 to 6 hours. You should do thisfor the first 24 to 48 hours. You can make an ice pack by filling a plastic bag that seals at the top with ice cubes and then wrapping it with a thin towel. Continue to use ice packs for relief of pain and swelling as needed. As the ice melts, be careful to avoid getting your wrap, splint, or cast wet. After 48 hours, apply heat (warm shower or warm bath) for 15 to 20 minutes several times a day,or alternate ice and heat. You can place the ice pack directly over the splint. If you have to weara diig-nzy-bfju knee brace, you can open it to apply the ice pack, or heat, directly to the knee. Never put ice directly on the skin. Always wrap the ice in a towel or other type of cloth. You may use iiet-skq-jvsxbql pain medicine to control pain, unless another pain medicine was prescribed. If you have chronic liver or kidney disease or ever had a stomach ulcer or gastrointestinal bleeding, talk with your healthcare provider before using these medicines. If you were given a splint, keep it completely dry at all times. Bathe with your splint out of the water, protected with 2 large plastic bags, sealed with rubber bands or tape at the top end. If a fiberglass splint gets wet, you can dry it with a hair cutter set to cool. If you have a rvat-xwx-uyme knee brace, you can remove this to bathe, unless told otherwise. Follow-up care Follow up with your doctor as advised. Any X-rays you had today don t show any broken bones, breaks, or fractures. Sometimes fractures don t show up on the first X-ray. Bruises and sprains can sometimes hurt as much as a fracture. These injuries can take time to heal completely. If your symptoms don t improve or they get worse, talk with your doctor. You may need a repeat X-ray. If X-rays were taken, you will be told of any new findings that may affect your care. Call 911 Call 911 if you have: Shortness of breath Chest pain When to seek medical advice Call your healthcare provider right away if any of these occur: The splint or knee immobilizer brace becomes wet or soft The fiberglass cast or splint remains wet for more than 24 hours Pain or swelling increases The injured leg or toes become cold, blue, numb, or tingly [id number] [employer]. [address] [place] [address], [place] [address]. All rights reserved. This information is not intended as a substitute for professional medical care. Always follow yourhealthcare professional's instructions. Additional Information VACCINATE! IT SAVES LIVES! Members of the community who have not yet received the COVID-19 vaccine and would like to receive it can visit one of [facility] vaccine clinics. There are many vaccine clinic locations within the [facility]. For locations and available times, please visit [email or web address]. It is important to note that some COVID mobile vaccine clinics are held outdoors and may be canceled in rainy orstormy conditions. To learn more about pediatric vaccinations (ages 5-11), we invite you to visit the [facility] webpage. [email or web address]/[email or web address]-[email or web address] [email or web address] learn more about the COVID-19 vaccine, we invite you to visit the [place] website for a list of frequently asked questions. [email or web address] [facility] [employer] [facility] Patient Portal Access Instructions: Stay connected with your healthcare team and access your personal medical information anytime with the [employer] Patient Portal. If you would like a full copy of your medical records please contact the [facility] Medical Records Department Tuesday through Tuesday between 8a.m. and 4:30p.m. Please follow the directions below to access the portal: 1.Access the email account you provided upon registration to the [facility].2.Look for an invitation email from [facility].3.Open the email and access the invitation link: Accept Invitation to [employer]4.Fill in the required parker to create your account. Sign into www.[employer] with your username and password that you created in the above steps to stay up to date. You can then view a summary of results, a summary of your visits, and the ability to download your summaries to your computer or send the information securely to a physician. Remember that your healthcare information is confidential, so carefully consider who you will allow to register on the [employer] Patient Portal for access to your information. You can also access the [employer] Patient Portal on the [employer]. Simply click on "Health Records" under "[employer]" and then click on the [employer] logo. HOW TO SAFELY DISPOSE OF PRESCRIPTION MEDICATIONS Please use one of the following methods to safely dispose of your unused medications. 1.Use a drug disposal kit: the drug disposal pouch allows you to safely discard your old and unuseddrugs. Ask your nurse to give you one when you are discharged.2.Visit a local take-back location: Many local pharmacies and police departments have programs that collect old and unwanted prescriptiondrugs. Call your local pharmacy or go to http://[employer]/4T1Wg3v to find one close to you.3.Make use of household items: Use cat litter or old coffee grounds to dispose medications if other options arenot available. Mix your drugs with these household products, seal them in an airtight container andthrow it into the garbage. Call [facility]: [phone] to be sure your drugs can be disposed of in this way. Some medicines may require a different approach.4.Never flush your medications down the toilet. IF YOU HAVE BEEN PRESCRIBED AN OPIOIDS FOR PAIN If you have been prescribed an opioid (such as hydrocodone, oxycodone or morphine), it is critical to understand the possible side effects and risks of opioid pain medications. Even when taken as directed, opioids can have several side effects including: Tolerance, meaning you might need to take more of a medication for the same pain relief. Nausea, vomiting and/or constipation. Sleepiness, dizziness, dry mouth, confusion, depression or itching. Physical dependence, meaning you have withdrawal symptoms when a medication is stopped ? this can develop within a few days. KNOW YOUR RESPONSIBILITIES It is important to know exactly how much and how often to take the opioid pain medications you are prescribed. Never take opioids in higher amounts or more often than prescribed. Do not combine opioids with alcohol or other drugs that cause drowsiness, such as benzodiazepines, also known as benzos,including diazepam and alprazolam, muscle relaxants or sleep aids. Never sell or share prescriptionopioids. This is illegal. Store opioids in a secure place and out of reach of others (including children, family, friends and visitors). The last page(s) of this document has been signed and retained as a CHART COPY Signatures Patient Education Materials Knee Sprain Medication Leaflets My discharge plan and instructions have been reviewed and explained to me and I,VINCE SLAUGHTER understand my current condition and have read and understand these discharge instructions. I have received a written copy of the plan/instructions. If I have questions, I am aware that I should contact my doctor. Patient/Historian Research Assistant Signature: Date/Time: Relationship to Patient: Witness Name/Signature: Date/Time: [facility]08-19-2022 Note ORIGINAL EXAMINATION: THREE XRAY VIEWS OF THE RIGHT KNEE 05/21/2022 2:50 am COMPARISON: Right knee radiograph on 04/29/2022. HISTORY: ORDERING SYSTEM PROVIDED HISTORY: Reason for Exam: injury. [place] pop in knee while walking. FINDINGS: No acute fracture or dislocation. No significant degenerative changes. Incidental fabella. No radiopaque foreign body. IMPRESSION: No acute fracture or dislocation. I have personally reviewed the images of this examination and agree with the resident's findings and interpretation. Interpreted by: Jeffy Humphrey MD Preliminary Report By: Zoran Campos Electronically signed By Jeffy Humphrey MD Dictated Date: 05/21/2022 3:57:03 AM Prelim Date: 05/21/2022 4:03:16 AM Sign Date: 05/21/2022 4:12:09 AM Ordering Provider: JUSTIN PORTILLO [facility]08-19-2022 Note ORIGINAL EXAMINATION: THREE XRAY VIEWS OF THE RIGHT KNEE 05/21/2022 2:50 am COMPARISON: Right knee radiograph on 04/29/2022. HISTORY: ORDERING SYSTEM PROVIDED HISTORY: Reason for Exam: injury. [place] pop in knee while walking. FINDINGS: No acute fracture or dislocation. No significant degenerative changes. Incidental fabella. No radiopaque foreign body. IMPRESSION: No acute fracture or dislocation. I have personally reviewed the images of this examination and agree with the resident's findings and interpretation. Interpreted by: Jeffy Humphrey MD Preliminary Report By: Zoran Campos Electronically signed By Jeffy Humphrey MD Dictated Date: 05/21/2022 3:57:03 AM Prelim Date: 05/21/2022 4:03:16 AM Sign Date: 05/21/2022 4:12:09 AM [facility]ing Provider[facility] Evaluation + Plan note Future Scheduled Tests Laboratory* Thyroid Stimulating Hormone 05/10/22 * Free T4 05/10/22 * Urine Culture 09/28/22 Radiology* MA Mammo Screening Bilateral w/ Juan Carlos 04/07/22 * CT Head or Brain w/ + w/o Contrast 09/09/22 [facility] 07-28-2022 Note ORIGINAL EXAMINATION: THREE XRAY VIEWS OF THE LEFT KNEE04/29/2022 7:34 am COMPARISON: None HISTORY: ORDERING SYSTEM PROVIDED HISTORY: Reason for Exam: Chronic knee pain FINDINGS: No acute fracture or dislocation is seen. Tricompartmental joint spaces are preserved. There is no significant joint effusion or degenerative changes. IMPRESSION: No acute osseous process or significant degenerative changes. I have personally reviewed the images of this examination agree with resident's findings and interpretation. Interpreted by: Saud Martinez DO Preliminary Report By: Ama Cervantes Electronically signed By Saud Martinez DO Dictated Date: 04/29/2022 8:12:02 AM Prelim Date: 04/29/2022 12:04:01 PM Sign Date: 04/29/2022 12:04:01 PM Ordering Provider: TOSHIA MEIER [facility]07-28-2022 Note ORIGINAL EXAMINATION: THREE XRAY VIEWS OF THE RIGHT KNEE04/29/2022 7:32 am COMPARISON: X-ray right knee July 05, 2019 HISTORY: ORDERING SYSTEM PROVIDED HISTORY: Reason for Exam: knee pain FINDINGS: No fracture or dislocation. No significant joint space narrowing or degenerative changes. No significant joint effusion. IMPRESSION: No acute osseous abnormalities or significant degenerative change. I have personally reviewed the images of this examination and agree with the resident's findings and interpretation. Interpreted by: Saud Martinez DO Preliminary Report By: Chelsey Mondragon Electronically signed By Saud Martinez DO Dictated Date: 04/29/2022 8:06:24 AM Prelim Date: 04/29/2022 11:55:49 AM Sign Date: 04/29/2022 11:55:49 AM Ordering Provider: [facility]07-28-2022 Note ORIGINAL EXAMINATION: 4 XRAY VIEWS OF THE BILATERAL HIPS 04/29/2022 7:35 am COMPARISON: Radiograph right hip March 06, 2018 HISTORY: ORDERING SYSTEM PROVIDED HISTORY: Reason for Exam: hip pain FINDINGS: No acute fracture or dislocation. Very mild bilateral degenerative changes at the hips bilaterally. There is bilateral greater trochanteric enthesopathy. No acute osseous abnormality. Phleboliths are seen within the pelvis. IMPRESSION: No acute osseous abnormality. Interpreted by: Beatriz Gary MD Preliminary Report By: Beatriz Gary MD Electronically signed By Beatriz Gary MD Dictated Date: 04/29/2022 8:05:39 AM Prelim Date: 04/29/2022 8:17:49 AM Sign Date: 04/29/2022 8:17:49 AM Ordering Provider: [facility]07-28-2022 Note ORIGINAL EXAMINATION: 4 XRAY VIEWS OF THE BILATERAL HIPS 04/29/2022 7:35 am COMPARISON: Radiograph right hip March 06, 2018 HISTORY: ORDERING SYSTEM PROVIDED HISTORY: Reason for Exam: hip pain FINDINGS: No acute fracture or dislocation. Very mild bilateral degenerative changes at the hips bilaterally. There is bilateral greater trochanteric enthesopathy. No acute osseous abnormality. Phleboliths are seen within the pelvis. IMPRESSION: No acute osseous abnormality. Interpreted by: Beatriz Gary MD Preliminary Report By: Beatriz Gary MD Electronically signed By Beatriz Gary MD Dictated Date: 04/29/2022 8:05:39 AM Prelim Date: 04/29/2022 8:17:49 AM Sign Date: 04/29/2022 8:17:49 AM Ordering Provider: [facility]07-28-2022 Note ORIGINAL EXAMINATION: THREE XRAY VIEWS OF THE LEFT KNEE04/29/2022 7:34 am COMPARISON: None HISTORY: ORDERING SYSTEM PROVIDED HISTORY: Reason for Exam: Chronic knee pain FINDINGS: No acute fracture or dislocation is seen. Tricompartmental joint spaces are preserved. There is no significant joint effusion or degenerative changes. IMPRESSION: No acute osseous process or significant degenerative changes. I have personally reviewed the images of this examination agree with resident's findings and interpretation. Interpreted by: Saud Martinez DO Preliminary Report By: Ama Cervantes Electronically signed By Saud Martinez DO Dictated Date: 04/29/2022 8:12:02 AM Prelim Date: 04/29/2022 12:04:01 PM Sign Date: 04/29/2022 12:04:01 PM Ordering Provider: [facility]07-28-[facility]22 Note ORIGINAL EXAMINATION: THREE XRAY VIEWS OF THE RIGHT KNEE04/29/2022 7:32 am COMPARISON: X-ray right knee July 05, 2019 HISTORY: ORDERING SYSTEM PROVIDED HISTORY: Reason for Exam: knee pain FINDINGS: No fracture or dislocation. No significant joint space narrowing or degenerative changes. No significant joint effusion. IMPRESSION: No acute osseous abnormalities or significant degenerative change. I have personally reviewed the images of this examination and agree with the resident's findings and interpretation. Interpreted by: Saud Martinez DO Preliminary Report By: Chelsey Mondragon Electronically signed By Saud Martinez DO Dictated Date: 04/29/2022 8:06:24 AM Prelim Date: 04/29/2022 11:55:49 AM Sign Date: 04/29/2022 11:55:49 AM Ordering Provider: [facility]01-20-[facility] Evaluation + Plan note Future Scheduled Tests Laboratory* Thyroid Stimulating Hormone 10/22/21 * Thyroid Stimulating Hormone 05/10/22 * Free T4 05/10/22 * Lipid Profile 10/22/21 * Complete Metabolic Panel 10/22/21 Radiology* MA Mammo Screening Bilateral w/ Juan Carlos 04/07/22 * MRI Spine Cervical w/o Contrast 10/20/21 [facility] 01-20-2022 Evaluation + Plan note Future Scheduled Tests Laboratory* Thyroid Stimulating Hormone 10/22/21 * Thyroid Stimulating Hormone 05/10/22 * Free T4 05/10/22 * Lipid Profile 10/22/21 * Complete Metabolic Panel 10/22/21 Radiology* MA Mammo Screening Bilateral w/ Juan Carlos 04/07/22 * CT Head or Brain w/ + w/o Contrast 09/09/22 * MRI Spine Cervical w/o Contrast 10/20/21 [facility] 01-20-2022 Evaluation + Plan note Future Scheduled Tests Laboratory* Thyroid Stimulating Hormone 10/22/21 * Thyroid Stimulating Hormone 05/10/22 * Free T4 05/10/22 * Urine Culture 09/28/22 * Lipid Profile 10/22/21 * Complete Metabolic Panel 10/22/21 Radiology* MA Mammo Screening Bilateral w/ Juan Carlos 04/07/22 * CT Head or Brain w/ + w/o Contrast 09/09/22 [facility] Evaluation + Plan note Future Appointments Appointment Date:09/22/2021 01:30:00 PM Scheduled Provider:XANDER HERNANDEZ DPM Location:[facility] [place] Appointment Type:[facility] [employer] Appointment Date:10/20/2021 09:30:00 AM Scheduled Provider:TOSHIA MEIER Location:[facility] Appointment Type:[facility] Future Scheduled Tests Laboratory* Thyroid Stimulating Hormone 10/22/21 * Lipid Profile 10/22/21 * Complete Metabolic Panel 10/22/21 Radiology* BD Bone Density DEXA Axial Skeleton 10/31/20 [facility] Evaluation + Plan note Future Appointments Appointment Date:11/19/2021 08:30:00 AM Scheduled Provider:RUTH ANVARRO DO Location:[facility] Appointment Type:PC Office Procedure OMT Future Scheduled Tests Laboratory* Thyroid Stimulating Hormone 10/22/21 * Complete Blood Count 10/20/21 * Lipid Profile 10/22/21 * Lipid Profile 04/19/22 * Vitamin D Level 10/20/21 * Complete Metabolic Panel 10/22/21 * Complete Metabolic Panel 04/19/22 Radiology* MRI Spine Cervical w/o Contrast 10/20/21 [facility] Evaluation + Plan note Future Appointments Appointment Date:05/19/2022 07:00:00 AM Scheduled Provider:TOSHIA MEIER Location:[facility] Appointment Type:PC OV Future Scheduled Tests Laboratory* Thyroid Stimulating Hormone 10/22/21 * Complete Blood Count 10/20/21 * Lipid Profile 10/22/21 * Lipid Profile 04/19/22 * Vitamin D Level 10/20/21 * Complete Metabolic Panel 10/22/21 * Complete Metabolic Panel 04/19/22 Radiology* MA Mammo Screening Bilateral w/ Juan Carlos 04/07/22 * XR Hip Minimum 4 Views Bilateral 04/07/22 * XR Knee 3 Views Left 04/07/22 * XR Knee 3 Views Right 04/07/22 * US Soft Tissue Mass 04/07/22 * MRI Spine Cervical w/o Contrast 10/20/21 [facility] Evaluation + Plan note Future Appointments Appointment Date:05/04/2022 08:30:00 AM Scheduled Provider:NATALIE BUTLER Location: [place] Appointment Type: JULIÁN Appointment Date:05/19/2022 07:00:00 AM Scheduled Provider:TOSHIA MEIER Location:[facility] Appointment Type:PC OV Diagnostic Tests Pending * Lyme AB Early Disease 04/29/22 Future Scheduled Tests Laboratory* Thyroid Stimulating Hormone 10/22/21 * Lipid Profile 10/22/21 * Complete Metabolic Panel 10/22/21 Radiology* MA Mammo Screening Bilateral w/ Jua Ncarlos 04/07/22 * MRI Spine Cervical w/o Contrast 10/20/21 [facility] Evaluation + Plan note Future Appointments Appointment Date:05/19/2022 07:00:00 AM Scheduled Provider:TOSHIA MEIER Location:[facility] Appointment Type:PC OV Future Scheduled Tests Laboratory* Thyroid Stimulating Hormone 10/22/21 * Thyroid Stimulating Hormone 05/10/22 * Free T4 05/10/22 * Lipid Profile 10/22/21 * Complete Metabolic Panel 10/22/21 Radiology* MA Mammo Screening Bilateral w/ Juan Carlos 04/07/22 * MRI Spine Cervical w/o Contrast 10/20/21 [facility] Evaluation + Plan note Future Appointments Appointment Date:06/29/2022 08:00:00 AM Scheduled Provider: Location:[facility] Appointment Type:zzPT Treatment - [place]/O Future Scheduled Tests Laboratory* Thyroid Stimulating Hormone 10/22/21 * Thyroid Stimulating Hormone 05/10/22 * Free T4 05/10/22 * Lipid Profile 10/22/21 * Complete Metabolic Panel 10/22/21 Radiology* MA Mammo Screening Bilateral w/ Juan Carlos 04/07/22 * MRI Spine Cervical w/o Contrast 10/20/21 [facility] Evaluation + Plan note Future Appointments Appointment Date:08/16/2022 07:30:00 AM Scheduled Provider:TOSHIA MEIER Location:[facility] Appointment Type:PC OV Future Scheduled Tests Laboratory* Thyroid Stimulating Hormone 10/22/21 * Thyroid Stimulating Hormone 05/10/22 * Free T4 05/10/22 * Lipid Profile 10/22/21 * Complete Metabolic Panel 10/22/21 Radiology* MA Mammo Screening Bilateral w/ Juan Carlos 04/07/22 * MRI Spine Cervical w/o Contrast 10/20/21 [facility] Evaluation + Plan note Future Appointments Appointment Date:08/15/2023 07:30:00 AM Scheduled Provider:ALLAN MYERS PA-C Location:[facility] [place] Appointment Type:PC OV Future Scheduled Tests Laboratory* Urine Culture 09/28/22 Radiology* CT Head or Brain w/ + w/o Contrast 09/09/22 [facility] Evaluation + Plan note Future Appointments Appointment Date:01/31/2024 08:00:00 AM Scheduled Provider:TOSHIA MEIER Location:[facility] Appointment Type:PC OV Follow Up Appointment Date:02/10/2024 02:00:00 PM Scheduled Provider: Location:[facility] Appointment Type:PM EMG/NCV 1 Extremity [facility] Evaluation + Plan note Future Appointments Appointment Date:02/28/2024 08:00:00 AM Scheduled Provider:TOSHIA MEIER Location:[facility] Appointment Type:PC OV Follow Up [facility] Pain Management Evaluation + Plan note Future Appointments Appointment Date:07/17/2025 08:00:00 AM Scheduled Provider:TOSHIA MEIER Location:[facility] Appointment Type:PC OV Lab Check Future Scheduled Tests Laboratory* TSH with Reflex to FT4 06/11/25 * Basic Metabolic Panel 06/11/25 * Lipid Profile 06/18/25 * Vitamin D Level 06/18/25 * Complete Metabolic Panel 06/18/25 Radiology* NM Myocardial Spect Rest/Stress 07/10/24 * XR Abdomen AP 08/20/24 [facility] Evaluation note* Diagnosis Chronic bilateral low back pain, unspecified whether sciatica present- Primary [facility] Diagnosis Chronic pain syndrome- Primary Disturbance of skin sensation [facility] Diagnosis Internal derangement of right knee- Primary Unspecified internal derangement of knee Internal derangement of left knee Unspecified internal derangement of knee [facility] Diagnosis Pain in right arm- Primary Disturbance of skin sensation Pain in right leg Paresthesia of skin Disturbance of skin sensation [facility] Diagnosis Internal derangement of right knee Unspecified internal derangement of knee [facility]* Diagnosis Primary osteoarthritis of right knee- Primary Primary localized osteoarthrosis, lower leg Complex tear of medial meniscus of right knee as current injury, initial encounter [facility]* Diagnosis Paresthesias- Primary Disturbance of skin sensation [facility]* Diagnosis Recurrent UTI- Primary Urinary tract infection, site not specified Overactive bladder Hypertonicity of bladder documented in this encounter [facility] note* Diagnosis Recurrent UTI Urinary tract infection, site not specified documented in this encounter [facility] note* Diagnosis Recurrent UTI- Primary Urinary tract infection, site not specified Overactive bladder Hypertonicity of bladder documented in this encounter [facility] note* Diagnosis Lipedema- Primary Venous insufficiency Unspecified venous (peripheral) insufficiency documented in this encounter [facility] note* Diagnosis Lipedema- Primary Venous insufficiency Unspecified venous (peripheral) insufficiency Bilateral leg edema Edema Bilateral leg pain Pain in soft tissues of limb documented in this encounter [facility] note* Diagnosis Lipedema Venous insufficiency Unspecified venous (peripheral) insufficiency Bilateral leg edema Edema Bilateral leg pain Pain in soft tissues of limb documented in this encounter [facility] note* Diagnosis Gastroesophageal reflux disease, unspecified whether esophagitis present- Primary Change in bowel habits Other symptoms involving digestive system documented in this encounter [facility] note* Diagnosis Neuritis- Primary Unspecified neuralgia, neuritis, and radiculitis Acute left ankle pain documented in this encounter [facility] note* Diagnosis Change in bowel habits- Primary Other symptoms involving digestive system documented in this encounter [facility] note* Diagnosis Gastroesophageal reflux disease, unspecified whether esophagitis present- Primary documented in this encounter [facility] note* Diagnosis Gastroesophageal reflux disease, unspecified whether esophagitis present Change in bowel habits Other symptoms involving digestive system Asthma, unspecified asthma severity, unspecified whether complicated, unspecified whether persistent BMI 45.0-49.9, adult (HCC) Body Mass Index 45.0-49.9, adult Preop testing Preoperative examination, unspecified Elevated blood-pressure reading without diagnosis of hypertension Elevated blood pressure reading without diagnosis of hypertension * Assessment & Plan Note - Edin Camacho APRN.CNP - 02/03/2024 10:54 AM EDT Associated Problem(s): Elevated blood-pressure reading without diagnosis of hypertension BP today 155/93 Pt asymptomatic * Assessment & Plan Note - Edin Camacho APRN.CNP - 02/03/2024 10:24 AM EDT Associated Problem(s): Preop testing medical conditions which may affect the bang-operative course were addressed in the visit today. * Assessment & Plan Note - Edin Camacho APRN.CNP - 02/03/2024 10:23 AM EDT Associated Problem(s): BMI 45.0-49.9, adult ([facility]) Pt denies JOSIE * Assessment & Plan Note - Edin Camacho APRN.CNP - 02/03/2024 10:22 AM EDT Associated Problem(s): Asthma Ventolin prn- pt uses this "1-2x per week" Pt denies c/o SOB, wheezing or cough today * Assessment & Plan Note - Edin Camacho APRN.CNP - 02/03/2024 10:22 AM EDT Associated Problem(s): Gastroesophageal reflux disease Controlled with Nexium [facility] Diagnosis Generalized abdominal pain- Primary Abdominal pain, generalized [facility] Diagnosis Generalized abdominal pain- Primary Abdominal pain, generalized Helicobacter pylori infection Helicobacter pylori (H. pylori) BMI 45.0-49.9, adult (HCC) Body Mass Index 45.0-49.9, adult [facility]* Diagnosis Generalized abdominal pain Abdominal pain, generalized documented [facility] noteNo assessment information availableWParkwood Hospital Work Phone: Hospital course Narrative No data available for this section [facility] Hospital Discharge instructions No data available for this section [facility] Note* HERMILO BOYD MD: SIGN, VERIFY Event Display: VL Venous Insufficiency 2 Legs(Outpt)[facility] Progress note No data available for this section [facility] Reason for referral (narrative)* Outpatient Procedure (Routine) - Pending Review Specialty Diagnoses / Procedures Referred By Contac t Referred To Contact [facility] Diagnoses Disturbance of skin sensation Procedures EMG(NEURO/NI) NERVE CONDUCTION STUDIES 9-10 STUDIES Bernabe Foote MD [address] [facility] [place] [address] [place] [address] Referral ID Status Reason Start Date Expiration Date Visits Requested Visits Authorized [id number] Pending Review Auto-Generat ed Referral 08/11/2022 08/11/2023 1 1 * Consult, Test, Treat (Routine) - Pending Review Specialty Diagnoses / Procedures Referred By Contac t Referred To Contact [facility] Diagnoses Chronic pain syndrome Procedures CONSULT TO [facility] ([facility]) OFFICE/[facility] MDM 60-74 MINUTES Bernabe Foote MD [address] [facility] [place] [address] Referral ID Status Reason Start Date Expiration Date Visits Requested Visits Authorized [id number] Pending Review PCP Requested Referral 08/11/2022 08/11/2023 1 1 [facility] Diagnostic Procedure Only (Routine) - Authorized Specialty Diagnoses / Procedures Referred By Contac t Referred To Contact US IMAGING Diagnoses Recurrent UTI Procedures US KIDNEY/BLADDER US RETROPERITONEAL REAL TIME W/IMAGE COMPLETE Livier Conway PA-C [address], [place] [address] Us Imaging Referral ID Status Reason Start Date Expiration Date Visits Requested Visits Authorized [id number] Authorized Auto-Generat ed Referral 11/09/2022 12/09/[address] [facility] for referral (narrative)* Diagnostic Procedure Only (Routine) - Closed Specialty Diagnoses / Procedures Referred By Contac t Referred To Contact US IMAGING Diagnoses Recurrent UTI Procedures US KIDNEY/BLADDER US RETROPERITONEAL REAL TIME W/IMAGE COMPLETE Livier Conway PA-C [address], [place] [address] Us Imaging Referral ID Status Reason Start Date Expiration Date V isits Requested Visits Authorized [id number] Closed Auto-Generate d Referral 11/09/2022 12/09/[address] [facility] for referral (narrative)* Outpatient Procedure (Routine) - Authorized Specialty Diagnoses / [facility] Diagnoses Change in bowel habits Procedures COLONOSCOPY DIAGNOSTIC COLONOSCOPY FLX DX W/COLLJ SPEC WHEN PFRMD Brannon Garcia MD [address] [employer] [address] [place] [id number] [facility] [address] [place] [address] Referral ID Status Reason Start Date Expiration Date Visits Requested Visits Authorized [id number] Authorized Auto-Generat ed Referral 02/03/2024 01/17/[address] [facility] for referral (narrative)* Outpatient Procedure (Routine) - Authorized Specialty Diagnoses / [facility] Diagnoses Gastroesophageal reflux disease, unspecified whether esophagitis present Procedures EGD DIAGNOSTIC ESOPHAGOGASTRODUODENOSC OPY TRANSORAL DIAGNOSTIC Brannon Garcia MD [address] [employer] [address] [place] [address] [facility] [place] [address] Referral ID Status Reason Start Date Expiration Date Visits Requested Visits Authorized [id number] Authorized Auto-Generat ed Referral 02/03/2024 01/17/2025 1 1 [facility] ([facility]ative)No reason for referral information availableWParkwood Hospital Work Phone: Reason for visit Narrative* Diagnostic Procedure Only (Routine) - Closed Specialty Diagnoses / Procedures Referred By Contac t Referred To Contact US IMAGING Diagnoses Recurrent UTI Procedures US KIDNEY/BLADDER US RETROPERITONEAL REAL TIME W/IMAGE COMPLETE Livier Conway PA-C [address] [place] [address] Us Imaging Referral ID Status Reason Start Date Expiration Date V isits Requested Visits Authorized [id number] Closed Auto-Generate d Referral 11/09/2022 12/09/2023 1 1 [facility] N[facility]* Outpatient Procedure (Routine) - Closed Specialty Diagnoses / Procedures Referred By Contac t Referred To Contact [facility] Diagnoses Change in bowel habits Procedures COLONOSCOPY DIAGNOSTIC COLONOSCOPY FLX DX W/COLLJ SPEC WHEN PFRMD Radha, Brannon Hernandez MD [address] [address] [facility] [address] [place] [address] Referral ID Status Reason Start Date Expiration Date V isits Requested Visits Authorized [id number] Closed Auto-Generate d Referral 02/03/2024 01/17/2025 1 1 [facility] Summary Purpose Family History No Family History Records Found No data available for this section No Family History Records Found No data available for this section No Family History Records Found No data available for this section No Family History Records Found No data available for this section No Family History Records FoundNo Family History Records FoundNo Family History Records Found No data available for this section No Family History Records Found No data available for this section No data available for this section No Family History Records FoundNo Family History Records FoundNo Family History Records Found Advance Directives No Advanced Directives Records FoundNo Advanced Directives Records FoundNo Advanced Directives Records FoundNo Advanced Directives Records FoundNo Advanced Directives Records FoundNo Advanced Directives Records FoundNo Advanced Directives Records FoundNo Advanced Directives Records FoundNo Advanced Directives Records FoundNo Advanced Directives Records FoundNo Advanced Directives Records Found Reason for Referral Specialty Diagnoses / Procedures Referred By Contac t Referred To Contact CT IMAGING Diagnoses Generalized abdominal pain Procedures CT ABD/PEL WO IVCON CT ABD & PELVIS W/O CONTRAST Brannon Garcia MD [address] [place] [address] [place] [address] Referral ID Status Reason Start Date Expiration Date Visits Requested Visits Authorized [id number] Authorized Auto-Generat ed Referral 02/06/2024 10/02/2024 1 1 Specialty Diagnoses / Procedures Referred By Contac t Referred To Contact Cardiology Diagnoses Lipedema Venous insufficiency Bilateral leg edema Bilateral leg pain Procedures Vascular US lower extremity venous insufficiency bilateral Lidia Blanca, SORT WORKER - VINYL DIPPER [address] [facility] [address] [place] [address] Referral ID Status Reason Start Date Expiration Date Visits Requested Visits Authorized [id number] Pending Review Perform Procedure 03/10/2023 09/06/2023 1 1 Specialty Diagnoses / Procedures Referred By Contac t Referred To Contact Cardiology Diagnoses Venous insufficiency Procedures Vascular US lower extremity venous insufficiency bilateral Lidia Blanca, SORT WORKER - VINYL DIPPER [address] [facility] [address] [place] [address] Referral ID Status Reason Start Date Expiration Date Visits Requested Visits Authorized [id number] Pending Review Perform Procedure 03/09/2023 09/05/2023 1 1 Specialty Diagnoses / Procedures Referred By Contac t Referred To Contact MR IMAGING Diagnoses Internal derangement of right knee Procedures MRI KNEE WO IVCON RT MRI ANY JT LOWER EXTREM W/O CONTRAST Eugenio Vizcarra MD [address] [place] [address] Mr Imaging Referral ID Status Reason Start Date Expiration Date Visits Requested Visits Authorized [id number] Authorized Auto-Generat ed Referral 2 09/18/2023 1 1 Specialty Diagnoses / Procedures Referred By Contac t Referred To Contact XR IMAGING Diagnoses Internal derangement of left knee Procedures XR KNEE POST OP 3V AP/LAT/MERCARMANDOT LEFT RADIOLOGIC EXAMINATION KNEE 3 VIEWS Eugenio Wilson MD [address] [place] [address] Xr Imaging Referral ID Status Reason Start Date Expiration Date Visits Requested Visits Authorized [id number] Pending Review Auto-Generat ed Referral 2 09/18/2023 1 1 Medications Administered Section Inactive Administered Medications - up to 3 most recent administrations Medication Order MAR Action Action Date Dose Rate Site lidocaine (PF) 10 mg/mL (1 %) 5 mL injection (XYLOCAINE) 5 mL, Injection - FOR ORTHO USE ONLY, ONE TIME INJECTION, 1 dose, Starting on Chantel 09/16/22 at 1402, Until Chantel 09/16/22 at 1402 Given 09/16/2022 2:02 PM EST 5 mL Knee, Right triamcinolone acetonide 80 mg injection (KeNALog 40) 80 mg, Injection - FOR ORTHO USE ONLY, ONE TIME INJECTION, 1 dose, Starting on Chantel 09/16/22 at 1402, Until Chantel 09/16/22 at 1402 Given 09/16/2022 2:02 PM EST 80 mg Knee, Right Chief Complaint and Reason for Visit Chief Complaint Admit Date Other chronic sinusitis May 02, 2025 7:47am CHRONIC SINUSITIS May 09, 2025 3:2 4pm Additional Source Comments INFORMATION SOURCE (unrecogn ized section and content) DATE CREATED AUTHOR 10/23/2018 [facility] DATE CREATED AUTHOR AUTHOR'S ORGANIZ ATION 01/04/2024 [facility] [place] [employer] DATE CREATED AUTHOR AUTHOR'S ORGANIZ ATION 02/10/2024 [facility] DATE CREATED AUTHOR AUTHOR'S ORGANIZ ATION 02/13/2024 [facility] DATE CREATED AUTHOR AUTHOR'S ORGANIZ ATION 08/25/2024 [facility] DATE CREATED AUTHOR AUTHOR'S ORGANIZ ATION 04/07/2025 [facility] DATE CREATED AUTHOR AUTHOR'S ORGANIZ ATION 06/16/2025 HAR[facility] MASSILLO N DATE CREATED AUTHOR AUTHOR'S ORGANIZ ATION 07/10/2025 [facility] DATE CREATED AUTHOR AUTHOR'S ORGANIZ ATION 08/04/2025 [facility] DATE CREATED AUTHOR AUTHOR'S ORGANIZ ATION 08/12/2025 [facility] DATE CREATED AUTHOR AUTHOR'S ORGANIZ ATION 08/13/2025 [facility] Care Team (unrecognized sect ion and content) Care Team Personnel Name: Jignesh Carlos Clerk Martha PT Position: P3 Scheduling - Control Room Supervisor Advanced Member Role: Other Name: TOSHIA MEIER APRN-VINYL DIPPER Position: P4 Advanced Practice Nurse Med Service: Active Provider Member Role: Primary Care Physician Address: Address: [address] [place] [address]- Care Team Related Persons Name: TAMMY SLAUGHTER Address: Home [address] [place] [phone] [place] Care Team Personnel Name: Jignesh Carlos Clerk Martha PT Position: P3 Scheduling - Control Room Supervisor Advanced Member Role: Other Name: TOSHIA MEIER APRN-VINYL DIPPER Position: P4 Advanced Practice Nurse Med Service: Active Provider Member Role: Primary Care Physician Address: Address: [address] [place] [address] Care Team Related Persons Name: TAMMY SLAUGHTER Address: Home [address] [place] [phone] [place] Care Team Personnel Name: Jignesh Carlos Clerk Martha PT Position: P3 Scheduling - Control Room Supervisor Advanced Member Role: Other Name: TOSHIA MEIER APRN-VINYL DIPPER Position: P4 Advanced Practice Nurse Med Service: Active Provider Member Role: Primary Care Physician Address: Address: [address] [place] [address]- Care Team Related Persons Name: TAMMY SLAUGHTER Address: Home [address] [place] [phone] [place] Care Team Personnel Name: Jignesh Carlos Clerk Martha PT Position: P3 Scheduling - Control Room Supervisor Advanced Member Role: Other Name: TOSHIA MEIER APRN-VINYL DIPPER Position: P4 Advanced Practice Nurse Med Service: Active Provider Member Role: Primary Care Physician Address: Address: [address] [place] [id number]- Care Team Related Persons Name: TAMMY SLAUGHTER Address: Home [address] [place], [place] [phone] [place] Care Team Personnel Name: Terrance Yarn Examiner Skeins Martha PT Position: P3 Scheduling - Control Room Supervisor Advanced Member Role: Other Name: TOSHIA MEIER APRN-VINYL DIPPER Position: P4 Advanced Practice Nurse Med Service: Active Provider Member Role: Primary Care Physician Address: Address: [address] [place] [address]- Care Team Related Persons Name: TAMMY SLAUGHTER Address: Home [address] [place], [place] [phone] [place] Care Team Personnel Name: Terrance Yarn Examiner Skeins Martha PT Position: P3 Scheduling - Control Room Supervisor Advanced Member Role: Other Name: TOSHIA MEIER APRN-VINYL DIPPER Position: P4 Advanced Practice Nurse Member Role: Primary Care Physician Address: Address: [address] [place] [address]- Care Team Related Persons Name: TAMMY SLAUGHTER Address: Home [address] [place], [place] [phone] [place] Care Team Personnel Name: Terrance Yarn Examiner Skeins Martha PT Position: P3 Scheduling - Control Room Supervisor Advanced Member Role: Other Name: TOSHIA MEIER APRN-VINYL DIPPER Position: P4 Advanced Practice Nurse Member Role: Primary Care Physician Address: Address: [address] [id number]- Care Team Related Persons Name: TAMMY SLAUGHTER Address: Home [address] [place], [place] [phone] [place] Care Team Personnel Name: Terrance Yarn Examiner Skeins Martha PT Position: P3 Scheduling - Control Room Supervisor Advanced Member Role: Other Name: TOSHIA MEIER APRN-VINYL DIPPER Position: P4 Advanced Practice Nurse Member Role: Primary Care Physician Address: Address: [address] [place] [address]- Care Team Related Persons Name: TAMMY SLAUGHTER Address: Home [address] [place], [place] [phone] [place] Source Comments (unrecognize d section and content) In the event this informatio n is protected by the Federal Confidentiality of Alcohol and Drug Abuse Patient Records regulations: The Federal rules restrict any use of the information to criminally investigate or prosecute any alcohol or drug abuse patient.[facility] the event this information is protected by the Federal Confidentiality of Alcohol and Drug Abuse Patient Records regulations: The Federal rules restrict any use of the information to criminally investigate or prosecute any alcohol or drug abuse patient.[facility] Hospital[facility] the event this information is protected by the Federal Confidentiality of Alcohol and Drug Abuse Patient Records regulations: The Federal rules restrict any use of the information to criminally investigate or prosecute any alcohol or drug abuse patient.[facility] HospitalIn the event this information is protected by the Federal Confidentiality of Alcohol and Drug Abuse Patient Records regulations: The Federal rules restrict any use of the information to criminally investigate or prosecute any alcohol or drug abuse patient.[facility] HospitalIn the event this information is protected by the Federal Confidentiality of Alcohol and Drug Abuse Patient Records regulations: The Federal rules restrict any use of the information to criminally investigate or prosecute any alcohol or drug abuse patient.[facility] HospitalIn the event this information is protected by the Federal Confidentiality of Alcohol and Drug Abuse Patient Records regulations: The Federal rules restrict any use of the information to criminally investigate or prosecute any alcohol or drug abuse patient.[facility] HospitalIn the event this information is protected by the Federal Confidentiality of Alcohol and Drug Abuse Patient Records regulations: The Federal rules restrict any use of the information to criminally investigate or prosecute any alcohol or drug abuse patient.[facility] HospitalIn the event this information is protected by the Federal Confidentiality of Alcohol and Drug Abuse Patient Records regulations: The Federal rules restrict any use of the information to criminally investigate or prosecute any alcohol or drug abuse patient.[facility] HospitalIn the event this information is protected by the Federal Confidentiality of Alcohol and Drug Abuse Patient Records regulations: The Federal rules restrict any use of the information to criminally investigate or prosecute any alcohol or drug abuse patient.[facility] HospitalIn the event this information is protected by the Federal Confidentiality of Alcohol and Drug Abuse Patient Records regulations: The Federal rules restrict any use of the information to criminally investigate or prosecute any alcohol or drug abuse patient.[facility] HospitalIn the event this information is protected by the Federal Confidentiality of Alcohol and Drug Abuse Patient Records regulations: The Federal rules restrict any use of the information to criminally investigate or prosecute any alcohol or drug abuse patient.[facility] HospitalIn the event this information is protected by the Federal Confidentiality of Alcohol and Drug Abuse Patient Records regulations: The Federal rules restrict any use of the information to criminally investigate or prosecute any alcohol or drug abuse patient.[facility] HospitalIn the event this information is protected by the Federal Confidentiality of Alcohol and Drug Abuse Patient Records regulations: The Federal rules restrict any use of the information to criminally investigate or prosecute any alcohol or drug abuse patient.[facility] HospitalIn the event this information is protected by the Federal Confidentiality of Alcohol and Drug Abuse Patient Records regulations: The Federal rules restrict any use of the information to criminally investigate or prosecute any alcohol or drug abuse patient.[facility] HospitalIn the event this information is protected by the Federal Confidentiality of Alcohol and Drug Abuse Patient Records regulations: The Federal rules restrict any use of the information to criminally investigate or prosecute any alcohol or drug abuse patient.[facility] HospitalIn the event this information is protected by the Federal Confidentiality of Alcohol and Drug Abuse Patient Records regulations: The Federal rules restrict any use of the information to criminally investigate or prosecute any alcohol or drug abuse patient.[facility] HospitalIn the event this information is protected by the Federal Confidentiality of Alcohol and Drug Abuse Patient Records regulations: The Federal rules restrict any use of the information to criminally investigate or prosecute any alcohol or drug abuse patient.[facility] HospitalIn the event this information is protected by the Federal Confidentiality of Alcohol and Drug Abuse Patient Records regulations: The Federal rules restrict any use of the information to criminally investigate or prosecute any alcohol or drug abuse patient.[facility] HospitalIn the event this information is protected by the Federal Confidentiality of Alcohol and Drug Abuse Patient Records regulations: The Federal rules restrict any use of the information to criminally investigate or prosecute any alcohol or drug abuse patient.[facility] HospitalIn the event this information is protected by the Federal Confidentiality of Alcohol and Drug Abuse Patient Records regulations: The Federal rules restrict any use of the information to criminally investigate or prosecute any alcohol or drug abuse patient.[facility] HospitalIn the event this information is protected by the Federal Confidentiality of Alcohol and Drug Abuse Patient Records regulations: The Federal rules restrict any use of the information to criminally investigate or prosecute any alcohol or drug abuse patient.[facility] Care Teams (unrecognized sec tion and content) Medical Writer Relationship Specialty Start Date End Date Toshia Meier CNP [address] [place] [address] PCP - General Family Medicine 07/31/18 Medical Writer Relationship Specialty Start Date End Date Toshia Meier CNP [address] [place] [address] PCP - General Family Medicine 07/31/18 Medical Writer Relationship Specialty Start Date End Date Toshia Meier CNP [address] [place] [address] PCP - General Family Medicine 07/31/18 Medical Writer Relationship Specialty Start Date End Date Toshia Meier CNP [address] [place] [address] PCP - General Family Medicine 07/31/18 Medical Writer Relationship Specialty Start Date End Date Toshia Meier CNP [address] [place] [address] PCP - General Family Medicine 07/31/18 Medical Writer Relationship Specialty Start Date End Date Toshia Meier CNP [address] [place] [address] PCP - General Family Medicine 07/31/18 Medical Writer Relationship Specialty Start Date End Date Toshia Meier CNP [address] [place] [address] PCP - General Family Medicine 07/31/18 Medical Writer Relationship Specialty Start Date End Date Toshia Meier CNP [address] [place] [address] PCP - General Family Medicine 07/31/18 Medical Writer Relationship Specialty Start Date End Date Toshia Meier CNP [address] [place] [address] PCP - General Family Medicine 07/31/18 Medical Writer Relationship Specialty Start Date End Date Toshia Meier CNP [address] [place] [address] PCP - General Family Medicine 07/31/18 Medical Writer Relationship Specialty Start Date End Date Toshia Meier CNP [address] [place] [address] PCP - General Family Medicine 07/31/18 Medical Writer Relationship Specialty Start Date End Date Toshia Meier CNP [address] [place] [address] PCP - General Family Medicine 07/31/18 Medical Writer Relationship Specialty Start Date End Date Suzette Barrera [address] [place] [address], [address] [place] [address] PCP - General 07/03/15 Medical Writer Relationship Specialty Start Date End Date Tangelajanelle Toshia [address] [place] [address] PCP - General Nurse Practitioner Family 02/16/23 Lidia Blanca APRN - VINYL DIPPER [address] [place] [address] [place] [phone] Nurse Practitioner Nurse Practitioner 03/09/23 Medical Writer Relationship Specialty Start Date End Date Toshia Meier [address] [place] [phone] PCP - General Nurse Practitioner Family 02/16/23 Lidia Blanca APRN - VINYL DIPPER [address] [place] [phone] Nurse Practitioner Nurse Practitioner 03/09/23 Medical Writer Relationship Specialty Start Date End Date Tangelajanelle Toshia [address] [place] [address] PCP - General Nurse Practitioner Family 02/16/23 Lidia Blanca APRN - VINYL DIPPER [address] [place] [address] [place] [phone] Nurse Practitioner Nurse Practitioner 03/09/23 Medical Writer Relationship Specialty Start Date End Date Toshia Meier [address] [place] [phone] PCP - General Nurse Practitioner Family 02/16/23 Lidia Blanca APRN - VINYL DIPPER [address] [facility] [address] [place] [phone] Nurse Practitioner Nurse Practitioner 03/09/23 Medical Writer Relationship Specialty Start Date End Date Toshia Meier CNP [address] [place] [phone] PCP - General Family Medicine 07/31/18 Medical Writer Relationship Specialty Start Date End Date Toshia Meier [address] [place] [address] PCP - General Nurse Practitioner Family 02/16/23 Lidia Blanca APRN - VINYL DIPPER [address] [place] [phone] Nurse Practitioner Nurse Practitioner 03/09/23 Medical Writer Relationship Specialty Start Date End Date Toshia Meier CNP [address] [place] [phone] PCP - General Family Medicine 07/31/18 Medical Writer Relationship Specialty Start Date End Date Toshia Meier CNP [address] [place] [phone] PCP - General Family Medicine 07/31/18 Medical Writer Relationship Specialty Start Date End Date Toshia Meier CNP [address] [place] [phone] PCP - General Family Medicine 07/31/18 Medical Writer Relationship Specialty Start Date End Date Toshia Meier CNP [address] [place] [phone] PCP - General Family Medicine 07/31/18 Medical Writer Relationship Specialty Start Date End Date Toshia Meier CNP [address] [place] [address] PCP - General Family Medicine 07/31/18 Medical Writer Relationship Specialty Start Date End Date Toshia Meier CNP [address] [place] [phone] PCP - General Family Medicine 07/31/18 Medical Writer Relationship Specialty Start Date End Date Toshia Meier CNP [address] [place] [phone] PCP - General Family Medicine 07/31/18 Team Status: Active Member Role/Relationship Status Dates Toshia Meier METAL HANGING SUPERVISOR, METAL HANGING SUPERVISOR-C Primary Care Provider Active Team Status: Inactive Member Role/Relationship Status Dates Toshia Meier NP, METAL HANGING SUPERVISOR-C Primary Care Provider Active Start: May 02, 2025 End: May 02, 2025 Dr. Ferny Rahman MD Attending Provider Activ e Start: May 02, 2025 End: May 02, 2025 Dr. Ferny Rahman MD Referring Provider Activ e Start: May 02, 2025 End: May 02, 2025 Team Status: Active Member Role/Relationship Status Dates Toshia Meier NP, METAL HANGING SUPERVISOR-C Primary Care Provider Active Start: May 09, 2025 Dr. Ferny Rahman MD Attending Provider Activ e Start: May 09, 2025 Dr. Ferny Rahman MD Referring Provider Activ e Start: May 09, 2025 Team Status: Inactive Member Role/Relationship Status Dates Toshia Meier NP, METAL HANGING SUPERVISOR-C Primary Care Provider Active Start: May 09, 2025 End: May 09, 2025 Dr. Ferny Rahman MD Attending Provider Activ e Start: May 09, 2025 End: May 09, 2025 Dr. Ferny Rahman MD Referring Provider Activ e Start: May 09, 2025 End: May 09, 2025 Reason for Visit (unrecogniz ed section and content) Reason Comments New Patient Reason Comments New Reason Onset Date Comments EMG 09/03/2022 Specialty Diagnoses / Procedures Referred By Contac t Referred To Contact [facility] Diagnoses Disturbance of skin sensation Procedures EMG(NEURO/NI) NERVE CONDUCTION STUDIES 9-10 STUDIES Bernabe Foote MD [address] [facility] [address] [place] [address] Neurological [place] [address] [place] [address] Referral ID Status Reason Start Date Expiration Date V isits Requested Visits Authorized [id number] Closed Auto-Generate d Referral 08/11/2022 08/11/2023 1 1 Specialty Diagnoses / Procedures Referred By Contac t Referred To Contact MR IMAGING Diagnoses Internal derangement of right knee Procedures MRI KNEE WO IVCON RT MRI ANY JT LOWER EXTREM W/O CONTRAST Eugenio Vizcarra MD [address] [place] [address] Mr Imaging Referral ID Status Reason Start Date Expiration Date V isits Requested Visits Authorized [id number] Closed Auto-Generate d Referral 08/19/2022 09/18/2023 1 1 Reason Comments Follow Up Knee Pain MRI Report Reason Comments UTI Reason Comments Results Blood work & patient summary. Reason Comments UTI Reason Onset Date Comments Referral 02/11/2023 Reason Comments New Patient (ref Toshia Meier SORT WORKER-VINYL DIPPER) METAL HANGING SUPERVISOR eval for edema; Venous DUP RAGHAVENDRA LE 02/08/23 Reason Onset Date Comments Test Scheduling 03/10/2023 Specialty Diagnoses / Procedures Referred By Contac t Referred To Contact Cardiology Diagnoses Lipedema Venous insufficiency Bilateral leg edema Bilateral leg pain Procedures Vascular US lower extremity venous insufficiency bilateral Lidia Blanca, SORT WORKER - VINYL DIPPER [address] [facility] [address] [place] [address] Referral ID Status Reason Start Date Expiration Date Visits Requested Visits Authorized [id number] Pending Review Perform Procedure 03/10/2023 09/06/2023 1 1 Reason Comments New Patient Pt requesting EGD/Co lonoscopy Reason Comments Ankle Pain Left Reason Comments Patient Update Reason Comments Established Patient Abdominal pain Specialty Diagnoses / Procedures Referred By Contac t Referred To Contact CT IMAGING Diagnoses Generalized abdominal pain Procedures CT ABD/PEL WO IVCON CT ABD & PELVIS W/O CONTRAST Papouras, Brannon David, MD [address] [place] [address] [place] [address] Referral ID Status Reason Start Date Expiration Date V isits Requested Visits Authorized [id number] Closed Auto-Generate d Referral 02/06/2024 10/02/2024 1 1 Reason Comments Appointment Cancelled Pt call to cancel follow-up Reason Comments Patient Question Re: follow-up after H. Pylori Goals (unrecognized section and content) Goals may be documented in a n alternate section FOR RECORDS PERTAINING TO PATIENTS WHO ARE OR HAVE BEEN ENROLLED IN A CHEMICAL DEPENDENCY/SUBSTANCEABUSE PROGRAM, SOME INFORMATION MAY BE OMITTED. This clinical summary was aggregated from multiple sources. Caution should be exercised in using it in the provision of clinical care. This summary normalizes information from multiple sources, and as a consequence, information in this document may materially change the coding, format and clinical context of patient data. In addition, data may be omitted in some cases. CLINICAL DECISIONS SHOULD BE BASED ON THE PRIMARY CLINICAL RECORDS. [employer] provides no warranty or guarantee of the accuracy or completeness of information in this document.
--- NOTE | 2025-08-13 12:15 | ETH_PTH ---
PATIENT: VINCE SLAUGHTER [place] [facility] [place][id number] AGE/SX: 60/F ROOM: RE08/13/[address]: Dr. Ferny Rahman MD : 1965 BED: DIS: 08/13/2025 SPEC #: [id number] RECD: 08/13/25 14:22 STATUS: KARAN REGinny #: [id number] JEFF: 08/13/25 12:[address]: Ferny Rahman DEPT: SURGICAL PATHOLOGY RECD BY: Cuba Meehan ENTERED: 08/13/25 15:05 SP TYPE: ETH TISS OTHR DR: Toshia Meier, JULIÁN-Parker Tissues: A - Ethmoid sinus, NOS B - Ethmoid sinus, NOS Procedures: Decalcification bone/plaque Surgery Specimen Level IV HEADER OPERATION: Functional endoscopic sinus surgery, navigation PRE-OP DIAGNOSIS: Chronic pansinusitis TISSUE SUBMITTED: A- Right sinus contents, B- Left sinus contents MICROSCOPIC DIAGNOSIS A. Right sinus contents, functional endoscopic sinus surgery: - Sinonasal mucosa with active chronic inflammation. - Trabecular bone with reactive changes. B. Left sinus contents, functional endoscopic sinus surgery: - Sinonasal mucosa with active chronic inflammation. - Trabecular bone with reactive changes. MICROSCOPIC DESCRIPTION Slides are reviewed. GROSS DESCRIPTION Received in 2 formalin containers labeled with the patient's name and date of . Designated as: A. Right sinus contents" is a 3.0 x 1.2 x 0.6 cm schneider-pink, somewhat granular polypoid portion of tissue with attached apparent bone and admixed 2.4 x 0.6 x 0.1 cm aggregate of pink-red tissue fragments. Entirely submitted in 3 cassettes as follows: A1: Tissue fragmentsA2-A3: Polypoid tissue fragment, following brief decalcification B. "Left sinus contents" is a 2.3 x 1.0 x 0.5 cm schneider-pink, somewhat granular polypoid portion of tissue with attached apparent bone. The specimen is entirely submitted in 2 cassettes, following brief decalcification. CA 08/13/2025 CPT:23769o4,63568a5
--- NOTE | 2025-08-13 12:37 | PCM.DC ---
Discharge Instructions DC O2, CPAP, BIPAP needs Home O2 Discharge instructions: No Dressing / Incision Discharge Activity: Return to Normal Activity Dressing / Incision Call your doctor if your incision/area has: Sudden Increased Bleeding and Foul Smelling Discharge Additional Dressing/Incision Instructions:: nasal saline to both nostrils 5-6 times daily. Follow Up Care Please Follow Up With: Ferny Rahman MD When: 1 week Test Results: Test results from this visit will be discussed in further detail at your follow-up appointment, if applicable. Discharge Plan Admission Attending Provider: Ferny Rahman Primary Care Provider: Toshia Meier NP Instructions Print Language: Kyrgyz Discharge Orders/Prescriptions Prescriptions: No Action cholecalciferol (vitamin D3) 1,250 mcg (50,000 unit) capsule 1,250 mcg PO .Q2WEEK Patient Comments: EVERY OTHER WEEK, MORNING esomeprazole magnesium 40 mg capsule,delayed release(DR/EC) 40 mg PO DAILY PRN (Reason: GERD) meclizine 25 mg tablet 25 mg PO TID PRN PRN (Reason: vertigo) ibuprofen 800 mg tablet 800 mg PO BID losartan-hydrochlorothiazide 100-25 mg tablet 1 tab PO DAILY potassium chloride 20 mEq tablet,ER particles/crystals 20 meq PO BID atorvastatin 10 mg tablet 10 mg PO DAILY coenzyme Q10 100 mg capsule 100 mg PO DAILY albuterol sulfate 90 mcg/actuation HFA aerosol inhaler 2 puff INHALATION 4X/DAY PRN PRN (Reason: wheezing) cephalexin 500 mg capsule 500 mg PO Q6H Referrals / Follow Up: Toshia Meier NP, INS[employer]-C [Primary Care Provider, Family Practice] Disposition Disposition (needs filled in before D/C Order can be placed): Home, Self Care
--- NOTE | 2025-08-13 12:38 | PCM.OPRPT ---
Operative Report (Standard) Operative Information Date of Procedure: 08/13/25 Pre-Operative Diagnosis: 1. chronic pansinusitis Post-Operative Diagnosis: 1. chronic pansinusitis Surgery/Procedure Performed: 1. endoscopic revision maxillary antrostomy with removal of contents, right and left 2. endoscopic revision total ethmoidecotmy, right and left 3. endoscopic revision sphenoidotomy with removal of contents, right and left 4. endoscopic revision frontal sinus exploration removal of contents, right and left 5. 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 The patient was placed under general endotracheal anesthesia by the anesthesiologist. The endotracheal tube was secured. The eyes were taped. The table was rotated 90 degrees towards the surgeon. Lacri-Lube was placed in the eyes; CT image guidance navigation was set up and accuracy was confirmed. the zero degree endoscope was used to evaluate the nasal cavity. the superior attachment of the right and left middle turbinate and uncinate processes were injected with lidocaine/epinephrine. the left nasal cavity was evaluated. the middle turbinate was medialized. a revision maxillary antrostomy and uncinectomy were performed with a kurt elevator and a cheli cut. the antrostomy was widened with a back-biter. purulent material was evacuated. the ethmoid bulla was entered bluntly with the suction. a revision total ethmoidectomy was performed with a curette and an upgoing blakesley. this was taken superiorly to the skull base and laterally to the lamina. a stankewicz maneuver was performed and no laminar defect was noted. the natural sphenoid os was widened with the microdebrider and contents were evacuated. fungus was removed from the sphenoethmoidal recess. the frontal recess was explored and contents were evacuated. the anterior/inferior portion of the middle turbinate was removed with a scissor and thru cut. hemostasis was achieved with suction cautery; delma was placed. the right nasal cavity was evaluated. the middle turbinate was medialized. a revision maxillary antrostomy and uncinectomy were performed with a kurt elevator and a cheli cut. the antrostomy was widened with a back-biter. purulent material was evacuated. the ethmoid bulla was entered bluntly with the suction. a revision total ethmoidectomy was performed with a curette and an upgoing blakesley. this was taken superiorly to the skull base and laterally to the lamina. a stankewicz maneuver was performed and no laminar defect was noted. the natural sphenoid os was widened with the microdebrider and contents were evacuated. fungus was removed from the sphenoethmoidal recess. the frontal recess was explored and contents were evacuated. the anterior/inferior portion of the middle turbinate was removed with a scissor and thru cut. hemostasis was achieved with suction cautery; delma was placed. a nasogastric tube was inserted orally and contents were evacuated. the table was rotated 90 degrees toward the anesthesiologist and was subsequently extubated uneventfully. she was transferred to the PACU in stable condition. Surgical Findings: n/a Complications Complications: No
[2025-08-13] MEDS: fentaNYL 100 MCG/2 ML Ampul IV (12:41)
[2025-08-13] MEDS: Lidocaine 1% (5 ml sdv) 5 ML Vial IV (12:41)
[2025-08-13] MEDS: Oxymetazoline 0.05% 1 SPRAY SPRAY.BTL 15 SPRAY ×2 (13:12→13:35)
[2025-08-13] MEDS: Lidocaine 1% /Epi 1:100 (20ml) 20 ML Vial (13:25)
--- NOTE | 2025-08-13 14:15 | PCM.POST.ANE ---
Anesthesia: Postop Eval I Current Vital Signs Temperature: 98.4 F Pulse Rate: 96 Blood Pressure: 141/95 Respiratory Rate: 16 Pulse Ox: 95 Oxygen Delivery Method: Nasal Cannula Oxygen Flow Rate (L/min): 4 Assessment Airway patent: Yes Spontaneous unlabored respirations: Yes Mental status: Awake and Calm nausea: No Vomiting: No Anesthesia Complication: No Fluid Hydration Crystalloid volume administer (ml): 700 Total IV fluid infused: 700 Progress Note Anesthesia document: Postop Eval 1 completed: Yes
--- NOTE | 2025-08-13 15:34 | POSTOPAN2_ITS ---
Anesthesia Postop Eval I Sum Postop Eval Completion status Anesthesia document: Postop Eval 1 completed: Yes Anesthesia Postop Eval I Summary Anesthesia Postop Eval I Summary: Anesthesia Postop Eval I: Assessment Summary Airway patent Yes 08/13/25 14:17 APPLICATION [email or web address].[email or web address] Spontaneous unlabored Yes 08/13/25 14:17 APPLICATION ADMINISTRATOR.[email or web address] respirations Mental status Awake,Calm 08/13/25 14:17 APPLICATION [email or web address].[email or web address] nausea No 08/13/25 14:17 APPLICATION ADMINISTRATOR.[email or web address] Vomiting No 08/13/25 14:17 APPLICATION ADMINISTRATOR.[email or web address] Anesthesia Postop Eval I: Fluid Summary Crystalloid volume administer 700 08/13/25 14:17 APPLICATION ADMINISTRATOR.GDOTT (ml) Colloids volume administered ( ml) Blood Product volume administered (ml) Total IV fluid infused 700 08/13/25 14:17 APPLICATION ADMINISTRATOR.GDOTT Anesthesia Postop Eval I: Summary Notes Anesthesia Complication No 08/13/25 14:17 APPLICATION ADMINISTRATOR.[email or web address] Anesthesia Complication Comment: Post-operative progress note Anesthesia: Postop Eval II Evaluation Mental status: Awake Pain Level: 0 nausea: No Vomiting: No Complications Anesthesia Complication: No
--- NOTE | 2025-08-13 15:34 | PCM.POSTANE2 ---
Anesthesia Postop Eval I Sum Postop Eval Completion status Anesthesia document: Postop Eval 1 completed: Yes Anesthesia Postop Eval I Summary Anesthesia Postop Eval I Summary: Anesthesia Postop Eval I: Assessment Summary Airway patent Yes 08/13/25 14:17 [email or web address] Spontaneous unlabored Yes 08/13/25 14:17 [email or web address] respirations Mental status Awake,Calm 08/13/25 14:17 [email or web address] nausea No 08/13/25 14:17 [email or web address] Vomiting No 08/13/25 14:17 [email or web address] Anesthesia Postop Eval I: Fluid Summary Crystalloid volume administer 700 08/13/25 14:17 [email or web address] (ml) Colloids volume administered ( ml) Blood Product volume administered (ml) Total IV fluid infused 700 08/13/25 14:17 [email or web address][email or web address] Anesthesia Postop Eval I: Summary Notes Anesthesia Complication No 08/13/25 14:17 [email or web address][email or web address] Anesthesia Complication Comment: Post-operative progress note Anesthesia: Postop Eval II Evaluation Mental status: Awake Pain Level: 0 nausea: No Vomiting: No Complications Anesthesia Complication: No
== END 2025-08-13 15:56 | disposition home or self-care (01) ==
LOC: SDC 10:30 → AC 10:31
PROVIDERS: PCP Nurse Practitioner Family; Referring Provider Otolaryngology; Visit Provider Otolaryngology
DX: J32.4 Chronic pansinusitis (principal); J31.0 Chronic rhinitis; I10 Essential (primary) hypertension; E78.00 Pure hypercholesterolemia, unspecified; Z79.899 Other long term (current) drug therapy
CPT/HCPCS: 31267; 31288; 31276; 00160; 85027; 88305; 88311; 93005; J2405